=== PATIENT | male | born 1945 | race Caucasian/White ===

== ENCOUNTER 2016-11-26 09:14 | Emergency (ER) | payer MEDICARE ==
--- NOTE | 2016-11-26 09:29 | EKG REPORT ---
SEVERITY:- ABNORMAL ECG - SINUS RHYTHM RIGHT BUNDLE BRANCH BLOCK : Confirmed by: Stacie Selby 26-Nov-2016 09:28:24
[2016-11-26] MEDS ORDERED: DIPHENHYDRAMINE HCL 50 MG/ML VIAL IV ONE (10:15)
[2016-11-26] MEDS ORDERED: METOCLOPRAMIDE HCL INJ/PF 10 MG/2 ML SDV IV ONE (10:15)
--- NOTE | 2016-11-26 10:15 | ER Document Report ---
ED General - General Chief Complaint: Chest Pain Stated Complaint: HEAD PAIN Time seen by provider: 10:11 Mode of Arrival: Ambulatory Information source: Patient Notes: This is a 71-year-old man with a history of COPD, obstructive sleep apnea, hypertension, dyslipidemia and migraines in the past. The patient presents to the emergency room with gradual onset of a frontal headache. He denies any fever, chills, vomiting. He does admit to nausea. The patient had severe migraines when he was younger and has not had any recently. He denies that this is the worst headache of his life. TRAVEL OUTSIDE OF THE [place] IN LAST 30 DAYS: No - HPI Onset: Yesterday Onset/Duration: Gradual Quality of pain: Dull Severity: Moderate Pain Level: 3 Associated symptoms: denies: Chills, Fever, Shortness of breath Exacerbated by: Denies Relieved by: Denies Similar symptoms previously: Yes Recently seen / treated by doctor: Yes - Related Data Allergies/Adverse Reactions: lisinopril [Lisinopril] Allergy (Verified 10/04/16 08:48) moxifloxacin HCl [From Avelox] Allergy (Verified 10/04/16 08:48) acetaminophen [From Tylenol] Adverse Reaction (Verified 10/04/16 08:48) Past Medical History - Social History Smoking Status: Current Every Day Smoker Chew tobacco use (# tins/day): No Frequency of alcohol use: None Drug Abuse: None Lives with: Family Family History: CAD Patient has suicidal ideation: No Patient has homicidal ideation: No - Past Medical History Cardiac Medical History: Reports: Hx Hypercholesterolemia, Hx Hypertension Denies: Hx Coronary Artery Disease, Hx Heart Attack Pulmonary Medical History: Reports: Hx Bronchitis, Hx COPD, Hx Pneumonia Denies: Hx Asthma Neurological Medical History: Denies: Hx Cerebrovascular Accident, Hx Seizures Endocrine Medical History: Denies: Hx Diabetes Mellitus Type 2 Renal/ Medical History: Reports: Hx Renal Insufficiency. Denies: Hx Peritoneal Dialysis Musculoskeltal Medical History: Reports Hx Arthritis Psychiatric Medical History: Reports: Hx Depression Surgical Hx: Other - Noncontributory - Immunizations Hx Diphtheria, Pertussis, Tetanus Vaccination: No - unknown Hx Pneumococcal Vaccination: 10/23/12 Review of Systems - Review of Systems Constitutional: denies: Chills, Fever EENT: No symptoms reported Cardiovascular: No symptoms reported Respiratory: No symptoms reported Gastrointestinal: No symptoms reported Genitourinary: No symptoms reported Male Genitourinary: No symptoms reported Musculoskeletal: No symptoms reported Skin: No symptoms reported Hematologic/Lymphatic: No symptoms reported Neurological/Psychological: See HPI Physical Exam - Vital signs Vitals: Temp Pulse Resp BP Pulse Ox 97.7 F 111 H 20 136/83 H 97 11/26/16 09:30 11/26/16 09:30 11/26/16 09:30 11/26/16 09:30 11/26/16 09:30 Notes: Physical exam: GENERAL: 71-year-old man, alert and oriented 3, no acute distress. He does appear comfortable. His GCS is 15. HEAD: Atraumatic, normocephalic. EYES: Pupils equally round. He is legally blind in his left eye and there is minimal pupil constriction with light (this is probably a chronic finding). Extraocular movements intact, sclera anicteric, conjunctiva are normal. ENT: TMs normal, nares patent, oropharynx clear without exudates. Moist mucous membranes. NECK: Normal range of motion, supple without lymphadenopathy or JVD. LUNGS: Breath sounds clear to auscultation bilaterally and equal. No wheezes rales or rhonchi. HEART: Regular rate and rhythm without murmurs, rubs or gallops. ABDOMEN: Soft, nontender, normoactive bowel sounds. No guarding, no rebound. No masses appreciated. EXTREMITIES: Normal range of motion, no pitting or edema. No clubbing or cyanosis. NEUROLOGICAL: Cranial nerves II through XII grossly intact. Pupil findings as noted above. Motor is 5 over 5, sensory grossly intact, cerebellar (finger to nose) is very good. The patient's neck is supple. There is no Brudzinski's, no Kernig's. PSYCH: Normal mood, normal affect. SKIN: Warm, Dry, normal turgor, no rashes or lesions noted. Course - Re-evaluation Re-evalutation: 11/26/16 17:13 I reassessed this patient. He does state he still has a headache but is feeling better, states she's hungry and looks quite good. I've discussed with him that the only thing we have not done, is a spinal tap for the possibility of meningitis. However, he is not febrile, has vital signs are stable and his repeat neurologic exam shows a supple neck, no Brudzinski's and no Kernig's. He has had a spinal tap in the past and states he absolutely does not want one. Quite frankly, at this point in time, I don't think he has meningitis or an acute bleed and he certainly has no signs of meningismus so I do not feel that that is an appropriate test at this time. However, I have reviewed signs and symptoms to return for: Specifically, neck stiffness, worsening headache or fever (I told him he might need a spinal tap if he develops these signs). Otherwise, he is cannot continue his current pain medicines and follow-up with Dr. Herman in a week. Note: The patient is happy with this plan. He does state his hungry. 11/26/16 17:17 11/26/16 20:01 - Vital Signs Vital signs: Temp Pulse Resp BP Pulse Ox 97.7 F 111 H 23 H 149/94 H 96 11/26/16 09:30 11/26/16 09:30 11/26/16 17:01 11/26/16 17:01 11/26/16 17:01 - Laboratory Result Diagrams: 11/26/16 10:00 11/26/16 10:00 Laboratory results interpreted by me: 11/26/16 11/26/16 11/26/16 10:00 10:00 10:00 WBC 11.4 H Absolute Neutrophils 8.4 H Chloride 97 L Carbon Dioxide 31 H BUN 39 H Glucose 129 H Calcium 10.9 H Creatine Kinase 52 L - Diagnostic Test Radiology reviewed: Image reviewed, Reports reviewed - EKG Interpretation by Me Rate: Normal Rhythm: NSR - EKG shows normal sinus rhythm with a ventricular rate of 94, right bundle-branch block, no acute ST-T wave changes, no change from EKG 2015. Discharge - Discharge Bad tableCondition: Stable Disposition: HOME, SELF-CARE Instructions: Headache ([facility]), Reglan ([facility]) Additional Instructions: Recommendations: Rest, drink plenty of fluids, take your medicines as previously prescribed. Take the Reglan: Every 6-8 hours for headache As we discussed: Return to the emergency room for neck stiffness, fever ( temperature greater than 100.5), worsening headache. These could be signs for meningitis and you may need a spinal tap if you are developing any signs. Follow-up with Dr. Herman. Bring a copy of today's labs and x-ray report and CT report with you when you go. Let Dr. Herman note that your blood pressure was borderline high in the emergency room.The blood pressure was 189/ 84 at its highest. Shortly before discharge, the blood pressure was 149/94. Prescriptions: Metoclopramide HCl [Reglan 10 mg Tablet] 1 - 2 tab PO ASDIR PRN #25 tablet PRN Reason: Forms: Elevated Blood Pressure Referrals: DANY HERMAN MD [Primary Care Provider] - Follow up as needed (Follow-up as planned in a week. Have your blood pressure rechecked.)
[2016-11-26 10:16] LABS: ABSOLUTE BASOPHILS # (AUTO) 0.1 10^3/uL (0.0-0.2); ABSOLUTE EOSINOPHILS # (AUTO) 0.3 10^3/uL (0.0-0.6); ABSOLUTE LYMPHOCYTES (AUTO) 1.8 10^3/uL (0.5-4.7); ABSOLUTE MONOCYTES (AUTO) 0.8 10^3/uL (0.1-1.4); ABSOLUTE NEUT (AUTO) 8.4 10^3/uL (1.7-8.2); BASOPHILS % (AUTO) 0.8 % (0-2); EOSINOPHILS % (AUTO) 2.8 % (0-6); HEMATOCRIT 45.1 % (37.9-51.0); HEMOGLOBIN 15.8 g/dL (13.5-17.0); HGB HCT DIFFERENCE 2.3; LYMPHOCYTES % (AUTO) 15.3 % (13-45); MEAN CORPUSCULAR HEMOGLOBIN 31.8 pg (27.0-33.4); MEAN CORPUSCULAR HGB CONC 34.9 g/dL (32.0-36.0); MEAN CORPUSCULAR VOLUME 91 fl (80-97); MONOCYTES % (AUTO) 7.3 % (3-13); RED BLOOD COUNT 4.95 10^6/uL (4.35-5.55); RED CELL DISTRIBUTION WIDTH 13.4 % (11.5-14.0); SEGMENTED NEUTROPHILS % (AUTO) 73.8 % (42-78); WHITE BLOOD COUNT 11.4 10^3/uL (4.0-10.5)
[2016-11-26] MEDS ORDERED: HYDROMORPHONE HCL INJ/PF 2 MG/ML AMPULE IV ONE (10:16)
[2016-11-26 10:44] LABS: ALANINE AMINOTRANSFERASE 45 U/L (21-72); ALBUMIN 4.9 g/dL (3.5-5.0); ALKALINE PHOSPHATASE 90 U/L (38-126); ANION GAP 12 (5-19); ASPARTATE AMINO TRANSFERASE 29 U/L (17-59); BILIRUBIN,TOTAL 0.9 mg/dL (0.2-1.3); BLOOD UREA NITROGEN 39 mg/dL (7-20); CALCIUM 10.9 mg/dL (8.4-10.2); CARBON DIOXIDE 31 mmol/L (22-30); CHLORIDE 97 mmol/L (98-107); CREATININE RESULT 0.96 mg/dL (0.52-1.25); GLUCOSE 129 mg/dL (75-110); POTASSIUM 3.7 mmol/L (3.6-5.0); SODIUM 140.2 mmol/L (137-145); TOTAL PROTEIN 7.9 g/dL (6.3-8.2)
[2016-11-26 10:56] LABS: CREATINE KINASE MB 3.15 ng/mL (<4.55); TROPONIN I 0.018 ng/mL
[2016-11-26] MEDS ORDERED: NORMAL SALINE 1000 ML 1,000 ML IV PRN (11:06)
[2016-11-26 17:05] VITALS: BP 149/94
== END 2016-11-26 17:38 | disposition home or self-care (01) ==
LOC: ER 09:14
DX: R51 Headache (principal); I10 Essential (primary) hypertension; I45.10 Unspecified right bundle-branch block; H54.42 Blindness, left eye, normal vision right eye; R11.0 Nausea; J44.9 Chronic obstructive pulmonary disease, unspecified; F17.200 Nicotine dependence, unspecified, uncomplicated; Z86.69 Personal history of other diseases of the nervous system and sense organs; Z88.8 Allergy status to other drugs, medicaments and biological substances; Z88.1 Allergy status to other antibiotic agents
CPT/HCPCS: 93005; 99285; 96361; 96374; 96375; 36415; 82553; 82550; 85025; 80053; 84484; 71010; 70450; 93010; J1200; J2765; J1170; J7030

== ENCOUNTER 2017-01-27 14:08 | Inpatient (IN) | payer MEDICARE ==
--- NOTE | 2017-01-27 15:54 | ER Document Report ---
ED Medical Screen (RME) - General Chief Complaint: Chest Congestion Stated Complaint: COUGH/CONGESTION Notes: Patient is complaining of "tightness" all over his chest for the past 3 days. Pain goes around into the flank regions. This morning, he felt as if his throat was swollen and couldn't swallow symptoms have worsened today. Patient has been a lifelong smoker, although he stopped about 3 weeks ago. He says he is coughing up brown chunks of phlegm. Unaware of any fever. PMH: Hernia repair 6 months ago, low potassium, glaucoma, hypertension, chronic back and neck pain. TRAVEL OUTSIDE OF THE [place] IN LAST 30 DAYS: No - Related Data Allergies/Adverse Reactions: lisinopril [Lisinopril] Allergy (Verified 01/27/17 14:12) moxifloxacin HCl [From Avelox] Allergy (Verified 01/27/17 14:12) acetaminophen [From Tylenol] Adverse Reaction (Verified 01/27/17 14:12) Past Medical History - Past Medical History Cardiac Medical History: Reports: Hx Hypercholesterolemia, Hx Hypertension Denies: Hx Coronary Artery Disease, Hx Heart Attack Pulmonary Medical History: Reports: Hx Bronchitis, Hx COPD, Hx Pneumonia Denies: Hx Asthma Neurological Medical History: Denies: Hx Cerebrovascular Accident, Hx Seizures Endocrine Medical History: Denies: Hx Diabetes Mellitus Type 2 Renal/ Medical History: Reports: Hx Renal Insufficiency. Denies: Hx Peritoneal Dialysis Musculoskeltal Medical History: Reports Hx Arthritis Psychiatric Medical History: Reports: Hx Depression - Immunizations Hx Diphtheria, Pertussis, Tetanus Vaccination: No - unknown Physical Exam - Vital signs Vitals: Temp Pulse Resp BP Pulse Ox 97.5 F 135 H 24 H 138/85 H 93 01/27/17 14:14 01/27/17 14:14 01/27/17 14:14 01/27/17 14:14 01/27/17 14:14 Course - Vital Signs Vital signs: Temp Pulse Resp BP Pulse Ox 97.5 F 135 H 24 H 138/85 H 93 01/27/17 14:14 01/27/17 14:14 01/27/17 14:14 01/27/17 14:14 01/27/17 14:14
[2017-01-27 16:33] LABS: ABSOLUTE BASOPHILS # (AUTO) 0.1 10^3/uL (0.0-0.2); ABSOLUTE EOSINOPHILS # (AUTO) 0.3 10^3/uL (0.0-0.6); ABSOLUTE LYMPHOCYTES (AUTO) 1.7 10^3/uL (0.5-4.7); ABSOLUTE MONOCYTES (AUTO) 1.5 10^3/uL (0.1-1.4); ABSOLUTE NEUT (AUTO) 12.9 10^3/uL (1.7-8.2); BASOPHILS % (AUTO) 0.7 % (0-2); EOSINOPHILS % (AUTO) 1.7 % (0-6); HEMATOCRIT 43.1 % (37.9-51.0); HEMOGLOBIN 15.1 g/dL (13.5-17.0); HGB HCT DIFFERENCE 2.2; LYMPHOCYTES % (AUTO) 10.3 % (13-45); MEAN CORPUSCULAR HEMOGLOBIN 31.9 pg (27.0-33.4); MEAN CORPUSCULAR HGB CONC 35.1 g/dL (32.0-36.0); MEAN CORPUSCULAR VOLUME 91 fl (80-97); MONOCYTES % (AUTO) 9.2 % (3-13); RED BLOOD COUNT 4.73 10^6/uL (4.35-5.55); RED CELL DISTRIBUTION WIDTH 14.5 % (11.5-14.0); SEGMENTED NEUTROPHILS % (AUTO) 78.1 % (42-78); WHITE BLOOD COUNT 16.6 10^3/uL (4.0-10.5)
[2017-01-27] MEDS ORDERED: NORMAL SALINE 1000 ML 1,000 ML IV ONE (16:39)
[2017-01-27] MEDS ORDERED: IPRATROPIUM/ALBUTEROL 0.5-2.5 MG/3 ML AMPUL NEB ONE ×2 (16:40→17:38)
[2017-01-27 16:44] LABS: ALANINE AMINOTRANSFERASE 30 U/L (21-72); ALBUMIN 4.5 g/dL (3.5-5.0); ALKALINE PHOSPHATASE 110 U/L (38-126); ANION GAP 19 (5-19); ASPARTATE AMINO TRANSFERASE 25 U/L (17-59); BILIRUBIN,DIRECT 0.6 mg/dL (0.0-0.4); BILIRUBIN,TOTAL 1.4 mg/dL (0.2-1.3); BLOOD UREA NITROGEN 27 mg/dL (7-20); CALCIUM 10.4 mg/dL (8.4-10.2); CARBON DIOXIDE 30 mmol/L (22-30); CHLORIDE 92 mmol/L (98-107); CREATINE KINASE 61 U/L (55-170); CREATININE RESULT 1.05 mg/dL (0.52-1.25); GLUCOSE 126 mg/dL (75-110); POTASSIUM 3.6 mmol/L (3.6-5.0); SODIUM 141.2 mmol/L (137-145); TOTAL PROTEIN 8.1 g/dL (6.3-8.2)
[2017-01-27 16:57] LABS: CREATINE KINASE MB 1.09 ng/mL (<4.55); TROPONIN I 0.026 ng/mL
--- NOTE | 2017-01-27 17:01 | ER Document Report ---
ED General - General Mode of Arrival: Ambulatory Information source: Patient TRAVEL OUTSIDE OF THE [place] IN LAST 30 DAYS: No - HPI Patient complains to provider of: Chest Pain and Sore Throat Onset: Other - 3 days ago Associated symptoms: Other - see notes aboe <JERRY WADE - Last Filed: 01/27/17 17:57> <ROSANNEJOSH CHAN - Last Filed: 01/27/17 22:01> - General Chief Complaint: Chest Congestion Stated Complaint: COUGH/CONGESTION Notes: 71 year old male with history of COPD, hypertension, and hyperlipidemia and acute renal failure presents to the ED complaining of left lower rib pain and sore throat that started 3 days ago. Patient reports that he believes he has a "bug". Patient denies fever, but states that he has mild shortness of breath. ( JERRY WADE) - Related Data Allergies/Adverse Reactions: lisinopril [Lisinopril] Allergy (Verified 01/27/17 14:12) moxifloxacin HCl [From Avelox] Allergy (Verified 01/27/17 14:12) acetaminophen [From Tylenol] Adverse Reaction (Verified 01/27/17 14:12) Past Medical History - General Information source: Patient - Social History Smoking Status: Unknown if Ever Smoked Family History: CAD Patient has suicidal ideation: No Patient has homicidal ideation: No - Past Medical History Cardiac Medical History: Reports: Hx Hypercholesterolemia, Hx Hypertension Pulmonary Medical History: Reports: Hx Bronchitis, Hx COPD, Hx Pneumonia Renal/ Medical History: Reports: Hx Renal Insufficiency. Denies: Hx Peritoneal Dialysis Musculoskeltal Medical History: Reports Hx Arthritis Psychiatric Medical History: Reports: Hx Depression - Immunizations Hx Diphtheria, Pertussis, Tetanus Vaccination: No - unknown Hx Pneumococcal Vaccination: 10/23/12 <JERRY WADE - Last Filed: 01/27/17 17:57> Review of Systems - Review of Systems Constitutional: No symptoms reported. denies: Fever EENT: See HPI, Throat pain Cardiovascular: See HPI, Chest pain - left lower rib pain Respiratory: See HPI, Short of breath - mild Gastrointestinal: No symptoms reported Genitourinary: No symptoms reported Male Genitourinary: No symptoms reported Musculoskeletal: No symptoms reported Skin: No symptoms reported Hematologic/Lymphatic: No symptoms reported Neurological/Psychological: No symptoms reported -: Yes All other systems reviewed and negative <JERRY WADE - Last Filed: 01/27/17 17:57> Physical Exam - Vital signs Interpretation: Tachycardic, Hypoxic, Tachypneic - General General appearance: Alert In distress: Mild - HEENT Head: Normocephalic, Atraumatic Extraocular movements intact: Yes Mucous membranes: Dry Pharynx: Normal Neck: Normal - Respiratory Respiratory status: Respiratory distress - mild, Tachypnea Chest status: Tender - anterior chest wall TTP Breath sounds: Decreased air movement - b/l, Wheezing - Abdominal Inspection: Normal Tenderness: Nontender - Back Back: Normal, Nontender - Extremities General upper extremity: Normal inspection, Normal ROM General lower extremity: Normal inspection, Normal ROM - Neurological Neuro grossly intact: Yes Cognition: Normal Orientation: AAOx4 [place] Coma Scale Eye Opening: Spontaneous [place] Coma Scale Verbal: Oriented [place] Coma Scale Motor: Obeys Commands Romelia Coma Scale Total: 15 - Psychological Associated symptoms: Normal affect, Normal mood - Skin Skin Temperature: Warm Skin Moisture: Dry <JOSH LAY - Last Filed: 01/27/17 22:01> - Vital signs Vitals: Temp Pulse Resp BP Pulse Ox 97.5 F 135 H 24 H 138/85 H 93 01/27/17 14:14 01/27/17 14:14 01/27/17 14:14 01/27/17 14:14 01/27/17 14:14 Course - Laboratory Result Diagrams: 01/27/17 16:00 01/27/17 16:00 - Consults Dr. Zeng Time consulted: 17:43 <JERRY WADE - Last Filed: 01/27/17 17:57> - Laboratory Result Diagrams: 01/27/17 16:00 01/27/17 16:00 - Diagnostic Test Radiology reviewed: Image reviewed, Reports reviewed - EKG Interpretation by Me EKG shows normal: Sinus rhythm Rate: Normal Rhythm: NSR <JOSH LAY - Last Filed: 01/27/17 22:01> - Re-evaluation Re-evalutation: 01/27/17 Patient is a 8-year-old male who presents with difficulty breathing, productive cough for the last 2-3 days, wheezing, and hypoxemia. He is not on oxygen at home. The patient does not have a fever. Patient did not produce sputum the emergency department. Patient was given nebulizer treatments and Solu-Medrol. Patient continues to wheeze and has hypoxemia with exertion. No chest pain. Troponin negative. No changes on EKG. Patient is in a sinus rhythm. Patient will be referred to the hospitalist service for admission. Stable at this time. Agrees with plan. (JOSH LAY) - Vital Signs Vital signs: Temp Pulse Resp BP Pulse Ox 97.5 F 135 H 24 H 138/85 H 93 01/27/17 14:14 01/27/17 14:14 01/27/17 14:14 01/27/17 14:14 01/27/17 14:14 - Laboratory Laboratory results interpreted by me: 01/27/17 01/27/17 16:00 16:00 WBC 16.6 H RDW 14.5 H Seg Neutrophils % 78.1 H Lymphocytes % 10.3 L Absolute Neutrophils 12.9 H Absolute Monocytes 1.5 H Chloride 92 L BUN 27 H Glucose 126 H Calcium 10.4 H Total Bilirubin 1.4 H Direct Bilirubin 0.6 H - EKG Interpretation by Me Additional EKG results interpreted by me: 01/27/17 No change from previous (JOSH LAY) - Consults Dr. Zeng Reason for consultation: 01/27/17 17:43 Patient was discussed with Dr. Zeng and agrees to admit the patient. (JERRY WADE) Critical Care Note - Critical Care Note Total time excluding time spent on procedures (mins): 35 - evaluation and management of respiratory distress, multiple re-evaluations, coordination of admission, counseling of patient <JOSH LAY - Last Filed: 01/27/17 22:01> Discharge <JERRY WADE - Last Filed: 01/27/17 17:57> - Discharge Admitting Provider: Abhi Zeng Unit Admitted: Telemetry <JOSH LAY - Last Filed: 01/27/17 22:01> - Discharge Clinical Impression: COPD exacerbation, Hypoxemia, Respiratory distress Condition: Stable Disposition: ADMITTED INPATIENT Scribe Attestation: 01/27/17 22:01 I personally performed the services described in the documentation, reviewed and edited the documentation which was dictated to the scribe in my presence, and it accurately records my words and actions. (JOSH LAY) Scribe Documentation - Scribe Written by Eric:: Eric Lewis, 01/27/2017 1726 acting as scribe for :: Rosanne <JERRY WADE - Last Filed: 01/27/17 17:57>
[2017-01-27] MEDS ORDERED: DOXYCYCLINE HYCLATE INJ 100 MG VIAL IV ONE (17:38)
[2017-01-27] MEDS ORDERED: METHYLPREDNISOLONE INJ 125 MG/2 ML SDV IV ONE (17:45)
[2017-01-27] MEDS: MAGNESIUM SULFATE/D5W 100 ML IV SCH ×2 (18:40→21:04)
[2017-01-27] MEDS ORDERED: NORMAL SALINE 1000 ML 1,000 ML IV PRN (18:59)
[2017-01-27] MEDS ORDERED: MAGNESIUM HYDROXIDE SUSP 30 ML UDCUP PO PRN (18:59)
[2017-01-27 20:54] LABS: APPEARANCE,URINE SLIGHTLY-CLOUDY; BILIRUBIN,URINE NEGATIVE (NEGATIVE); GLUCOSE, URINE NEGATIVE (NEGATIVE); KETONES,URINE NEGATIVE (NEGATIVE); LEUKOCYTE ESTERASE,URINE NEGATIVE (NEGATIVE); NITRITE,URINE NEGATIVE (NEGATIVE); PROTEIN,URINE >=500 mg/dL (NEGATIVE)
[2017-01-27] MEDS: PIPERACILLIN SODIUM/TAZOBACTAM 3.375 GM in NORMAL SALINE 100 ML IV SCH (21:07)
[2017-01-27] MEDS: IPRATROPIUM/ALBUTEROL 0.5-2.5 MG/3 ML AMPUL NEB SCH (21:10)
[2017-01-27] MEDS: METHYLPREDNISOLONE INJ 40 MG/1 ML SDV IV SCH (22:22)
--- NOTE | 2017-01-27 22:29 | EKG REPORT ---
SEVERITY:- ABNORMAL ECG - SINUS TACHYCARDIA RIGHT BUNDLE BRANCH BLOCK : Confirmed by: Carrie Cantu MD 27-Jan-2017 22:28:00
[2017-01-27 23:47] LABS: ARTERIAL BLOOD O2 SATURATION 97.3 % (94-98)
[2017-01-28] MEDS: PIPERACILLIN SODIUM/TAZOBACTAM 3.375 GM in NORMAL SALINE 100 ML IV SCH ×4 (02:59→20:10)
[2017-01-28] MEDS: LANSOPRAZOLE 15 MG TAB.RAP.DR PO SCH (06:11)
[2017-01-28] MEDS: METHYLPREDNISOLONE INJ 40 MG/1 ML SDV IV SCH ×3 (06:11→22:54)
[2017-01-28 06:32] LABS: ABSOLUTE LYMPHOCYTES (AUTO) 0.7 10^3/uL (0.5-4.7); ABSOLUTE MONOCYTES (AUTO) 0.2 10^3/uL (0.1-1.4); ABSOLUTE NEUT (AUTO) 11.1 10^3/uL (1.7-8.2); BASOPHILS % (AUTO) 0.1 % (0-2); EOSINOPHILS % (AUTO) 0.1 % (0-6); HEMATOCRIT 38.8 % (37.9-51.0); HEMOGLOBIN 13.9 g/dL (13.5-17.0); HGB HCT DIFFERENCE 2.9; LYMPHOCYTES % (AUTO) 5.5 % (13-45); MEAN CORPUSCULAR HEMOGLOBIN 32.2 pg (27.0-33.4); MEAN CORPUSCULAR HGB CONC 35.9 g/dL (32.0-36.0); MEAN CORPUSCULAR VOLUME 90 fl (80-97); MONOCYTES % (AUTO) 1.6 % (3-13); RED BLOOD COUNT 4.34 10^6/uL (4.35-5.55); RED CELL DISTRIBUTION WIDTH 14.4 % (11.5-14.0); SEGMENTED NEUTROPHILS % (AUTO) 92.7 % (42-78)
[2017-01-28] MEDS: IPRATROPIUM/ALBUTEROL 0.5-2.5 MG/3 ML AMPUL NEB SCH ×3 (08:46→20:16)
[2017-01-28] MEDS: ENOXAPARIN SODIUM INJ 40 MG/0.4 ML DISP.SYRIN SUBCUT SCH (10:05)
[2017-01-28] MEDS ORDERED: SPIRONOLACTONE 25 MG TABLET PO PRN (10:09)
[2017-01-28] MEDS ORDERED: HYDROMORPHONE HCL INJ/PF 2 MG/ML AMPULE IV PRN (10:11)
[2017-01-28] MEDS: DOCUSATE SODIUM 100 MG CAPSULE PO SCH (10:54)
[2017-01-28] MEDS ORDERED: AMLODIPINE BESYLATE 5 MG TABLET PO ONE (11:00)
[2017-01-28] MEDS ORDERED: MAGNESIUM OXIDE 400 MG TABLET PO ONE (11:00)
[2017-01-28] MEDS ORDERED: VENLAFAXINE HCL 75 MG TABLET PO ONE (11:00)
[2017-01-28] MEDS: POTASSIUM CHLORIDE 10 MEQ TABLET.SA PO SCH ×3 (13:08→23:54)
--- NOTE | 2017-01-28 14:17 | PDOC H&P ---
History of Present Illness Admission Date/PCP: 01/27/17 18:45 Lloyd Marmolejo MD Patient complains of: dyspnea and worsening cough History of Present Illness: LUTHER LIPSCOMB is a 71 year old male presents to the hospital with a three- day history of progressive worsening shortness of breath, increased sputum production of a yellow-green purulent appearance, increasing wheezing, increasing rescue inhaler use, sore throat, myalgias and arthralgias. He reports numerous sick contacts multiple family members have been ill with upper respiratory symptoms. He received his influenza and pneumonia vaccine earlier this season. He denies fever, chills, headache, chest pain, palpitations, nausea and vomiting and diarrhea. He does not wear home O2 nor does he have a nebulizer machine nor is he steroid dependent. Eval in the emergency department shows what appears to be a COPD exacerbation with an acute bacterial bronchitis and we've been asked to admit for further evaluation and management. Here physician reports that he was 78% on room air but came up to 92% on 2 L. He is otherwise hemodynamically stable. Past Medical History Cardiac Medical History: Reports: Hyperlipidema, Hypertension Denies: Coronary Artery Disease, Myocardial Infarction Pulmonary Medical History: Reports: Bronchitis, Chronic Obstructive Pulmonary Disease (COPD), Pneumonia Denies: Asthma Neurological Medical History: Denies: Seizures Endocrine Medical History: Denies: Diabetes Mellitus Type 2 Musculoskeltal Medical History: Reports: Arthritis Psychiatric Medical History: Reports: Depression Hematology: Denies: Anemia Social History Information Source: Patient Smoking Status: Former Smoker - quit this past December Frequency of Alcohol Use: None Hx Recreational Drug Use: No Drugs: None Hx Prescription Drug Abuse: No - Advance Directive Resuscitation Status: Full Code Family History Family History: CAD Parental Family History Reviewed: Yes Children Family History Reviewed: Yes Sibling(s) Family History Reviewed.: Yes Medication/Allergy Home Medications: Amlodipine Besylate [Norvasc 5 mg Tablet] 5 mg PO DAILY 01/27/17 Docusate Sodium [Colace 100 mg Capsule] 100 mg PO QHS 01/27/17 Fluticasone/Vilanterol [Breo Ellipta 200-25 Mcg INH] 1 puff IH DAILY 01/27/17 Hydromorphone HCl [Dilaudid] 4 mg PO Q4HP PRN 01/27/17 Magnesium Oxide [Mag-Ox 400 mg Tablet] 400 mg PO Q12 01/27/17 Methylcellulose [Fiber Therapy] 500 mg PO Q12 01/27/17 Potassium Chloride [K-Tab ER] 20 meq PO Q6 01/27/17 Pravastatin Sodium [Pravachol] 40 mg PO QHS 01/27/17 Spironolactone [Aldactone 25 mg Tablet] 25 mg PO DAILYP PRN 01/27/17 Venlafaxine HCl [Effexor 75 mg Tablet] 75 mg PO Q12 01/27/17 Allergies/Adverse Reactions: lisinopril [Lisinopril] Allergy (Verified 01/27/17 14:12) moxifloxacin HCl [From Avelox] Allergy (Verified 01/27/17 14:12) acetaminophen [From Tylenol] Adverse Reaction (Verified 01/27/17 14:12) Review of Systems Constitutional: ABSENT: chills, fever(s), headache(s), weight gain, weight loss Eyes: ABSENT: visual disturbances Ears: ABSENT: hearing changes Cardiovascular: ABSENT: chest pain, dyspnea on exertion, edema, orthropnea, palpitations Respiratory: ABSENT: cough, hemoptysis Gastrointestinal: ABSENT: abdominal pain, constipation, diarrhea, hematemesis, hematochezia, nausea, vomiting Genitourinary: ABSENT: dysuria, hematuria Musculoskeletal: ABSENT: joint swelling Integumentary: ABSENT: rash, wounds Neurological: ABSENT: abnormal gait, abnormal speech, confusion, dizziness, focal weakness, syncope Psychiatric: ABSENT: anxiety, depression, homidical ideation, suicidal ideation Endocrine: ABSENT: cold intolerance, heat intolerance, polydipsia, polyuria Hematologic/Lymphatic: ABSENT: easy bleeding, easy bruising Physical Exam Vital Signs: Temp Pulse Resp BP Pulse Ox 97.5 F 135 H 24 H 138/85 H 93 01/27/17 14:14 01/27/17 14:14 01/27/17 14:14 01/27/17 14:14 01/27/17 14:14 PHYSICAL EXAM GENERAL: NAD; well developed, well nourished; no obese; alert and oriented to person, place, time, situation HEENT: normocephalic, atraumatic; EOMI, PERRLA, no conjunctival injection, no scleral icterus; oral mucosa moist,; neck supple, no LAD, normal ROM poor dentition RESPIRATORY: abdominal accessory muscle use, mild increased WOB, good air entry bilaterally; no wheezes, rales, rhonchi; no inspiratory crackles CARDIO: no JVD; RRR; no systolic murmur; tachycardia with incomplete RBBB on monitor VASCULAR: no carotid bruit; no abdominal bruit; no pallor; 2+ radial pulse GI: soft; nondistended; normal bowel sounds; no hepato spleno megaly; no rebound, rigidity, guarding NEURO: normal patella reflexes; normal sensation; normal motor function; no gait abnls; no dysarthria; no nystagmus; tongue protrudes midline; normal finger to nose; able to cross midline with finger to ear MSK: 5/5 strength; normal ROM hips; ambulatory without assistance; no tenderness EXTREMITIES: no calf tender; no palpable cords in calf; no clubbing, cyanosis , pedal edema PSYCH: normal affect, normal mood SKIN: warm; moist; no petechiae; no telengectasias; no jaundice; no rash Results Laboratory Results: cbc shows leukocytosis, abg shows pH 7.51, pCO2 38, pO2 87, HCO3 29, Dani normal Impressions: Chest X-Ray 01/27/17 15:51 IMPRESSION: REACTIVE AIRWAY DISEASE VERSUS VIRAL SYNDROME. NO CONSOLIDATION. Status: Image reviewed by me - no new focal area of disease i can see Assessment & Plan - Diagnosis (1) Acute bacterial bronchitis Is this a current diagnosis for this admission?: YesPlan: IV Zosyn; screen for influenza (2) COPD exacerbation Is this a current diagnosis for this admission?: YesPlan: IV systemic steroids, so we'll follow to wean as tolerated, scheduled and as needed nebulizers, incentive spirometer and flutter valve. (3) Hypoxemia Is this a current diagnosis for this admission?: YesPlan: Supplemental O2 and treat as above. - Time Time Spent: Greater than 70 Minutes Medications reviewed and adjusted accordingly: Yes Anticipated discharge: Home Within: within 48 hours - Inpatient Certification Based on my medical assessment, after consideration of the patient's comorbidities, presenting symptoms, or acuity I expect that the services needed warrant INPATIENT care.: Yes I certify that my determination is in accordance with my understanding of Medicare's requirements for reasonable and necessary INPATIENT services [42 CFR 412.3e].: Yes Medical Necessity: Failure to Improve With Outpatient Therapy, Significant Comorbidiites Make Outpatient Treatment Too Risky, Need for IV Antibiotics, Risk of Complication if Not Cared For in Hospital
--- NOTE | 2017-01-28 14:27 | PDOC PROGRESS REPORT ---
Subjective Progress Note for:: 01/28/17 Subjective:: Reason for follow-up visit: Acute bacterial bronchitis, COPD exacerbation, acute on chronic hypoxic respiratory failure Hospital course:LUTHER LIPSCOMB is a 71 year old male presents to the hospital with a three-day history of progressive worsening shortness of breath, increased sputum production of a yellow-green purulent appearance, increasing wheezing, increasing rescue inhaler use, sore throat, myalgias and arthralgias. He reports numerous sick contacts multiple family members have been ill with upper respiratory symptoms. He received his influenza and pneumonia vaccine earlier this season. He denies fever, chills, headache, chest pain, palpitations, nausea and vomiting and diarrhea. He does not wear home O2 nor does he have a nebulizer machine nor is he steroid dependent. Eval in the emergency department shows what appears to be a COPD exacerbation with an acute bacterial bronchitis and we've been asked to admit for further evaluation and management. Here physician reports that he was 78% on room air but came up to 92% on 2 L. He is otherwise hemodynamically stable. Patient was admitted to the hospital and started on broad-spectrum antibiotics and systemic IV steroids with scheduled nebulizers and states his breathing has improved though not quite back to baseline. ROS: Complaining of acute exacerbation of his lower chronic back pain, states that we have not yet entered his home medications and he is a little behind on his pain medicines as a result. Otherwise he denies chest pain, palpitations, headache. States his cough with phlegm of improved but not quite resolved. Otherwise remaining ROS: per HPI plus a total of 10 systems reviewed, pertinent positives and negatives noted above, remaining systems negative. Physical Exam Vital Signs: Temp Pulse Resp BP Pulse Ox 97.3 F 107 H 20 146/68 H 96 01/28/17 11:04 01/28/17 11:04 01/28/17 11:04 01/28/17 11:04 01/28/17 11:04 Intake & Output 01/27/17 01/28/17 01/29/17 06:59 06:59 06:59 Weight 82 kg PHYSICAL EXAM GENERAL: NAD; well developed, well nourished; no obese; alert and oriented to person, place, time, situation HEENT: normocephalic, atraumatic; EOMI, PERRLA, no conjunctival injection, no scleral icterus; oral mucosa moist,; neck supple, no LAD, normal ROM poor dentition RESPIRATORY: abdominal accessory muscle use, mild increased WOB, good air entry bilaterally;diffuse wheezes and rhonchi; bilat inspiratory crackles CARDIO: no JVD; RRR; no systolic murmur; tachycardia with incomplete RBBB on monitor VASCULAR: no carotid bruit; no abdominal bruit; no pallor; 2+ radial pulse GI: soft; nondistended; normal bowel sounds; no hepato spleno megaly; no rebound, rigidity, guarding NEURO: normal patella reflexes; normal sensation; normal motor function; no gait abnls; no dysarthria; no nystagmus; tongue protrudes midline; normal finger to nose; able to cross midline with finger to ear MSK: 5/5 strength; normal ROM hips; ambulatory without assistance; no tenderness EXTREMITIES: no calf tender; no palpable cords in calf; no clubbing, cyanosis , pedal edema PSYCH: normal affect, normal mood SKIN: warm; moist; no petechiae; no telengectasias; no jaundice; no rash Results Laboratory Results: 01/28/17 06:17 01/27/17 01/27/17 01/28/17 20:30 22:33 06:17 WBC 12.0 H RBC 4.34 L Hgb 13.9 Hct 38.8 MCV 90 MCH 32.2 MCHC 35.9 RDW 14.4 H Plt Count 279 Seg Neutrophils % 92.7 H Lymphocytes % 5.5 L Monocytes % 1.6 L Eosinophils % 0.1 Basophils % 0.1 Absolute Neutrophils 11.1 H Absolute Lymphocytes 0.7 Absolute Monocytes 0.2 Absolute Eosinophils 0.0 Absolute Basophils 0.0 Carbonic Acid 1.15 HCO3/H2CO3 Ratio 25:1 ABG pH 7.51 H ABG pCO2 38.1 ABG pO2 86.5 ABG HCO3 29.4 H ABG O2 Saturation 97.3 ABG Base Excess 6.0 FiO2 2 L Urine Color YELLOW Urine Appearance SLIGHTLY-CLOUDY Urine pH 7.0 Ur Specific [place] 1.020 Urine Protein >=500 H Urine Glucose (UA) NEGATIVE Urine Ketones NEGATIVE Urine Blood NEGATIVE Urine Nitrite NEGATIVE Ur Leukocyte Esterase NEGATIVE Urine WBC (Auto) 1 Urine RBC (Auto) 1 Assessment & Plan - Diagnosis (1) Acute bacterial bronchitis Is this a current diagnosis for this admission?: YesPlan: Improved but not back to baseline. In 10 year IV Zosyn; screen for influenza was negative. (2) COPD exacerbation Is this a current diagnosis for this admission?: YesPlan: Improved but not back to baseline. Continue IV systemic steroids, wean as tolerated, scheduled and as needed nebulizers, incentive spirometer and flutter valve. (3) Hypoxemia Is this a current diagnosis for this admission?: YesPlan: Improved. Supplemental O2 and treat as above. (4) Chronic low back pain Qualifiers: Back pain laterality: bilateral Sciatica laterality: bilateral sciatica Is this a current diagnosis for this admission?: YesPlan: Worse. Resume home medicine and add supplemental analgesia as needed (5) Narcotic dependence Is this a current diagnosis for this admission?: YesPlan: Resume his home regimen with supplemental IV medicines (6) HTN (hypertension) Qualifiers: Hypertension type: essential hypertension Qualified Code(s): I10 - Essential (primary) hypertension Is this a current diagnosis for this admission?: YesPlan: Worse. Resume home regimen and titrate. (7) Hyperlipidemia Qualifiers: Hyperlipidemia type: unspecified Qualified Code(s): E78.5 - Hyperlipidemia, unspecified Is this a current diagnosis for this admission?: YesPlan: Continue home medicines (8) JENAE (obstructive sleep apnea) Is this a current diagnosis for this admission?: YesPlan: Patient states he is supposed to wear CPAP at night but the hose and mask as deteriorated on his machine at home. Consult social security benefits interviewer for assistance with durable medical equipment. Nocturnal CPAP while hospitalized. - Time Time Spent with patient: 25-34 minutes Medications reviewed and adjusted accordingly: Yes Anticipated discharge: Home Within: within 72 hours
[2017-01-28] MEDS: HYDROMORPHONE HCL INJ/PF 2 MG/ML AMPULE IV PRN ×2 (14:41→20:11)
[2017-01-28] MEDS: HYDROMORPHONE HCL 2 MG TABLET PO PRN ×2 (18:07→22:54)
[2017-01-28] MEDS ORDERED: (PENDING PHARMACY ID) (Pravastatin Sodium [Pravachol] 40 MG) PO SCH (22:00)
[2017-01-28] MEDS: ATORVASTATIN CALCIUM 10 MG TABLET PO SCH (22:55)
[2017-01-28] MEDS: VENLAFAXINE HCL 75 MG TABLET PO SCH (22:55)
[2017-01-28] MEDS: MAGNESIUM OXIDE 400 MG TABLET PO SCH (22:55)
[2017-01-29] MEDS: HYDROMORPHONE HCL INJ/PF 2 MG/ML AMPULE IV PRN ×2 (02:01→20:55)
[2017-01-29] MEDS: PIPERACILLIN SODIUM/TAZOBACTAM 3.375 GM in NORMAL SALINE 100 ML IV SCH ×4 (02:03→20:55)
[2017-01-29] MEDS: LANSOPRAZOLE 15 MG TAB.RAP.DR PO SCH (06:21)
[2017-01-29] MEDS: METHYLPREDNISOLONE INJ 40 MG/1 ML SDV IV SCH ×3 (06:21→22:46)
[2017-01-29] MEDS: HYDROMORPHONE HCL 2 MG TABLET PO PRN ×2 (06:21→15:24)
[2017-01-29] MEDS: POTASSIUM CHLORIDE 10 MEQ TABLET.SA PO SCH ×4 (06:21→22:46)
[2017-01-29 06:31] LABS: HEMATOCRIT 33.2 % (37.9-51.0); HEMOGLOBIN 11.9 g/dL (13.5-17.0); HGB HCT DIFFERENCE 2.5; MEAN CORPUSCULAR HEMOGLOBIN 32.1 pg (27.0-33.4); MEAN CORPUSCULAR HGB CONC 35.8 g/dL (32.0-36.0); MEAN CORPUSCULAR VOLUME 90 fl (80-97); RED CELL DISTRIBUTION WIDTH 14.5 % (11.5-14.0); WHITE BLOOD COUNT 18.4 10^3/uL (4.0-10.5)
[2017-01-29 07:24] LABS: BAND NEUTROPHILS % (MANUAL) 1 % (3-5); BASOPHILS % (MANUAL) 0 % (0-2); EOSINOPHILS % (MANUAL) 0 % (0-6); LYMPHOCYTES % (MANUAL) 6 % (13-45); TOTAL CELLS COUNTED 100
[2017-01-29 07:25] LABS: ANISOCYTOSIS SLIGHT; POLYCHROMASIA SLIGHT
[2017-01-29] MEDS: IPRATROPIUM/ALBUTEROL 0.5-2.5 MG/3 ML AMPUL NEB SCH (09:01)
[2017-01-29] MEDS: DOCUSATE SODIUM 100 MG CAPSULE PO SCH (09:44)
[2017-01-29] MEDS: MAGNESIUM OXIDE 400 MG TABLET PO SCH ×2 (09:44→22:47)
[2017-01-29] MEDS: AMLODIPINE BESYLATE 5 MG TABLET PO SCH (09:44)
[2017-01-29] MEDS: VENLAFAXINE HCL 75 MG TABLET PO SCH ×2 (09:45→22:46)
[2017-01-29] MEDS: ENOXAPARIN SODIUM INJ 40 MG/0.4 ML DISP.SYRIN SUBCUT SCH (09:45)
[2017-01-29] MEDS ORDERED: SODIUM CHLORIDE NASAL SPRAY 44 ML NASL ONE (12:00)
--- NOTE | 2017-01-29 14:07 | PDOC PROGRESS REPORT ---
Subjective Progress Note for:: 01/29/17 Subjective:: Reason for follow-up visit: Acute bacterial bronchitis, COPD exacerbation, acute on chronic hypoxic respiratory failure Hospital course:LUTHER LIPSCOMB is a 71 year old male presents to the hospital with a three-day history of progressive worsening shortness of breath, increased sputum production of a yellow-green purulent appearance, increasing wheezing, increasing rescue inhaler use, sore throat, myalgias and arthralgias. He reports numerous sick contacts multiple family members have been ill with upper respiratory symptoms. He received his influenza and pneumonia vaccine earlier this season. He denies fever, chills, headache, chest pain, palpitations, nausea and vomiting and diarrhea. He does not wear home O2 nor does he have a nebulizer machine nor is he steroid dependent. Eval in the emergency department shows what appears to be a COPD exacerbation with an acute bacterial bronchitis and we've been asked to admit for further evaluation and management. Here physician reports that he was 78% on room air but came up to 92% on 2 L. He is otherwise hemodynamically stable. Patient was admitted to the hospital and started on broad-spectrum antibiotics and systemic IV steroids with scheduled nebulizers and states his breathing has improved though not quite back to baseline. ROS: he denies chest pain, palpitations, headache. States his cough with phlegm of improved but not quite resolved. Otherwise remaining ROS: per HPI plus a total of 10 systems reviewed, pertinent positives and negatives noted above, remaining systems negative. Physical Exam Vital Signs: Temp Pulse Resp BP Pulse Ox 98.2 F 113 H 16 142/66 H 97 01/29/17 12:04 01/29/17 12:04 01/29/17 12:04 01/29/17 12:04 01/29/17 12:04 Intake & Output 01/28/17 01/29/17 01/30/17 06:59 06:59 06:59 Intake Total 1999 Output Total 0 Balance 1999 Weight 85.8 kg PHYSICAL EXAM GENERAL: NAD; well developed, well nourished; no obese; alert and oriented to person, place, time, situation HEENT: normocephalic, atraumatic, no conjunctival injection, no scleral icterus ; oral mucosa moist,; neck supple, no LAD, normal ROM poor dentition RESPIRATORY: no accessory muscle use, no increased WOB, good air entry bilaterally;no wheezes or rhonchi; bilat inspiratory crackles and coarse CARDIO: no JVD; RRR; no systolic murmur; tachycardia VASCULAR: no carotid bruit; no abdominal bruit; no pallor; 2+ radial pulse GI: soft; nondistended; normal bowel sounds; no hepato spleno megaly; no rebound, rigidity, guarding NEURO: normal patella reflexes; normal sensation; normal motor function; no dysarthria; tongue protrudes midline; normal finger to nose; able to cross midline with finger to ear MSK: 5/5 strength; normal ROM hips; ambulatory without assistance per staff; no tenderness EXTREMITIES: no calf tender; no palpable cords in calf; no clubbing, cyanosis , pedal edema PSYCH: normal affect, normal mood SKIN: warm; moist; no petechiae; no telengectasias; no jaundice; no rash Results Laboratory Results: 01/29/17 06:08 01/29/17 01/29/17 04:41 06:08 WBC Cancelled 18.4 H RBC Cancelled 3.70 L Hgb Cancelled 11.9 L Hct Cancelled 33.2 L MCV Cancelled 90 MCH Cancelled 32.1 MCHC Cancelled 35.8 RDW Cancelled 14.5 H Plt Count Cancelled 291 Seg Neutrophils % Cancelled Not Reportable Lymphocytes % Cancelled Not Reportable Monocytes % Cancelled Not Reportable Eosinophils % Cancelled Not Reportable Basophils % Cancelled Not Reportable Absolute Neutrophils Cancelled Not Reportable Absolute Lymphocytes Cancelled Not Reportable Absolute Monocytes Cancelled Not Reportable Absolute Eosinophils Cancelled Not Reportable Absolute Basophils Cancelled Not Reportable Impressions: Chest X-Ray 01/27/17 15:51 IMPRESSION: REACTIVE AIRWAY DISEASE VERSUS VIRAL SYNDROME. NO CONSOLIDATION. Assessment & Plan - Diagnosis (1) Acute bacterial bronchitis Is this a current diagnosis for this admission?: YesPlan: Improved but not back to baseline. continue IV Zosyn; screen for influenza was negative. (2) COPD exacerbation Is this a current diagnosis for this admission?: YesPlan: Improved but not back to baseline. Continue IV systemic steroids, wean as tolerated, scheduled and as needed nebulizers, incentive spirometer and flutter valve. (3) Hypoxemia Is this a current diagnosis for this admission?: Yes (4) Chronic low back pain Qualifiers: Back pain laterality: bilateral Sciatica laterality: bilateral sciatica Is this a current diagnosis for this admission?: Yes (5) Narcotic dependence Is this a current diagnosis for this admission?: Yes (6) HTN (hypertension) Qualifiers: Hypertension type: essential hypertension Qualified Code(s): I10 - Essential (primary) hypertension Is this a current diagnosis for this admission?: Yes (7) Hyperlipidemia Qualifiers: Hyperlipidemia type: unspecified Qualified Code(s): E78.5 - Hyperlipidemia, unspecified Is this a current diagnosis for this admission?: Yes (8) JENAE (obstructive sleep apnea) Is this a current diagnosis for this admission?: Yes - Time Time Spent with patient: 25-34 minutes Medications reviewed and adjusted accordingly: Yes Within: within 24 hours
[2017-01-29] MEDS: SODIUM CHLORIDE NASAL SPRAY 44 ML NASL SCH ×2 (15:25→22:47)
[2017-01-29] MEDS: ATORVASTATIN CALCIUM 10 MG TABLET PO SCH (22:47)
[2017-01-30] MEDS: PIPERACILLIN SODIUM/TAZOBACTAM 3.375 GM in NORMAL SALINE 100 ML IV SCH ×4 (03:00→22:08)
[2017-01-30 04:35] LABS: HEMATOCRIT 33.6 % (37.9-51.0); HEMOGLOBIN 11.9 g/dL (13.5-17.0); HGB HCT DIFFERENCE 2.1; MEAN CORPUSCULAR HGB CONC 35.3 g/dL (32.0-36.0); MEAN CORPUSCULAR VOLUME 91 fl (80-97); RED BLOOD COUNT 3.71 10^6/uL (4.35-5.55); RED CELL DISTRIBUTION WIDTH 14.4 % (11.5-14.0); WHITE BLOOD COUNT 16.5 10^3/uL (4.0-10.5)
[2017-01-30 04:57] LABS: BASOPHILS % (MANUAL) 0 % (0-2); EOSINOPHILS % (MANUAL) 0 % (0-6); LYMPHOCYTES % (MANUAL) 4 % (13-45); TOTAL CELLS COUNTED 100
[2017-01-30 04:58] LABS: TOXIC GRANULATION 1+
[2017-01-30 04:59] LABS: POLYCHROMASIA SLIGHT
[2017-01-30] MEDS: HYDROMORPHONE HCL 2 MG TABLET PO PRN ×3 (06:20→22:02)
[2017-01-30] MEDS: POTASSIUM CHLORIDE 10 MEQ TABLET.SA PO SCH ×3 (06:21→17:43)
[2017-01-30] MEDS: METHYLPREDNISOLONE INJ 40 MG/1 ML SDV IV SCH ×3 (06:21→22:09)
[2017-01-30] MEDS: LANSOPRAZOLE 15 MG TAB.RAP.DR PO SCH (06:21)
[2017-01-30] MEDS: SODIUM CHLORIDE NASAL SPRAY 44 ML NASL SCH ×4 (07:59→22:10)
[2017-01-30] MEDS: ENOXAPARIN SODIUM INJ 40 MG/0.4 ML DISP.SYRIN SUBCUT SCH (08:00)
[2017-01-30] MEDS: HYDROMORPHONE HCL INJ/PF 2 MG/ML AMPULE IV PRN (09:13)
[2017-01-30] MEDS: AMLODIPINE BESYLATE 5 MG TABLET PO SCH (09:15)
[2017-01-30] MEDS: DOCUSATE SODIUM 100 MG CAPSULE PO SCH (09:18)
[2017-01-30] MEDS: VENLAFAXINE HCL 75 MG TABLET PO SCH ×2 (09:18→22:02)
[2017-01-30] MEDS ORDERED: BRIMONIDINE TARTRATE 0.2% OPH SOLN 5 ML OU SCH (10:00)
[2017-01-30] MEDS ORDERED: AZITHROMYCIN 250 MG TABLET PO SCH (10:00)
[2017-01-30] MEDS: GUAIFENESIN 600 MG TABLET.SA PO SCH ×2 (10:51→22:02)
[2017-01-30] MEDS: MAGNESIUM OXIDE 400 MG TABLET PO SCH ×2 (10:52→22:08)
[2017-01-30] MEDS: ALPRAZOLAM 0.5 MG TABLET PO PRN ×2 (10:55→22:18)
--- NOTE | 2017-01-30 14:49 | PDOC PROGRESS REPORT ---
Subjective Progress Note for:: 01/30/17 Subjective:: Reason for follow-up visit: Acute bacterial bronchitis, COPD exacerbation, acute on chronic hypoxic respiratory failure Hospital course:LUTHER LIPSCOMB is a 71 year old male presents to the hospital with a three-day history of progressive worsening shortness of breath, increased sputum production of a yellow-green purulent appearance, increasing wheezing, increasing rescue inhaler use, sore throat, myalgias and arthralgias. He reports numerous sick contacts multiple family members have been ill with upper respiratory symptoms. He received his influenza and pneumonia vaccine earlier this season. He denies fever, chills, headache, chest pain, palpitations, nausea and vomiting and diarrhea. He does not wear home O2 nor does he have a nebulizer machine nor is he steroid dependent. Eval in the emergency department shows what appears to be a COPD exacerbation with an acute bacterial bronchitis and we've been asked to admit for further evaluation and management. Here physician reports that he was 78% on room air but came up to 92% on 2 L. He is otherwise hemodynamically stable. Patient was admitted to the hospital and started on broad-spectrum antibiotics and systemic IV steroids with scheduled nebulizers and states his breathing has improved though not quite back to baseline and has a rather waxing and waning course. He reports awakening from naps or during the night with sudden sensation of breathlessness, sometimes in spite of the BiPAP machine. He continues to wheeze and cough purulent phlegm. ROS: he denies chest pain, palpitations, headache. States his cough with phlegm of improved but not quite resolved. Otherwise remaining ROS: per HPI plus a total of 10 systems reviewed, pertinent positives and negatives noted above, remaining systems negative. Physical Exam Vital Signs: Temp Pulse Resp BP Pulse Ox 98.6 F 96 20 142/82 H 98 01/30/17 13:00 01/30/17 13:00 01/30/17 13:00 01/30/17 13:00 01/30/17 13:00 Intake & Output 01/29/17 01/30/17 01/31/17 06:59 06:59 06:59 Intake Total 1999 1700 570 Output Total 0 2049 1200 Balance 1999 -350 -630 Weight 85.8 kg 91 kg PHYSICAL EXAM GENERAL: NAD; well developed, well nourished; no obese; alert and oriented to person, place, time, situation HEENT: normocephalic, atraumatic, no conjunctival injection, no scleral icterus ; oral mucosa moist RESPIRATORY: no accessory muscle use, no increased WOB, good air entry bilaterally; bilat wheeze and rhonchi; bilat inspiratory crackles and coarse BSs otherwise CARDIO: no JVD; RRR; no systolic murmur; tachycardia VASCULAR: no carotid bruit; no abdominal bruit; no pallor; 2+ radial pulse GI: soft; nondistended; normal bowel sounds; no hepato spleno megaly; no rebound, rigidity, guarding NEURO: normal patella reflexes; normal motor function; no dysarthria; tongue protrudes midline MSK: 5/5 strength; normal ROM hips; ambulatory without assistance per staff; no tenderness EXTREMITIES: no calf tender; no palpable cords in calf; no clubbing, cyanosis , pedal edema PSYCH: normal affect, normal mood SKIN: warm; moist; no petechiae; no telengectasias; no jaundice; no rash Results Laboratory Results: 01/30/17 03:49 01/30/17 03:49 WBC 16.5 H RBC 3.71 L Hgb 11.9 L Hct 33.6 L MCV 91 MCH 32.0 MCHC 35.3 RDW 14.4 H Plt Count 291 Seg Neutrophils % Not Reportable Lymphocytes % Not Reportable Monocytes % Not Reportable Eosinophils % Not Reportable Basophils % Not Reportable Absolute Neutrophils Not Reportable Absolute Lymphocytes Not Reportable Absolute Monocytes Not Reportable Absolute Eosinophils Not Reportable Absolute Basophils Not Reportable Assessment & Plan - Diagnosis (1) Acute bacterial bronchitis Is this a current diagnosis for this admission?: YesPlan: Improved but not back to baseline. continue IV Zosyn and add zithromax today for atypical coverage as his recovery has plateaued; screen for influenza was negative. (2) COPD exacerbation Is this a current diagnosis for this admission?: YesPlan: Improved but not back to baseline. Continue IV systemic steroids, wean as tolerated, scheduled and as needed nebulizers, incentive spirometer and flutter valve. (3) Hypoxemia Is this a current diagnosis for this admission?: YesPlan: Improved. Supplemental O2 and treat as above. (4) Chronic low back pain Qualifiers: Back pain laterality: bilateral Sciatica laterality: bilateral sciatica Is this a current diagnosis for this admission?: Yes (5) Narcotic dependence Is this a current diagnosis for this admission?: Yes (6) HTN (hypertension) Qualifiers: Hypertension type: essential hypertension Qualified Code(s): I10 - Essential (primary) hypertension Is this a current diagnosis for this admission?: Yes (7) Hyperlipidemia Qualifiers: Hyperlipidemia type: unspecified Qualified Code(s): E78.5 - Hyperlipidemia, unspecified Is this a current diagnosis for this admission?: Yes (8) JENAE (obstructive sleep apnea) Is this a current diagnosis for this admission?: Yes (9) Glaucoma Qualifiers: Glaucoma type: unspecified type Laterality: unspecified laterality Qualified Code(s): H40.9 - Unspecified glaucoma Is this a current diagnosis for this admission?: YesPlan: Resume home regimen (10) Anxiety Is this a current diagnosis for this admission?: YesPlan: Worse. Becomes quite frightened and anxious with each episode of breathlessness. Add anxiolytic and continue to monitor respiratory status carefully - Time Time Spent with patient: 25-34 minutes Anticipated discharge: Home Within: within 24 hours - Plan Summary Plan Summary: I remain hopeful that he will improve in the next 24 hours and can be discharged home in the next 48
[2017-01-30] MEDS: ALBUTEROL SULFATE 0.083% NEB 2.5 MG/3 ML AMPUL NEB PRN (21:43)
[2017-01-30] MEDS: ATORVASTATIN CALCIUM 10 MG TABLET PO SCH (22:02)
[2017-01-30] MEDS: LATANOPROST 0.005% OPH SOLN 2.5 ML OU SCH (22:09)
[2017-01-30] MEDS: BRIMONIDINE TARTRATE 0.2% OPH SOLN 5 ML OU SCH (22:09)
[2017-01-31] MEDS: POTASSIUM CHLORIDE 10 MEQ TABLET.SA PO SCH ×2 (00:03→06:34)
[2017-01-31] MEDS: PIPERACILLIN SODIUM/TAZOBACTAM 3.375 GM in NORMAL SALINE 100 ML IV SCH (04:18)
[2017-01-31] MEDS: HYDROMORPHONE HCL 2 MG TABLET PO PRN ×4 (04:25→23:21)
[2017-01-31 05:19] LABS: ALANINE AMINOTRANSFERASE 32 U/L (21-72); ALBUMIN 3.5 g/dL (3.5-5.0); ALKALINE PHOSPHATASE 91 U/L (38-126); ANION GAP 12 (5-19); ASPARTATE AMINO TRANSFERASE 28 U/L (17-59); BILIRUBIN,DIRECT 0.5 mg/dL (0.0-0.4); BILIRUBIN,TOTAL 0.7 mg/dL (0.2-1.3); BLOOD UREA NITROGEN 27 mg/dL (7-20); CALCIUM 9.7 mg/dL (8.4-10.2); CARBON DIOXIDE 33 mmol/L (22-30); CHLORIDE 94 mmol/L (98-107); CREATININE RESULT 0.83 mg/dL (0.52-1.25); GLUCOSE 155 mg/dL (75-110); POTASSIUM 3.9 mmol/L (3.6-5.0); SODIUM 139.1 mmol/L (137-145); TOTAL PROTEIN 6.3 g/dL (6.3-8.2)
[2017-01-31 05:58] LABS: HEMATOCRIT 35.1 % (37.9-51.0); HEMOGLOBIN 12.4 g/dL (13.5-17.0); HGB HCT DIFFERENCE 2.1; MEAN CORPUSCULAR HEMOGLOBIN 31.6 pg (27.0-33.4); MEAN CORPUSCULAR HGB CONC 35.4 g/dL (32.0-36.0); MEAN CORPUSCULAR VOLUME 89 fl (80-97); RED BLOOD COUNT 3.92 10^6/uL (4.35-5.55); RED CELL DISTRIBUTION WIDTH 14.1 % (11.5-14.0); WHITE BLOOD COUNT 13.7 10^3/uL (4.0-10.5)
[2017-01-31 06:05] LABS: BAND NEUTROPHILS % (MANUAL) 1 % (3-5); BASOPHILS % (MANUAL) 0 % (0-2); EOSINOPHILS % (MANUAL) 3 % (0-6); LYMPHOCYTES % (MANUAL) 10 % (13-45); TOTAL CELLS COUNTED 100
[2017-01-31 06:13] LABS: TOXIC GRANULATION 1+; TOXIC VACUOLATION PRESENT
[2017-01-31 06:14] LABS: ANISOCYTOSIS SLIGHT
[2017-01-31] MEDS: LANSOPRAZOLE 15 MG TAB.RAP.DR PO SCH (06:34)
[2017-01-31] MEDS: METHYLPREDNISOLONE INJ 40 MG/1 ML SDV IV SCH (06:34)
[2017-01-31] MEDS: SODIUM CHLORIDE NASAL SPRAY 44 ML NASL SCH ×4 (11:15→22:42)
[2017-01-31] MEDS: GUAIFENESIN 600 MG TABLET.SA PO SCH ×2 (11:15→22:42)
[2017-01-31] MEDS: ENOXAPARIN SODIUM INJ 40 MG/0.4 ML DISP.SYRIN SUBCUT SCH (11:17)
[2017-01-31] MEDS: AMLODIPINE BESYLATE 5 MG TABLET PO SCH (11:19)
[2017-01-31] MEDS: MAGNESIUM OXIDE 400 MG TABLET PO SCH ×2 (11:20→22:42)
[2017-01-31] MEDS: DOCUSATE SODIUM 100 MG CAPSULE PO SCH (11:20)
[2017-01-31] MEDS ORDERED: LEVOFLOXACIN 750 MG TABLET PO ONE (12:00)
[2017-01-31] MEDS: VENLAFAXINE HCL 75 MG TABLET PO SCH ×2 (12:08→22:42)
[2017-01-31] MEDS: BRIMONIDINE TARTRATE 0.2% OPH SOLN 5 ML OU SCH ×2 (12:22→22:43)
[2017-01-31] MEDS ORDERED: LEVOFLOXACIN 250 MG TABLET PO ONE (15:00)
--- NOTE | 2017-01-31 16:47 | PDOC PROGRESS REPORT ---
Subjective Progress Note for:: 01/31/17 Subjective:: Patient is doing well ; has minimal shortness of breath No chest pain Oxygenating adequately on nasal cannula Physical Exam Vital Signs: Temp Pulse Resp BP Pulse Ox 97.4 F 107 H 19 167/88 H 96 01/31/17 14:53 01/31/17 14:53 01/31/17 14:53 01/31/17 14:53 01/31/17 14:53 Intake & Output 01/30/17 01/31/17 02/01/17 00:59 00:59 00:59 Intake Total 800 2690 730 Output Total 1300 2351 Balance -500 339 730 Weight 85.8 kg 91 kg 92.2 kg General appearance: PRESENT: no acute distress, well-developed, well-nourished Head exam: PRESENT: atraumatic, normocephalic Eye exam: PRESENT: conjunctiva pink, EOMI, PERRLA. ABSENT: scleral icterus Neck exam: ABSENT: carotid bruit, JVD, lymphadenopathy, thyromegaly Respiratory exam: PRESENT: wheezes. ABSENT: accessory muscle use, decreased breath sounds, rales Cardiovascular exam: PRESENT: RRR. ABSENT: diastolic murmur, rubs, systolic murmur Pulses: PRESENT: normal dorsalis pedis pul GI/Abdominal exam: PRESENT: normal bowel sounds, soft. ABSENT: distended, guarding, mass, organolmegaly, rebound, tenderness Extremities exam: PRESENT: full ROM. ABSENT: calf tenderness, clubbing, pedal edema Neurological exam: PRESENT: alert, awake, oriented to person, oriented to place , oriented to time, oriented to situation, CN II-XII grossly intact. ABSENT: motor sensory deficit Results Laboratory Results: 01/31/17 03:41 01/31/17 03:41 01/31/17 01/31/17 03:41 03:41 WBC 13.7 H RBC 3.92 L Hgb 12.4 L Hct 35.1 L MCV 89 MCH 31.6 MCHC 35.4 RDW 14.1 H Plt Count 305 Seg Neutrophils % Not Reportable Lymphocytes % Not Reportable Monocytes % Not Reportable Eosinophils % Not Reportable Basophils % Not Reportable Absolute Neutrophils Not Reportable Absolute Lymphocytes Not Reportable Absolute Monocytes Not Reportable Absolute Eosinophils Not Reportable Absolute Basophils Not Reportable Sodium 139.1 Potassium 3.9 Chloride 94 L Carbon Dioxide 33 H Anion Gap 12 BUN 27 H Creatinine 0.83 Est GFR ( Amer) > 60 Est GFR (Non-Af Amer) > 60 Glucose 155 H Calcium 9.7 Total Bilirubin 0.7 AST 28 ALT 32 Alkaline Phosphatase 91 Total Protein 6.3 Albumin 3.5 Impressions: Chest X-Ray 01/27/17 15:51 IMPRESSION: REACTIVE AIRWAY DISEASE VERSUS VIRAL SYNDROME. NO CONSOLIDATION. Assessment & Plan - Diagnosis (1) Acute bacterial bronchitis Is this a current diagnosis for this admission?: Yes (2) COPD exacerbation Is this a current diagnosis for this admission?: Yes (3) Glaucoma Qualifiers: Glaucoma type: unspecified type Laterality: unspecified laterality Qualified Code(s): H40.9 - Unspecified glaucoma Is this a current diagnosis for this admission?: Yes (4) Hypoxemia Is this a current diagnosis for this admission?: Yes (5) H. influenzae infection Is this a current diagnosis for this admission?: Yes (6) Pseudomonas aeruginosa infection Is this a current diagnosis for this admission?: Yes - Time Time Spent with patient: We will continue present management Patient will be given 250 mg Levaquin today; he is allergic to moxifloxacin ; we want to make sure he will not be allergic to Levaquin If he tolerates it well he will be discharged with Levaquin 750 mg by mouth daily 10 days We will reevaluate in a.m. for discharge Time Spent with patient: 25-34 minutes Anticipated discharge: Home
[2017-01-31] MEDS: ALPRAZOLAM 0.5 MG TABLET PO PRN (18:51)
[2017-01-31] MEDS: ATORVASTATIN CALCIUM 10 MG TABLET PO SCH (22:42)
[2017-01-31] MEDS: LATANOPROST 0.005% OPH SOLN 2.5 ML OU SCH (22:43)
[2017-02-01] MEDS: HYDROMORPHONE HCL 2 MG TABLET PO PRN ×3 (05:26→21:33)
[2017-02-01] MEDS: LANSOPRAZOLE 15 MG TAB.RAP.DR PO SCH (05:27)
[2017-02-01] MEDS: ENOXAPARIN SODIUM INJ 40 MG/0.4 ML DISP.SYRIN SUBCUT SCH (09:39)
[2017-02-01] MEDS: SODIUM CHLORIDE NASAL SPRAY 44 ML NASL SCH ×3 (09:41→21:32)
[2017-02-01] MEDS: DOCUSATE SODIUM 100 MG CAPSULE PO SCH (09:41)
[2017-02-01] MEDS: GUAIFENESIN 600 MG TABLET.SA PO SCH ×2 (09:43→21:33)
[2017-02-01] MEDS: PREDNISONE 20 MG TABLET PO SCH (09:43)
[2017-02-01] MEDS: VENLAFAXINE HCL 75 MG TABLET PO SCH ×2 (09:44→21:33)
[2017-02-01] MEDS: MAGNESIUM OXIDE 400 MG TABLET PO SCH ×2 (09:44→21:33)
[2017-02-01] MEDS: AMLODIPINE BESYLATE 5 MG TABLET PO SCH (09:44)
[2017-02-01] MEDS: BRIMONIDINE TARTRATE 0.2% OPH SOLN 5 ML OU SCH ×2 (09:49→21:33)
[2017-02-01] MEDS ORDERED: LEVOFLOXACIN 750 MG TABLET PO SCH ×2 (10:00→18:00)
[2017-02-01] MEDS: ALBUTEROL SULFATE 0.083% NEB 2.5 MG/3 ML AMPUL NEB PRN (10:57)
--- NOTE | 2017-02-01 14:53 | PDOC PROGRESS REPORT ---
Subjective Progress Note for:: 02/01/17 Subjective:: Patient was dyspneic last night and had to be placed on BiPAP He still has quite a bit of wheezing On the monitor is sinus tachycardia with VPCs He has no chest pain Physical Exam Vital Signs: Temp Pulse Resp BP Pulse Ox 98.1 F 105 H 18 147/92 H 98 02/01/17 12:00 02/01/17 12:00 02/01/17 12:00 02/01/17 12:00 02/01/17 12:00 Intake & Output 01/31/17 02/01/17 02/02/17 00:59 00:59 00:59 Intake Total 2690 730 695 Output Total 2351 Balance 339 730 695 Weight 91 kg 92.2 kg 88.9 kg General appearance: PRESENT: no acute distress Head exam: PRESENT: atraumatic, normocephalic Eye exam: PRESENT: conjunctiva pink, EOMI, PERRLA. ABSENT: scleral icterus Neck exam: ABSENT: carotid bruit, JVD, lymphadenopathy, thyromegaly Respiratory exam: PRESENT: tachypnea, wheezes - Bilaterally. ABSENT: accessory muscle use, retraction Cardiovascular exam: PRESENT: irregular rhythm, tachycardia. ABSENT: systolic murmur Pulses: PRESENT: normal dorsalis pedis pul GI/Abdominal exam: PRESENT: normal bowel sounds, soft. ABSENT: distended, guarding, mass, organolmegaly, rebound, tenderness Neurological exam: PRESENT: alert, awake, CN II-XII grossly intact Results Laboratory Results: 01/31/17 03:41 01/31/17 03:41 Impressions: Chest X-Ray 01/27/17 15:51 IMPRESSION: REACTIVE AIRWAY DISEASE VERSUS VIRAL SYNDROME. NO CONSOLIDATION. Assessment & Plan - Diagnosis (1) Acute bacterial bronchitis Is this a current diagnosis for this admission?: Yes (2) COPD exacerbation Is this a current diagnosis for this admission?: Yes (3) Glaucoma Qualifiers: Glaucoma type: unspecified type Laterality: unspecified laterality Qualified Code(s): H40.9 - Unspecified glaucoma Is this a current diagnosis for this admission?: Yes (4) Hypoxemia Is this a current diagnosis for this admission?: Yes (5) H. influenzae infection Is this a current diagnosis for this admission?: Yes (6) Pseudomonas aeruginosa infection Is this a current diagnosis for this admission?: Yes (7) VPC's (ventricular premature complexes) Is this a current diagnosis for this admission?: Yes - Time Time Spent with patient: We will treat the patient with metoprolol by mouth 25 mg twice a day Continue the present management Reevaluate patient in a.m. for discharge Time Spent with patient: 25-34 minutes
[2017-02-01] MEDS ORDERED: METOPROLOL TARTRATE 25 MG TABLET PO ONE (16:00)
[2017-02-01] MEDS ORDERED: TIOTROPIUM BROMIDE DPI 5 CAP/KIT (18 MCG/CAP) IH ONE (16:00)
[2017-02-01] MEDS: ATORVASTATIN CALCIUM 10 MG TABLET PO SCH (21:32)
[2017-02-01] MEDS: LATANOPROST 0.005% OPH SOLN 2.5 ML OU SCH (21:33)
[2017-02-01] MEDS: FLUTICASONE/SALMETEROL DISKUS 250-50 MCG/DOSE IH SCH (21:33)
[2017-02-02] MEDS: LANSOPRAZOLE 15 MG TAB.RAP.DR PO SCH (05:29)
[2017-02-02] MEDS ORDERED: METOPROLOL TARTRATE 25 MG TABLET PO SCH (06:00)
[2017-02-02] MEDS: FLUTICASONE/SALMETEROL DISKUS 250-50 MCG/DOSE IH SCH (09:16)
[2017-02-02] MEDS: SODIUM CHLORIDE NASAL SPRAY 44 ML NASL SCH ×2 (09:17→11:02)
[2017-02-02] MEDS: ENOXAPARIN SODIUM INJ 40 MG/0.4 ML DISP.SYRIN SUBCUT SCH (09:18)
[2017-02-02] MEDS: PREDNISONE 20 MG TABLET PO SCH (09:19)
[2017-02-02] MEDS: DOCUSATE SODIUM 100 MG CAPSULE PO SCH (09:19)
[2017-02-02] MEDS: HYDROMORPHONE HCL 2 MG TABLET PO PRN (09:19)
[2017-02-02] MEDS: MAGNESIUM OXIDE 400 MG TABLET PO SCH (09:19)
[2017-02-02] MEDS: AMLODIPINE BESYLATE 5 MG TABLET PO SCH (09:20)
[2017-02-02] MEDS: VENLAFAXINE HCL 75 MG TABLET PO SCH (09:20)
[2017-02-02] MEDS: GUAIFENESIN 600 MG TABLET.SA PO SCH (09:20)
[2017-02-02] MEDS ORDERED: TIOTROPIUM BROMIDE DPI 5 CAP/KIT (18 MCG/CAP) IH SCH (10:00)
[2017-02-02] MEDS: BRIMONIDINE TARTRATE 0.2% OPH SOLN 5 ML OU SCH (11:01)
[2017-02-02 13:16] VITALS: BP 142/82
--- NOTE | 2017-02-04 17:35 | PDOC DISCHARGE SUMMARY ---
General - Admit/Disc Date/PCP Admission Date/Primary Care Provider: 01/27/17 18:54 Dr Mercer Discharge Date: 02/02/17 - Discharge Diagnosis (1) Acute bacterial bronchitis Is this a current diagnosis for this admission?: Yes (2) COPD exacerbation Is this a current diagnosis for this admission?: Yes (3) Glaucoma Is this a current diagnosis for this admission?: Yes (4) Hypoxemia Is this a current diagnosis for this admission?: YesSummary: acute on chronic hypoxemic respiratory failure secondary to COPD acute exacerbation and pneumonia improved at discharge (5) H. influenzae infection Is this a current diagnosis for this admission?: Yes (6) Pseudomonas aeruginosa infection Is this a current diagnosis for this admission?: YesSummary: 01/27/17 17:22 Gram Stain - Final Tracheal Aspirate Sputum Culture - Final Haemophilus Influenzae Pseudomonas Aeruginosa Normal Vannessa Patient was discharged on Levaquin po noted that patient is allergic to moxifloxacin but tolerated levaquin well without allergic reaction (7) Tachycardia Is this a current diagnosis for this admission?: YesSummary: patient was discharged on Cardizem CD - Additional Information Resuscitation Status: Full Code Home Medications: Docusate Sodium [Colace 100 mg Capsule] 100 mg PO QHS 01/27/17 Fluticasone/Vilanterol [Breo Ellipta 200-25 Mcg INH] 1 puff IH DAILY 01/27/17 Hydromorphone HCl [Dilaudid] 4 mg PO Q4HP PRN 01/27/17 Magnesium Oxide [Mag-Ox 400 mg Tablet] 400 mg PO Q12 01/27/17 Methylcellulose [Fiber Therapy] 500 mg PO Q12 01/27/17 Pravastatin Sodium [Pravachol] 40 mg PO QHS 01/27/17 Venlafaxine HCl [Effexor 75 mg Tablet] 75 mg PO Q12 01/27/17 Albuterol Sulfate [Ventolin 0.083% Neb 2.5 mg/3 mL Ampul] 2.5 mg NEB RTQ3HP PRN #30 vial.neb 02/02/17 Diltiazem HCl [Cardizem Cd 120 mg Capsule] 120 mg PO BID #60 cap.sr.24h Levofloxacin [Levaquin 750 mg Tablet] 750 mg PO QPM #10 tablet 02/02/17 Prednisone 20 mg PO ASDIR PRN #20 tablet 02/02/17 Tiotropium [place] [Spiriva Handihaler 5 Cap/Kit (18 Mcg/Cap)] 1 cap IH DAILY # 30 kit 02/02/17 History of Present Illness Patient complains of: shortness of breath History of Present Illness: LUTHER LIPSCOMB is a 71 year old male presents to the hospital with a three-day history of progressive worsening shortness of breath, increased sputum production of a yellow-green purulent appearance, increasing wheezing, increasing rescue inhaler use, sore throat, myalgias and arthralgias. He reports numerous sick contacts multiple family members have been ill with upper respiratory symptoms. He received his influenza and pneumonia vaccine earlier this season. He denies fever, chills, headache, chest pain, palpitations, nausea and vomiting and diarrhea. He does not wear home O2 nor does he have a nebulizer machine nor is he steroid dependent. Eval in the emergency department shows what appears to be a COPD exacerbation with an acute bacterial bronchitis and we've been asked to admit for further evaluation and management. Here physician reports that he was 78% on room air but came up to 92% on 2 L. He is otherwise hemodynamically stable. Hospital Course Hospital Course: see above Physical Exam Vital Signs: Temp Pulse Resp BP Pulse Ox 98.1 F 95 16 142/82 H 90 L 02/02/17 13:11 02/02/17 13:11 02/02/17 13:11 02/02/17 13:11 02/02/17 13:11 Intake & Output 02/03/17 02/04/17 02/05/17 00:59 00:59 00:59 Intake Total 5 Balance 5 Weight 88.9 kg General appearance: PRESENT: no acute distress, well-developed, well-nourished Head exam: PRESENT: atraumatic, normocephalic Eye exam: PRESENT: conjunctiva pink, EOMI, PERRLA. ABSENT: scleral icterus Ear exam: PRESENT: normal external ear exam Mouth exam: PRESENT: moist, tongue midline Neck exam: ABSENT: carotid bruit, JVD, lymphadenopathy, thyromegaly Respiratory exam: PRESENT: decreased breath sounds. ABSENT: rales, rhonchi, wheezes Cardiovascular exam: PRESENT: RRR, tachycardia. ABSENT: diastolic murmur, rubs , systolic murmur Pulses: PRESENT: normal dorsalis pedis pul Vascular exam: PRESENT: normal capillary refill GI/Abdominal exam: PRESENT: normal bowel sounds, soft. ABSENT: distended, guarding, mass, organolmegaly, rebound, tenderness Rectal exam: PRESENT: deferred Extremities exam: PRESENT: full ROM. ABSENT: calf tenderness, clubbing, pedal edema Neurological exam: PRESENT: alert, awake, oriented to person, oriented to place , oriented to time, oriented to situation, CN II-XII grossly intact. ABSENT: motor sensory deficit Psychiatric exam: PRESENT: appropriate affect, normal mood. ABSENT: homicidal ideation, suicidal ideation Skin exam: PRESENT: dry, intact, warm. ABSENT: cyanosis, rash Results Laboratory Results: 01/31/17 03:41 01/31/17 03:41 Labs- Last Values WBC 13.7 10^3/uL (4.0-10.5) H 01/31/17 03:41 RBC 3.92 10^6/uL (4.35-5.55) L 01/31/17 03:41 Hgb 12.4 g/dL (13.5-17.0) L 01/31/17 03:41 Hct 35.1 % (37.9-51.0) L 01/31/17 03:41 MCV 89 fl (80-97) 01/31/17 03:41 MCH 31.6 pg (27.0-33.4) 01/31/17 03:41 MCHC 35.4 g/dL (32.0-36.0) 01/31/17 03:41 RDW 14.1 % (11.5-14.0) H 01/31/17 03:41 Plt Count 305 10^3/uL (150-450) 01/31/17 03:41 Total Counted 100 01/31/17 03:41 Seg Neutrophils % Not Reportable 01/31/17 03:41 Seg Neuts % (Manual) 82 % (42-78) H 01/31/17 03:41 Band Neutrophils % 1 % (3-5) L 01/31/17 03:41 Lymphocytes % Not Reportable 01/31/17 03:41 Lymphocytes % (Manual) 10 % (13-45) L 01/31/17 03:41 Atypical Lymphs % 2 % (0) 01/29/17 06:08 Monocytes % Not Reportable 01/31/17 03:41 Monocytes % (Manual) 4 % (3-13) 01/31/17 03:41 Eosinophils % Not Reportable 01/31/17 03:41 Eosinophils % (Manual) 3 % (0-6) 01/31/17 03:41 Basophils % Not Reportable 01/31/17 03:41 Basophils % (Manual) 0 % (0-2) 01/31/17 03:41 Absolute Neutrophils Not Reportable 01/31/17 03:41 Abs Neuts (Manual) 11.4 10^3/uL (1.7-8.2) H 01/31/17 03:41 Absolute Lymphocytes Not Reportable 01/31/17 03:41 Abs Lymphs (Manual) 1.4 10^3/uL (0.5-4.7) 01/31/17 03:41 Absolute Monocytes Not Reportable 01/31/17 03:41 Abs Monocytes (Manual) 0.5 10^3/uL (0.1-1.4) 01/31/17 03:41 Absolute Eosinophils Not Reportable 01/31/17 03:41 Absolute Eos (Manual) 0.4 10^3/uL (0.0-0.6) 01/31/17 03:41 Absolute Basophils Not Reportable 01/31/17 03:41 Abs Basophils (Manual) 0.0 10^3/uL (0.0-0.2) 01/31/17 03:41 Toxic Granulation 1+ 01/31/17 03:41 Toxic Vacuolation PRESENT 01/31/17 03:41 Platelet Estimate Cancelled 01/29/17 04:41 Large Platelets PRESENT 01/31/17 03:41 Platelet Comment ADEQUATE 01/31/17 03:41 Polychromasia SLIGHT 01/30/17 03:49 Basophilic Stippling PRESENT 01/31/17 03:41 Anisocytosis SLIGHT 01/31/17 03:41 Carbonic Acid 1.15 mmol/L (1.05-1.35) 01/27/17 22:33 HCO3/H2CO3 Ratio 25:1 01/27/17 22:33 ABG pH 7.51 (7.35-7.45) H 01/27/17 22:33 ABG pCO2 38.1 mmHg (35-45) 01/27/17 22:33 ABG pO2 86.5 mmHg (80-100) 01/27/17 22:33 ABG HCO3 29.4 mmol/L (20-26) H 01/27/17 22:33 ABG Total CO2 30.6 mmol/L (23-27) H 01/27/17 22:33 ABG O2 Saturation 97.3 % (94-98) 01/27/17 22:33 ABG Base Excess 6.0 mmol/L 01/27/17 22:33 FiO2 2 L 01/27/17 22:33 Sodium 139.1 mmol/L (137-145) 01/31/17 03:41 Potassium 3.9 mmol/L (3.6-5.0) 01/31/17 03:41 Chloride 94 mmol/L (98-107) L 01/31/17 03:41 Carbon Dioxide 33 mmol/L (22-30) H 01/31/17 03:41 Anion Gap 12 (5-19) 01/31/17 03:41 BUN 27 mg/dL (7-20) H 01/31/17 03:41 Creatinine 0.83 mg/dL (0.52-1.25) 01/31/17 03:41 Est GFR ( Amer) > 60 (>60) 01/31/17 03:41 Est GFR (Non-Af Amer) > 60 (>60) 01/31/17 03:41 Glucose 155 mg/dL (75-110) H 01/31/17 03:41 Calcium 9.7 mg/dL (8.4-10.2) 01/31/17 03:41 Total Bilirubin 0.7 mg/dL (0.2-1.3) 01/31/17 03:41 Direct Bilirubin 0.5 mg/dL (0.0-0.4) H 01/31/17 03:41 Indirect Bilirubin Not Reportable 01/31/17 03:41 Neonat Total Bilirubin Not Reportable 01/31/17 03:41 AST 28 U/L (17-59) 01/31/17 03:41 ALT 32 U/L (21-72) 01/31/17 03:41 Alkaline Phosphatase 91 U/L (38-126) 01/31/17 03:41 Creatine Kinase 61 U/L (55-170) 01/27/17 16:00 CK-MB (CK-2) 1.09 ng/mL (<4.55) 01/27/17 16:00 Troponin I 0.026 ng/mL 01/27/17 16:00 NT-Pro-B Natriuret Pep 250 pg/mL (5-900) 01/27/17 16:00 Total Protein 6.3 g/dL (6.3-8.2) 01/31/17 03:41 Albumin 3.5 g/dL (3.5-5.0) 01/31/17 03:41 Urine Color YELLOW 01/27/17 20:30 Urine Appearance SLIGHTLY-CLOUDY 01/27/17 20:30 Urine pH 7.0 (5.0-9.0) 01/27/17 20:30 Ur Specific [place] 1.020 01/27/17 20:30 Urine Protein >=500 mg/dL (NEGATIVE) H 01/27/17 20:30 Urine Glucose (UA) NEGATIVE mg/dL (NEGATIVE) 01/27/17 20:30 Urine Ketones NEGATIVE mg/dL (NEGATIVE) 01/27/17 20:30 Urine Blood NEGATIVE (NEGATIVE) 01/27/17 20:30 Urine Nitrite NEGATIVE (NEGATIVE) 01/27/17 20:30 Urine Bilirubin NEGATIVE (NEGATIVE) 01/27/17 20:30 Urine Urobilinogen 4.0 mg/dL (<2.0) H 01/27/17 20:30 Ur Leukocyte Esterase NEGATIVE (NEGATIVE) 01/27/17 20:30 Urine WBC (Auto) 1 /HPF 01/27/17 20:30 Urine RBC (Auto) 1 /HPF 01/27/17 20:30 Squamous Epi Cells Auto 1 /HPF 01/27/17 20:30 Urine Mucus (Auto) FEW /LPF 01/27/17 20:30 Urine Ascorbic Acid 40 (NEGATIVE) H 01/27/17 20:30 Influenza A (Rapid) NEGATIVE (NEGATIVE) 01/27/17 20:30 Influenza B (Rapid) NEGATIVE (NEGATIVE) 01/27/17 20:30 Slides for Path Review Cancelled 01/29/17 04:41 Impressions: Chest X-Ray 01/27/17 15:51 IMPRESSION: REACTIVE AIRWAY DISEASE VERSUS VIRAL SYNDROME. NO CONSOLIDATION. Plan Discharge Plan: follow up with PMD in 1 week Time Spent: Greater than 30 Minutes
== END 2017-02-02 13:54 | disposition home or self-care (01) | DRG 190 ==
LOC: ER 14:08 → UNDOADMIN 18:45 → EH 18:45 → 4N 01-28 11:17
PROVIDERS: ADMIT Family Medicine; ATTEND Family Medicine
PROC: 3E0F73Z Introduction of Anti-inflammatory into Respiratory Tract, Via Natural or Artificial Opening (ICD-10-PCS; principal; 2017-01-27)
PROC: 5A09457 Assistance with Respiratory Ventilation, 24-96 Consecutive Hours, Continuous Positive Airway Pressure (ICD-10-PCS; 2017-01-28)
DX: J44.1 Chronic obstructive pulmonary disease with (acute) exacerbation (principal); J96.21 Acute and chronic respiratory failure with hypoxia; F11.20 Opioid dependence, uncomplicated; J44.0 Chronic obstructive pulmonary disease with (acute) lower respiratory infection; J20.8 Acute bronchitis due to other specified organisms; H40.9 Unspecified glaucoma; B96.5 Pseudomonas (aeruginosa) (mallei) (pseudomallei) as the cause of diseases classified elsewhere; B96.3 Hemophilus influenzae [H. influenzae] as the cause of diseases classified elsewhere; E78.5 Hyperlipidemia, unspecified; I10 Essential (primary) hypertension; M19.90 Unspecified osteoarthritis, unspecified site; F32.9 Major depressive disorder, single episode, unspecified; G47.33 Obstructive sleep apnea (adult) (pediatric); M54.32 Sciatica, left side; M54.31 Sciatica, right side; F41.9 Anxiety disorder, unspecified; I49.3 Ventricular premature depolarization; Z87.891 Personal history of nicotine dependence; Z79.899 Other long term (current) drug therapy; Z88.8 Allergy status to other drugs, medicaments and biological substances; Z88.3 Allergy status to other anti-infective agents; Z88.6 Allergy status to analgesic agent; Z82.49 Family history of ischemic heart disease and other diseases of the circulatory system
CPT/HCPCS: 36415; 36600; 71020; 80053; 81001; 82550; 82553; 82803; 83880; 84484; 85025; 87040; 87070; 87077; 87186; 87205; 87804; 93005; 93010; 94640; 94660; 96361; 96374; 96375; 99291; J1170; J1650; J2543; J2920; J2930; J3475; J3490; J7030; J7512; J7620

== ENCOUNTER 2017-07-13 19:26 | Emergency (ER) | payer MEDICARE ==
[2017-07-13] MEDS ORDERED: KETOROLAC TROMETHAMINE INJ/PF 30 MG/1 ML SDV IM ONE (21:45)
[2017-07-13] MEDS ORDERED: ONDANSETRON HCL 8 MG TABLET PO ONE (21:45)
--- NOTE | 2017-07-13 21:46 | ER Document Report ---
ED General - General Chief Complaint: Cold Symptoms Stated Complaint: VOMITTING Time Seen by Provider: 07/13/17 20:47 Notes: Patient is a 72-year-old male presents emergency department with a chief complaint of flulike symptoms. Patient admits to nausea and generalized body aches. Patient states that his symptoms started on approximately Monday night morning after he stopped taking his narcotic pain medication abruptly. Patient states that he had been on 4 mg Dilaudid 5 times a day for 2 weeks and prior to that was on 60 mg twice daily of MS Contin for his chronic pain in his neck and in his low back. Patient states that he was recently released from [facility] because he was taking his pain medications inappropriately. Past medical history significant for chronic sinusitis, hypertension, COPD, sciatica Social history significant for current tobacco user. TRAVEL OUTSIDE OF THE [place] IN LAST 30 DAYS: No - Related Data Allergies/Adverse Reactions: lisinopril [Lisinopril] Allergy (Verified 07/13/17 19:31) moxifloxacin HCl [From Avelox] Allergy (Verified 07/13/17 19:31) acetaminophen [From Tylenol] Adverse Reaction (Verified 07/13/17 19:31) Past Medical History - Social History Smoking Status: Current Every Day Smoker Chew tobacco use (# tins/day): No Frequency of alcohol use: Occasional Drug Abuse: None Family History: CAD Patient has suicidal ideation: No Patient has homicidal ideation: No - Past Medical History Cardiac Medical History: Reports: Hx Hypercholesterolemia, Hx Hypertension Denies: Hx Coronary Artery Disease, Hx Heart Attack Pulmonary Medical History: Reports: Hx Bronchitis, Hx COPD, Hx Pneumonia Denies: Hx Asthma Neurological Medical History: Denies: Hx Cerebrovascular Accident, Hx Seizures Endocrine Medical History: Denies: Hx Diabetes Mellitus Type 2 Renal/ Medical History: Reports: Hx Renal Insufficiency. Denies: Hx Peritoneal Dialysis Musculoskeltal Medical History: Reports Hx Arthritis Psychiatric Medical History: Reports: Hx Depression - Immunizations Hx Diphtheria, Pertussis, Tetanus Vaccination: No - unknown Hx Pneumococcal Vaccination: 10/23/12 Review of Systems - Review of Systems Constitutional: No symptoms reported EENT: See HPI Cardiovascular: No symptoms reported Respiratory: No symptoms reported Gastrointestinal: See HPI Musculoskeletal: See HPI -: Yes All other systems reviewed and negative Physical Exam - Vital signs Vitals: Temp Pulse Resp BP Pulse Ox 97.4 F 104 H 18 151/80 H 96 07/13/17 19:32 07/13/17 19:32 07/13/17 19:32 07/13/17 19:32 07/13/17 19:32 - Notes Notes: PHYSICAL EXAM GENERAL: Alert, interacts well. HEAD: Normocephalic, atraumatic. EYES: Pupils equal, round, and reactive to light. Extraocular movements intact. ENT: Oral mucosa moist, tongue midline. NECK: Full range of motion. Supple. Trachea midline. LUNGS: Clear to auscultation bilaterally, no wheezes, rales, or rhonchi. No respiratory distress. HEART: Regular rate and rhythm. No murmurs, gallops, or rubs. ABDOMEN: Soft, nondistended, nontender. No guarding, rebound, or rigidity.. Bowel sounds present in all 4 quadrants. EXTREMITIES: Moves all 4 extremities spontaneously. No edema, radial and dorsalis pedis pulses 2/4 bilaterally. No cyanosis. NEUROLOGICAL: Alert and oriented x4. Normal speech. PSYCH: Normal affect, normal mood. SKIN: Warm, dry, normal turgor. No rashes or lesions noted. Course - Re-evaluation Re-evalutation: 07/13/17 21:43 Patient presents with multiple vague complaints that did not appear to be concerning for any acute life-threatening pathology. Vitals are within normal limits at triage and at time of discharge. Physical examination is unremarkable. Patient has tolerated oral intake without difficulty. Patient was not noted to be in distress at any point during their ER visit. At this time, based on the reassuring evaluation, I do not suspect an acute [place], pulmonary embolus, aortic dissection, acute intra-abdominal pathology, stroke, or sepsis.Will discharge with return precautions and follow-up recommendations. Verbal discharge instructions given a the bedside and opportunity for questions given. Medication warnings reviewed. Patient is in agreement with this plan and has verbalized understanding of return precautions and the need for primary care follow-up in the next 24-72 hours. - Vital Signs Vital signs: Temp Pulse Resp BP Pulse Ox 97.4 F 104 H 18 151/80 H 96 07/13/17 19:32 07/13/17 19:32 07/13/17 19:32 07/13/17 19:32 07/13/17 19:32 Discharge - Discharge Clinical Impression: Nausea Sciatica Qualifiers: Laterality: right Qualified Code(s): M54.31 - Sciatica, right side Instructions: Sciatica ([facility]) Additional Instructions: Your nausea and body aches are likely related to your withdrawal form your chronic pain medications. Please follow up with your primary care physician on Monday Prescriptions: Methylprednisolone [Medrol Dosepack (4 mg/Tab) 21 Tab/Dosepak] 4 mg PO ASDIR PRN #21 tab.ds.pk PRN Reason: Ondansetron [Zofran Odt 4 mg Tablet] 1 - 2 tab PO Q4H PRN #15 tab.rapdis PRN Reason: For Nausea/Vomiting
[2017-07-13 22:12] VITALS: BP 161/81
== END 2017-07-13 22:05 | disposition home or self-care (01) ==
LOC: ER 19:26
DX: R11.0 Nausea (principal); M54.31 Sciatica, right side; I10 Essential (primary) hypertension; J44.9 Chronic obstructive pulmonary disease, unspecified; F17.200 Nicotine dependence, unspecified, uncomplicated; Z88.8 Allergy status to other drugs, medicaments and biological substances
CPT/HCPCS: 99283; 96372; J1885; A9270; S0119

== ENCOUNTER 2017-07-24 17:35 | Inpatient (IN) | payer MEDICARE ==
[2017-07-24] MEDS ORDERED: ASPIRIN 81 MG TABLET, CHEWABLE PO ONE (17:59)
[2017-07-24] MEDS ORDERED: NORMAL SALINE 500 ML IV PRN (18:00)
--- NOTE | 2017-07-24 18:39 | RADIOLOGY REPORT (SQ) ---
EXAM DESCRIPTION: CHEST SINGLE VIEW COMPLETED DATE/TIME: 07/24/2017 6:15 pm REASON FOR STUDY: syncope COMPARISON: 01/27/2017 EXAM PARAMETERS: NUMBER OF VIEWS: One view. TECHNIQUE: Single frontal radiographic view of the chest acquired. RADIATION DOSE: NA LIMITATIONS: None. FINDINGS: LUNGS AND PLEURA: Mild chronic interstitial changes are suggested. MEDIASTINUM AND HILAR STRUCTURES: No masses. Contour normal. HEART AND VASCULAR STRUCTURES: Heart normal in size. Normal vasculature. BONES: No acute findings. HARDWARE: None in the chest. OTHER: No other significant finding. IMPRESSION: Mild chronic lung changes with no acute cardiopulmonary disease. TECHNICAL DOCUMENTATION: JOB ID: [id number]
[2017-07-24 18:41] LABS: ABSOLUTE BASOPHILS # (AUTO) 0.1 10^3/uL (0.0-0.2); ABSOLUTE EOSINOPHILS # (AUTO) 0.7 10^3/uL (0.0-0.6); ABSOLUTE LYMPHOCYTES (AUTO) 2.3 10^3/uL (0.5-4.7); ABSOLUTE MONOCYTES (AUTO) 1.2 10^3/uL (0.1-1.4); ABSOLUTE NEUT (AUTO) 5.3 10^3/uL (1.7-8.2); BASOPHILS % (AUTO) 0.7 % (0-2); EOSINOPHILS % (AUTO) 7.4 % (0-6); HEMOGLOBIN 16.9 g/dL (13.5-17.0); HGB HCT DIFFERENCE 2.7; LYMPHOCYTES % (AUTO) 24.1 % (13-45); MEAN CORPUSCULAR HEMOGLOBIN 32.1 pg (27.0-33.4); MEAN CORPUSCULAR HGB CONC 35.3 g/dL (32.0-36.0); MEAN CORPUSCULAR VOLUME 91 fl (80-97); MONOCYTES % (AUTO) 12.5 % (3-13); RED BLOOD COUNT 5.28 10^6/uL (4.35-5.55); RED CELL DISTRIBUTION WIDTH 14.9 % (11.5-14.0); SEGMENTED NEUTROPHILS % (AUTO) 55.3 % (42-78); WHITE BLOOD COUNT 9.7 10^3/uL (4.0-10.5)
--- NOTE | 2017-07-24 18:43 | RADIOLOGY REPORT (SQ) ---
EXAM DESCRIPTION: CT HEAD WITHOUT COMPLETED DATE/TIME: 07/24/2017 6:16 pm REASON FOR STUDY: syncope COMPARISON: 11/26/2016 TECHNIQUE: Axial images acquired through the brain without intravenous contrast. Images reviewed wi th bone, brain and subdural windows. Images stored on PACS. All CT scanners at this facility use dose modulation, iterative reconstruction, and/or weight based d osing when appropriate to reduce radiation dose to as low as reasonably achievable (ALARA). [facility]: Dose Right [facility]: CareDose [facility]: Dose Right [facility]: Teradose 4D [facility]: [employer] RADIATION DOSE: Up-to-date CT equipment and radiation dose reduction techniques were employed. CTDIv ol: 64.6 mGy. DLP: 1163 mGy-cm. mGy. LIMITATIONS: None. FINDINGS: VENTRICLES: Normal size and contour. CEREBRUM: No masses. No hemorrhage. No midline shift. No evidence for acute infarction. Normal gra y/white matter differentiation. No areas of low density in the white matter. CEREBELLUM: No masses. No hemorrhage. No alteration of density. No evidence for acute infarction. EXTRAAXIAL SPACES: No fluid collections. No masses. ORBITS AND GLOBE: No intra- or extraconal masses. Normal contour of globe without masses. CALVARIUM: No fracture. PARANASAL SINUSES: No fluid or mucosal thickening. SOFT TISSUES: No mass or hematoma. OTHER: No other significant finding. IMPRESSION: NORMAL BRAIN CT WITHOUT CONTRAST. EVIDENCE OF ACUTE STROKE: NO. COMMENT: Quality ID # [id number]: Final reports with documentation of one or more dose reduction techniques (e.g., Automated exposure control, adjustment of the mA and/or kV according to patient size, use of iterative reconstruction technique) TECHNICAL DOCUMENTATION: JOB ID: [id number] 1958[employer]- All Rights Reserved
[2017-07-24 18:44] LABS: PROTHROMBIN TIME 12.8 SEC (11.4-15.4)
--- NOTE | 2017-07-24 19:24 | ER Document Report ---
ED General - General Mode of Arrival: Ambulatory Information source: Patient TRAVEL OUTSIDE OF THE [place] IN LAST 30 DAYS: No - HPI Onset: Last week <SHELTON KELLEY - Last Filed: 07/24/17 21:26> <VARUN BLAS - Last Filed: 07/24/17 23:48> - General Chief Complaint: General Weakness Stated Complaint: WEAKNESS Time Seen by Provider: 07/24/17 17:59 Notes: Patient is a 72-year-old male who presents to the emergency department today with complaints of a productive cough with white sputum. Patient states when he stands up he gets very lightheaded. Patient states that he has had diarrhea for one week but denies any vomiting. (SHELTON KELLEY) - Related Data Allergies/Adverse Reactions: lisinopril [Lisinopril] Allergy (Verified 07/24/17 17:43) moxifloxacin HCl [From Avelox] Allergy (Verified 07/24/17 17:43) acetaminophen [From Tylenol] Adverse Reaction (Verified 07/24/17 17:43) Past Medical History - General Information source: Patient - Social History Smoking Status: Current Every Day Smoker Cigarette use (# per day): Yes Chew tobacco use (# tins/day): No Frequency of alcohol use: None Drug Abuse: None Lives with: Family Family History: Reviewed & Not Pertinent, CAD - Past Medical History Cardiac Medical History: Reports: Hx Hypercholesterolemia, Hx Hypertension Pulmonary Medical History: Reports: Hx Bronchitis, Hx COPD, Hx Pneumonia Renal/ Medical History: Reports: Hx Renal Insufficiency Musculoskeltal Medical History: Reports Hx Arthritis Psychiatric Medical History: Reports: Hx Depression Surgical Hx: Negative - Immunizations Hx Diphtheria, Pertussis, Tetanus Vaccination: No - unknown Hx Pneumococcal Vaccination: 10/23/12 <SHELTON KELLEY - Last Filed: 07/24/17 21:26> Review of Systems - Review of Systems Constitutional: No symptoms reported EENT: No symptoms reported Cardiovascular: See HPI, Syncope, Lightheaded Respiratory: See HPI, Cough Gastrointestinal: See HPI, Diarrhea. denies: Vomiting Genitourinary: No symptoms reported Male Genitourinary: No symptoms reported Musculoskeletal: No symptoms reported Skin: No symptoms reported Hematologic/Lymphatic: No symptoms reported Neurological/Psychological: No symptoms reported -: Yes All other systems reviewed and negative <SHELTON KELLEY - Last Filed: 07/24/17 21:26> Physical Exam <SHELTON KELLEY - Last Filed: 07/24/17 21:26> <VARUN BLAS - Last Filed: 07/24/17 23:48> - Vital signs Vitals: Temp Pulse Resp BP Pulse Ox 97.8 F 110 H 24 H 99/73 L 95 07/24/17 17:44 07/24/17 17:44 07/24/17 17:44 07/24/17 17:44 07/24/17 17:44 - Notes Notes: Physical Exam: General: Alert, appears well. HEENT: Normocephalic. Atraumatic. PERRL. Extraocular movements intact. Oropharynx clear. Dry oral mucosa. Neck: Supple. Non-tender. Respiratory: No respiratory distress. Rhonchi with forced cough. Cardiovascular: Regular rate and rhythm. Slightly weak pulses. Abdominal: Normal Inspection. Non-tender. No distension. Normal Bowel Sounds. Back: Non-tender. No deformity or step off. Extremities: Moves all four extremities. Upper extremities: Normal inspection. Normal ROM. Lower extremities: Normal inspection. No edema. Normal ROM. Neurological: Normal cognition. AAOx4. Normal speech. Psychological: Normal affect. Normal Mood. Skin: Warm. Dry. Normal color. (SHELTON KELLEY) Course - Laboratory Result Diagrams: 07/24/17 17:59 07/24/17 19:25 <SHELTON KELLEY - Last Filed: 07/24/17 21:26> - Laboratory Result Diagrams: 07/24/17 17:59 07/24/17 19:25 - Diagnostic Test Radiology reviewed: Image reviewed, Reports reviewed - Chest x-ray shows chronic lung changes with nothing acute. CT of the head does not show acute process. - EKG Interpretation by Nm EKG shows normal: Sinus rhythm, [place], Intervals, QRS Complexes, ST-T Waves Rate: Normal - 98 Rhythm: NSR [place]/QRS: RBBB When compared to previous EKG there are: No significant change - Consults Dr. Ann Time consulted: 23:45 Consulted provider: will come to ER - Telemetry admission <VARUN BLAS - Last Filed: 07/24/17 23:48> - Re-evaluation Re-evalutation: 07/24/17 23:46 After 3 L IV fluids, the patient now has a blood pressure that is got up into the 130 systolic range. He still has not urinated for us. 07/24/17 23:48 Patient did have significant hypotension with blood pressures in the 70s and he is normally hypertensive. His creatinine is 2.17 with a baseline of 0.83, his hemoglobin was 16.9 with a baseline of about 12. (VARUN BLAS) - Vital Signs Vital signs: Temp Pulse Resp BP Pulse Ox 97.8 F 110 H 14 92/59 L 97 07/24/17 17:44 07/24/17 17:44 07/24/17 19:41 07/24/17 19:41 07/24/17 19:41 - Laboratory Laboratory results interpreted by me: 07/24/17 07/24/17 07/24/17 17:59 19:25 19:31 RDW 14.9 H Eosinophils % 7.4 H Absolute Eosinophils 0.7 H Sodium 130.7 L Chloride 93 L BUN 48 H Creatinine 2.17 H Est GFR ( Amer) 36 L Est GFR (Non-Af Amer) 30 L Magnesium 1.4 L Direct Bilirubin 0.6 H Critical Care Note - Critical Care Note Total time excluding time spent on procedures (mins): 40 <VARUN BLAS - Last Filed: 07/24/17 23:48> Discharge <SHELTON KELLEY - Last Filed: 07/24/17 21:26> - Discharge Admitting Provider: Hospitalist Unit Admitted: Telemetry <VARUN BLAS - Last Filed: 07/24/17 23:48> - Discharge Clinical Impression: Dehydration, Syncope due to orthostatic hypotension Diarrhea Qualifiers: Diarrhea type: unspecified type Qualified Code(s): R19.7 - Diarrhea, unspecified Hypotension Qualifiers: Hypotension type: unspecified hypotension type Qualified Code(s): I95.9 - Hypotension, unspecified Acute renal failure Qualifiers: Acute renal failure type: unspecified Qualified Code(s): N17.9 - Acute kidney failure, unspecified Condition: Stable Disposition: ADMITTED INPATIENT Referrals: DANY HERMAN MD [Primary Care Provider] - Follow up as needed Scribe Attestation: 07/24/17 23:03 I personally performed the services described in the documentation, reviewed and edited the documentation which was dictated to the scribe in my presence, and it accurately records my words and actions. (VARUN BLAS) Scribe Documentation - Scribe Written by Saloibe:: Eric Davenport, [id number] acting as scribe for :: Ion <SHELTON KELLEY - Last Filed: 07/24/17 21:26>
[2017-07-24] MEDS ORDERED: NORMAL SALINE 1000 ML 1,000 ML IV ONE ×3 (19:29→23:45)
[2017-07-24 19:38] LABS: ADD ON TESTING BLD IN LAB ACKNOWLEDGE
[2017-07-24 19:58] LABS: MAGNESIUM 1.4 mg/dL (1.6-2.3)
[2017-07-24 20:00] LABS: ALANINE AMINOTRANSFERASE 36 U/L (21-72); ALKALINE PHOSPHATASE 93 U/L (38-126); ANION GAP 10 (5-19); ASPARTATE AMINO TRANSFERASE 29 U/L (17-59); BILIRUBIN,DIRECT 0.6 mg/dL (0.0-0.4); BILIRUBIN,TOTAL 0.8 mg/dL (0.2-1.3); BLOOD UREA NITROGEN 48 mg/dL (7-20); CALCIUM 10.2 mg/dL (8.4-10.2); CARBON DIOXIDE 28 mmol/L (22-30); CHLORIDE 93 mmol/L (98-107); CREATINE KINASE 92 U/L (55-170); CREATININE RESULT 2.17 mg/dL (0.52-1.25); GLUCOSE 92 mg/dL (75-110); POTASSIUM 4.1 mmol/L (3.6-5.0); SODIUM 130.7 mmol/L (137-145); TOTAL PROTEIN 6.9 g/dL (6.3-8.2)
[2017-07-24] MEDS ORDERED: DEXTROSE 5%-LACTATED RINGERS 1,000 ML IV ONE (20:10)
[2017-07-24 20:11] LABS: CREATINE KINASE MB 4.03 ng/mL (<4.55); TROPONIN I 0.018 ng/mL
[2017-07-24] MEDS ORDERED: ACETAMINOPHEN 325 MG TABLET PO PRN (23:47)
[2017-07-25] MEDS ORDERED: DILTIAZEM HCL 120 MG CAP.SR.24H PO PRN (00:20)
[2017-07-25] MEDS: IPRATROPIUM/ALBUTEROL 0.5-2.5 MG/3 ML AMPUL NEB SCH ×4 (00:22→23:40)
[2017-07-25] MEDS ORDERED: VENLAFAXINE HCL 75 MG TABLET PO ONE (00:30)
[2017-07-25] MEDS ORDERED: ATORVASTATIN CALCIUM 10 MG TABLET PO ONE (00:30)
[2017-07-25] MEDS ORDERED: DILTIAZEM HCL 120 MG CAP.SR.24H PO ONE (00:30)
[2017-07-25] MEDS: NORMAL SALINE 1000 ML 1,000 ML IV SCH ×2 (01:04→06:21)
[2017-07-25] MEDS ORDERED: INFLUENZA ADLT QUAD (36MOS+) 2017-18 VAC 0.5 ML SYR IM PRN (02:46)
--- NOTE | 2017-07-25 04:46 | EKG REPORT ---
SEVERITY:- ABNORMAL ECG - SINUS RHYTHM RIGHT BUNDLE BRANCH BLOCK : Confirmed by: Carrie Cantu MD 25-Jul-2017 04:28:46
[2017-07-25 05:58] LABS: ABSOLUTE BASOPHILS # (AUTO) 0.1 10^3/uL (0.0-0.2); ABSOLUTE EOSINOPHILS # (AUTO) 0.7 10^3/uL (0.0-0.6); ABSOLUTE LYMPHOCYTES (AUTO) 1.2 10^3/uL (0.5-4.7); ABSOLUTE MONOCYTES (AUTO) 0.8 10^3/uL (0.1-1.4); ABSOLUTE NEUT (AUTO) 6.2 10^3/uL (1.7-8.2); BASOPHILS % (AUTO) 0.6 % (0-2); EOSINOPHILS % (AUTO) 8.2 % (0-6); HEMATOCRIT 40.2 % (37.9-51.0); HGB HCT DIFFERENCE 1.8; LYMPHOCYTES % (AUTO) 13.3 % (13-45); MEAN CORPUSCULAR HEMOGLOBIN 31.7 pg (27.0-33.4); MEAN CORPUSCULAR HGB CONC 34.9 g/dL (32.0-36.0); MEAN CORPUSCULAR VOLUME 91 fl (80-97); MONOCYTES % (AUTO) 9.1 % (3-13); RED BLOOD COUNT 4.43 10^6/uL (4.35-5.55); RED CELL DISTRIBUTION WIDTH 14.7 % (11.5-14.0); SEGMENTED NEUTROPHILS % (AUTO) 68.8 % (42-78); WHITE BLOOD COUNT 9.1 10^3/uL (4.0-10.5)
--- NOTE | 2017-07-25 06:06 | PDOC H&P ---
History of Present Illness Admission Date/PCP: 07/24/17 23:47 DANY HERMAN MD Patient complains of: Opiate withdrawal History of Present Illness: LUTHER LIPSCOMB is a 72 year old male with a past medical history of chronic pain who had been discharged from pain management for misuse of narcotics 1 week ago. He has had significant withdrawal symptoms since with nausea vomiting and underlying pain. Taking ibuprofen for pain but limited p.o. secondary to nausea with diarrhea. In the emergency room he is found to have acute renal failure dehydration, tachycardia and hypotension. He is started on IV fluids and referred to the hospitalist for admission. Patient denies chest pain fever or chills Past Medical History Cardiac Medical History: Reports: Hyperlipidema, Hypertension Denies: Coronary Artery Disease, Myocardial Infarction Pulmonary Medical History: Reports: Bronchitis, Chronic Obstructive Pulmonary Disease (COPD), Pneumonia Denies: Asthma Neurological Medical History: Denies: Seizures Endocrine Medical History: Denies: Diabetes Mellitus Type 2 Musculoskeltal Medical History: Reports: Arthritis Psychiatric Medical History: Reports: Depression Hematology: Denies: Anemia Social History Information Source: Patient, Emergency Med Personnel, [facility] Records Lives with: Family Smoking Status: Current Every Day Smoker Cigarettes Packs Per Day: 1 Frequency of Alcohol Use: Occasional Hx Recreational Drug Use: No Drugs: None Hx Prescription Drug Abuse: Yes - Advance Directive Resuscitation Status: Full Code Family History Family History: Reviewed & Not Pertinent, CAD Parental Family History Reviewed: Yes Children Family History Reviewed: Yes Sibling(s) Family History Reviewed.: Yes Medication/Allergy Home Medications: Docusate Sodium [Colace 100 mg Capsule] 100 mg PO QHS 01/27/17 Fluticasone/Vilanterol [Breo Ellipta 200-25 Mcg INH] 1 puff IH DAILY 01/27/17 Hydromorphone HCl [Dilaudid] 4 mg PO Q4HP PRN 01/27/17 Magnesium Oxide [Mag-Ox 400 mg Tablet] 400 mg PO Q12 01/27/17 Methylcellulose [Fiber Therapy] 500 mg PO Q12 01/27/17 Pravastatin Sodium [Pravachol] 40 mg PO QHS 01/27/17 Venlafaxine HCl [Effexor 75 mg Tablet] 75 mg PO Q12 01/27/17 Albuterol Sulfate [Ventolin 0.083% Neb 2.5 mg/3 mL Ampul] 2.5 mg NEB RTQ3HP PRN #30 vial.neb 02/02/17 Diltiazem HCl [Cardizem Cd 120 mg Capsule] 120 mg PO BID #60 cap.sr.24h Levofloxacin [Levaquin 750 mg Tablet] 750 mg PO QPM #10 tablet 02/02/17 Prednisone 20 mg PO ASDIR PRN #20 tablet 02/02/17 Tiotropium [place] [Spiriva Handihaler 5 Cap/Kit (18 Mcg/Cap)] 1 cap IH DAILY # 30 kit 02/02/17 Methylprednisolone [Medrol Dosepack (4 mg/Tab) 21 Tab/Dosepak] 4 mg PO ASDIR PRN #21 tab.ds.pk 07/13/17 Ondansetron [Zofran Odt 4 mg Tablet] 1 - 2 tab PO Q4H PRN #15 tab.rapdis Allergies/Adverse Reactions: lisinopril [Lisinopril] Allergy (Verified 07/24/17 17:43) moxifloxacin HCl [From Avelox] Allergy (Verified 07/24/17 17:43) acetaminophen [From Tylenol] Adverse Reaction (Verified 07/24/17 17:43) Review of Systems Constitutional: PRESENT: anorexia, fatigue, weakness Eyes: ABSENT: visual disturbances Ears: PRESENT: as per HPI Cardiovascular: ABSENT: chest pain, dyspnea on exertion, edema, orthropnea, palpitations Respiratory: ABSENT: cough, hemoptysis Gastrointestinal: PRESENT: abdominal pain, diarrhea, nausea, vomiting Genitourinary: ABSENT: dysuria, hematuria Musculoskeletal: ABSENT: joint swelling Integumentary: ABSENT: rash, wounds Neurological: ABSENT: abnormal gait, abnormal speech, confusion, dizziness, focal weakness, syncope Psychiatric: ABSENT: anxiety, depression, homidical ideation, suicidal ideation Endocrine: ABSENT: cold intolerance, heat intolerance, polydipsia, polyuria Hematologic/Lymphatic: ABSENT: easy bleeding, easy bruising Physical Exam Vital Signs: Temp Pulse Resp BP Pulse Ox 97.8 F 82 20 138/63 H 98 07/25/17 01:06 07/25/17 02:00 07/25/17 01:06 07/25/17 01:06 07/25/17 01:06 General appearance: PRESENT: cooperative, mild distress, well-developed, well- nourished Head exam: PRESENT: atraumatic, normocephalic Eye exam: PRESENT: conjunctiva pink, EOMI, PERRLA. ABSENT: scleral icterus Ear exam: PRESENT: normal external ear exam Mouth exam: PRESENT: dry mucosa, tongue midline Neck exam: ABSENT: carotid bruit, JVD, lymphadenopathy, thyromegaly Respiratory exam: PRESENT: clear to auscultation lobito. ABSENT: rales, rhonchi, wheezes Cardiovascular exam: PRESENT: RRR. ABSENT: diastolic murmur, rubs, systolic murmur Pulses: PRESENT: normal dorsalis pedis pul Vascular exam: PRESENT: normal capillary refill GI/Abdominal exam: PRESENT: normal bowel sounds, soft. ABSENT: distended, guarding, mass, organolmegaly, rebound, tenderness Rectal exam: PRESENT: deferred Extremities exam: PRESENT: full ROM. ABSENT: calf tenderness, clubbing, pedal edema Neurological exam: PRESENT: alert, awake, oriented to person, oriented to place , oriented to time, oriented to situation, CN II-XII grossly intact. ABSENT: motor sensory deficit Psychiatric exam: PRESENT: appropriate affect, normal mood. ABSENT: homicidal ideation, suicidal ideation Skin exam: PRESENT: dry, intact, warm. ABSENT: cyanosis, rash Results Impressions: Chest X-Ray 07/24/17 17:59 IMPRESSION: Mild chronic lung changes with no acute cardiopulmonary disease. Head CT 07/24/17 18:00 IMPRESSION: NORMAL BRAIN CT WITHOUT CONTRAST. EVIDENCE OF ACUTE STROKE: NO. Assessment & Plan - Diagnosis (1) Acute renal failure Qualifiers: Acute renal failure type: unspecified Qualified Code(s): N17.9 - Acute kidney failure, unspecified Is this a current diagnosis for this admission?: Yes Plan: Multifactorial secondary to severe dehydration in addition to NSAID use. Will aggressively rehydrate avoid nephrotoxic meds and doses and reevaluate chemistry. (2) Hypotension Qualifiers: Hypotension type: unspecified hypotension type Qualified Code(s): I95.9 - Hypotension, unspecified Is this a current diagnosis for this admission?: Yes Plan: Secondary to #1 and opiate withdrawal. He is no longer having diarrhea or requiring narcotic weaning. IV fluid challenge and reevaluation. - Time Time Spent: 30 to 50 Minutes - Inpatient Certification Medical Necessity: Need Close Monitoring Due to Risk of Patient Decompensation
[2017-07-25 06:13] LABS: ANION GAP 9 (5-19); BLOOD UREA NITROGEN 41 mg/dL (7-20); CALCIUM 9.2 mg/dL (8.4-10.2); CARBON DIOXIDE 22 mmol/L (22-30); CHLORIDE 103 mmol/L (98-107); CREATININE RESULT 1.58 mg/dL (0.52-1.25); GLUCOSE 93 mg/dL (75-110); POTASSIUM 3.8 mmol/L (3.6-5.0); SODIUM 134.4 mmol/L (137-145)
[2017-07-25 06:19] LABS: APPEARANCE,URINE CLEAR; BILIRUBIN,URINE NEGATIVE (NEGATIVE); GLUCOSE, URINE NEGATIVE (NEGATIVE); KETONES,URINE NEGATIVE (NEGATIVE); LEUKOCYTE ESTERASE,URINE NEGATIVE (NEGATIVE); NITRITE,URINE NEGATIVE (NEGATIVE); PROTEIN,URINE NEGATIVE (NEGATIVE); URINE SPECIFIC GRAVITY 1.008; UROBILINOGEN,URINE NEGATIVE mg/dL (<2.0)
[2017-07-25] MEDS: HEPARIN SOD (PORCINE) 5,000 UNIT/ML 1 ML SYRINGE SUBCUT SCH ×3 (06:22→22:21)
[2017-07-25] MEDS ORDERED: METHYLCELLULOSE 500 MG PO SCH (10:00)
[2017-07-25] MEDS: DILTIAZEM HCL 120 MG CAP.SR.24H PO SCH ×2 (10:45→18:38)
[2017-07-25] MEDS: VENLAFAXINE HCL 75 MG TABLET PO SCH ×2 (10:45→22:21)
[2017-07-25] MEDS ORDERED: ACETAMINOPHEN 325 MG TABLET PO PRN (17:17)
--- NOTE | 2017-07-25 17:35 | Progress Note ---
Provider Note Provider Note: Patient states that he is feeling somewhat better. Patient reports that his pain management physician fired him. Patient now complaining of back pain. Will write for tramadol and Lidoderm patches.
[2017-07-25] MEDS: TRAMADOL HCL 50 MG TABLET PO PRN (18:39)
[2017-07-25] MEDS ORDERED: DIPHENHYDRAMINE HCL 50 MG CAPSULE PO ONE (19:00)
[2017-07-25] MEDS ORDERED: (PENDING PHARMACY ID) (Pravastatin Sodium [Pravachol] 40 MG) PO SCH (22:00)
[2017-07-25] MEDS: ATORVASTATIN CALCIUM 10 MG TABLET PO SCH (22:21)
[2017-07-26] MEDS: TRAMADOL HCL 50 MG TABLET PO PRN ×3 (01:00→21:11)
[2017-07-26] MEDS: HEPARIN SOD (PORCINE) 5,000 UNIT/ML 1 ML SYRINGE SUBCUT SCH ×3 (06:27→21:11)
[2017-07-26] MEDS: IPRATROPIUM/ALBUTEROL 0.5-2.5 MG/3 ML AMPUL NEB SCH ×3 (07:56→23:53)
[2017-07-26 08:58] LABS: ANION GAP 11 (5-19); BLOOD UREA NITROGEN 21 mg/dL (7-20); CALCIUM 10.3 mg/dL (8.4-10.2); CARBON DIOXIDE 24 mmol/L (22-30); CHLORIDE 99 mmol/L (98-107); CREATININE RESULT 0.93 mg/dL (0.52-1.25); GLUCOSE 95 mg/dL (75-110); POTASSIUM 3.7 mmol/L (3.6-5.0)
[2017-07-26] MEDS: LIDOCAINE 5% (700 MG) TRANSDERMAL ADH..PATCH TP SCH (10:36)
[2017-07-26] MEDS: VENLAFAXINE HCL 75 MG TABLET PO SCH ×2 (10:39→21:11)
[2017-07-26] MEDS: DILTIAZEM HCL 120 MG CAP.SR.24H PO SCH ×2 (10:39→17:52)
[2017-07-26] MEDS ORDERED: BUSPIRONE HCL 10 MG TABLET PO PRN (14:03)
--- NOTE | 2017-07-26 14:06 | PDOC PROGRESS REPORT ---
Subjective Progress Note for:: 07/26/17 Subjective:: Pt states that he is doing ok. Pt states that he is not having very much diarrhea. Pt states that he is passing gas. Physical Exam Vital Signs: Temp Pulse Resp BP Pulse Ox 97.5 F 85 12 164/67 H 99 07/26/17 11:27 07/26/17 11:27 07/26/17 11:27 07/26/17 11:27 07/26/17 11:27 Intake & Output 07/25/17 07/26/17 07/27/17 06:59 06:59 06:59 Intake Total 240 1710 580 Output Total 320 200 Balance -80 1510 580 Weight 74.8 kg 73.7 kg General appearance: PRESENT: no acute distress, well-developed, well-nourished Head exam: PRESENT: atraumatic, normocephalic Eye exam: PRESENT: conjunctiva pink, EOMI. ABSENT: scleral icterus Ear exam: PRESENT: normal external ear exam Mouth exam: PRESENT: moist, tongue midline Neck exam: ABSENT: carotid bruit, JVD, lymphadenopathy, thyromegaly Respiratory exam: PRESENT: clear to auscultation lobito. ABSENT: rales, rhonchi, wheezes Pulses: PRESENT: normal dorsalis pedis pul Vascular exam: PRESENT: normal capillary refill GI/Abdominal exam: PRESENT: normal bowel sounds, soft. ABSENT: distended, guarding, mass, organolmegaly, rebound, tenderness Rectal exam: PRESENT: deferred Extremities exam: PRESENT: full ROM. ABSENT: calf tenderness, clubbing, pedal edema Neurological exam: PRESENT: alert, awake, oriented to person, oriented to place , oriented to time, oriented to situation, CN II-XII grossly intact. ABSENT: motor sensory deficit Psychiatric exam: PRESENT: appropriate affect, normal mood. ABSENT: homicidal ideation, suicidal ideation Skin exam: PRESENT: dry, intact, warm. ABSENT: cyanosis, rash Results Laboratory Results: 07/25/17 05:38 07/26/17 08:27 07/26/17 08:27 Sodium 134.0 L Potassium 3.7 Chloride 99 Carbon Dioxide 24 Anion Gap 11 BUN 21 H Creatinine 0.93 Est GFR ( Amer) > 60 Est GFR (Non-Af Amer) > 60 Glucose 95 Calcium 10.3 H Impressions: Chest X-Ray 07/24/17 17:59 IMPRESSION: Mild chronic lung changes with no acute cardiopulmonary disease. Head CT 07/24/17 18:00 IMPRESSION: NORMAL BRAIN CT WITHOUT CONTRAST. EVIDENCE OF ACUTE STROKE: NO. Assessment & Plan - Diagnosis (1) Hypercalcemia Is this a current diagnosis for this admission?: Yes Plan: Is likely secondary to immobility: We will continue IV fluids will check in the a.m. (2) Hypomagnesemia Is this a current diagnosis for this admission?: Yes Plan: We will give magnesium replacement. Will check mag in a.m. (3) Acute renal failure Qualifiers: Acute renal failure type: unspecified Qualified Code(s): N17.9 - Acute kidney failure, unspecified Is this a current diagnosis for this admission?: Yes Plan: Resolved. (4) Dehydration Plan: Resolved. (5) Diarrhea Qualifiers: Diarrhea type: unspecified type Qualified Code(s): R19.7 - Diarrhea, unspecified Is this a current diagnosis for this admission?: Yes Plan: Secondary to opiate withdrawal: Resolving. (6) Hypotension Qualifiers: Hypotension type: unspecified hypotension type Qualified Code(s): I95.9 - Hypotension, unspecified Is this a current diagnosis for this admission?: Yes Plan: Resolved. (7) Syncope due to orthostatic hypotension Is this a current diagnosis for this admission?: Yes Plan: Resolved. (8) Anxiety Is this a current diagnosis for this admission?: Yes Plan: Supportive care. (9) Neuropathy Is this a current diagnosis for this admission?: Yes Plan: We will restart Lyrica (10) Hypertension Is this a current diagnosis for this admission?: Yes Plan: We will place patient on [facility] - Time Time Spent with patient: 25-34 minutes Anticipated discharge: Home
[2017-07-26] MEDS ORDERED: AMLODIPINE BESYLATE 10 MG TABLET PO ONE (15:00)
[2017-07-26] MEDS: MAGNESIUM SULFATE/D5W 1 GM/100 ML RTUPB IV SCH ×3 (15:44→17:49)
[2017-07-26] MEDS ORDERED: PREGABALIN 100 MG CAPSULE PO SCH (18:00)
[2017-07-26] MEDS: PREGABALIN 100 MG CAPSULE PO SCH (21:11)
[2017-07-26] MEDS: ATORVASTATIN CALCIUM 10 MG TABLET PO SCH (21:11)
[2017-07-27 04:21] VITALS: BP 136/75
[2017-07-27] MEDS: HEPARIN SOD (PORCINE) 5,000 UNIT/ML 1 ML SYRINGE SUBCUT SCH ×2 (05:22→13:32)
[2017-07-27] MEDS: PREGABALIN 100 MG CAPSULE PO SCH ×2 (05:22→13:29)
[2017-07-27 05:53] LABS: ANION GAP 11 (5-19); BLOOD UREA NITROGEN 18 mg/dL (7-20); CALCIUM 10.5 mg/dL (8.4-10.2); CARBON DIOXIDE 26 mmol/L (22-30); CHLORIDE 93 mmol/L (98-107); CREATININE RESULT 0.84 mg/dL (0.52-1.25); GLUCOSE 101 mg/dL (75-110); MAGNESIUM 1.3 mg/dL (1.6-2.3); POTASSIUM 3.5 mmol/L (3.6-5.0); SODIUM 129.5 mmol/L (137-145)
[2017-07-27] MEDS: IPRATROPIUM/ALBUTEROL 0.5-2.5 MG/3 ML AMPUL NEB SCH (08:45)
[2017-07-27] MEDS ORDERED: AMLODIPINE BESYLATE 10 MG TABLET PO SCH (10:00)
[2017-07-27] MEDS ORDERED: CITALOPRAM HYDROBROMIDE 20 MG TABLET PO SCH (10:00)
[2017-07-27] MEDS ORDERED: POTASSIUM CHLORIDE 10 MEQ TABLET.SA PO ONE (11:00)
--- NOTE | 2017-07-27 11:01 | PDOC DISCHARGE SUMMARY ---
General - Admit/Disc Date/PCP Admission Date/Primary Care Provider: 07/24/17 23:47 DANY HERMAN MD Discharge Date: 07/27/17 - Discharge Diagnosis (1) Opioid withdrawal Is this a current diagnosis for this admission?: Yes Summary: Resolved. Patient was admitted to the hospital due to opioid withdrawal which resulted in patient having severe diarrhea and developing severe dehydration. At time of discharge patient is no longer withdrawing. (2) Hypercalcemia Is this a current diagnosis for this admission?: Yes Summary: Most likely reflecting acute renal injury and dehydration recommend the patient follow with his PCP for calcium recheck. (3) Hypomagnesemia Is this a current diagnosis for this admission?: Yes Summary: Patient will be given 3 g of magnesium prior to discharge and then discharged home on oral magnesium for 5 days. (4) Acute renal failure Is this a current diagnosis for this admission?: Yes Summary: Secondary to severe dehydration as a result of opioid withdrawal: Resolved patient's renal function is back to baseline. (5) Dehydration Is this a current diagnosis for this admission?: Yes Summary: Secondary to opioid withdrawal: Resolved (6) Diarrhea Is this a current diagnosis for this admission?: Yes Summary: Secondary to opioid withdrawal: Resolving (7) Hypotension Is this a current diagnosis for this admission?: Yes Summary: Resolved (8) Anxiety Is this a current diagnosis for this admission?: Yes Summary: Continue patient's SSRI (9) Neuropathy Is this a current diagnosis for this admission?: Yes Summary: Lyrica (10) Hypertension Is this a current diagnosis for this admission?: Yes Summary: We will continue patient's home medication with the addition of Norvasc. (11) Hyponatremia Is this a current diagnosis for this admission?: Yes Summary: Chronic hyponatremia patient's sodium was low at time of admission this could possibly be due to patient's psych medication. Patient's PCP will need to evaluate as outpatient. - Additional Information Resuscitation Status: Full Code Discharge Diet: Cardiac Discharge Activity: Activity As Tolerated Home Medications: Buspirone HCl [Buspar 10 mg Tablet] 10 mg PO BIDP PRN 07/25/17 Citalopram Hydrobromide [Celexa 20 mg Tablet] 20 mg PO DAILY 07/25/17 Pregabalin [Lyrica 100 mg Capsule] 100 mg PO TID 07/25/17 Valsartan [Diovan 160 mg Tablet] 160 mg PO DAILY 07/25/17 Amlodipine Besylate [Norvasc 10 mg Tablet] 10 mg PO DAILY #30 tablet 07/27/17 Atorvastatin Calcium [Lipitor 10 mg Tablet] 10 mg PO QHS #30 tablet 07/27/17 Tramadol HCl [Ultram 50 mg Tablet] 50 mg PO Q6HP PRN #10 tablet 07/27/17 History of Present Illness Patient complains of: Opioid withdrawal History of Present Illness: LUTHER LIPSCOMB is a 72 year old male resents to the emergency room with complaint of nausea vomiting and diarrhea. Patient reports that his pain management doctor stated that he was misusing his narcotic medication and fired patient from his care. Patient reported to me that he has been without pain medication for approximately 1 weeks. Patient was admitted to the hospital where he was pretreated for severe dehydration acute renal injury and electrolyte abnormalities. Patient has done well throughout hospitalization and diarrhea has decreased. Patient's blood pressure medications were adjusted due to hypertension during hospital stay blood pressure has been under better control. Hospital Course Hospital Course: Patient reports that his pain management doctor stated that he was misusing his narcotic medication and fired patient from his care. Patient reported to me that he has been without pain medication for approximately 1 weeks. Patient was admitted to the hospital where he was pretreated for severe dehydration acute renal injury and electrolyte abnormalities. Patient has done well throughout hospitalization and diarrhea has decreased. Patient's blood pressure medications were adjusted due to hypertension during hospital stay blood pressure has been under better control. Physical Exam Vital Signs: Temp Pulse Resp BP Pulse Ox 97.7 F 85 18 136/75 H 98 07/27/17 04:00 07/27/17 08:46 07/27/17 08:46 07/27/17 04:00 07/27/17 08:46 Intake & Output 07/26/17 07/27/17 07/28/17 06:59 06:59 06:59 Intake Total 1710 880 Output Total 200 Balance 1510 880 Weight 73.7 kg 71.8 kg General appearance: PRESENT: no acute distress, well-developed, well-nourished Head exam: PRESENT: atraumatic, normocephalic Eye exam: PRESENT: conjunctiva pink, EOMI. ABSENT: scleral icterus Ear exam: PRESENT: normal external ear exam Mouth exam: PRESENT: moist, tongue midline Neck exam: ABSENT: carotid bruit, JVD, lymphadenopathy, thyromegaly Respiratory exam: PRESENT: clear to auscultation lobito. ABSENT: rales, rhonchi, wheezes Pulses: PRESENT: normal dorsalis pedis pul Vascular exam: PRESENT: normal capillary refill GI/Abdominal exam: PRESENT: normal bowel sounds, soft. ABSENT: distended, guarding, mass, organolmegaly, rebound, tenderness Rectal exam: PRESENT: deferred Extremities exam: PRESENT: full ROM. ABSENT: calf tenderness, clubbing, pedal edema Neurological exam: PRESENT: alert, awake, oriented to person, oriented to place , oriented to time, oriented to situation, CN II-XII grossly intact. ABSENT: motor sensory deficit Psychiatric exam: PRESENT: agitated Skin exam: PRESENT: dry, intact, warm. ABSENT: cyanosis, rash Results Laboratory Results: 07/25/17 05:38 07/27/17 05:09 07/27/17 05:09 Sodium 129.5 L Potassium 3.5 L Chloride 93 L Carbon Dioxide 26 Anion Gap 11 BUN 18 Creatinine 0.84 Est GFR ( Amer) > 60 Est GFR (Non-Af Amer) > 60 Glucose 101 Calcium 10.5 H Magnesium 1.3 L Impressions: Chest X-Ray 07/24/17 17:59 IMPRESSION: Mild chronic lung changes with no acute cardiopulmonary disease. Head CT 07/24/17 18:00 IMPRESSION: NORMAL BRAIN CT WITHOUT CONTRAST. EVIDENCE OF ACUTE STROKE: NO.
[2017-07-27] MEDS: LIDOCAINE 5% (700 MG) TRANSDERMAL ADH..PATCH TP SCH (11:24)
[2017-07-27] MEDS: VENLAFAXINE HCL 75 MG TABLET PO SCH (11:24)
[2017-07-27] MEDS: MAGNESIUM SULFATE/D5W 1 GM/100 ML RTUPB IV SCH ×3 (11:25→13:28)
[2017-07-27] MEDS ORDERED: TRAMADOL HCL 50 MG TABLET PO PRN (11:30)
[2017-07-27] MEDS ORDERED: DILTIAZEM HCL 120 MG CAP.SR.24H PO SCH (22:00)
[2017-07-27] MEDS ORDERED: PHARMACY COMMUNICATION ORDER MC SCH (22:00)
== END 2017-07-27 14:37 | disposition home or self-care (01) | DRG 897 ==
LOC: ER 17:35 → EH 23:47 → 4S 07-25 01:00
PROVIDERS: ADMIT Internal Medicine; ATTEND Internal Medicine
PROC: 3E0234Z Introduction of Serum, Toxoid and Vaccine into Muscle, Percutaneous Approach (ICD-10-PCS; principal; 2017-07-27)
DX: F11.23 Opioid dependence with withdrawal (principal); N17.9 Acute kidney failure, unspecified; K52.1 Toxic gastroenteritis and colitis; E86.0 Dehydration; G89.29 Other chronic pain; I95.1 Orthostatic hypotension; I10 Essential (primary) hypertension; E78.5 Hyperlipidemia, unspecified; E83.52 Hypercalcemia; E83.42 Hypomagnesemia; F41.9 Anxiety disorder, unspecified; G62.9 Polyneuropathy, unspecified; T40.2X5A Adverse effect of other opioids, initial encounter; Y92.9 Unspecified place or not applicable; F17.210 Nicotine dependence, cigarettes, uncomplicated; Z23 Encounter for immunization; Z79.51 Long term (current) use of inhaled steroids; Z79.52 Long term (current) use of systemic steroids; Z79.899 Other long term (current) drug therapy; Z79.1 Long term (current) use of non-steroidal anti-inflammatories (NSAID)
CPT/HCPCS: 36415; 70450; 71010; 80048; 80053; 81001; 82550; 82553; 83605; 83735; 84484; 85025; 85610; 87045; 87205; 87493; 89055; 90686; 93005; 93010; 94640; 96361; 96365; 99291; J1644; J3475; J7030; J7040; J7620

== ENCOUNTER 2017-09-23 21:57 | Inpatient (IN) | payer MEDICARE ==
--- NOTE | 2017-09-23 22:21 | RADIOLOGY REPORT (SQ) ---
EXAM DESCRIPTION: CHEST PA/LAT COMPLETED DATE/TIME: 09/23/2017 10:11 pm REASON FOR STUDY: SHORTNESS OF BREATH, RECENT PNEUMONIA COMPARISON: 01/27/2017 NUMBER OF VIEWS: Two view. TECHNIQUE: Frontal and lateral radiographic views of the chest acquired. LIMITATIONS: None. FINDINGS: LUNGS AND PLEURA: Re- demonstration of peribronchial cuffing and interstitial changes. No consolidation, effusion, or pneumothorax. MEDIASTINUM AND HILAR STRUCTURES: No masses. No contour abnormalities. HEART AND VASCULAR STRUCTURES: Heart normal in size and contour. No evidence for failure. BONES: No acute findings. HARDWARE: None in the chest. OTHER: No other significant finding. IMPRESSION: Constellation of findings are nonspecific. However, given similar findings on compariso n radiographs, favor chronic versus recurrent bronchitis. TECHNICAL DOCUMENTATION: JOB ID: [id number] [employer]- All Rights Reserved
[2017-09-23] MEDS ORDERED: IPRATROPIUM/ALBUTEROL 0.5-2.5 MG/3 ML AMPUL NEB ONE ×3 (22:33→22:34)
[2017-09-23] MEDS ORDERED: MAGNESIUM SULFATE/D5W 1 GM/100 ML RTUPB IV PRN (22:34)
[2017-09-23] MEDS ORDERED: METHYLPREDNISOLONE INJ 125 MG/2 ML SDV IV ONE (22:34)
--- NOTE | 2017-09-23 22:37 | ER Document Report ---
ED Respiratory Problem - General Chief Complaint: Breathing Difficulty Stated Complaint: TROUBLE BREATHING Time Seen by Provider: 09/23/17 22:27 Notes: Patient is a 72-year-old male with a history of COPD who continues to smoke that comes emergency department for chief complaint of difficulty breathing, he states he was seen several days ago and started on doxycycline and prednisone, states he has been taking these, states that today he had coughing episodes where he passed out twice, prompting him to come to the emergency department. He has been hospitalized for COPD in the past. He reports intermittent sharp chest pains with cough but none otherwise, denies fever, denies vomiting. Only other past medical history reported are hypertension, arthritis, hernia repair. TRAVEL OUTSIDE OF THE [place] IN LAST 30 DAYS: No - Related Data Allergies/Adverse Reactions: lisinopril [Lisinopril] Allergy (Verified 07/24/17 17:43) moxifloxacin HCl [From Avelox] Allergy (Verified 07/24/17 17:43) acetaminophen [From Tylenol] Adverse Reaction (Verified 07/24/17 17:43) Past Medical History - General Information source: Patient - Social History Smoking Status: Never Smoker Frequency of alcohol use: None Drug Abuse: None Lives with: Family Family History: Reviewed & Not Pertinent, CAD Patient has suicidal ideation: No Patient has homicidal ideation: No - Past Medical History Cardiac Medical History: Reports: Hx Hypercholesterolemia, Hx Hypertension Denies: Hx Coronary Artery Disease, Hx Heart Attack Pulmonary Medical History: Reports: Hx Bronchitis, Hx COPD, Hx Pneumonia Denies: Hx Asthma Neurological Medical History: Denies: Hx Cerebrovascular Accident, Hx Seizures Endocrine Medical History: Denies: Hx Diabetes Mellitus Type 2 Renal/ Medical History: Reports: Hx Renal Insufficiency. Denies: Hx Peritoneal Dialysis Musculoskeltal Medical History: Reports Hx Arthritis Psychiatric Medical History: Reports: Hx Depression - Immunizations Hx Diphtheria, Pertussis, Tetanus Vaccination: No - unknown Hx Pneumococcal Vaccination: 10/23/12 Review of Systems - Review of Systems Constitutional: No symptoms reported EENT: No symptoms reported Cardiovascular: See HPI Respiratory: See HPI Gastrointestinal: No symptoms reported Genitourinary: No symptoms reported Male Genitourinary: No symptoms reported Musculoskeletal: No symptoms reported Skin: No symptoms reported Hematologic/Lymphatic: No symptoms reported Neurological/Psychological: No symptoms reported Physical Exam - Vital signs Vitals: Pulse Ox 93 09/23/17 22:29 Interpretation: Normal - General General appearance: Appears well, Alert In distress: None - HEENT Head: Normocephalic, Atraumatic Eyes: Normal Pupils: PERRL - Respiratory Respiratory status: Respiratory distress, Labored, Tachypnea Chest status: Nontender Breath sounds: Decreased air movement, Nonproductive cough, Wheezing - Loud expiratory wheezes, coarse breath sounds throughout Chest palpation: Normal - Cardiovascular Rhythm: Regular. No: Tachycardia Heart sounds: Normal auscultation, S1 appreciated, S2 appreciated Murmur: No - Abdominal Inspection: Normal Distension: No distension Bowel sounds: Normal Tenderness: Nontender. No: Tender, Guarding Organomegaly: No organomegaly - Back Back: Normal, Nontender - Extremities General upper extremity: Normal inspection, Nontender, Normal color, Normal ROM , Normal temperature General lower extremity: Normal inspection, Nontender, Normal color, Normal ROM , Normal temperature, Normal weight bearing. No: Edema - Neurological Neuro grossly intact: Yes Cognition: Normal Orientation: AAOx4 [place] Coma Scale Eye Opening: Spontaneous [place] Coma Scale Verbal: Oriented [place] Coma Scale Motor: Obeys Commands [place] Coma Scale Total: 15 Speech: Normal Motor strength normal: LUE, RUE, LLE, RLE Sensory: Normal - Psychological Associated symptoms: Normal affect, Normal mood - Skin Skin Temperature: Warm Skin Moisture: Dry Skin Color: Normal Course - Re-evaluation Re-evalutation: Patient with mild tachypnea, hypoxia at about 90% on room air at rest, decreased breath sounds, expiratory wheezes throughout. Giving duo nebs, magnesium, Solu-Medrol, oxygen, will monitor closely. On reevaluation patient appears improved, wheezing has significantly decreased, pulse oxygenation improved on 2 L nasal cannula. Chest x-ray consistent with bronchitis but no consolidation. CBC shows mild leukocytosis but this is nonspecific with recent prednisone use. No fever. Chemistry generally unremarkable. On reevaluation patient continues to be improved, however patient was ambulated with pulse oxygenation, he had significantly increased labored breathing and his pulse oxygenation dropped down to 85%. Patient immediately placed back on oxygen. Discussed admission, patient is agreeable. Discussed with Dr. Stephen, patient will be admitted for COPD exacerbation and hypoxia. Admitted to telemetry full admission. - Vital Signs Vital signs: Temp Pulse Resp BP Pulse Ox 97.9 F 114 H 16 153/71 H 98 09/24/17 03:36 09/24/17 03:46 09/24/17 03:36 09/24/17 03:36 09/24/17 03:36 - Laboratory Result Diagrams: 09/23/17 22:53 09/23/17 22:53 Laboratory results interpreted by me: 09/23/17 09/23/17 09/23/17 22:53 22:53 22:53 WBC 10.9 H RBC 4.24 L RDW 14.4 H Seg Neutrophils % 81.0 H Lymphocytes % 8.5 L Absolute Neutrophils 8.8 H BUN 45 H Calcium 10.3 H Magnesium CK-MB (CK-2) 6.87 H 09/23/17 22:53 WBC RBC RDW Seg Neutrophils % Lymphocytes % Absolute Neutrophils BUN Calcium Magnesium 1.3 L CK-MB (CK-2) Discharge - Discharge Clinical Impression: COPD exacerbation, Hypoxia Condition: Stable Disposition: ADMITTED INPATIENT Admitting Provider: Hospitalist Unit Admitted: Telemetry
[2017-09-23 23:20] LABS: VENOUS BLOOD BASE EXCESS -0.2 mmol/L; VENOUS BLOOD HCO3 24.9 mmol/L (20-32); VENOUS BLOOD PH 7.39 (7.30-7.42)
[2017-09-23 23:25] LABS: ABSOLUTE EOSINOPHILS # (AUTO) 0.1 10^3/uL (0.0-0.6); ABSOLUTE LYMPHOCYTES (AUTO) 0.9 10^3/uL (0.5-4.7); ABSOLUTE NEUT (AUTO) 8.8 10^3/uL (1.7-8.2); BASOPHILS % (AUTO) 0.2 % (0-2); EOSINOPHILS % (AUTO) 1.2 % (0-6); HEMATOCRIT 38.6 % (37.9-51.0); HEMOGLOBIN 13.5 g/dL (13.5-17.0); HGB HCT DIFFERENCE 1.9; LYMPHOCYTES % (AUTO) 8.5 % (13-45); MEAN CORPUSCULAR HEMOGLOBIN 31.8 pg (27.0-33.4); MEAN CORPUSCULAR HGB CONC 34.9 g/dL (32.0-36.0); MEAN CORPUSCULAR VOLUME 91 fl (80-97); MONOCYTES % (AUTO) 9.1 % (3-13); RED BLOOD COUNT 4.24 10^6/uL (4.35-5.55); RED CELL DISTRIBUTION WIDTH 14.4 % (11.5-14.0); WHITE BLOOD COUNT 10.9 10^3/uL (4.0-10.5)
[2017-09-23 23:35] LABS: ALANINE AMINOTRANSFERASE 26 U/L (21-72); ALBUMIN 4.6 g/dL (3.5-5.0); ALKALINE PHOSPHATASE 91 U/L (38-126); ANION GAP 14 (5-19); ASPARTATE AMINO TRANSFERASE 22 U/L (17-59); BILIRUBIN,DIRECT 0.4 mg/dL (0.0-0.4); BILIRUBIN,TOTAL 0.4 mg/dL (0.2-1.3); BLOOD UREA NITROGEN 45 mg/dL (7-20); CALCIUM 10.3 mg/dL (8.4-10.2); CARBON DIOXIDE 25 mmol/L (22-30); CHLORIDE 101 mmol/L (98-107); CREATINE KINASE 60 U/L (55-170); CREATININE RESULT 1.17 mg/dL (0.52-1.25); GLUCOSE 89 mg/dL (75-110); POTASSIUM 4.1 mmol/L (3.6-5.0); SODIUM 140.1 mmol/L (137-145); TOTAL PROTEIN 7.6 g/dL (6.3-8.2)
[2017-09-23 23:47] LABS: CREATINE KINASE MB 6.87 ng/mL (<4.55); TROPONIN I 0.012 ng/mL
[2017-09-24] MEDS ORDERED: ACETAMINOPHEN 325 MG TABLET PO PRN (01:05)
[2017-09-24] MEDS ORDERED: BUSPIRONE HCL 10 MG TABLET PO PRN ×2 (01:13→18:02)
--- NOTE | 2017-09-24 01:46 | PDOC H&P ---
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 Patient reports that about 2 weeks ago he began developing increasing cough and shortness of breath. He reports on he was started on prednisone and an unknown antibiotic by the PA at his doctor's office. He denies any associated fevers or chills. He denies his cough being productive of purulent sputum. In the emergency department, patient received 3 nebulized treatments and Solu-Medrol, but continued to be persistently mildly hypoxic requiring 2 L of oxygen to sat in the low 90s. He is referred to the hospitalist service for COPD exacerbation. Past Medical History Cardiac Medical History: Reports: Hyperlipidema, Hypertension Denies: Coronary Artery Disease, Myocardial Infarction Pulmonary Medical History: Reports: Bronchitis, Chronic Obstructive Pulmonary Disease (COPD), Pneumonia Denies: Asthma Neurological Medical History: Denies: Seizures Endocrine Medical History: Denies: Diabetes Mellitus Type 2 Musculoskeltal Medical History: Reports: Arthritis Psychiatric Medical History: Reports: Depression, Substance Abuse, Tobacco Dependency Hematology: Denies: Anemia Past Surgical History Past Surgical History: Reports: Herniorrhaphy, Other - Sinus surgery Social History Smoking Status: Current Every Day Smoker Cigarettes Packs Per Day: 1 Frequency of Alcohol Use: Occasional Hx Recreational Drug Use: No Drugs: None Hx Prescription Drug Abuse: Yes - Advance Directive Resuscitation Status: Full Code Surrogate healthcare decision maker:: Dora Lipscomb, Family History Family History: Arthritis, CAD, Malignancy Parental Family History Reviewed: Yes Children Family History Reviewed: Yes Sibling(s) Family History Reviewed.: Yes Medication/Allergy Home Medications: Buspirone HCl [Buspar 10 mg Tablet] 10 mg PO BIDP PRN 07/25/17 Citalopram Hydrobromide [Celexa 20 mg Tablet] 20 mg PO DAILY 07/25/17 Pregabalin [Lyrica 100 mg Capsule] 100 mg PO TID 07/25/17 Valsartan [Diovan 160 mg Tablet] 160 mg PO DAILY 07/25/17 Amlodipine Besylate [Norvasc 10 mg Tablet] 10 mg PO DAILY #30 tablet 07/27/17 Atorvastatin Calcium [Lipitor 10 mg Tablet] 10 mg PO QHS #30 tablet 07/27/17 Magnesium Oxide 500 mg PO DAILY #5 capsule 07/27/17 Tramadol HCl [Ultram 50 mg Tablet] 50 mg PO Q6HP PRN #10 tablet 07/27/17 Allergies/Adverse Reactions: lisinopril [Lisinopril] Allergy (Verified 07/24/17 17:43) moxifloxacin HCl [From Avelox] Allergy (Verified 07/24/17 17:43) acetaminophen [From Tylenol] Adverse Reaction (Verified 07/24/17 17:43) Review of Systems Constitutional: ABSENT: chills, fever(s), headache(s), weight gain, weight loss Eyes: ABSENT: visual disturbances Ears: ABSENT: hearing changes Cardiovascular: PRESENT: chest pain - With cough. ABSENT: dyspnea on exertion, edema, orthropnea, palpitations Respiratory: PRESENT: cough, dyspnea. ABSENT: hemoptysis, sputum Gastrointestinal: ABSENT: abdominal pain, constipation, diarrhea, hematemesis, hematochezia, nausea, vomiting Genitourinary: ABSENT: dysuria, hematuria Musculoskeletal: ABSENT: joint swelling Integumentary: ABSENT: rash, wounds Neurological: ABSENT: abnormal gait, abnormal speech, confusion, dizziness, focal weakness, syncope Psychiatric: ABSENT: anxiety, depression, homidical ideation, suicidal ideation Endocrine: ABSENT: cold intolerance, heat intolerance, polydipsia, polyuria Hematologic/Lymphatic: ABSENT: easy bleeding, easy bruising Physical Exam Vital Signs: Temp Pulse Resp BP Pulse Ox 91 L 09/23/17 22:32 General appearance: PRESENT: no acute distress, well-developed, well-nourished Head exam: PRESENT: atraumatic, normocephalic Eye exam: PRESENT: conjunctiva pink, EOMI, PERRLA. ABSENT: scleral icterus Ear exam: PRESENT: normal external ear exam Mouth exam: PRESENT: moist, tongue midline Neck exam: PRESENT: lymphadenopathy. ABSENT: JVD, tracheal deviation Respiratory exam: PRESENT: chest wall tenderness, prolonged expiratory phas, symmetrical, tachypnea, unlabored, wheezes. ABSENT: accessory muscle use, rales , rhonchi Cardiovascular exam: PRESENT: RRR, +S1, +S2. ABSENT: diastolic murmur, rubs, systolic murmur Pulses: PRESENT: normal dorsalis pedis pul Vascular exam: PRESENT: normal capillary refill GI/Abdominal exam: PRESENT: normal bowel sounds, soft. ABSENT: distended, firm , guarding, mass, organolmegaly, rebound, rigid, tenderness Rectal exam: PRESENT: deferred Extremities exam: PRESENT: full ROM. ABSENT: calf tenderness, clubbing, pedal edema Neurological exam: PRESENT: alert, awake, oriented to person, oriented to place , oriented to time, oriented to situation, CN II-XII grossly intact. ABSENT: motor sensory deficit Psychiatric exam: PRESENT: appropriate affect, normal mood. ABSENT: homicidal ideation, suicidal ideation Skin exam: PRESENT: dry, intact, warm. ABSENT: cyanosis, rash Results Laboratory Results: 09/23/17 09/23/17 09/23/17 22:53 22:53 22:53 WBC 10.9 H Hgb 13.5 Plt Count 282 Seg Neutrophils % 81.0 H BUN 45 H Creatinine 1.17 Calcium 10.3 H Creatine Kinase 60 CK-MB (CK-2) 6.87 H Troponin I 0.012 Total Protein 7.6 Albumin 4.6 Impressions: Chest X-Ray 09/23/17 00:00 IMPRESSION: Constellation of findings are nonspecific. However, given similar findings on comparison radiographs, favor chronic versus recurrent bronchitis. Status: Imported from PACS Assessment & Plan - Diagnosis (1) COPD exacerbation Is this a current diagnosis for this admission?: Yes Plan: Place patient on scheduled nebulized treatments and re-evaluate for improvement. PRN Xopenex Place patient on IV Solu-Medrol Obtain sputum culture Encourage smoking cessation (2) Tobacco dependence Is this a current diagnosis for this admission?: Yes Plan: Patient is advised to stop using tobacco. Counseling lasted longer than 3 minutes. (3) Hypoxia Is this a current diagnosis for this admission?: Yes Plan: Oxygen as needed to maintain saturation between 90 and 94% (4) Chest pain Qualifiers: Chest pain type: chest pain on breathing Qualified Code(s): R07.1 - Chest pain on breathing; R07.81 - Pleurodynia Is this a current diagnosis for this admission?: Yes Plan: Solu-Medrol Check troponins (5) Chronic low back pain Qualifiers: Back pain laterality: bilateral Sciatica laterality: bilateral sciatica Is this a current diagnosis for this admission?: Yes Plan: Lidoderm patch (6) Hypercalcemia Is this a current diagnosis for this admission?: Yes Plan: Likely secondary to dehydration will rehydrate (7) Neuropathy Is this a current diagnosis for this admission?: Yes Plan: Resume Lyrica and tramadol (8) HTN (hypertension) Qualifiers: Hypertension type: essential hypertension Qualified Code(s): I10 - Essential (primary) hypertension Is this a current diagnosis for this admission?: Yes Plan: Norvasc and losartan (9) hepatitis c, s/p treatment 20 years ago Is this a current diagnosis for this admission?: No - Time Time Spent: 30 to 50 Minutes Medications reviewed and adjusted accordingly: Yes Anticipated discharge: Home Within: Other - Upon improvement of symptomatology - Inpatient Certification Based on my medical assessment, after consideration of the patient's comorbidities, presenting symptoms, or acuity I expect that the services needed warrant INPATIENT care.: Yes I certify that my determination is in accordance with my understanding of Medicare's requirements for reasonable and necessary INPATIENT services [42 CFR 412.3e].: Yes Medical Necessity: Need For IV Fluids, Need for Nebulizer Therapy and Monitoring of Response Post Hospital Care: D/C [employer] Documentation
[2017-09-24] MEDS ORDERED: NICOTINE 21 MG/24 HR PATCH.TD24 TD ONE (02:00)
[2017-09-24] MEDS ORDERED: LIDOCAINE 5% (700 MG) TRANSDERMAL ADH..PATCH TP ONE (02:00)
[2017-09-24] MEDS: TRAMADOL HCL 50 MG TABLET PO PRN ×2 (02:10→09:31)
[2017-09-24] MEDS: IPRATROPIUM/ALBUTEROL 0.5-2.5 MG/3 ML AMPUL NEB SCH ×4 (02:12→20:06)
[2017-09-24] MEDS: METHYLPREDNISOLONE INJ 40 MG/1 ML SDV IV SCH ×3 (02:16→16:39)
[2017-09-24] MEDS: NORMAL SALINE 1000 ML 1,000 ML IV PRN ×2 (02:30→15:45)
[2017-09-24] MEDS: PREGABALIN 100 MG CAPSULE PO SCH ×3 (05:59→22:05)
[2017-09-24] MEDS: GUAIFENESIN 600 MG TABLET.SA PO SCH ×2 (09:32→22:06)
[2017-09-24] MEDS: MAGNESIUM OXIDE 400 MG TABLET PO SCH (09:32)
[2017-09-24] MEDS: ENOXAPARIN SODIUM INJ 40 MG/0.4 ML DISP.SYRIN SUBCUT SCH (09:32)
[2017-09-24] MEDS: CITALOPRAM HYDROBROMIDE 20 MG TABLET PO SCH (09:33)
[2017-09-24] MEDS: VALSARTAN 160 MG TABLET PO SCH (09:33)
[2017-09-24] MEDS: AMLODIPINE BESYLATE 10 MG TABLET PO SCH (09:33)
[2017-09-24] MEDS: LIDOCAINE 5% (700 MG) TRANSDERMAL ADH..PATCH TP SCH (09:34)
[2017-09-24] MEDS: NICOTINE 21 MG/24 HR PATCH.TD24 TD SCH (09:34)
--- NOTE | 2017-09-24 09:40 | EKG REPORT ---
SEVERITY:- ABNORMAL ECG - SINUS TACHYCARDIA VENTRICULAR PREMATURE COMPLEX PROBABLE LEFT ATRIAL ABNORMALITY RIGHT BUNDLE BRANCH BLOCK : Confirmed by: Howard Heath MD 24-Sep-2017 09:40:26
[2017-09-24] MEDS ORDERED: DOXYCYCLINE HYCLATE 100 MG TABLET PO SCH (10:00)
[2017-09-24] MEDS ORDERED: CEFTRIAXONE 1 GM/D5W RTU 50 ML IV SCH (10:00)
[2017-09-24] MEDS ORDERED: AZITHROMYCIN 500 MG in DEXTROSE 5%-WATER 250 ML IV SCH (10:00)
[2017-09-24] MEDS ORDERED: MAGNESIUM OXIDE 500 MG PO SCH (10:00)
[2017-09-24] MEDS: TIOTROPIUM BROMIDE DPI 5 CAP/KIT (18 MCG/CAP) IH SCH (11:41)
--- NOTE | 2017-09-24 18:00 | Progress Note ---
Provider Note Provider Note: Patient seen on rounds for after midnight assessment. States he is feeling much better. He is currently on 3 L nasal cannula. He was on 7 L ER. Patient was given IV antibiotics, steroids, nebulizers with good success. Patient is obese and he has COPD continues to smoke but he is willing to quit. He states he has been tested and has sleep apnea and he had not been using his machine at night. So I have placed patient on CPAP/BiPAP here for night setting in which he agreed to wear. No other acute findings noted change from his H&P from earlier today.
[2017-09-24] MEDS ORDERED: PREGABALIN 100 MG CAPSULE PO SCH (22:00)
[2017-09-24] MEDS: BENZONATATE 100 MG CAPSULE PO PRN (22:06)
[2017-09-24] MEDS: ATORVASTATIN CALCIUM 10 MG TABLET PO SCH (22:06)
[2017-09-24] MEDS: DOXYCYCLINE HYCLATE 100 MG TABLET PO SCH (22:09)
[2017-09-25] MEDS: METHYLPREDNISOLONE INJ 40 MG/1 ML SDV IV SCH ×3 (00:49→17:29)
[2017-09-25] MEDS: IPRATROPIUM/ALBUTEROL 0.5-2.5 MG/3 ML AMPUL NEB SCH ×4 (01:56→20:37)
[2017-09-25 04:58] LABS: ABSOLUTE LYMPHOCYTES (AUTO) 0.6 10^3/uL (0.5-4.7); ABSOLUTE MONOCYTES (AUTO) 0.3 10^3/uL (0.1-1.4); ABSOLUTE NEUT (AUTO) 6.9 10^3/uL (1.7-8.2); BASOPHILS % (AUTO) 0.1 % (0-2); HEMATOCRIT 35.7 % (37.9-51.0); HEMOGLOBIN 12.3 g/dL (13.5-17.0); HGB HCT DIFFERENCE 1.2; LYMPHOCYTES % (AUTO) 7.8 % (13-45); MEAN CORPUSCULAR HEMOGLOBIN 31.6 pg (27.0-33.4); MEAN CORPUSCULAR HGB CONC 34.4 g/dL (32.0-36.0); MEAN CORPUSCULAR VOLUME 92 fl (80-97); RED BLOOD COUNT 3.88 10^6/uL (4.35-5.55); RED CELL DISTRIBUTION WIDTH 14.3 % (11.5-14.0); SEGMENTED NEUTROPHILS % (AUTO) 88.1 % (42-78); WHITE BLOOD COUNT 7.8 10^3/uL (4.0-10.5)
[2017-09-25 05:12] LABS: ANION GAP 11 (5-19); BLOOD UREA NITROGEN 36 mg/dL (7-20); CALCIUM 9.8 mg/dL (8.4-10.2); CARBON DIOXIDE 27 mmol/L (22-30); CHLORIDE 101 mmol/L (98-107); CREATININE RESULT 0.88 mg/dL (0.52-1.25); GLUCOSE 130 mg/dL (75-110); POTASSIUM 3.8 mmol/L (3.6-5.0); SODIUM 139.1 mmol/L (137-145)
[2017-09-25] MEDS: PREGABALIN 100 MG CAPSULE PO SCH ×3 (06:02→21:49)
[2017-09-25] MEDS: NICOTINE 21 MG/24 HR PATCH.TD24 TD SCH (09:45)
[2017-09-25] MEDS: AMLODIPINE BESYLATE 10 MG TABLET PO SCH (09:45)
[2017-09-25] MEDS: CITALOPRAM HYDROBROMIDE 20 MG TABLET PO SCH (09:46)
[2017-09-25] MEDS: MAGNESIUM OXIDE 400 MG TABLET PO SCH (09:46)
[2017-09-25] MEDS: VALSARTAN 160 MG TABLET PO SCH (09:46)
[2017-09-25] MEDS: GUAIFENESIN 600 MG TABLET.SA PO SCH ×2 (09:47→21:49)
[2017-09-25] MEDS: DOXYCYCLINE HYCLATE 100 MG TABLET PO SCH ×2 (09:47→21:49)
[2017-09-25] MEDS: BRIMONIDINE TARTRATE 0.2% OPH SOLN 5 ML OU SCH ×2 (09:48→17:28)
[2017-09-25] MEDS: TIMOLOL MALEATE 0.5% OPH SOLN 5 ML OU SCH ×2 (09:49→17:28)
[2017-09-25] MEDS: TIOTROPIUM BROMIDE DPI 5 CAP/KIT (18 MCG/CAP) IH SCH (09:50)
[2017-09-25] MEDS: TRAMADOL HCL 50 MG TABLET PO PRN ×2 (09:57→21:50)
[2017-09-25] MEDS: BENZONATATE 100 MG CAPSULE PO PRN (10:00)
[2017-09-25] MEDS ORDERED: AMLODIPINE BESYLATE 10 MG TABLET PO SCH (10:00)
[2017-09-25] MEDS ORDERED: CITALOPRAM HYDROBROMIDE 20 MG TABLET PO SCH (10:00)
[2017-09-25] MEDS ORDERED: VALSARTAN 160 MG TABLET PO SCH (10:00)
[2017-09-25] MEDS: ENOXAPARIN SODIUM INJ 40 MG/0.4 ML DISP.SYRIN SUBCUT SCH (10:01)
[2017-09-25] MEDS: LIDOCAINE 5% (700 MG) TRANSDERMAL ADH..PATCH TP SCH (10:08)
[2017-09-25] MEDS: ATORVASTATIN CALCIUM 10 MG TABLET PO SCH (21:49)
[2017-09-26] MEDS: METHYLPREDNISOLONE INJ 40 MG/1 ML SDV IV SCH ×4 (00:59→21:25)
[2017-09-26] MEDS: IPRATROPIUM/ALBUTEROL 0.5-2.5 MG/3 ML AMPUL NEB SCH ×4 (02:50→20:26)
[2017-09-26] MEDS: PREGABALIN 100 MG CAPSULE PO SCH ×3 (05:51→21:25)
[2017-09-26] MEDS: AMLODIPINE BESYLATE 10 MG TABLET PO SCH (09:54)
[2017-09-26] MEDS: TRAMADOL HCL 50 MG TABLET PO PRN ×2 (09:56→17:16)
[2017-09-26] MEDS: TIMOLOL MALEATE 0.5% OPH SOLN 5 ML OU SCH ×2 (09:57→17:16)
[2017-09-26] MEDS: VALSARTAN 160 MG TABLET PO SCH (09:57)
[2017-09-26] MEDS: ENOXAPARIN SODIUM INJ 40 MG/0.4 ML DISP.SYRIN SUBCUT SCH (09:57)
[2017-09-26] MEDS: GUAIFENESIN 600 MG TABLET.SA PO SCH ×2 (09:57→21:24)
[2017-09-26] MEDS: TIOTROPIUM BROMIDE DPI 5 CAP/KIT (18 MCG/CAP) IH SCH (09:57)
[2017-09-26] MEDS: DOXYCYCLINE HYCLATE 100 MG TABLET PO SCH ×2 (09:57→21:25)
[2017-09-26] MEDS: BRIMONIDINE TARTRATE 0.2% OPH SOLN 5 ML OU SCH ×2 (09:57→17:16)
[2017-09-26] MEDS: CITALOPRAM HYDROBROMIDE 20 MG TABLET PO SCH (09:57)
[2017-09-26] MEDS: MAGNESIUM OXIDE 400 MG TABLET PO SCH (09:57)
[2017-09-26] MEDS: LIDOCAINE 5% (700 MG) TRANSDERMAL ADH..PATCH TP SCH (09:58)
[2017-09-26] MEDS: NICOTINE 21 MG/24 HR PATCH.TD24 TD SCH (09:58)
--- NOTE | 2017-09-26 13:08 | PDOC PROGRESS REPORT ---
Subjective Progress Note for:: 09/26/17 Subjective:: Patient is seen on morning rounds as a follow-up for COPD exacerbation. He is resting in bed comfortably on supplemental oxygen at 2 L via nasal cannula. He reports that his breathing has continued to improve overnight and that he was able to ambulate a short distance yesterday while on room air. He states that he is hopeful to be readied for a discharge to home tomorrow as he has an obligation with a family member early morning. He denies fever, chills, chest pain, palpitations, abdominal pain, nausea, vomiting. He does endorse dyspnea on exertion (improved) and an occasional nonproductive cough. He has no other questions or concerns today. Reason For Visit: COPD EXACERBATION Physical Exam Vital Signs: Temp Pulse Resp BP Pulse Ox 97.4 F 79 21 H 145/72 H 99 09/26/17 08:05 09/26/17 08:05 09/26/17 08:05 09/26/17 08:05 09/26/17 08:05 Intake & Output 09/25/17 09/26/17 09/27/17 06:59 06:59 06:59 Intake Total 3310 1530 Balance 3310 1530 Weight 57.5 kg 86.3 kg General appearance: PRESENT: no acute distress, obese, well-developed, well- nourished Head exam: PRESENT: atraumatic, normocephalic Eye exam: PRESENT: conjunctiva pink, EOMI, PERRLA. ABSENT: scleral icterus Ear exam: PRESENT: normal external ear exam Mouth exam: PRESENT: moist, tongue midline Neck exam: ABSENT: carotid bruit, JVD, lymphadenopathy, thyromegaly Respiratory exam: PRESENT: clear to auscultation lobito, rhonchi - Occasional, symmetrical, unlabored. ABSENT: rales, wheezes Cardiovascular exam: PRESENT: RRR. ABSENT: diastolic murmur, rubs, systolic murmur Pulses: PRESENT: normal dorsalis pedis pul Vascular exam: PRESENT: normal capillary refill GI/Abdominal exam: PRESENT: normal bowel sounds, soft. ABSENT: distended, guarding, mass, organolmegaly, rebound, tenderness Rectal exam: PRESENT: deferred Extremities exam: PRESENT: full ROM. ABSENT: calf tenderness, clubbing, pedal edema Neurological exam: PRESENT: alert, awake, oriented to person, oriented to place , oriented to time, oriented to situation, CN II-XII grossly intact. ABSENT: motor sensory deficit Psychiatric exam: PRESENT: appropriate affect, normal mood. ABSENT: homicidal ideation, suicidal ideation Skin exam: PRESENT: dry, intact, warm. ABSENT: cyanosis, rash Results Laboratory Results: 09/25/17 03:54 09/25/17 03:54 09/24/17 15:49 Sputum Gram Stain - Final 09/24/17 15:49 Sputum Sputum Culture - Final NORMAL IRLANDA 09/24/17 09/24/17 09/24/17 01:49 07:50 13:30 Troponin I 0.013 < 0.012 < 0.012 09/24/17 19:50 Troponin I < 0.012 Impressions: Chest X-Ray 09/23/17 00:00 IMPRESSION: Constellation of findings are nonspecific. However, given similar findings on comparison radiographs, favor chronic versus recurrent bronchitis. Assessment & Plan - Diagnosis (1) COPD exacerbation Is this a current diagnosis for this admission?: Yes Plan: The patient has been managed with scheduled Duo-neb nebulizer treatments with as needed Xopenex, IV Solu-Medrol, and supplemental oxygen. His symptoms have improved, though he does remain dyspneic on exertion with a slight nonproductive cough. We will begin weaning steroids today. Patient encouraged to continue incentive spirometer and to ambulate. Will ask nursing to attempt to wean oxygen. He will likely be ready for discharge to home tomorrow on a steroid taper, however, I am concerned that he may continue to have a need for supplemental oxygen for a period of time. The patient reports that he previously was on home O2 but has not had it for several years. (2) Hypoxia Is this a current diagnosis for this admission?: Yes Plan: Improved. Supplemental oxygen to keep oxygen saturations between 90 and 94%. (3) Tobacco dependence Is this a current diagnosis for this admission?: Yes Plan: Patient is encouraged to stop using tobacco products. Nicotine replacement therapy offered. (4) Chest pain Qualifiers: Chest pain type: chest pain on breathing Qualified Code(s): R07.1 - Chest pain on breathing; R07.81 - Pleurodynia Is this a current diagnosis for this admission?: Yes Plan: The patient has reproducible left sternal border chest pain worsens with deep breath, cough, and palpation. This is likely costochondritis related to his COPD exacerbation. Serial troponins were obtained; negative. Although he has multiple risk factors , I have a low suspicion that this is cardiac in origin. (5) Chronic low back pain Qualifiers: Back pain laterality: bilateral Sciatica laterality: bilateral sciatica Is this a current diagnosis for this admission?: Yes Plan: Controlled; Continue Lidoderm patch. (6) Hypertension Plan: Will continue home medications; norvasc and losartan. (7) Neuropathy Is this a current diagnosis for this admission?: Yes Plan: Will continue home medication; Lyrica. (8) Hypercalcemia Is this a current diagnosis for this admission?: Yes Plan: Resolved; this was likely secondary to dehydration. - Time Time Spent with patient: 25-34 minutes Smoking Cessation Education: 3 to 10 minutes Medications reviewed and adjusted accordingly: Yes Anticipated discharge: Home Within: within 48 hours - Inpatient Certification Based on my medical assessment, after consideration of the patient's comorbidities, presenting symptoms, or acuity I expect that the services needed warrant INPATIENT care.: Yes I certify that my determination is in accordance with my understanding of Medicare's requirements for reasonable and necessary INPATIENT services [42 CFR 412.3e].: Yes Medical Necessity: Need For Continuous Telemetry Monitoring, Need for Nebulizer Therapy and Monitoring of Response
[2017-09-26] MEDS: ATORVASTATIN CALCIUM 10 MG TABLET PO SCH (21:25)
[2017-09-27] MEDS: IPRATROPIUM/ALBUTEROL 0.5-2.5 MG/3 ML AMPUL NEB SCH ×2 (02:10→08:44)
[2017-09-27] MEDS: PREGABALIN 100 MG CAPSULE PO SCH (05:46)
[2017-09-27] MEDS: METHYLPREDNISOLONE INJ 40 MG/1 ML SDV IV SCH (05:46)
[2017-09-27 07:29] LABS: ANION GAP 9 (5-19); BLOOD UREA NITROGEN 36 mg/dL (7-20); CARBON DIOXIDE 38 mmol/L (22-30); CHLORIDE 90 mmol/L (98-107); CREATININE RESULT 0.91 mg/dL (0.52-1.25); GLUCOSE 114 mg/dL (75-110); SODIUM 136.9 mmol/L (137-145)
[2017-09-27] MEDS: AMLODIPINE BESYLATE 10 MG TABLET PO SCH (10:09)
[2017-09-27] MEDS: GUAIFENESIN 600 MG TABLET.SA PO SCH (10:09)
[2017-09-27] MEDS: LIDOCAINE 5% (700 MG) TRANSDERMAL ADH..PATCH TP SCH (10:09)
[2017-09-27] MEDS: BRIMONIDINE TARTRATE 0.2% OPH SOLN 5 ML OU SCH (10:09)
[2017-09-27] MEDS: CITALOPRAM HYDROBROMIDE 20 MG TABLET PO SCH (10:09)
[2017-09-27] MEDS: DOXYCYCLINE HYCLATE 100 MG TABLET PO SCH (10:09)
[2017-09-27] MEDS: TIMOLOL MALEATE 0.5% OPH SOLN 5 ML OU SCH (10:10)
[2017-09-27] MEDS: TIOTROPIUM BROMIDE DPI 5 CAP/KIT (18 MCG/CAP) IH SCH (10:10)
[2017-09-27] MEDS: MAGNESIUM OXIDE 400 MG TABLET PO SCH (10:10)
[2017-09-27] MEDS: ENOXAPARIN SODIUM INJ 40 MG/0.4 ML DISP.SYRIN SUBCUT SCH (10:10)
[2017-09-27] MEDS: VALSARTAN 160 MG TABLET PO SCH (10:10)
[2017-09-27] MEDS: NICOTINE 21 MG/24 HR PATCH.TD24 TD SCH (10:10)
[2017-09-27 10:13] LABS: ANION GAP 13 (5-19); BLOOD UREA NITROGEN 36 mg/dL (7-20); CALCIUM 10.5 mg/dL (8.4-10.2); CARBON DIOXIDE 37 mmol/L (22-30); CHLORIDE 87 mmol/L (98-107); GLUCOSE 172 mg/dL (75-110); POTASSIUM 3.1 mmol/L (3.6-5.0); SODIUM 136.6 mmol/L (137-145)
[2017-09-27] MEDS ORDERED: POTASSIUM CHLORIDE 10 MEQ TABLET.SA PO ONE (11:00)
[2017-09-27 12:47] VITALS: BP 138/57
--- NOTE | 2017-09-27 12:49 | PDOC DISCHARGE SUMMARY ---
General - Admit/Disc Date/PCP Admission Date/Primary Care Provider: 09/24/17 01:12 DANY HERMAN MD Discharge Date: 09/27/17 - Discharge Diagnosis (1) COPD exacerbation Is this a current diagnosis for this admission?: Yes Summary: The patient was managed with scheduled DuoNeb nebulizer treatments with as needed Xopenex, IV Solu-Medrol and supplemental oxygen. His symptoms improved rapidly and he was successfully weaned to room air. Initially the patient was managed with BiPAP nightly and as needed. He reports that he has a CPAP machine at home which he has been recently noncompliant with and so did not use BiPAP for the previous 2 nights. A noted increase in his bicarb this am is likely a result of this. A long discussion was had today with regard to is to continue CPAP use at home and investigate alternative masks if discomfort is a primary barrier. The patient was offered to remain inpatient with BiPAP tonight and continued monitoring, which he declined. He states that he has a follow-up appointment with his primary care provider already scheduled for tomorrow afternoon, a home nebulizer machine, and a CPAP machine at home that he promises to begin using. Overall, the patient is much improved and stable for discharge with close follow -up. (2) Hypoxia Is this a current diagnosis for this admission?: Yes Summary: Resolved. The patient was initially treated with as needed BiPAP, Solu-Medrol, scheduled and as needed nebulizer treatments, and supplemental oxygen. He has been successfully weaned to room air and maintains oxygen saturations both while sleeping and while ambulatory. (3) Tobacco dependence Is this a current diagnosis for this admission?: Yes Summary: Patient is again encouraged to stop using tobacco products. He will be sent home with a prescription for nicotine replacement therapy. (4) Chest pain Is this a current diagnosis for this admission?: Yes Summary: Resolved; likely costochondritis related to his COPD exacerbation. The pain is reproducible at the left sternal border with deep breath, cough, and palpation. Serial troponins were negative. Although the patient has multiple risk factors, I have a low suspicion that this was cardiac in origin. (5) Chronic low back pain Is this a current diagnosis for this admission?: Yes Summary: Controlled. The patient will be discharged home with Lidoderm patches. (6) Hypertension Summary: The patient's home medications were continued; Norvasc and lovastatin. His blood pressure remains slightly elevated and will need additional medication adjustments through his primary care provider's office. (7) Neuropathy Is this a current diagnosis for this admission?: Yes Summary: Home medication was continued; Lyrica. (8) Hypercalcemia Is this a current diagnosis for this admission?: Yes Summary: Resolved; this is likely secondary to dehydration and improved after receiving IV fluid resuscitation. - Additional Information Resuscitation Status: Full Code Discharge Diet: Cardiac Discharge Activity: Activity As Tolerated, Balance Activity w/Rest, Slowly Increase Activity Home Medications: Amlodipine Besylate [Norvasc 10 mg Tablet] 10 mg PO DAILY 09/24/17 Brimonidine Tartrate [Alphagan 0.2% Oph Soln 5 ml] 1 drop OU BID 09/24/17 Buspirone HCl [Buspar 10 mg Tablet] 10 mg PO BIDP PRN 09/24/17 Citalopram Hydrobromide [Celexa 20 mg Tablet] 20 mg PO DAILY 09/24/17 Doxycycline Hyclate [Vibramycin] 100 mg PO BID 09/24/17 Pregabalin [Lyrica 100 mg Capsule] 100 mg PO Q8 09/24/17 Timolol Maleate [Timoptic 0.5% Oph Soln 5 ml] 1 drop OU BID 09/24/17 Valsartan [Diovan 160 mg Tablet] 160 mg PO DAILY 09/24/17 Amlodipine Besylate [Norvasc 10 mg Tablet] 10 mg PO DAILY tablet 09/27/17 Atorvastatin Calcium [Lipitor 10 mg Tablet] 10 mg PO QHS tablet 09/27/17 Buspirone HCl [Buspar 10 mg Tablet] 10 mg PO BIDP PRN tablet 09/27/17 Citalopram Hydrobromide [Celexa 20 mg Tablet] 20 mg PO DAILY tablet 09/27/17 Doxycycline Hyclate [Vibramycin 100 mg Tablet] 100 mg PO Q12 #20 tablet Guaifenesin [Mucinex Sr 600 mg Tablet.sa] 600 mg PO Q12 #30 tablet.sa 09/27/17 Ipratropium/Albuterol Sulfate [Duoneb 3 ml Ampul] 3 ml NEB RTQ6 vial.neb Lidocaine [Lidoderm 5% (700 mg) Transdermal Patch] 2 patch TP DAILY #60 adh..patch 09/27/17 Magnesium Oxide [Mag-Ox 400 mg Tablet] 400 mg PO DAILY tablet 09/27/17 Nicotine [Nicoderm 21 mg/24 Hr Transderm Patch] 1 each TD DAILY #14 patch.td24 09/27/17 Potassium Chloride [Klor-Con M10] 10 meq PO DAILY #30 tab.er.prt 09/27/17 Prednisone [Deltasone 10 mg Tablet] 50 mg PO DAILY 5 Days tablet 09/27/17 Pregabalin [Lyrica 100 mg Capsule] 100 mg PO Q8 capsule 09/27/17 Tiotropium [place] [Spiriva Handihaler 5 Cap/Kit (18 Mcg/Cap)] 1 cap IH DAILY # 1 kit 09/27/17 Tramadol HCl [Ultram 50 mg Tablet] 50 mg PO Q6HP PRN tablet 09/27/17 Valsartan [Diovan 160 mg Tablet] 160 mg PO DAILY tablet 09/27/17 History of Present Illness History of Present Illness: Per H&P by Dr. 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 Patient reports that about 2 weeks ago he began developing increasing cough and shortness of breath. He reports on he was started on prednisone and an unknown antibiotic by the PA at his doctor's office. He denies any associated fevers or chills. He denies his cough being productive of purulent sputum. In the emergency department, patient received 3 nebulized treatments and Solu-Medrol, but continues to be resistantly mildly hypoxic requiring 2 L of oxygen to sat in the low 90s. He is referred to the hospitalist service for COPD exacerbation. Physical Exam Vital Signs: Temp Pulse Resp BP Pulse Ox 97.1 F 90 16 153/79 H 930 H 09/27/17 03:21 09/27/17 08:44 09/27/17 08:44 09/27/17 03:21 09/27/17 08:44 Intake & Output 09/26/17 09/27/17 09/28/17 06:59 06:59 06:59 Intake Total 1530 1972 Output Total 350 Balance 1530 1622 Weight 86.3 kg 86.3 kg General appearance: PRESENT: no acute distress, obese, well-developed, well- nourished Head exam: PRESENT: atraumatic, normocephalic Eye exam: PRESENT: conjunctiva pink, EOMI, PERRLA. ABSENT: scleral icterus Ear exam: PRESENT: normal external ear exam Mouth exam: PRESENT: moist, tongue midline Neck exam: ABSENT: carotid bruit, JVD, lymphadenopathy, thyromegaly Respiratory exam: PRESENT: clear to auscultation lobito, symmetrical, unlabored, wheezes - Occasional end expiratory wheezing. ABSENT: rales, rhonchi Cardiovascular exam: PRESENT: RRR, +S1, +S2. ABSENT: diastolic murmur, rubs, systolic murmur Pulses: PRESENT: normal dorsalis pedis pul Vascular exam: PRESENT: normal capillary refill GI/Abdominal exam: PRESENT: normal bowel sounds, soft. ABSENT: distended, guarding, mass, organolmegaly, rebound, tenderness Rectal exam: PRESENT: deferred Extremities exam: PRESENT: full ROM. ABSENT: calf tenderness, clubbing, pedal edema Neurological exam: PRESENT: alert, awake, oriented to person, oriented to place , oriented to time, oriented to situation, CN II-XII grossly intact. ABSENT: motor sensory deficit Psychiatric exam: PRESENT: appropriate affect, normal mood. ABSENT: homicidal ideation, suicidal ideation Skin exam: PRESENT: dry, intact, warm. ABSENT: cyanosis, rash Results Laboratory Results: 09/25/17 03:54 09/27/17 09:41 09/27/17 09/27/17 06:15 09:41 Sodium 136.9 L 136.6 L Potassium 3.0 L* 3.1 L Chloride 90 L 87 L Carbon Dioxide 38 H 37 H Anion Gap 9 13 BUN 36 H 36 H Creatinine 0.91 0.90 Est GFR ( Amer) > 60 > 60 Est GFR (Non-Af Amer) > 60 > 60 Glucose 114 H 172 H Calcium 10.0 10.5 H 09/24/17 15:49 Sputum Gram Stain - Final 09/24/17 15:49 Sputum Sputum Culture - Final NORMAL IRLANDA 09/24/17 09/24/17 09/24/17 01:49 07:50 13:30 Troponin I 0.013 < 0.012 < 0.012 09/24/17 19:50 Troponin I < 0.012 Impressions: Chest X-Ray 09/23/17 00:00 IMPRESSION: Constellation of findings are nonspecific. However, given similar findings on comparison radiographs, favor chronic versus recurrent bronchitis. Qualifiers PATEINT BEING DISCHARGED WITH ANY OF THE FOLLOWING DIAGNOSIS?: No Plan Discharge Plan: Discharge to home with self-care and follow-up with primary care provider tomorrow as previously scheduled. Time Spent: Less than 30 Minutes
== END 2017-09-27 13:45 | disposition home or self-care (01) | DRG 191 ==
LOC: ER 21:57 → EH 09-24 01:12 → 4N 09-24 03:00
PROVIDERS: ADMIT Family Medicine; ATTEND Family Medicine
PROC: 3E0F73Z Introduction of Anti-inflammatory into Respiratory Tract, Via Natural or Artificial Opening (ICD-10-PCS; 2017-09-24)
PROC: 5A09357 Assistance with Respiratory Ventilation, Less than 24 Consecutive Hours, Continuous Positive Airway Pressure (ICD-10-PCS; principal; 2017-09-25)
DX: J44.1 Chronic obstructive pulmonary disease with (acute) exacerbation (principal); F11.20 Opioid dependence, uncomplicated; F13.20 Sedative, hypnotic or anxiolytic dependence, uncomplicated; I10 Essential (primary) hypertension; M19.90 Unspecified osteoarthritis, unspecified site; E78.00 Pure hypercholesterolemia, unspecified; F32.9 Major depressive disorder, single episode, unspecified; R09.02 Hypoxemia; G62.9 Polyneuropathy, unspecified; H40.9 Unspecified glaucoma; M54.31 Sciatica, right side; M54.32 Sciatica, left side; E83.52 Hypercalcemia; E86.0 Dehydration; M94.0 Chondrocostal junction syndrome [Tietze]; F17.210 Nicotine dependence, cigarettes, uncomplicated; Z99.81 Dependence on supplemental oxygen; Z91.19 Patient's noncompliance with other medical treatment and regimen; Z86.19 Personal history of other infectious and parasitic diseases; Z79.899 Other long term (current) drug therapy; Z88.3 Allergy status to other anti-infective agents; Z88.8 Allergy status to other drugs, medicaments and biological substances; Z82.49 Family history of ischemic heart disease and other diseases of the circulatory system; Z82.61 Family history of arthritis; Z80.9 Family history of malignant neoplasm, unspecified
CPT/HCPCS: 36415; 71020; 80048; 80053; 82550; 82553; 82803; 83735; 84484; 85025; 87040; 87070; 87205; 93005; 93010; 94640; 94660; 94799; 96365; 96366; 96375; 96376; 99285; J1650; J2920; J2930; J3475; J3490; J7030; J7620

== ENCOUNTER → 2018-01-22 | Outpatient (CLI) | payer MEDICAID, MEDICARE ==
--- NOTE | 2018-01-23 09:05 | RADIOLOGY REPORT (SQ) ---
EXAM DESCRIPTION: CT CHEST WITH COMPLETED DATE/TIME: 01/22/2018 3:49 pm REASON FOR STUDY: COUGH R05 COUGH COMPARISON: AP chest 11/26/2016, 01/14/2016, 06/04/2015 TECHNIQUE: CT scan of the chest performed using helical scanning technique with dynamic intravenous contrast injection. Images reviewed with lung, soft tissue and bone windows. Reconstructed coronal and sagittal MPR images reviewed. All images stored on PACS. All CT scanners at this facility use dose modulation, iterative reconstruction, and/or weight based d osing when appropriate to reduce radiation dose to as low as reasonably achievable (ALARA). [facility]: Dose Right [facility]: CareDose [facility]: Dose Right [facility]: Teradose 4D [facility]: [employer] CONTRAST TYPE AND DOSE: contrast/concentration: Isovue 370.00 mg/ml; Total Contrast Delivered: 80.0 ml; Total Saline Delivered: 55.1 ml RENAL FUNCTION: Creatinine 1.4 RADIATION DOSE: CT Rad equipment meets quality standard of care and radiation dose reduction techniq ues were employed. CTDIvol: 8.6 mGy. DLP: 323 mGy-cm. . LIMITATIONS: None. FINDINGS: LUNGS AND PLEURA: There is diffuse thickening of the interlobular septa throughout the per iphery of both lungs with honeycomb appearance around the periphery of the upper lobes narrowing find ings likely represent idiopathic pulmonary fibrosis. Few enlarged airspaces with centrilobular emphysema in the lung apices. No worrisome lung parenchymal nodules. No pleural effusion. No pneumothorax. Airways are widely pa tent. HILAR AND MEDIASTINAL STRUCTURES: There is mild mediastinal adenopathy as follows: Aortopulmonary window 1.6 x 1.2 cm Precarinal 1.8 x 1.1 cm Right hilum 1.6 x 1.6 cm Small hiatal hernia. HEART AND VASCULAR STRUCTURES: No aneurysm or dissection. No central pulmonary emboli. No pericardi al effusion. Mild coronary artery calcifications. HARDWARE: None in the chest. UPPER ABDOMEN: No significant findings. Limited exam. THYROID AND OTHER SOFT TISSUES: Thyroid unremarkable. Mild gynecomastia. BONES: Multilevel degenerative disc changes in the thoracic spine OTHER: No other significant finding. IMPRESSION: Pulmonary fibrosis Obstructive lung disease at the AP disease Mild mediastinal lymph node enlargement TECHNICAL DOCUMENTATION: JOB ID: [id number] Quality ID # [id number]: Final reports with documentation of one or more dose reduction techniques (e.g., Au tomated exposure control, adjustment of the mA and/or kV according to patient size, use of iterative reconstruction technique) 2010 [employer]- All Rights Reserved Reading location - IP/workstation name: [email or web address]
== END ==
LOC: RAD 14:24
PROVIDERS: ATTEND Physician Assistant Medical
DX: R05 Cough (principal); J44.9 Chronic obstructive pulmonary disease, unspecified; J84.10 Pulmonary fibrosis, unspecified
CPT/HCPCS: 71260; 82565

== ENCOUNTER → 2018-01-31 | Outpatient (CLI) | payer MEDICARE ==
--- NOTE | 2018-01-31 16:04 | RADIOLOGY REPORT (SQ) ---
EXAM DESCRIPTION: CT FACIAL AREA WITHOUT COMPLETED DATE/TIME: 01/31/2018 1:53 pm REASON FOR STUDY: CHRONIC FRONTAL SINUSITIS J32.1 CHRONIC FRONTAL SINUSITIS COMPARISON: None. TECHNIQUE: Noncontrast scanning through the paranasal sinuses using bone algorithm. Reconstructed MPR images reviewed. All images stored on PACS. All CT scanners at this facility use dose modulation, iterative reconstruction, and/or weight based d osing when appropriate to reduce radiation dose to as low as reasonably achievable (ALARA). [facility]: Dose Right [facility]: CareDose [facility]: Dose Right [facility]: Teradose 4D [facility]: [employer] RADIATION DOSE: mGy. LIMITATIONS: None. FINDINGS: SINUSES: Clear frontal sinus. Mucosal thickening in the maxillary sinuses with some mucou s retention cyst formation but no fluid levels. Apparent prior maxillary decompression surgery with some ethmoid resection. Patchy opacification in the remaining ethmoid air cells and mucosal thickeni ng in the sphenoid sinuses. NASAL CAVITY: No mass. BONES: Normal mineralization. No fracture or bone lesion. ORBITS: Globes symmetric in volume. Some calcification posteriorly along the right retina. Periorbi ze soft tissues are normal. TMJS: Normal. MASTOIDS: Clear. IACs symmetric, grossly normal. INFERIOR BRAIN: Limited view. No acute findings. OTHER: No other significant finding. IMPRESSION: Chronic appearing paranasal sinus disease as above. Frontal sinus looks clear, but anh ining sinuses show evidence of mucosal thickening. No fluid levels to suggest acute infection. TECHNICAL DOCUMENTATION: JOB ID: [id number] Quality ID # [id number]: Final reports with documentation of one or more dose reduction techniques (e.g., Au tomated exposure control, adjustment of the mA and/or kV according to patient size, use of iterative reconstruction technique) 2010 [employer]- All Rights Reserved Reading location - IP/workstation name: [email or web address]
== END ==
LOC: RAD 13:38
PROVIDERS: ATTEND Physician Assistant Medical
DX: J32.1 Chronic frontal sinusitis (principal)
CPT/HCPCS: 70486

== ENCOUNTER → 2018-02-21 | Outpatient (CLI) | payer MEDICARE ==
[~2018-02-21] MED LIST: ALBUTEROL SULFATE 0.083% NEB 2.5 MG/3 ML AMPUL NEB ONE
--- NOTE | 2018-02-26 09:14 | PULMONARY FUNCTION TEST ---
DATE OF SERVICE: 02/21/2018 THE VITAL CAPACITY IS SLIGHTLY DECREASED. THE EXPIRATORY FLOW RATES ARE MODERATELY DECREASED. THE FEV1/VC IS 68%, PREDICTED: 79% LUNG VOLUMES BY NITROGEN WASH OUT METHOD SHOW: TLC IS 81% OF PREDICTED FRC IS 89% OF PREDICTED RV IS 83% OF PREDICTED THE DLCO IS 13.2, 64% OF PREDICTED. THE RV/TLC RATIO IS 41% PREDICTED 41% AFTER BRONCHODILATOR, EXPIRATORY FLOW RATES SHOW NO SIGNIFICANT CHANGE. IMPRESSION: GOOD PATIENT EFFORT. SLIGHT OBSTRUCTIVE AND SLIGHT RESTRICTIVE DEFECTS. LUNG VOLUMES ARE SLIGHTLY DECREASED DIFFUSING CAPACITY IS MODERATELY DECREASED. CC: FLORESITA CISNEROS MD > CLAUDIA
== END ==
LOC: RT 08:51
PROVIDERS: ATTEND Internal Medicine Pulmonary Disease
DX: J84.10 Pulmonary fibrosis, unspecified (principal)
CPT/HCPCS: 94729 ×2; 94727 ×2; 94060 ×2; A9270

== ENCOUNTER → 2018-04-18 | Outpatient (CLI) | payer MEDICARE ==
--- NOTE | 2018-04-18 15:21 | RADIOLOGY REPORT (SQ) ---
EXAM DESCRIPTION: CT CHEST WITHOUT COMPLETED DATE/TIME: 04/18/2018 2:24 pm REASON FOR STUDY: PULMONARY FIBROSIS, UNSPECIFIED J84.10 PULMONARY FIBROSIS, UNSPECIFIED COMPARISON: 01/22/2018 CT chest TECHNIQUE: CT scan performed of the chest without intravenous contrast. Images reviewed with lung, soft tissue and bone windows. High-resolution protocol was used, with 1 mm thick slices every 10 mm throughout the chest in the pro ne and supine orientations. All CT scanners at this facility use dose modulation, iterative reconstruction, and/or weight based d osing when appropriate to reduce radiation dose to as low as reasonably achievable (ALARA). [facility]: Dose Right [facility]: CareDose [facility]: Dose Right [facility]: Teradose 4D [facility]: [employer] RADIATION DOSE: CT Rad equipment meets quality standard of care and radiation dose reduction techniq ues were employed. CTDIvol: 2.2 mGy. DLP: 149 mGy-cm. mGy. LIMITATIONS: No technical limitations. FINDINGS: LUNGS AND PLEURA: There is extensive pulmonary fibrosis around the periphery of both lungs , with honeycomb appearance along the pleural surfaces, basilar predominant. This is similar compare d to 01/22/2018. Enlarged airspaces are seen in the bilateral upper lobes from obstructive lung disease. No worrisome pulmonary nodules. No pleural effusion. No pneumothorax. HILAR AND MEDIASTINAL STRUCTURES: Stable 1.8 x 1.3 cm precarinal lymph node and 1.7 x 1.2 cm AP windo w lymph node. HEART AND VASCULAR STRUCTURES: No aneurysm. No pericardial effusion. UPPER ABDOMEN: Not well-visualized THYROID AND OTHER SOFT TISSUES: Mild bilateral gynecomastia BONES: Diffuse thoracic spondylotic change HARDWARE: None in the chest. OTHER: No other significant findings. IMPRESSION: Pulmonary fibrosis Obstructive lung disease Stable mild mediastinal adenopathy TECHNICAL DOCUMENTATION: JOB ID: [id number] Quality ID # 436: Final reports with documentation of one or more dose reduction techniques (e.g., Au tomated exposure control, adjustment of the mA and/or kV according to patient size, use of iterative reconstruction technique) 2010 [employer]- All Rights Reserved Reading location - IP/workstation name: [facility]
== END ==
LOC: RAD 14:06
PROVIDERS: ATTEND Internal Medicine Pulmonary Disease
DX: J84.10 Pulmonary fibrosis, unspecified (principal)
CPT/HCPCS: 71250

== ENCOUNTER 2018-08-11 11:12 | Emergency (ER) | payer MEDICARE, MEDICAID ==
[2018-08-11 11:20] VITALS: BP 158/78
--- NOTE | 2018-08-11 12:39 | RADIOLOGY REPORT (SQ) ---
EXAM DESCRIPTION: SHOULDER RIGHT 2 OR MORE VIEWS COMPLETED DATE/TIME: 08/11/2018 12:29 pm REASON FOR STUDY: right shoulder pain fell today, a anterior and lateral right shoulder pain COMPARISON: None. NUMBER OF VIEWS: Three views. TECHNIQUE: Internal rotation, external rotation, and Y view images acquired of the right shoulder. LIMITATIONS: None. FINDINGS: MINERALIZATION: Normal. BONES: No acute fracture or dislocation. No worrisome bone lesions. JOINTS: Normal glenohumeral alignment. No widening at the AC joint. VISUALIZED LUNGS AND RIBS: No pneumothorax. No rib fracture. SOFT TISSUES: Calcific tendinopathy rotator cuff OTHER: No other significant finding. IMPRESSION: Calcific tendinopathy right rotator cuff. No acute fracture or malalignment. TECHNICAL DOCUMENTATION: JOB ID: [id number] for; to (do)- All Rights Reserved Reading location - IP/workstation name: [email or web address]
--- NOTE | 2018-08-11 13:30 | ER Document Report ---
HPI - HPI Pain Level: 4 Notes: Patient is a 73-year-old male who presents with chief complaint of right shoulder pain after falling on it this morning. Patient reports that over the last several months he has actually fallen on this same shoulder 3 times. Patient reports he feels like the shoulder is out of socket. - CONSTITUTIONAL Constitutional: DENIES: Fever, Chills - EENT EENT: DENIES: Sore Throat, Ear Pain, Eye problems - NEURO Neurology: DENIES: Headache, Weakness, Vision blurred, Dizzinesss / Vertigo - CARDIOVASCULAR Cardiovascular: DENIES: Chest pain - RESPIRATORY Respiratory: DENIES: Trouble Breathing, Coughing - GASTROINTESTINAL Gastrointestinal: DENIES: Abdominal Pain, Black / Bloody Stools - URINARY Urinary: DENIES: Dysuria, Urgency, Frequency - MUSCULOSKELETAL Musculoskeletal: REPORTS: Extremity pain Past Medical History - General Information source: Patient - Social History Smoking Status: Current Every Day Smoker Chew tobacco use (# tins/day): No Frequency of alcohol use: Occasional Drug Abuse: None Family History: Reviewed & Not Pertinent, CAD Patient has suicidal ideation: No Patient has homicidal ideation: No - Past Medical History Cardiac Medical History: Reports: Hx Hypercholesterolemia, Hx Hypertension Denies: Hx Coronary Artery Disease, Hx Heart Attack Pulmonary Medical History: Reports: Hx Bronchitis, Hx COPD, Hx Pneumonia Denies: Hx Asthma Neurological Medical History: Denies: Hx Cerebrovascular Accident, Hx Seizures Endocrine Medical History: Denies: Hx Diabetes Mellitus Type 2 Renal/ Medical History: Reports: Hx Renal Insufficiency. Denies: Hx Peritoneal Dialysis Musculoskeletal Medical History: Reports Hx Arthritis Psychiatric Medical History: Reports: Hx Depression Past Surgical History: Reports: Hx Herniorrhaphy, Other - Sinus surgery - Immunizations Hx Diphtheria, Pertussis, Tetanus Vaccination: No - unknown Hx Pneumococcal Vaccination: 10/23/12 Vertical Provider Document - CONSTITUTIONAL Notes: PHYSICAL EXAMINATION: GENERAL: Well-appearing, well-nourished and in no acute distress. HEAD: Atraumatic, normocephalic. EYES: Pupils equal round extraocular movements intact, conjunctiva are normal. ENT: Nares patent NECK: Normal range of motion LUNGS: No respiratory distress Musculoskeletal: Limited range of motion to right shoulder. Normal motor and sensation distal to area of injury. Normal strength distal to injury. Cap refill less than 3 seconds. NEUROLOGICAL: Normal speech, normal gait. PSYCH: Normal mood, normal affect. SKIN: Warm, Dry, normal turgor, no rashes or lesions noted. - INFECTION CONTROL TRAVEL OUTSIDE OF THE [place] IN LAST 30 DAYS: No Course - Re-evaluation Re-evalutation: X-rays negative for any acute findings to include fracture or dislocation. Considering patient has had 3 separate injuries to the shoulder over the last several months patient encouraged to follow-up with orthopedics if not improving over the next couple of days. Patient given instructions for supportive care for the injury to include ice, elevation, use of a sling and ibuprofen. Patient verbalizes understanding of the instructions and is agreeable to same. - Vital Signs Vital signs: Temp Pulse Resp BP Pulse Ox 97.9 F 83 18 158/78 H 97 08/11/18 11:18 08/11/18 11:18 08/11/18 11:18 08/11/18 11:18 08/11/18 11:18 Procedures - Immobilization right shoulder Immobilizer type: Sling Discharge - Discharge Clinical Impression: Contusion Qualifiers: Encounter type: initial encounter Contusion area: shoulder Laterality: right Qualified Code(s): S40.011A - Contusion of right shoulder, initial encounter Shoulder injury Qualifiers: Encounter type: initial encounter Laterality: right Qualified Code(s): S49.91XA - Unspecified injury of right shoulder and upper arm, initial encounter Condition: Stable Disposition: HOME, SELF-CARE Additional Instructions: Contusion Your injury has resulted in a contusion -- a crushing of the deep tissues. No injury to important structures was detected during the physician's exam. Contusions vary in the amount of pain they cause, and in the length of time required for healing. Typically, the area will become bruised, and will remain painful to touch for two or three weeks. However, most patients are back to working and playing within a few days. After the initial period of rest and cold-packs, your symptoms (together with the doctor's recommendations) will determine how rapidly you can get back to full activity. Usually this means "do what feels okay, but don't do things that hurt." If re-examination was recommended, it's important to follow up as instructed. Call the doctor or return any time if pain increases, if swelling becomes severe, if you develop numbness or weakness in an injured extremity, or if any other alarming symptoms occur. Exercise Program for the Shoulder Since the shoulder moves in so many directions, the joint attachment is weak. Muscles provide most of the stability to the shoulder. You must exercise your shoulder to prevent painful instability or stiffening. PASSIVE - These may be begun within a few days of the injury. While standing, lean forward, allowing the arm to hang down towards the floor. Move the arm in small circles while slowly twisting your chest towards and away from the hanging arm. Do this for one minute. ACTIVE - These may be performed when the doctor gives permission. Begin with the arms at the sides. Raise the arms forward (shoulder's width apart) until they reach shoulder level. Then slowly swing both arms back until they are aiming straight out away from each other. Then bring them forward again, and finally, lower them to your sides. Repeat 20 to 30 times. As you improve, put weights in your hands for the exercise. Start with one pound, and work up to 10 pounds. Never use more than is comfortable. Athletes may work up to 30 pounds. ICE: Apply ice packs frequently against the painful area. Many different schedules are recommended, such as "20 minutes on, 20 minutes off" or "one hour ice, two hours rest." If you need to work, you may need to go longer between ice treatments. You should plan to have the area ice packed AT LEAST one- fourth of the time. The ice should be applied over the wrap, tape, or splint, or over a layer of cloth -- not directly against the skin. Some ice bags have a built-in cloth and can be put directly on the skin. Your injured part should be elevated as much as possible over the next 48 hours. Try to keep the injury above the level of the heart. Avoid use of the injured area. Elevation and rest will decrease the swelling. USE OF [id number] IBUPROFEN: Ibuprofen (Advil, Nuprin, Medipren, Motrin IB) is a medication for fever and pain control. In addition, it has anti- inflammatory effects which may be beneficial, especially in the treatment of injuries. It's best to take ibuprofen with food. Persons with ulcer disease or allergy to aspirin should notify their physician of this before taking ibuprofen. Ibuprofen can be given every four to six hours, for a total of four doses daily. Age Pain or fever dose Antiinflammatory dose 15-adult 400 mg (2 tab) 600 mg (3 tab) FOLLOW-UP CARE: If you have been referred to a physician for follow-up care, call the physician s office for an appointment as you were instructed or within the next two days. If you experience worsening or a significant change in your symptoms, notify the physician immediately or return to the Emergency Department at any time for re-evaluation. Your shoulder x-ray was negative for any acute findings to include fracture or dislocation. Take ibuprofen 600 mg every 6 hours for pain and inflammation. Please take this around the clock for the next several days. Ice the area as outlined above. Wear the sling for comfort. Start doing the shoulder exercises as tolerated. Follow-up with your primary care provider if not improving over the next 3-5 days. Prescriptions: Ibuprofen 600 mg PO QID #30 tablet Referrals: RK AMARAL, [ACTIVE STAFF] - Follow up as needed
== END 2018-08-11 13:56 | disposition home or self-care (01) ==
LOC: ER 11:12
DX: S40.011A Contusion of right shoulder, initial encounter (principal); W01.0XXA Fall on same level from slipping, tripping and stumbling without subsequent striking against object, initial encounter; Z91.81 History of falling; F17.200 Nicotine dependence, unspecified, uncomplicated; E78.00 Pure hypercholesterolemia, unspecified; I10 Essential (primary) hypertension
CPT/HCPCS: 99283

== ENCOUNTER → 2018-08-23 | Outpatient (CLI) | payer MEDICARE ==
--- NOTE | 2018-08-23 16:18 | RADIOLOGY REPORT (SQ) ---
EXAM DESCRIPTION: U/S RETROPERITON (RENAL/AORTA) COMPLETED DATE/TIME: 08/23/2018 2:51 pm REASON FOR STUDY: N17.9 ACUTE KIDNEY FAILURE, UNSPECIFIED N17.9 ACUTE KIDNEY FAILURE, UNSPECIFIED COMPARISON: 01/15/2016 TECHNIQUE: Dynamic and static grayscale images acquired of the kidneys and bladder and recorded on P ACS. Additional selected color Doppler and spectral images recorded. LIMITATIONS: None. FINDINGS: RIGHT KIDNEY: Normal size. Increased cortical echogenicity. 1.5 cm cyst. No hydrone phrosis. No calcifications. LEFT KIDNEY: Normal size. Increased cortical echogenicity. 3.0 x 2.4 cm cyst with single thin se ptation lower pole. Smaller simple cyst. No hydronephrosis. No calcifications. BLADDER: No masses. OTHER: No other significant finding. IMPRESSION: CHRONIC MEDICAL RENAL DISEASE. NO HYDRONEPHROSIS. TECHNICAL DOCUMENTATION: JOB ID: [id number] [employer]- All Rights Reserved Reading location - IP/workstation name: [email or web address]
== END ==
LOC: RAD 15:19
PROVIDERS: ATTEND Internal Medicine Nephrology
DX: N17.9 Acute kidney failure, unspecified (principal); N18.9 Chronic kidney disease, unspecified
CPT/HCPCS: 76770

== ENCOUNTER → 2018-08-23 | Outpatient (CLI) | payer MEDICARE ==
[2018-08-23 10:28] LABS: ABSOLUTE BASOPHILS # (AUTO) 0.1 10^3/uL (0.0-0.2); ABSOLUTE EOSINOPHILS # (AUTO) 0.6 10^3/uL (0.0-0.6); ABSOLUTE LYMPHOCYTES (AUTO) 1.3 10^3/uL (0.5-4.7); ABSOLUTE MONOCYTES (AUTO) 0.6 10^3/uL (0.1-1.4); ABSOLUTE NEUT (AUTO) 4.7 10^3/uL (1.7-8.2); BASOPHILS % (AUTO) 0.7 % (0-2); EOSINOPHILS % (AUTO) 8.1 % (0-6); HEMATOCRIT 36.9 % (37.9-51.0); HEMOGLOBIN 12.9 g/dL (13.5-17.0); LYMPHOCYTES % (AUTO) 17.6 % (13-45); MEAN CORPUSCULAR HEMOGLOBIN 33.8 pg (27.0-33.4); MEAN CORPUSCULAR HGB CONC 35.1 g/dL (32.0-36.0); MEAN CORPUSCULAR VOLUME 96 fl (80-97); MONOCYTES % (AUTO) 8.3 % (3-13); PLATELET COUNT 333 10^3/uL (150-450); RED BLOOD COUNT 3.83 10^6/uL (4.35-5.55); RED CELL DISTRIBUTION WIDTH 14.4 % (11.5-14.0); SEGMENTED NEUTROPHILS % (AUTO) 65.3 % (42-78); TOTAL CELLS COUNTED % (AUTO) 100 %; WHITE BLOOD COUNT 7.1 10^3/uL (4.0-10.5)
[2018-08-23 10:36] LABS: APPEARANCE,URINE CLEAR; BILIRUBIN,URINE NEGATIVE (NEGATIVE); COLOR,URINE STRAW; GLUCOSE, URINE NEGATIVE (NEGATIVE); KETONES,URINE NEGATIVE (NEGATIVE); LEUKOCYTE ESTERASE,URINE NEGATIVE (NEGATIVE); NITRITE,URINE NEGATIVE (NEGATIVE); PROTEIN,URINE NEGATIVE (NEGATIVE); URINE SPECIFIC GRAVITY 1.008; UROBILINOGEN,URINE NEGATIVE mg/dL (<2.0)
[2018-08-23 10:56] LABS: ALBUMIN 4.2 g/dL (3.5-5.0); ANION GAP 11 (5-19); BLOOD UREA NITROGEN 19 mg/dL (7-20); CARBON DIOXIDE 30 mmol/L (22-30); CHLORIDE 98 mmol/L (98-107); GLUCOSE 100 mg/dL (75-110); PHOSPHORUS 3.6 mg/dL (2.5-4.5); POTASSIUM 5.5 mmol/L (3.6-5.0); SODIUM 138.6 mmol/L (137-145)
[2018-08-23 11:11] LABS: UR PRO/CREAT RATIO RESULT 1.2 mg/mg (0.0-0.2); URINE CREATININE 25.2 mg/dL (22-328); URINE PROTEIN 29.7 mg/dL (<12)
[2018-08-23 11:16] LABS: URINE CREATININE 39.1 mg/dL (22-328)
[2018-08-23 11:20] LABS: CREATININE 0.99 mg/dL (0.52-1.25)
[2018-08-23 12:05] LABS: 24 HOUR URINE PROTEIN RESULT 867 mg/day (42-225); URINE PROTEIN 29.9 mg/dL (<12)
== END ==
LOC: OD 09:25
PROVIDERS: ATTEND Internal Medicine Nephrology
DX: N17.9 Acute kidney failure, unspecified (principal); I10 Essential (primary) hypertension
CPT/HCPCS: 36415; 80048; 81001; 82040; 82306; 82570; 82575; 83970; 84100; 84156; 85025

== ENCOUNTER → 2018-09-17 | Outpatient (CLI) | payer MEDICARE | LOC: OD 11:34 | PROVIDERS: ATTEND Internal Medicine Nephrology | DX: N17.9 Acute kidney failure, unspecified (principal); E87.5 Hyperkalemia | CPT/HCPCS: 36415; 84132 ==

== ENCOUNTER → 2018-09-21 | Outpatient (CLI) | payer MEDICARE, OTHER ==
--- NOTE | 2018-09-21 12:26 | RADIOLOGY REPORT (SQ) ---
EXAM DESCRIPTION: MRI RT UPPER JOINT WITHOUT COMPLETED DATE/TIME: 09/21/2018 11:42 am REASON FOR STUDY: PAIN IN RIGHT SHOULDER (M25.511) M25.511 PAIN IN RIGHT SHOULDER COMPARISON: None. TECHNIQUE: Right shoulder images acquired and stored on PACS. Multiplanar imaging to include fat sen sitive sequences such as T1, water sensitive sequences such as FST2/STIR, cartilage sensitive sequenc es such as FSPD/gradient-echo sequences. LIMITATIONS: None. FINDINGS: BONE MARROW AND CORTEX: No marrow signal abnormalities worrisome for occult fracture. How ever, subcortical cysts are present along the medial edge of the bicipital groove, anterior humeral h ead and along the greater tuberosity. JOINT OR BURSAL EFFUSION: Moderate amount of fluid in the subacromial/subdeltoid bursa GLENO-HUMERAL ARTICULATION: Normal articulation. No subluxation. No cystic change. No osteophytes or cartilage loss. ACROMION AND AC JOINT: Type 2 acromion with bulky acromioclavicular joint hypertrophy on sagittal im age 10. There is also prominent bony spurring along the undersurface of the acromion on coronal imag e 10. Narrowing of the subacromial space is present on sagittal image 8 and coronal images 6 through 11. ROTATOR CUFF AND INTERVAL: The anterior half of the supraspinatus tendon is torn. The posterior half of the supraspinatus tendon and the infraspinatus tendon are diffusely high in signal from tendinopa thy at the distal attachment. No supra or infraspinatus muscle atrophy.The subscapularis attachment to the humeral head is indistinct and high in signal from tendinopathy. Rotator interval is indistinct, worrisome for tear LABRUM AND BICEPS LABRAL COMPLEX: Intra-articular long head biceps tendon not visualized. Superior labral tear on axial images 6 and 7, and sagittal images 11 and 12. REMAINDER OF LABRUM AND IGHL : No gross tear or paralabral cyst formation. Labral evaluation is less than optimal without joint distention. No thickening of IGHL to suggest adhesive capsulitis. PERIARTICULAR AND ADJACENT SOFT TISSUES: No masses or abnormal nodes. OTHER: No other significant finding. IMPRESSION: Acromioclavicular joint and undersurface acromion bony spurring with narrowing of the prince bacromial space, fluid in the subacromial/subdeltoid bursa into tendinopathy/ tears of the supra and infraspinatus tendons. Distal subscapularis tendinopathy Intra-articular long head biceps tendon not seen, likely torn. Small superior labral tear TECHNICAL DOCUMENTATION: JOB ID: [id number] [employer]- All Rights Reserved Reading location - IP/workstation name: [facility]
== END ==
LOC: RAD 10:52
PROVIDERS: ATTEND Orthopaedic Surgery
DX: M25.511 Pain in right shoulder (principal)

== ENCOUNTER → 2018-12-13 | Outpatient (CLI) | payer MEDICARE, OTHER ==
[2018-12-13 14:11] LABS: APPEARANCE,URINE CLEAR; BILIRUBIN,URINE NEGATIVE (NEGATIVE); COLOR,URINE STRAW; GLUCOSE, URINE NEGATIVE (NEGATIVE); KETONES,URINE NEGATIVE (NEGATIVE); LEUKOCYTE ESTERASE,URINE NEGATIVE (NEGATIVE); NITRITE,URINE NEGATIVE (NEGATIVE); PROTEIN,URINE NEGATIVE (NEGATIVE); UROBILINOGEN,URINE NEGATIVE mg/dL (<2.0)
[2018-12-13 14:16] LABS: ABSOLUTE BASOPHILS # (AUTO) 0.1 10^3/uL (0.0-0.2); ABSOLUTE EOSINOPHILS # (AUTO) 0.9 10^3/uL (0.0-0.6); ABSOLUTE LYMPHOCYTES (AUTO) 1.6 10^3/uL (0.5-4.7); ABSOLUTE MONOCYTES (AUTO) 0.6 10^3/uL (0.1-1.4); ABSOLUTE NEUT (AUTO) 2.7 10^3/uL (1.7-8.2); BASOPHILS % (AUTO) 1.2 % (0-2); EOSINOPHILS % (AUTO) 15.8 % (0-6); HEMATOCRIT 34.8 % (37.9-51.0); HEMOGLOBIN 12.4 g/dL (13.5-17.0); LYMPHOCYTES % (AUTO) 26.7 % (13-45); MEAN CORPUSCULAR HEMOGLOBIN 32.6 pg (27.0-33.4); MEAN CORPUSCULAR HGB CONC 35.6 g/dL (32.0-36.0); MEAN CORPUSCULAR VOLUME 92 fl (80-97); MONOCYTES % (AUTO) 10.3 % (3-13); PLATELET COUNT 338 10^3/uL (150-450); RED CELL DISTRIBUTION WIDTH 12.6 % (11.5-14.0); TOTAL CELLS COUNTED % (AUTO) 100 %; WHITE BLOOD COUNT 5.8 10^3/uL (4.0-10.5)
[2018-12-13 14:30] LABS: ANION GAP 8 (5-19); BLOOD UREA NITROGEN 34 mg/dL (7-20); CALCIUM 9.7 mg/dL (8.4-10.2); CARBON DIOXIDE 30 mmol/L (22-30); CHLORIDE 99 mmol/L (98-107); GLUCOSE 104 mg/dL (75-110); IRON(TIBC) 84.8 ug/dL (49-181); POTASSIUM 4.8 mmol/L (3.6-5.0)
[2018-12-13 14:45] LABS: UR PRO/CREAT RATIO RESULT 0.5 mg/mg (0.0-0.2); URINE PROTEIN 23.4 mg/dL (<12)
== END ==
LOC: OD 12:55
PROVIDERS: ATTEND Internal Medicine Nephrology
DX: N17.9 Acute kidney failure, unspecified (principal); E87.5 Hyperkalemia; D64.9 Anemia, unspecified; N18.2 Chronic kidney disease, stage 2 (mild)
CPT/HCPCS: 36415; 80048; 81001; 82570; 82607; 82728; 83540; 83550; 84156; 85025

== ENCOUNTER 2019-02-09 12:58 | Inpatient (IN) | payer MEDICARE, OTHER ==
--- NOTE | 2019-02-09 13:24 | RADIOLOGY REPORT (SQ) ---
EXAM DESCRIPTION: CT HEAD WITHOUT COMPLETED DATE/TIME: 02/09/2019 1:12 pm REASON FOR STUDY: signs and symptoms of stroke COMPARISON: 07/24/2017 TECHNIQUE: Axial images acquired through the brain without intravenous contrast. Images reviewed wi th bone, brain and subdural windows. Additional sagittal and coronal reconstructions were generated. Images stored on PACS. All CT scanners at this facility use dose modulation, iterative reconstruction, and/or weight based d osing when appropriate to reduce radiation dose to as low as reasonably achievable (ALARA). [facility]: Dose Right [facility]: CareDose [facility]: Dose Right [facility]: Teradose 4D [facility]: [employer] RADIATION DOSE: CT Rad equipment meets quality standard of care and radiation dose reduction techniq ues were employed. CTDIvol: 53.2 mGy. DLP: 1097 mGy-cm. mGy. LIMITATIONS: None. FINDINGS: VENTRICLES: Normal size and contour. CEREBRUM: No masses. No hemorrhage. No midline shift. No evidence for acute infarction. Normal gra y/white matter differentiation. No areas of low density in the white matter. CEREBELLUM: No masses. No hemorrhage. No alteration of density. No evidence for acute infarction. EXTRAAXIAL SPACES: No fluid collections. No masses. ORBITS AND GLOBE: No intra- or extraconal masses. Normal contour of globe without masses. CALVARIUM: No fracture. PARANASAL SINUSES: No fluid or mucosal thickening. SOFT TISSUES: No mass or hematoma. OTHER: No other significant finding. IMPRESSION: NORMAL BRAIN CT WITHOUT CONTRAST. EVIDENCE OF ACUTE STROKE: NO. COMMENT: Pertinent positive or negative findings of the imaging study reported as a CRITICAL EXAM mikhail LUIS MD at13:18 on 02/09/2019. Category of Critical Exam: Stroke alert Quality ID # [id number]: Final reports with documentation of one or more dose reduction techniques (e.g., Au tomated exposure control, adjustment of the mA and/or kV according to patient size, use of iterative reconstruction technique) TECHNICAL DOCUMENTATION: JOB ID: [id number] [employer]- All Rights Reserved Reading location - IP/workstation name: [email or web address]
--- NOTE | 2019-02-09 13:54 | ER Document Report ---
ED General - General Chief Complaint: S/S of Possible Stroke Stated Complaint: WEAKNESS Time Seen by Provider: 02/09/19 13:26 Primary Care Provider: KOREY PETE MD [Primary Care Provider] - Follow up as needed Notes: Patient has been exhibiting some neurological deficits since about 5 PM yesterday. His family members note that he either was not talking or unable to talk or confused and what he was saying since 5 PM yesterday. He also complained of a headache at that time. He was able to sleep off and on during the night. This morning, he continued to complain of the headache and is confused, and then developed difficulty with his balance and walking and had to be assisted. He says he felt drunk in his head. Says his vision is blurry. Having some generalized pain all over. Denies any abdominal pains, chest pains, or difficulty breathing or shortness of breath. Is not been sick in any way rec ently. No fevers recently. Patient is never had a stroke. Had sinus surgery 15 years ago. Hernia surgery in the past. Patient has had a diagnosis of hepatitis C for which she has been treated in is cured of the disease. PMH: Hypertension. No heart disease. Glaucoma. TRAVEL OUTSIDE OF THE [place] IN LAST 30 DAYS: No - Related Data Allergies/Adverse Reactions: lisinopril [Lisinopril] Allergy (Verified 07/24/17 17:43) moxifloxacin HCl [From Avelox] Allergy (Verified 07/24/17 17:43) Past Medical History - Social History Smoking Status: Unknown if Ever Smoked Family History: Reviewed & Not Pertinent, CAD - Past Medical History Cardiac Medical History: Reports: Hx Hypercholesterolemia, Hx Hypertension Denies: Hx Coronary Artery Disease Pulmonary Medical History: Reports: Hx Bronchitis, Hx COPD, Hx Pneumonia Neurological Medical History: Denies: Hx Cerebrovascular Accident Endocrine Medical History: Denies: Hx Diabetes Mellitus Type 1, Hx Diabetes Mellitus Type 2 Renal/ Medical History: Reports: Hx Renal Insufficiency Musculoskeletal Medical History: Reports Hx Arthritis Psychiatric Medical History: Reports: Hx Depression Past Surgical History: Reports: Hx Herniorrhaphy, Other - Sinus surgery - Immunizations Hx Diphtheria, Pertussis, Tetanus Vaccination: No - unknown Hx Pneumococcal Vaccination: 10/23/12 Review of Systems - Review of Systems Notes: REVIEW OF SYSTEMS: CONSTITUTIONAL : Denies fever. EENT: Denies eye, ear, nose or mouth or throat pain or other symptoms. CARDIOVASCULAR: Denies chest pain. RESPIRATORY: Denies cough, chest congestion, or shortness of breath. GASTROINTESTINAL: Denies abdominal pain or nausea, vomiting, or diarrhea. GENITOURINARY: Denies difficulty or painful urinating, urinary frequency, blood in urine. MUSCULOSKELETAL: Denies back or neck pain. Denies joint pain or swelling. SKIN: Denies rash or skin lesions. NEUROLOGICAL: Denies LOC but does have altered mental status. Confused and poor memory. Knows he is at [facility] and that he lives in [place], but does not know what year it is. Does have generalized headache. Had difficulty walking and had to be assisted but did not have any isolated one- sided weakness or paralysis. ALL OTHER SYSTEMS REVIEWED AND NEGATIVE. Physical Exam - Vital signs Vitals: Pulse Resp BP Pulse Ox 103 H 24 H 150/92 H 97 02/09/19 13:01 02/09/19 13:01 02/09/19 13:01 02/09/19 13:01 Interpretation: Normal. No: Febrile Notes: PHYSICAL EXAMINATION: GENERAL: Well-appearing, but anxious and frequently complaining of his head hurting. HEAD: Atraumatic, normocephalic. EYES: Pupils equal round and reactive to light, extraocular movements intact. ENT: oropharynx clear without exudates. Moist mucous membranes. NECK: Normal range of motion, supple. No carotid bruits heard. LUNGS: Breath sounds clear and equal bilaterally. HEART: Regular rate and rhythm without murmurs. ABDOMEN: Soft, nontender. No guarding or rebound. No masses. BACK: No tenderness throughout entire back. EXTREMITIES: Normal range of motion without pain. NEUROLOGICAL: Normal speech, gait not tested. Patient moves all 4 extremities normally. 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 Normal sensory, motor, and reflex exams. Awake, alert, and oriented x3, but not the year. Cranial nerves intact. PSYCH: Normal mood, normal affect. SKIN: Warm, dry, no rashes. Course - Re-evaluation Re-evalutation: 02/09/19 15:21 Patient's workup thus far is completely normal. I have spoken with the hospitalist about admitting the patient for further evaluation and they are ag reeable to doing so. - Vital Signs Vital signs: Temp Pulse Resp BP Pulse Ox 103 H 20 146/82 H 96 02/09/19 13:01 02/09/19 15:02 02/09/19 15:02 02/09/19 15:02 - Laboratory Result Diagrams: 02/09/19 13:24 02/09/19 13:24 Laboratory results interpreted by me: 02/09/19 02/09/19 02/09/19 13:23 13:24 13:24 Eosinophils % 10.2 H Absolute Eosinophils 0.7 H Sodium 135.4 L Chloride 96 L BUN 32 H Creatinine 1.33 H Est GFR (Non-Af Amer) 53 L Glucose 160 H POC Glucose 160 H Calcium 10.6 H - Diagnostic Test Radiology reviewed: Image reviewed, Reports reviewed - CT scan of the brain was negative. Radiology results interpreted by me: 02/09/19 15:21 Chest x-ray is normal. Discharge - Discharge Clinical Impression: Altered mental status, Confusion, TIA (transient ischemic attack), Glaucoma Condition: Stable Disposition: ADMITTED INPATIENT Admitting Provider: Radha (Hospitalist) Unit Admitted: IMCU Referrals: KOREY PETE MD [Primary Care Provider] - Follow up as needed
[2019-02-09 13:59] LABS: INTERNATIONAL RATION (INR) 0.93; PARTIAL THROMBOPLASTIN TIME 27.9 SEC (23.5-35.8)
--- NOTE | 2019-02-09 14:01 | RADIOLOGY REPORT (SQ) ---
EXAM DESCRIPTION: CHEST SINGLE VIEW COMPLETED DATE/TIME: 02/09/2019 1:53 pm REASON FOR STUDY: bed 8 stroke alert COMPARISON: 09/23/2017 EXAM PARAMETERS: NUMBER OF VIEWS: One view. TECHNIQUE: Single frontal radiographic view of the chest acquired. RADIATION DOSE: NA LIMITATIONS: None. FINDINGS: LUNGS AND PLEURA: No opacities, masses or pneumothorax. No pleural effusion. MEDIASTINUM AND HILAR STRUCTURES: Chronic elevation of the right hemidiaphragm. HEART AND VASCULAR STRUCTURES: Heart normal in size. Normal vasculature. BONES: No acute findings. HARDWARE: None in the chest. OTHER: No other significant finding. IMPRESSION: NO ACUTE RADIOGRAPHIC FINDING IN THE CHEST. TECHNICAL DOCUMENTATION: JOB ID: [id number] [employer]- All Rights Reserved Reading location - IP/workstation name: [email or web address]
[2019-02-09 14:03] LABS: ALANINE AMINOTRANSFERASE 25 U/L (21-72); ALBUMIN 4.4 g/dL (3.5-5.0); ALKALINE PHOSPHATASE 93 U/L (38-126); ANION GAP 12 (5-19); ASPARTATE AMINO TRANSFERASE 26 U/L (17-59); BILIRUBIN,DIRECT 0.3 mg/dL (0.0-0.4); BILIRUBIN,TOTAL 0.6 mg/dL (0.2-1.3); BLOOD UREA NITROGEN 32 mg/dL (7-20); CALCIUM 10.6 mg/dL (8.4-10.2); CARBON DIOXIDE 27 mmol/L (22-30); CHLORIDE 96 mmol/L (98-107); CREATINE KINASE 55 U/L (55-170); GLUCOSE 160 mg/dL (75-110); SODIUM 135.4 mmol/L (137-145); TOTAL PROTEIN 7.9 g/dL (6.3-8.2)
[2019-02-09] MEDS ORDERED: MORPHINE SULFATE 10 MG/ML INJ IV ONE (14:08)
[2019-02-09] MEDS ORDERED: ONDANSETRON HCL INJ/PF 4 MG/2 ML SDV IV ONE (14:09)
[2019-02-09 14:15] LABS: CREATINE KINASE MB 2.58 ng/mL (<4.55); TROPONIN I 0.016 ng/mL
[2019-02-09 14:19] LABS: ABSOLUTE BASOPHILS # (AUTO) 0.1 10^3/uL (0.0-0.2); ABSOLUTE EOSINOPHILS # (AUTO) 0.7 10^3/uL (0.0-0.6); ABSOLUTE LYMPHOCYTES (AUTO) 1.8 10^3/uL (0.5-4.7); ABSOLUTE MONOCYTES (AUTO) 0.7 10^3/uL (0.1-1.4); ABSOLUTE NEUT (AUTO) 3.7 10^3/uL (1.7-8.2); BASOPHILS % (AUTO) 1.3 % (0-2); EOSINOPHILS % (AUTO) 10.2 % (0-6); HEMATOCRIT 43.9 % (37.9-51.0); HEMOGLOBIN 15.4 g/dL (13.5-17.0); LYMPHOCYTES % (AUTO) 25.7 % (13-45); MEAN CORPUSCULAR HEMOGLOBIN 32.2 pg (27.0-33.4); MEAN CORPUSCULAR HGB CONC 35.1 g/dL (32.0-36.0); MEAN CORPUSCULAR VOLUME 92 fl (80-97); MONOCYTES % (AUTO) 9.4 % (3-13); PLATELET COUNT 366 10^3/uL (150-450); RED BLOOD COUNT 4.78 10^6/uL (4.35-5.55); RED CELL DISTRIBUTION WIDTH 13.2 % (11.5-14.0); SEGMENTED NEUTROPHILS % (AUTO) 53.4 % (42-78); TOTAL CELLS COUNTED % (AUTO) 100 %
[2019-02-09] MEDS ORDERED: LORAZEPAM INJ 2 MG/1 ML VIAL IV ONE (15:20)
[2019-02-09] MEDS ORDERED: ONDANSETRON HCL INJ/PF 4 MG/2 ML SDV IV PRN (17:22)
[2019-02-09] MEDS ORDERED: ONDANSETRON 4 MG TAB.RAPDIS PO PRN (17:22)
[2019-02-09] MEDS ORDERED: NORMAL SALINE 1000 ML 1,000 ML IV PRN (17:22)
[2019-02-09] MEDS ORDERED: DOCUSATE SODIUM 100 MG CAPSULE PO PRN (17:22)
[2019-02-09] MEDS ORDERED: CLONIDINE HCL 0.1 MG TABLET PO PRN (17:22)
[2019-02-09] MEDS ORDERED: HYDROCHLOROTHIAZIDE 25 MG TABLET PO ONE (17:37)
[2019-02-09] MEDS ORDERED: LOSARTAN POTASSIUM 50 MG TABLET PO ONE (17:38)
[2019-02-09] MEDS: TAMSULOSIN HCL 0.4 MG CAP.SR.24H PO SCH (18:00)
[2019-02-09] MEDS: ACETAMINOPHEN 325 MG TABLET PO PRN (18:03)
[2019-02-09] MEDS ORDERED: MORPHINE SULFATE 10 MG/ML INJ IV PRN ×2 (18:47)
[2019-02-09] MEDS ORDERED: ALPRAZOLAM 0.25 MG TABLET PO PRN (18:48)
--- NOTE | 2019-02-09 18:50 | PDOC H&P ---
History of Present Illness Admission Date/PCP: 02/09/19 16:12 KOREY PETE MD Patient complains of: Altered mental status History of Present Illness: LUTHER LIPSCOMB is a 73 year old male who experienced hallucinations and confusion yesterday evening. He stated he picked up the phone but could not dial number. He exhibited memory loss. She went to bed and when he woke up this morning he was still confused. He reports hallucinations and his stat es that he was nonsensical with his speech. Late morning appear to be clearing but worsened at lunchtime. Because of the worsening she brought him to the emergency department. While in the exam room he spoke to his about people dancing in the room. He reports that earlier in the day he visualized things that he was told he did not exist. Since being in the emergency room he is gotten no better and is possibly worse. He does report a frontal headache that is sharp and constant. He does not have any fever or chills. He reports that he has not had symptoms of respiratory infection lately. He has a history of pulmonary fibrosis but states that he has been in his usual health respiratory ng. He does not use oxygen at home. He states that his chest hurts now and then. It is sharp pain. Last for 10-12 minutes. He feels that it is typically related to when he is exerting or under strain. His past medical history also consists of hyperlipidemia, hypertension and chronic obstructive pulmonary disease. He has history of chronic pain but due to issues with his pain medicat ions he has discontinued narcotic analgesics. Interestingly his father from a cerebral hemorrhage. The patient was referred to the hospitalist service for possible TIA versus other acute cerebral syndrome. Past Medical History Cardiac Medical History: Reports: Hyperlipidema, Hypertension Denies: Coronary Artery Disease Pulmonary Medical History: Reports: Bronchitis, Chronic Obstructive Pulmonary Disease (COPD), Pneumonia, Other - Pulmonary fibrosis EENT Medical History: Reports: Other - Glaucoma with left eye blindness Neurological Medical History: Reports: Migraine Endocrine Medical History: Denies: Diabetes Mellitus Type 1, Diabetes Mellitus Type 2 Renal/ Medical History: Reports: Chronic Kidney Disease Malignancy Medical History: Reports: None GI Medical History: Reports: Hepatitis - ? Hepatitis C, Other - Fatty liver Musculoskeltal Medical History: Reports: Arthritis, Fibromyalgia Skin Medical History: Reports: None Psychiatric Medical History: Reports: Depression Traumatic Medical History: Reports: None Hematology: Denies: Anemia Infectious Medical History: Reports: Hepatitis C Past Surgical History Past Surgical History: Reports: Herniorrhaphy, Orthopedic Surgery - right shoulder, Other - Sinus surgery Social History Information Source: Patient, Relative - Patient's Lives with: Spouse/Significant other Smoking Status: Former Smoker Frequency of Alcohol Use: Rare Hx Recreational Drug Use: No Drugs: None Hx Prescription Drug Abuse: Yes - Was treated for chronic pain 2016. Compliance issues. 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 The patient's , who was at the bedside, is the designated decision maker. Family History Family History: CAD, Malignancy - Bladder cancer, Other - Rheumatoid arthritis, cerebral hemorrhage, rheumatic fever Parental Family History Reviewed: Yes - Father cerebral hemorrhage, mother [place] x3, rheumatoid arthritis Children Family History Reviewed: Yes Sibling(s) Family History Reviewed.: Yes - Rheumatic fever, bladder cancer Medication/Allergy Home Medications: Amlodipine Besylate [Norvasc 10 mg Tablet] 10 mg PO DAILY 09/24/17 Brimonidine Tartrate [Alphagan 0.2% Oph Soln 5 ml] 1 drop OU BID 09/24/17 Buspirone HCl [Buspar 10 mg Tablet] 10 mg PO BIDP PRN 09/24/17 Citalopram Hydrobromide [Celexa 20 mg Tablet] 20 mg PO DAILY 09/24/17 Doxycycline Hyclate [Vibramycin] 100 mg PO BID 09/24/17 Pregabalin [Lyrica 100 mg Capsule] 100 mg PO Q8 09/24/17 Timolol Maleate [Timoptic 0.5% Oph Soln 5 ml] 1 drop OU BID 09/24/17 Valsartan [Diovan 160 mg Tablet] 160 mg PO DAILY 09/24/17 Amlodipine Besylate [Norvasc 10 mg Tablet] 10 mg PO DAILY tablet 09/27/17 Atorvastatin Calcium [Lipitor 10 mg Tablet] 10 mg PO QHS tablet 09/27/17 Buspirone HCl [Buspar 10 mg Tablet] 10 mg PO BIDP PRN tablet 09/27/17 Citalopram Hydrobromide [Celexa 20 mg Tablet] 20 mg PO DAILY tablet 09/27/17 Doxycycline Hyclate [Vibramycin 100 mg Tablet] 100 mg PO Q12 #20 tablet 09/27/17 Guaifenesin [Mucinex Sr 600 mg Tablet.sa] 600 mg PO Q12 #30 tablet.sa 09/27/17 Ipratropium/Albuterol Sulfate [Duoneb 3 ml Ampul] 3 ml NEB RTQ6 vial.neb 09/27/17 Lidocaine [Lidoderm 5% (700 mg) Transdermal Patch] 2 patch TP DAILY #60 adh..patch 09/27/17 Magnesium Oxide [Mag-Ox 400 mg Tablet] 400 mg PO DAILY tablet 09/27/17 Nicotine [Nicoderm 21 mg/24 Hr Transderm Patch] 1 each TD DAILY #14 patch.td24 09/27/17 Potassium Chloride [Klor-Con M10] 10 meq PO DAILY #30 tab.er.prt 09/27/17 Prednisone [Deltasone 10 mg Tablet] 50 mg PO DAILY 5 Days tablet 09/27/17 Pregabalin [Lyrica 100 mg Capsule] 100 mg PO Q8 capsule 09/27/17 Tiotropium [place] [Spiriva Handihaler 5 Cap/Kit (18 Mcg/Cap)] 1 cap IH DAILY #1 kit 09/27/17 Tramadol HCl [Ultram 50 mg Tablet] 50 mg PO Q6HP PRN tablet 09/27/17 Valsartan [Diovan 160 mg Tablet] 160 mg PO DAILY tablet 09/27/17 Ibuprofen 600 mg PO QID #30 tablet 08/11/18 Allergies/Adverse Reactions: acetaminophen [From Tylenol] Allergy (Verified 02/09/19 16:52) lisinopril [Lisinopril] Allergy (Verified 07/24/17 17:43) moxifloxacin HCl [From Avelox] Allergy (Verified 07/24/17 17:43) Review of Systems Constitutional: PRESENT: as per HPI, fatigue, headache(s). ABSENT: night sweats Eyes: PRESENT: visual disturbances, other - Blind left eye from glaucoma Ears: ABSENT: hearing changes Nose, Mouth, and Throat: PRESENT: headache(s) - Frontal headache. Sharp pain.. ABSENT: mouth pain, sore throat Cardiovascular: PRESENT: chest pain. ABSENT: edema, palpitations Respiratory: ABSENT: cough, dyspnea, sputum Gastrointestinal: ABSENT: abdominal pain, constipation, diarrhea, heartburn, nausea, vomiting Genitourinary: ABSENT: dysuria, hematuria Musculoskeletal: PRESENT: back pain - Neck and back pain. ABSENT: deformity Integumentary: ABSENT: diaphoresis, erythema, rash, wounds Neurological: PRESENT: abnormal speech, confusion, memory loss. ABSENT: convulsions, frequent falls, syncope, vertigo Psychiatric: PRESENT: anxiety, depression, hallucinations Endocrine: ABSENT: cold intolerance, flushing, heat intolerance Hematologic/Lymphatic: ABSENT: easy bleeding, easy bruising Allergic/Immunologic: ABSENT: seasonal rhinorrhea Physical Exam Vital Signs: Temp Pulse Resp BP Pulse Ox 97.5 F 93 14 189/87 H 97 02/09/19 14:25 02/09/19 16:35 02/09/19 17:01 02/09/19 17:01 02/09/19 17:00 Intake & Output 02/08/19 02/09/19 02/10/19 06:59 06:59 06:59 Weight 86.3 kg General appearance: PRESENT: no acute distress, cooperative, well-developed Head exam: PRESENT: atraumatic, normocephalic Eye exam: PRESENT: conjunctiva pink, EOMI. ABSENT: conjunctival injection, nystagmus, scleral icterus Ear exam: PRESENT: normal external ear exam Mouth exam: PRESENT: moist, tongue midline Neck exam: PRESENT: other - Neck hurts with flexion but he has chronic neck pain.. ABSENT: carotid bruit, JVD, lymphadenopathy Respiratory exam: PRESENT: rales - Fine rales bilaterally, symmetrical, unlabored. ABSENT: accessory muscle use, chest wall tenderness, rhonchi, tachypnea, wheezes Cardiovascular exam: PRESENT: RRR, +S1, +S2. ABSENT: tachycardia Pulses: PRESENT: normal radial pulses Vascular exam: ABSENT: pallor GI/Abdominal exam: PRESENT: normal bowel sounds, soft. ABSENT: distended, tenderness Rectal exam: PRESENT: deferred Gentrourinary exam: ABSENT: indwelling catheter Extremities exam: PRESENT: full ROM. ABSENT: joint swelling, pedal edema Musculoskeletal exam: ABSENT: normal inspection Neurological exam: PRESENT: alert, awake, oriented to person, oriented to place, oriented to time, oriented to situation, reflexes normal, other - Occasional word finding difficulties reports that it is improved at this time.. ABSENT: motor sensory deficit Psychiatric exam: PRESENT: anxious - Anxious regarding current symptoms. ABSENT: agitated, manic Focused psych exam: PRESENT: other - reports that he was having hallucinations earlier.. ABSENT: delusional, pressured speech, restlessness Skin exam: PRESENT: dry, warm. ABSENT: abrasion, rash Results Laboratory Results: 02/09/19 13:24 02/09/19 13:24 02/09/19 02/09/19 13:24 13:24 WBC 7.0 RBC 4.78 Hgb 15.4 Hct 43.9 MCV 92 MCH 32.2 MCHC 35.1 RDW 13.2 Plt Count 366 Seg Neutrophils % 53.4 Lymphocytes % 25.7 Monocytes % 9.4 Eosinophils % 10.2 H Basophils % 1.3 Absolute Neutrophils 3.7 Absolute Lymphocytes 1.8 Absolute Monocytes 0.7 Absolute Eosinophils 0.7 H Absolute Basophils 0.1 Sodium 135.4 L Potassium 4.0 Chloride 96 L Carbon Dioxide 27 Anion Gap 12 BUN 32 H Creatinine 1.33 H Est GFR ( Amer) > 60 Est GFR (Non-Af Amer) 53 L Glucose 160 H Calcium 10.6 H Total Bilirubin 0.6 AST 26 ALT 25 Alkaline Phosphatase 93 Total Protein 7.9 Albumin 4.4 02/09/19 02/09/19 13:24 13:24 Creatine Kinase 55 CK-MB (CK-2) 2.58 Troponin I 0.016 Impressions: Head CT 02/09/19 00:00 IMPRESSION: NORMAL BRAIN CT WITHOUT CONTRAST. EVIDENCE OF ACUTE STROKE: NO. Chest X-Ray 02/09/19 13:49 IMPRESSION: NO ACUTE RADIOGRAPHIC FINDING IN THE CHEST. Assessment and Plan - Diagnosis (1) Altered mental status Qualifiers: Altered mental status type: transient alteration of awareness Qualified Code(s): R40.4 - Transient alteration of awareness Is this a current diagnosis for this admission?: Yes Plan: History evening and then again this morning the patient reports confusion. Lack of the ability to perform simple tasks such as Dial his telephone. Some disorientation and hallucinations. The patient reports that this temporarily improved this morning and then by lunchtime it was worse. His brought him to the emergency room. Shortly before this encounter she reports that he was reporting people dancing and singing in the room. He is aware that he had similar altered thoughts with visual perceptions of things not present. He does have a history of hypertension and hyperlipidemia. A CT scan of the head was negative. I have ordered an MRI scan. His father of a cerebral hemorrhage. The patient is complaining of a frontal headache. His blood pressure is slightly elevated. He does have chronic kidney failure and if the headache persists I will discuss with radiology the cutoff for using IV contrast with the MRI. He denies feeling ill recently. At the time of this encounter he in fact was oriented to person, place, time and situation. The exact etiology of this waxing and waning mental status is unclear at this time. Lumbar puncture was not obtained as the patient is afebrile and does not exhibit meningismus. And going to admit the patient with a presumed TIA diagnosis. He was started on aspirin therapy. He continued his statin and antihypertensive therapies. (2) TIA (transient ischemic attack) Is this a current diagnosis for this admission?: Yes Plan: As above (3) HTN (hypertension) Qualifiers: Hypertension type: essential hypertension Qualified Code(s): I10 - Esse ntial (primary) hypertension Is this a current diagnosis for this admission?: Yes Plan: The patient cannot remember his antihypertensive medications. I called [facility] pharmacy. They state that he has not picked up any prescriptions since Nov. They listed his medications as losartan 100 mg daily and hydrochlorothiazide 25 mg daily. His blood pressure in the emergency department has been elevated. I did ask for doses of those medications to be given this evening. He has a family history of cerebrovascular disease and currently u ncontrolled hypertension. These are certainly risk factors for stroke/TIA. (4) Hyperlipidemia Qualifiers: Hyperlipidemia type: unspecified Qualified Code(s): E78.5 - Hyperlipidemia, unspecified Is this a current diagnosis for this admission?: Yes Plan: Old records indicate that the patient was on statin therapy. He reports that he controls his lipids by diet. I have restarted him on atorvastatin therapy. I did not appreciate any carotid bruits. (5) Chronic renal failure, stage 3 (moderate) Is this a current diagnosis for this admission?: Yes Plan: The patient sees Dr. Pete for nephrology. He has a history of multiple acute kidney injury episodes in his history. He currently has stage III chronic kidney disease. We will continue to monitor his renal function. (6) Glaucoma Qualifiers: Glaucoma type: unspecified Laterality: left Qualified Code(s): H40.9 - Unspecified glaucoma Is this a current diagnosis for this admission?: Yes Plan: The patient reports blindness in his left eye. He is on 2 drops but he cannot remember the drops. His is going to bring in his list of medications. (7) Depression with anxiety Is this a current diagnosis for this admission?: Yes Plan: Continue Lexapro. He was quite anxious this evening. I will make low-dose benzodiazepine therapy available. (8) Fatty liver Is this a current diagnosis for this admission?: Yes Plan: He has been instructed not to take acetaminophen in the past. He states that more recently his physician has told him it is okay but in small amounts. Will use acetaminophen sparingly. - Time Time Spent with patient: 75 minutes Time Spent with patient: 35 or more minutes - Inpatient Certification Based on my medical assessment, after consideration of the patient's comorbidities, presenting symptoms, or acuity I expect that the services needed warrant INPATIENT care.: Yes I certify that my determination is in accordance with my understanding of Medicare's requirements for reasonable and necessary INPATIENT services [42 CFR 412.3e].: Yes Medical Necessity: Need Close Monitoring Due to Risk of Patient Decompensation, Need For Continuous Telemetry Monitoring
[2019-02-09 20:16] LABS: APPEARANCE,URINE SLIGHTLY-CLOUDY; BILIRUBIN,URINE NEGATIVE (NEGATIVE); COLOR,URINE YELLOW; GLUCOSE, URINE NEGATIVE (NEGATIVE); KETONES,URINE NEGATIVE (NEGATIVE); LEUKOCYTE ESTERASE,URINE NEGATIVE (NEGATIVE); NITRITE,URINE NEGATIVE (NEGATIVE); PROTEIN,URINE 100 mg/dL (NEGATIVE); URINE SPECIFIC GRAVITY 1.023; UROBILINOGEN,URINE NEGATIVE mg/dL (<2.0)
--- NOTE | 2019-02-09 21:02 | EKG REPORT ---
SEVERITY:- ABNORMAL ECG - SINUS RHYTHM RIGHT BUNDLE BRANCH BLOCK : Confirmed by: Carrie Cantu MD 09-Feb-2019 21:02:10
[2019-02-09] MEDS: HEPARIN SOD (PORCINE) 5,000 UNIT/ML 1 ML SYRINGE SUBCUT SCH (21:21)
[2019-02-09] MEDS: FLUTICASONE NASAL SPRAY 50 MCG/SPRY 120 SPRAY/16 GM NASL SCH (21:22)
[2019-02-09 21:56] LABS: CREATINE KINASE MB 2.33 ng/mL (<4.55); TROPONIN I 0.014 ng/mL
[2019-02-09] MEDS ORDERED: ATORVASTATIN CALCIUM 10 MG TABLET PO SCH (22:00)
[2019-02-10 04:53] LABS: CHOLESTEROL 255.52 mg/dL (0-200); TRIGLYCERIDES 359 mg/dL (<150)
[2019-02-10 05:08] LABS: DIRECT LDL 138 mg/dL (<100)
[2019-02-10 05:09] LABS: CREATINE KINASE MB 2.57 ng/mL (<4.55); TROPONIN I 0.018 ng/mL
[2019-02-10] MEDS: PANTOPRAZOLE SODIUM 40 MG TABLET.DR PO SCH (05:21)
[2019-02-10 05:22] LABS: VLDL CHOLESTEROL 71.8 mg/dL (10-31)
[2019-02-10] MEDS: HEPARIN SOD (PORCINE) 5,000 UNIT/ML 1 ML SYRINGE SUBCUT SCH ×3 (05:22→21:04)
[2019-02-10] MEDS: LOSARTAN POTASSIUM 50 MG TABLET PO SCH (09:05)
[2019-02-10] MEDS: ESCITALOPRAM OXALATE 10 MG TABLET PO SCH (09:05)
[2019-02-10] MEDS: ASPIRIN 81 MG TABLET, ENT COATED PO SCH (09:05)
[2019-02-10] MEDS: HYDROCHLOROTHIAZIDE 25 MG TABLET PO SCH (09:05)
[2019-02-10] MEDS: FLUTICASONE NASAL SPRAY 50 MCG/SPRY 120 SPRAY/16 GM NASL SCH ×2 (09:06→21:03)
--- NOTE | 2019-02-10 09:19 | RADIOLOGY REPORT (SQ) ---
EXAM DESCRIPTION: MRI HEAD WITHOUT COMPLETED DATE/TIME: 02/10/2019 8:59 am REASON FOR STUDY: Acute onset confusion, aphasia, imbalance COMPARISON: CT scan TECHNIQUE: Multiplanar imaging includes non-contrasted T1, T2, FLAIR, and diffusion with ADC map seq uences. Images stored on PACS. LIMITATIONS: Mild motion artifact. FINDINGS: ANATOMY: No anomalies. Normal vascular flow voids. Pituitary fossa normal. CSF SPACES: Normal in size and contour. No hemorrhage. CEREBRUM: Sulci and gyri normal in size and contour. Normal white matter signal on FLAIR imaging. No evidence of hemorrhage, mass, or extraaxial fluid collection. POSTERIOR FOSSA: No signal alteration. No hemorrhage. No edema, masses or mass effect. Internal royer tory canals, cerebello-pontine angles, mastoids normal. DIFFUSION IMAGING: Negative for acute or sub-acute infarction. ORBITS: No masses. Globes normal. PARANASAL SINUSES: No fluid levels. Mucosa normal. OTHER: No other significant finding. IMPRESSION: NORMAL MRI OF THE BRAIN WITHOUT INTRAVENOUS GADOLINIUM CONTRAST. EVIDENCE OF ACUTE STROKE: NO. TECHNICAL DOCUMENTATION: JOB ID: [id number] [employer]- All Rights Reserved Reading location - IP/workstation name: [email or web address]
--- NOTE | 2019-02-10 12:06 | PDOC PROGRESS REPORT ---
Subjective Progress Note for:: 02/10/19 Subjective:: LUTHER LIPSCOMB is a 73 year old male who experienced hallucinations and confusion yesterday evening. He stated he picked up the phone but could not dial number. He exhibited memory loss. She went to bed and when he woke up this morning he was still confused. He reports hallucinations and his states that he was nonsensical with his speech. Late morning appear to be clearing but worsened at lunchtime. Because of the worsening she brought him to the emergency department. While in the exam room he spoke to his about people dancing in the room. He reports that earlier in the day he visualized things that he was told he did not exist. Since being in the emergency room he is gotten no better and is possibly worse. He does report a frontal headache that is sharp and constant. He does not have any fever or chills. He reports that he has not had symptoms of respiratory infection lately. He has a history of pulmonary fibrosis but states that he has been in his usual health respiratory ng. He does not use oxygen at home. He states that his chest hurts now and then. It is sharp pain. Last for 10-12 minutes. He feels that it is typically related to when he is exerting or under strain. His past medical history also consists of hyperlipidemia, hypertension and chronic obstructive pulmonary disease. He has history of chronic pain but due to issues with his pain medications he has discontinued narcotic analgesics. Interestingl y his father from a cerebral hemorrhage. The patient was referred to the hospitalist service for possible TIA versus other acute cerebral syndrome. 02/10/2019. Patient complaining of left-sided frontal headache, 4/5, sharp, nonradiating, associated with generalized achiness. He denied any ty llucinations. Endorses history of migraines and similar headaches in the past. denies any fever, chills, nausea, consultation or any urinary symptoms. Reason For Visit: ACUTE ONSET CONFUSION WITH EXSPRESIVE APHSIA AND Physical Exam Vital Signs: Temp Pulse Resp BP Pulse Ox 97.5 F 86 16 141/78 H 97 02/10/19 07:43 02/10/19 08:00 02/10/19 08:00 02/10/19 08:00 02/10/19 08:00 Intake & Output 02/09/19 02/10/19 02/11/19 06:59 06:59 06:59 Intake Total 300 Output Total 400 Balance -100 Weight 85.9 kg General appearance: PRESENT: mild distress Head exam: PRESENT: atraumatic, normocephalic Neck exam: ABSENT: carotid bruit, JVD, lymphadenopathy, thyromegaly Respiratory exam: PRESENT: clear to auscultation lobito. ABSENT: rales, rhonchi, wheezes Cardiovascular exam: PRESENT: RRR. ABSENT: diastolic murmur, rubs, systolic murmur Pulses: PRESENT: normal dorsalis pedis pul Extremities exam: PRESENT: full ROM. ABSENT: calf tenderness, clubbing, pedal edema Neurological exam: PRESENT: alert, awake, oriented to person, oriented to place, oriented to time, oriented to situation, CN II-XII grossly intact. ABSENT: motor sensory deficit Psychiatric exam: PRESENT: appropriate affect, normal mood. ABSENT: homicidal ideation, suicidal ideation Results Laboratory Results: 02/09/19 13:24 02/09/19 13:24 02/09/19 02/09/19 02/09/19 13:24 13:24 20:00 WBC 7.0 RBC 4.78 Hgb 15.4 Hct 43.9 MCV 92 MCH 32.2 MCHC 35.1 RDW 13.2 Plt Count 366 Seg Neutrophils % 53.4 Lymphocytes % 25.7 Monocytes % 9.4 Eosinophils % 10.2 H Basophils % 1.3 Absolute Neutrophils 3.7 Absolute Lymphocytes 1.8 Absolute Monocytes 0.7 Absolute Eosinophils 0.7 H Absolute Basophils 0.1 Sodium 135.4 L Potassium 4.0 Chloride 96 L Carbon Dioxide 27 Anion Gap 12 BUN 32 H Creatinine 1.33 H Est GFR ( Amer) > 60 Est GFR (Non-Af Amer) 53 L Glucose 160 H Calcium 10.6 H Total Bilirubin 0.6 AST 26 ALT 25 Alkaline Phosphatase 93 Total Protein 7.9 Albumin 4.4 Triglycerides Cholesterol LDL Cholesterol Direct VLDL Cholesterol HDL Cholesterol TSH Urine Color YELLOW Urine Appearance SLIGHTLY-CLOUDY Urine pH 6.0 Ur Specific [place] 1.023 Urine Protein 100 H Urine Glucose (UA) NEGATIVE Urine Ketones NEGATIVE Urine Blood NEGATIVE Urine Nitrite NEGATIVE Ur Leukocyte Esterase NEGATIVE Urine WBC (Auto) 1 Urine RBC (Auto) 0 02/10/19 02/10/19 03:41 03:41 WBC RBC Hgb Hct MCV MCH MCHC RDW Plt Count Seg Neutrophils % Lymphocytes % Monocytes % Eosinophils % Basophils % Absolute Neutrophils Absolute Lymphocytes Absolute Monocytes Absolute Eosinophils Absolute Basophils Sodium Potassium Chloride Carbon Dioxide Anion Gap BUN Creatinine Est GFR ( Amer) Est GFR (Non-Af Amer) Glucose Calcium Total Bilirubin AST ALT Alkaline Phosphatase Total Protein Albumin Triglycerides 359 H Cholesterol 255.52 H LDL Cholesterol Direct 138 H VLDL Cholesterol 71.8 H HDL Cholesterol 43 TSH 1.57 Urine Color Urine Appearance Urine pH Ur Specific [place] Urine Protein Urine Glucose (UA) Urine Ketones Urine Blood Urine Nitrite Ur Leukocyte Esterase Urine WBC (Auto) Urine RBC (Auto) 02/09/19 02/09/19 02/09/19 13:24 13:24 21:19 Creatine Kinase 55 58 CK-MB (CK-2) 2.58 Troponin I 0.016 02/09/19 02/10/19 02/10/19 21:19 03:41 03:41 Creatine Kinase 72 CK-MB (CK-2) 2.33 2.57 Troponin I 0.014 0.018 Impressions: Head CT 02/09/19 00:00 IMPRESSION: NORMAL BRAIN CT WITHOUT CONTRAST. EVIDENCE OF ACUTE STROKE: NO. Chest X-Ray 02/09/19 13:49 IMPRESSION: NO ACUTE RADIOGRAPHIC FINDING IN THE CHEST. Head MRI 02/10/19 06:00 IMPRESSION: NORMAL MRI OF THE BRAIN WITHOUT INTRAVENOUS GADOLINIUM CONTRAST. EVIDENCE OF ACUTE STROKE: NO. Assessment and Plan - Diagnosis (1) TIA (transient ischemic attack) Is this a current diagnosis for this admission?: Yes Plan: Alert oriented x3, complaining of left-sided frontal headache. CT head and brain MRI has been negative for any acute stroke. Carotid Doppler and 2D echo pending. In the light of patient's positive family history for cerebral aneurysm we will get an MRA of the head to rule out any vascular abnormalities. Continue fall, aspiration, seizure precautions. Continue aspirin, statins, optimize blood pressure. 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 Stating that this headache is similar to his previous migraine attacks but worse. Negative focal neurological deficits. CT head MRI brain negative. Pending MRI. Will start on Fioricet. Patient neurology follow-up. (3) Chronic renal failure, stage 3 (moderate) Is this a current diagnosis for this admission?: Yes Plan: Creatinine 1.33. Baseline 1.5. Has established care with Dr. Mendoza as outpatient. Monitor electrolytes and volume status. Avoid nephrotoxic medications. Optimize blood pressure. (4) Hypertension Is this a current diagnosis for this admission?: No Plan: SBP 120-150. Continue HCTZ, ARB. Monitor kidney function. Chest meds as needed. Adjust meds as needed. (5) Hyperlipidemia Qualifiers: Hyperlipidemia type: unspecified Qualified Code(s): E78.5 - Hyperlipidemia, unspecified Is this a current diagnosis for this admission?: Yes Plan: ASCVD 39.7%. High intensity statins. Continue diet and lifestyle modification. (6) Depression with anxiety Is this a current diagnosis for this admission?: Yes Plan: Continue Lexapro. He was quite anxious this evening. PRN benzos.
[2019-02-10] MEDS: BUTALB/ACETAMINOPHEN/CAFFEINE 1 TAB EACH PO PRN ×2 (13:36→21:08)
[2019-02-10] MEDS: TAMSULOSIN HCL 0.4 MG CAP.SR.24H PO SCH (17:35)
[2019-02-10] MEDS: ATORVASTATIN CALCIUM 40 MG TABLET PO SCH (21:04)
[2019-02-10] MEDS ORDERED: ATORVASTATIN CALCIUM 10 MG TABLET PO SCH (22:00)
[2019-02-11] MEDS: BUTALB/ACETAMINOPHEN/CAFFEINE 1 TAB EACH PO PRN ×3 (03:22→18:59)
[2019-02-11] MEDS: PANTOPRAZOLE SODIUM 40 MG TABLET.DR PO SCH (05:18)
[2019-02-11] MEDS: HEPARIN SOD (PORCINE) 5,000 UNIT/ML 1 ML SYRINGE SUBCUT SCH ×3 (05:18→21:28)
[2019-02-11] MEDS: ACETAMINOPHEN 325 MG TABLET PO PRN ×2 (06:30→21:28)
[2019-02-11] MEDS: HYDROCHLOROTHIAZIDE 25 MG TABLET PO SCH (10:00)
[2019-02-11] MEDS ORDERED: HYDRALAZINE HCL INJ/PF 20 MG/1 ML SDV IV PRN (10:06)
[2019-02-11] MEDS ORDERED: LORAZEPAM 1 MG TABLET PO PRN (10:26)
[2019-02-11] MEDS: FLUTICASONE NASAL SPRAY 50 MCG/SPRY 120 SPRAY/16 GM NASL SCH ×2 (10:53→21:29)
[2019-02-11] MEDS: LOSARTAN POTASSIUM 50 MG TABLET PO SCH (10:54)
[2019-02-11] MEDS: ASPIRIN 81 MG TABLET, ENT COATED PO SCH (10:55)
[2019-02-11] MEDS: ESCITALOPRAM OXALATE 10 MG TABLET PO SCH (10:55)
[2019-02-11] MEDS: CHLORTHALIDONE 25 MG TABLET PO SCH (11:02)
--- NOTE | 2019-02-11 13:47 | PDOC PROGRESS REPORT ---
Subjective Progress Note for:: 02/11/19 Subjective:: LUTHER LIPSCOMB is a 73 year old male who experienced hallucinations and confusion yesterday evening. He stated he picked up the phone but could not dial number. He exhibited memory loss. She went to bed and when he woke up this morning he was still confused. He reports hallucinations and his states that he was nonsensical with his speech. Late morning appear to be clearing but worsened at lunchtime. Because of the worsening she brought him to the emergency department. While in the exam room he spoke to his about people dancing in the room. He reports that earlier in the day he visualized things that he was told he did not exist. Since being in the emergency room he is gotten no better and is possibly worse. He does report a frontal headache that is sharp and constant. He does not have any fever or chills. He reports that he has not had symptoms of respiratory infection lately. He has a history of pulmonary fibrosis but states that he has been in his usual health respiratory ng. He does not use oxygen at home. He states that his chest hurts now and then. It is sharp pain. Last for 10-12 minutes. He feels that it is typically related to when he is exerting or under strain. His past medical history also consists of hyperlipidemia, hypertension and chronic obstructive pulmonary disease. He has history of chronic pain but due to issues with his pain medications he has discontinued narcotic analgesics. Interestingl y his father from a cerebral hemorrhage. The patient was referred to the hospitalist service for possible TIA versus other acute cerebral syndrome. 02/10/2019. Patient complaining of left-sided frontal headache, 4/5, sharp, nonradiating, associated with generalized achiness. He denied any ty llucinations. Endorses history of migraines and similar headaches in the past. denies any fever, chills, nausea, consultation or any urinary symptoms. 02/11/2019. No acute events overnight. Patient's headache has improved but is still persistent. Reason For Visit: ACUTE ONSET CONFUSION WITH EXSPRESIVE APHSIA AND Physical Exam Vital Signs: Temp Pulse Resp BP Pulse Ox 97.2 F 83 16 127/62 H 96 02/11/19 11:32 02/11/19 12:00 02/11/19 12:00 02/11/19 12:00 02/11/19 12:00 Intake & Output 02/10/19 02/11/19 02/12/19 06:59 06:59 06:59 Intake Total 300 1014 200 Output Total 400 Balance -100 1014 200 Weight 85.9 kg 84.4 kg Results Laboratory Results: 02/09/19 13:24 02/09/19 13:24 02/09/19 02/09/19 02/09/19 13:24 13:24 21:19 Creatine Kinase 55 58 CK-MB (CK-2) 2.58 Troponin I 0.016 02/09/19 02/10/19 02/10/19 21:19 03:41 03:41 Creatine Kinase 72 CK-MB (CK-2) 2.33 2.57 Troponin I 0.014 0.018 Impressions: Head CT 02/09/19 00:00 IMPRESSION: NORMAL BRAIN CT WITHOUT CONTRAST. EVIDENCE OF ACUTE STROKE: NO. Chest X-Ray 02/09/19 13:49 IMPRESSION: NO ACUTE RADIOGRAPHIC FINDING IN THE CHEST. Head MRI 02/10/19 06:00 IMPRESSION: NORMAL MRI OF THE BRAIN WITHOUT INTRAVENOUS GADOLINIUM CONTRAST. EVIDENCE OF ACUTE STROKE: NO. Assessment and Plan - Diagnosis (1) TIA (transient ischemic attack) Is this a current diagnosis for this admission?: Yes (2) Headache Qualifiers: Headache type: hemicrania continua Qualified Code(s): G44.51 - Hemicrania continua Is this a current diagnosis for this admission?: No (3) Chronic renal failure, stage 3 (moderate) Is this a current diagnosis for this admission?: Yes (4) Hypertension Is this a current diagnosis for this admission?: No (5) Hyperlipidemia Qualifiers: Hyperlipidemia type: unspecified Qualified Code(s): E78.5 - Hyperlipidemia, unspecified Is this a current diagnosis for this admission?: Yes (6) Depression with anxiety Is this a current diagnosis for this admission?: Yes
--- NOTE | 2019-02-11 14:19 | RADIOLOGY REPORT (SQ) ---
EXAM DESCRIPTION: MRA HEAD WITHOUT COMPLETED DATE/TIME: 02/11/2019 1:30 pm REASON FOR STUDY: TIA, Headache COMPARISON: MRI brain 02/10/2019 CT brain 02/09/2019 Bilateral carotid Doppler 02/11/2019 TECHNIQUE: Axial 3-D [id number] acquisition imaging performed through the brain in the area of t he [place] of [place]. Images reformatted using 3-D MIPS. LIMITATIONS: None. FINDINGS: SOURCE IMAGES: No unexpected findings on source images. No large masses. 3-D MIP: No aneurysm. No occlusions. No significant stenosis. OTHER: No other significant finding. IMPRESSION: NORMAL MRA OF THE [place]. TECHNICAL DOCUMENTATION: JOB ID: [id number] [employer]- All Rights Reserved Reading location - IP/workstation name: [email or web address]
--- NOTE | 2019-02-11 14:33 | RADIOLOGY REPORT (SQ) ---
EXAM DESCRIPTION: CAROTID DOPPLER COMPLETED DATE/TIME: 02/11/2019 2:11 pm REASON FOR STUDY: TIA COMPARISON: MRI brain 02/10/2019 CT brain 02/09/2019 TECHNIQUE: Grayscale ultrasound, Doppler velocity and spectra, and color Doppler images acquired of the extra-cranial carotid and vertebral arteries. Images stored on PACS. LIMITATIONS: None. FINDINGS: RIGHT CAROTID CCA Velocities: Within normal limits. Right common carotid artery peak systolic velocity 0.96 m/sec ICA Velocities Peak systolic 0.69 m/s. End diastolic 0.21 m/s. Proximal ICA/CCA peak systolic ratio 0.8. Mixed calcific and noncalcific plaque at the right carotid bifurcation without flow significant steno sis by velocity criteria. LEFT CAROTID CCA Velocities: Within normal limits. Left common carotid artery peak systolic velocity 0.95 m/sec ICA Velocities Peak systolic 0.48 m/s. End diastolic 0.13 m/s. Proximal ICA/CCA peak systolic ratio 1.9. Spectra normal. No significant plaque. VERTEBRAL ARTERIES: Antegrade flow. Normal waveforms. SUBCLAVIAN ARTERIES: Not evaluated OTHER: No other significant finding. IMPRESSION: No flow significant stenosis at the carotid bifurcations Antegrade pulsatile vertebral artery flow bilaterally COMMENT: Quality ID #[id number]: Velocity criteria are extrapolated from the diameter data as defined by t he Society of Radiologists in Ultrasound Consensus Conference. Radiology 2003: 229; 340-346. TECHNICAL DOCUMENTATION: JOB ID: [id number] [employer]- All Rights Reserved Reading location - IP/workstation name: [email or web address]
[2019-02-11] MEDS: TAMSULOSIN HCL 0.4 MG CAP.SR.24H PO SCH (19:00)
--- NOTE | 2019-02-11 19:18 | XCELERA REPORT ---
[address] [address] Transthoracic Echocardiogram Report Name: LUTHER LIPSCOMB Age: 73 yrs Gender: Male : 1945 Patient Status: Inpatient Patient Location: [address] [place], [place] [id number] Study Date: 02/11/2019 09:37 AM Height: 67 in Weight: 189 lb BSA: 2.0 m2 Procedure: A two-dimensional transthoracic echocardiogram with color flow Doppler was performed. Study Quality: Fair. Reason For Study: TIA History: TIA. Ordering Physician: WHITNEY CRUZ Performed By: Yissel Fermin Interpretation Summary There is no obvious cardiac source of embolus noted on this transthoracic echocardiogram. Follow-up with a WM is suggested if cardiac source is still suspected. The left ventricle is normal in size. There is normal left ventricular wall thickness. LV EF is > than 65% The left ventricular ejection fraction is within normal limits. Doppler measurements suggest impaired left ventricular relaxation, which is associated with grade I/IV or mild diastolic dysfunction The left ventricular wall motion is normal. There is no thrombus. There is no ventricular septal defect visualized. The right ventricle is normal in size and function. The right ventricle is not well visualized secondary to technical limitations The right atrium is normal. The left atrial size is normal. The interatrial septum is intact with no evidence for an atrial septal defect. There is no Doppler evidence for an interatrial shunt There is no evidence of mitral valve prolapse. There is no vegetation seen on the mitral valve. There is no mitral valve stenosis. There is no mitral regurgitation noted. There is no aortic valvular vegetation. There is no aortic valve stenosis There is aortic sclerosis without aortic stenosis. There is no LVOT obstruction. No aortic regurgitation is present. There is no tricuspid stenosis. There is a trace to mild amount of tricuspid regurgitation There is mild pulmonary hypertension by echo RVSP is 31 to 36 mm of Hg , with RA mean of 5 to 10. There is no pulmonic valvular regurgitation. There is no pulmonic valvular stenosis. The aortic root is normal size. The inferior vena cava appeared normal and decreased > 50% with respiration (RAP 5-10 mmHg) There is no pericardial effusion. There is no obvious cardiac source of embolus noted on this transthoracic echocardiogram. Follow-up with a WM is suggested if cardiac source is still suspected MMode/2D Measurements & Calculations RVDd: 3.8 cm LVIDd: 4.3 cm FS: 36.4 % Ao root diam: 3.0 cm IVSd: 1.0 cm LVIDs: 2.7 cm EDV(Teich): 81.9 ml Ao root area: 7.2 cm2 LVPWd: 0.97 cm ESV(Teich): 27.5 ml LA dimension: 3.2 cm EF(Teich): 66.4 % Doppler Measurements & Calculations MV E max yamilet: MV P1/2t max yamilet: Ao V2 max: LV V1 max P.6 cm/sec 67.6 cm/sec 151.2 cm/sec 5.2 mmHg MV A max yamilet: MV P1/2t: 58.6 msec Ao max P.1 mmHg LV V1 max: 94.8 cm/sec MVA(P1/2t): 3.8 cm2 113.5 cm/sec MV E/A: 0.70 MV dec slope: 337.9 cm/sec2 MV dec time: 0.20 sec PA V2 max: TR max yamilet: MV P1/2t-pr_phl: 99.2 cm/sec 255.4 cm/sec 58.6 msec PA max PG: TR max P.1 mmHg 3.9 mmHg Left Ventricle The left ventricle is normal in size. There is normal left ventricular wall thickness. LV EF is > than 65%. The left ventricular ejection fraction is within normal limits. Doppler measurements suggest impaired left ventricular relaxation, which is associated with grade I/IV or mild diastolic dysfunction. The left ventricular wall motion is normal. There is no thrombus. There is no ventricular septal defect visualized. Right Ventricle The right ventricle is normal in size and function. The right ventricle is not well visualized secondary to technical limitations. Atria The right atrium is normal. The left atrial size is normal. The interatrial septum is intact with no evidence for an atrial septal defect. There is no Doppler evidence for an interatrial shunt. Mitral Valve There is no evidence of mitral valve prolapse. There is no vegetation seen on the mitral valve. There is no mitral valve stenosis. There is no mitral regurgitation noted. Aortic Valve There is no aortic valvular vegetation. There is no aortic valve stenosis. There is aortic sclerosis without aortic stenosis. There is no LVOT obstruction. No aortic regurgitation is present. Tricuspid Valve There is no tricuspid stenosis. There is a trace to mild amount of tricuspid regurgitation. There is mild pulmonary hypertension by echo. RVSP is 31 to 36 mm of Hg , with RA mean of 5 to 10. Pulmonic Valve There is no pulmonic valvular stenosis. There is no pulmonic valvular regurgitation. Great Vessels The aortic root is normal size. The inferior vena cava appeared normal and decreased > 50% with respiration (RAP 5-10 mmHg). Effusions There is no pericardial effusion. : WHITNEY CRUZ > Carrie Cantu
[2019-02-11] MEDS: ATORVASTATIN CALCIUM 40 MG TABLET PO SCH (21:28)
[2019-02-12] MEDS: HEPARIN SOD (PORCINE) 5,000 UNIT/ML 1 ML SYRINGE SUBCUT SCH ×3 (05:04→21:56)
[2019-02-12] MEDS: PANTOPRAZOLE SODIUM 40 MG TABLET.DR PO SCH (05:05)
[2019-02-12] MEDS ORDERED: CHLORTHALIDONE 25 MG TABLET PO SCH (10:00)
[2019-02-12] MEDS: ASPIRIN 81 MG TABLET, ENT COATED PO SCH (10:14)
[2019-02-12] MEDS: LOSARTAN POTASSIUM 50 MG TABLET PO SCH (10:14)
[2019-02-12] MEDS: FLUTICASONE NASAL SPRAY 50 MCG/SPRY 120 SPRAY/16 GM NASL SCH ×2 (10:15→21:56)
[2019-02-12] MEDS: CHLORTHALIDONE 25 MG TABLET PO SCH (10:15)
[2019-02-12] MEDS: ESCITALOPRAM OXALATE 10 MG TABLET PO SCH (10:15)
[2019-02-12] MEDS: BUTALB/ACETAMINOPHEN/CAFFEINE 1 TAB EACH PO PRN (10:17)
[2019-02-12] MEDS ORDERED: VERAPAMIL HCL 120 MG TABLET.SA PO SCH (11:00)
--- NOTE | 2019-02-12 16:38 | PDOC PROGRESS REPORT ---
Subjective Progress Note for:: 02/12/19 Subjective:: LUTHER LIPSCOMB is a 73 year old male who experienced hallucinations and confusion yesterday evening. He stated he picked up the phone but could not dial number. He exhibited memory loss. She went to bed and when he woke up this morning he was still confused. He reports hallucinations and his states that he was nonsensical with his speech. Late morning appear to be clearing but worsened at lunchtime. Because of the worsening she brought him to the emergency department. While in the exam room he spoke to his about people dancing in the room. He reports that earlier in the day he visualized things that he was told he did not exist. Since being in the emergency room he is gotten no better and is possibly worse. He does report a frontal headache that is sharp and constant. He does not have any fever or chills. He reports that he has not had symptoms of respiratory infection lately. He has a history of pulmonary fibrosis but states that he has been in his usual health respiratory ng. He does not use oxygen at home. He states that his chest hurts now and then. It is sharp pain. Last for 10-12 minutes. He feels that it is typically related to when he is exerting or under strain. His past medical history also consists of hyperlipidemia, hypertension and chronic obstructive pulmonary disease. He has history of chronic pain but due to issues with his pain medications he has discontinued narcotic analgesics. Interestingl y his father from a cerebral hemorrhage. The patient was referred to the hospitalist service for possible TIA versus other acute cerebral syndrome. 02/10/2019. Patient complaining of left-sided frontal headache, 4/5, sharp, nonradiating, associated with generalized achiness. He denied any ty llucinations. Endorses history of migraines and similar headaches in the past. denies any fever, chills, nausea, consultation or any urinary symptoms. 02/11/2019. No acute events overnight. Patient's headache has improved but is still persistent. 02/12/2019. No acute events overnight. Patient headache has improved significantly since admission. Denies any focal neurological deficit. Denies any numbness tingling weakness or any balance problem. Denies any fever, chills, nausea, vomiting, diarrhea, constipation or any urinary symptoms. Blood pressure still not optimized. Possible DC home tomorrow. Reason For Visit: ACUTE ONSET CONFUSION WITH EXSPRESIVE APHSIA AND Physical Exam Vital Signs: Temp Pulse Resp BP Pulse Ox 97.3 F 79 16 131/68 H 96 02/12/19 11:42 02/12/19 14:00 02/12/19 11:42 02/12/19 11:42 02/12/19 11:42 Intake & Output 02/11/19 02/12/19 02/13/19 06:59 06:59 06:59 Intake Total 1014 1027 355 Balance 1014 1027 355 Weight 84.4 kg 84.1 kg General appearance: PRESENT: no acute distress, well-developed, well-nourished Head exam: PRESENT: atraumatic, normocephalic Eye exam: PRESENT: conjunctiva pink, EOMI, PERRLA. ABSENT: scleral icterus Ear exam: PRESENT: normal external ear exam Mouth exam: PRESENT: moist, tongue midline Neck exam: ABSENT: carotid bruit, JVD, lymphadenopathy, thyromegaly Respiratory exam: PRESENT: clear to auscultation lobito. ABSENT: rales, rhonchi, wheezes Cardiovascular exam: PRESENT: RRR. ABSENT: diastolic murmur, rubs, systolic murmur Pulses: PRESENT: normal dorsalis pedis pul Vascular exam: PRESENT: normal capillary refill GI/Abdominal exam: PRESENT: normal bowel sounds, soft. ABSENT: distended, guarding, mass, organolmegaly, rebound, tenderness Rectal exam: PRESENT: deferred Extremities exam: PRESENT: full ROM. ABSENT: calf tenderness, clubbing, pedal edema Neurological exam: PRESENT: alert, awake, oriented to person, oriented to place, oriented to time, oriented to situation, CN II-XII grossly intact. ABSENT: motor sensory deficit Psychiatric exam: PRESENT: appropriate affect, normal mood. ABSENT: homicidal ideation, suicidal ideation Skin exam: PRESENT: dry, intact, warm. ABSENT: cyanosis, rash Results Laboratory Results: 02/09/19 13:24 02/09/19 13:24 02/09/19 02/09/19 02/09/19 13:24 13:24 21:19 Creatine Kinase 55 58 CK-MB (CK-2) 2.58 Troponin I 0.016 02/09/19 02/10/19 02/10/19 21:19 03:41 03:41 Creatine Kinase 72 CK-MB (CK-2) 2.33 2.57 Troponin I 0.014 0.018 Impressions: Head CT 02/09/19 00:00 IMPRESSION: NORMAL BRAIN CT WITHOUT CONTRAST. EVIDENCE OF ACUTE STROKE: NO. Chest X-Ray 02/09/19 13:49 IMPRESSION: NO ACUTE RADIOGRAPHIC FINDING IN THE CHEST. Head MRI 02/10/19 06:00 IMPRESSION: NORMAL MRI OF THE BRAIN WITHOUT INTRAVENOUS GADOLINIUM CONTRAST. EVIDENCE OF ACUTE STROKE: NO. Brain MRI with MRA 02/11/19 00:00 IMPRESSION: NORMAL MRA OF THE [place] OF [place]. Carotid Doppler Study 02/11/19 00:00 IMPRESSION: No flow significant stenosis at the carotid bifurcations Antegrade pulsatile vertebral artery flow bilaterally Assessment and Plan - Diagnosis (1) TIA (transient ischemic attack) Is this a current diagnosis for this admission?: Yes Plan: Alert oriented x3, left-sided frontal headache has improved. CT head and brain MRI has been negative for any acute stroke. Carotid Doppler and 2D echo pending. In the light of patient's positive family history for cerebral aneurysm an MRA of the head was done which did not show any vascular abnormalities. Continue fall, aspiration, seizure precautions. Continue aspirin, statins, optimize blood pressure. 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 Patient most likely have cluster headache. Patient explains that his headaches are unilateral, orbital, associated with rhinorrhea and tearing. Negative focal neurological deficits. CT head MRI/MRA brain negative. Carotid Doppler negative for any hemodynamically significant stenosis. Was started on Fioricet with no significant improvement. Will start on verapamil as prophylaxis for cluster headache and treatment for his underlying hypertension. Patient was advised to follow-up with a neurologist as outpatient for further management of his chronic headaches. Unfortunately no neurology consult available here at [facility]. (3) Chronic renal failure, stage 3 (moderate) Is this a current diagnosis for this admission?: Yes Plan: Creatinine 1.33. Baseline 1.5. Has established care with Dr. Mendoza as o utpatient. Monitor electrolytes and volume status. Avoid nephrotoxic medications. Optimize blood pressure. (4) Hypertension Is this a current diagnosis for this admission?: No Plan: SBP 120-150. Switch to chlorthalidone as it is longer acting compared to HCTZ. Continue ARB, continue verapamil. Monitor kidney function. Chest meds as needed. Adjust meds as needed. (5) Hyperlipidemia Qualifiers: Hyperlipidemia type: unspecified Qualified Code(s): E78.5 - Hyperlipidemia, unspecified Is this a current diagnosis for this admission?: Yes Plan: ASCVD 39.7%. High intensity statins. Continue diet and lifestyle modification. (6) Depression with anxiety Is this a current diagnosis for this admission?: Yes Plan: Continue Lexapro. PRN benzos.
[2019-02-12] MEDS: TAMSULOSIN HCL 0.4 MG CAP.SR.24H PO SCH (17:34)
[2019-02-12] MEDS: ATORVASTATIN CALCIUM 40 MG TABLET PO SCH (21:56)
[2019-02-13] MEDS: HEPARIN SOD (PORCINE) 5,000 UNIT/ML 1 ML SYRINGE SUBCUT SCH ×2 (05:13→14:43)
[2019-02-13] MEDS: PANTOPRAZOLE SODIUM 40 MG TABLET.DR PO SCH (05:14)
[2019-02-13] MEDS: BUTALB/ACETAMINOPHEN/CAFFEINE 1 TAB EACH PO PRN (09:00)
[2019-02-13] MEDS: LOSARTAN POTASSIUM 50 MG TABLET PO SCH (09:52)
[2019-02-13] MEDS: ESCITALOPRAM OXALATE 10 MG TABLET PO SCH (09:52)
[2019-02-13] MEDS: ASPIRIN 81 MG TABLET, ENT COATED PO SCH (09:52)
[2019-02-13] MEDS: FLUTICASONE NASAL SPRAY 50 MCG/SPRY 120 SPRAY/16 GM NASL SCH (09:53)
[2019-02-13] MEDS: CHLORTHALIDONE 25 MG TABLET PO SCH (09:53)
[2019-02-13] MEDS: ACETAMINOPHEN 325 MG TABLET PO PRN (09:55)
[2019-02-13] MEDS ORDERED: VERAPAMIL HCL 180 MG TABLET.SA PO SCH (10:00)
[2019-02-13] MEDS ORDERED: VERAPAMIL HCL 240 MG TABLET.SA PO ONE (10:00)
[2019-02-13 12:07] VITALS: BP 147/78
[2019-02-13] MEDS ORDERED: CARVEDILOL 6.25 MG TABLET ONE (12:44)
[2019-02-13] MEDS ORDERED: CARVEDILOL 6.25 MG TABLET PO SCH (12:45)
[2019-02-14] MEDS ORDERED: VERAPAMIL HCL 240 MG TABLET.SA PO SCH (10:00)
--- NOTE | 2019-02-17 13:49 | PDOC DISCHARGE SUMMARY ---
General - Admit/Disc Date/PCP Admission Date/Primary Care Provider: 02/09/19 16:12 KOREY PETE MD Discharge Date: 02/13/19 - Discharge Diagnosis (1) TIA (transient ischemic attack) Is this a current diagnosis for this admission?: Yes (2) Headache Is this a current diagnosis for this admission?: No (3) Chronic renal failure, stage 3 (moderate) Is this a current diagnosis for this admission?: Yes (4) Hypertension Is this a current diagnosis for this admission?: No (5) Hyperlipidemia Is this a current diagnosis for this admission?: Yes (6) Depression with anxiety Is this a current diagnosis for this admission?: Yes - Additional Information Resuscitation Status: Full Code Discharge Diet: As Tolerated, Regular Discharge Activity: Activity As Tolerated, Balance Activity w/Rest Prescriptions: Aspirin [Ecotrin 81 mg EC Tablet] 81 mg PO DAILY 30 Days #30 tabec Atorvastatin Calcium [Lipitor 40 mg Tablet] 40 mg PO QHS 30 Days #30 tablet Carvedilol [Coreg 6.25 mg Tablet] 6.25 mg PO Q12 30 Days #60 tablet Chlorthalidone [Hygroton 25 mg Tablet] 25 mg PO DAILY 30 Days #30 tablet Losartan Potassium [Cozaar 50 mg Tablet] 100 mg PO DAILY 30 Days #30 tablet Verapamil HCl [Calan Sr 240 mg Tablet.sa] 240 mg PO DAILY 30 Days #30 tablet.sa Home Medications: Escitalopram Oxalate [Lexapro 10 mg Tablet] 10 mg PO DAILY 02/10/19 Tamsulosin HCl [Flomax 0.4 mg Cap.sr] 0.4 mg PO DAILY 02/10/19 Aspirin [Ecotrin 81 mg EC Tablet] 81 mg PO DAILY 30 Days #30 tabec 02/13/19 Atorvastatin Calcium [Lipitor 40 mg Tablet] 40 mg PO QHS 30 Days #30 tablet 02/13/19 Carvedilol [Coreg 6.25 mg Tablet] 6.25 mg PO Q12 30 Days #60 tablet 02/13/19 Chlorthalidone [Hygroton 25 mg Tablet] 25 mg PO DAILY 30 Days #30 tablet 02/13/19 Losartan Potassium [Cozaar 50 mg Tablet] 100 mg PO DAILY 30 Days #30 tablet 02/13/19 Verapamil HCl [Calan Sr 240 mg Tablet.sa] 240 mg PO DAILY 30 Days #30 tablet.sa 02/13/19 History of Present Illness History of Present Illness: LUTHER LIPSCOMB is a 73 year old male who experienced hallucinations and confusion yesterday evening. He stated he picked up the phone but could not dial number. He exhibited memory loss. She went to bed and when he woke up this morning he was still confused. He reports hallucinations and his states that he was nonsensical with his speech. Late morning appear to be clearing but worsened at lunchtime. Because of the worsening she brought him to the emergency department. While in the exam room he spoke to his about people dancing in the room. He reports that earlier in the day he visualized things that he was told he did not exist. Since being in the emergency room he is gotten no better and is possibly worse. He does report a frontal headache that is sharp and constant. He does not have any fever or chills. He reports that he has not had symptoms of respiratory infection lately. He has a history of pulmonary fibrosis but states that he has been in his usual health respiratory ng. He does not use oxygen at home. He states that his chest hurts now and then. It is sharp pain. Last for 10-12 minutes. He feels that it is typically related to when he is exerting or under strain. His past medical history also consists of hyperlipidemia, hypertension and chronic obstructive pulmonary disease. He has history of chronic pain but due to issues with his pain medications he has discontinued narcotic analgesics. Interest ingly his father from a cerebral hemorrhage. The patient was referred to the hospitalist service for possible TIA versus other acute cerebral syndrome. Hospital Course Hospital Course: (1) TIA (transient ischemic attack) CT/MRI brain for any acute stroke. Doppler negative for any significant stenosis. In the light of patient's positive family history for cerebral aneurysm an MRA head was done which was negative for any vascular abnormalities. Was start on b fall, aspiration, seizure precautions. Evaluated by PT/ST/OT. No rehab recommended. Was started on aspirin, high intensity statins and blood pressure was optimized. (2) Headache Reported history of migraines in the past but based on signs and symptoms and history provided by the patient is more like cluster headache. Patient was started on 100% oxygen with significant improvement of his symptoms, started on verapamil for cluster headache prophylaxis. Negative focal neurological deficits. CT head MRI/MRA brain negative. Carotid Doppler negative for any hemodynamically significant stenosis. Was started on Fioricet with no significant improvement. Patient was advised to follow-up with a neurologist as outpatient for further management of his chronic headaches. Unfortunately no neurology consult available here at [facility]. (3) Chronic renal failure, stage 3 (moderate) Creatinine 1.33. Baseline 1.5. Has established care with Dr. Pete as outpatient. His electrolytes and volume status was monitored and nephrotoxic medications avoided. (4) Hypertension Switch HCTZ to chlorthalidone as chlorthalidone has a longer half-life. Continued on ARB and started on verapamil for BP control and cluster headache prophylaxis. Encouraged to follow-up with PCP within 1 week. (5) Hyperlipidemia ASCVD 39.7%. High intensity statins. Continue diet and lifestyle modification. (6) Depression with anxiety Continue Lexapro. PRN benzos. Physical Exam Vital Signs: Temp Pulse Resp BP Pulse Ox 97.8 F 91 14 147/78 H 97 02/13/19 15:27 02/13/19 15:27 02/13/19 15:27 02/13/19 11:21 02/13/19 15:27 General appearance: PRESENT: no acute distress, well-developed, well-nourished Head exam: PRESENT: atraumatic, normocephalic Eye exam: PRESENT: conjunctiva pink, EOMI, PERRLA. ABSENT: scleral icterus Ear exam: PRESENT: normal external ear exam Mouth exam: PRESENT: moist, tongue midline Neck exam: ABSENT: carotid bruit, JVD, lymphadenopathy, thyromegaly Respiratory exam: PRESENT: clear to auscultation lobito. ABSENT: rales, rhonchi, wheezes Cardiovascular exam: PRESENT: RRR. ABSENT: diastolic murmur, rubs, systolic murmur Pulses: PRESENT: normal dorsalis pedis pul Vascular exam: PRESENT: normal capillary refill GI/Abdominal exam: PRESENT: normal bowel sounds, soft. ABSENT: distended, guarding, mass, organolmegaly, rebound, tenderness Rectal exam: PRESENT: deferred Extremities exam: PRESENT: full ROM. ABSENT: calf tenderness, clubbing, pedal edema Neurological exam: PRESENT: alert, awake, oriented to person, oriented to place, oriented to time, oriented to situation, CN II-XII grossly intact. ABSENT: motor sensory deficit Psychiatric exam: PRESENT: appropriate affect, normal mood. ABSENT: homicidal ideation, suicidal ideation Skin exam: PRESENT: dry, intact, warm. ABSENT: cyanosis, rash Results Laboratory Results: 02/09/19 13:24 02/09/19 13:24 02/09/19 02/09/19 02/09/19 13:24 13:24 21:19 Creatine Kinase 55 58 CK-MB (CK-2) 2.58 Troponin I 0.016 02/09/19 02/10/19 02/10/19 21:19 03:41 03:41 Creatine Kinase 72 CK-MB (CK-2) 2.33 2.57 Troponin I 0.014 0.018 Impressions: Head CT 02/09/19 00:00 IMPRESSION: NORMAL BRAIN CT WITHOUT CONTRAST. EVIDENCE OF ACUTE STROKE: NO. Chest X-Ray 02/09/19 13:49 IMPRESSION: NO ACUTE RADIOGRAPHIC FINDING IN THE CHEST. Head MRI 02/10/19 06:00 IMPRESSION: NORMAL MRI OF THE BRAIN WITHOUT INTRAVENOUS GADOLINIUM CONTRAST. EVIDENCE OF ACUTE STROKE: NO. Brain MRI with MRA 02/11/19 00:00 IMPRESSION: NORMAL MRA OF THE [place] OF [place]. Carotid Doppler Study 02/11/19 00:00 IMPRESSION: No flow significant stenosis at the carotid bifurcations Antegrade pulsatile vertebral artery flow bilaterally Qualifiers - * PATIENT BEING DISCHARGED WITH ANY OF THE FOLLOWING DIAGNOSIS: No
== END 2019-02-13 16:35 | disposition home or self-care (01) | DRG 69 ==
LOC: ER 12:58 → EH 16:12 → 3W 18:15
PROVIDERS: ADMIT Hospitalist; ATTEND Hospitalist
DX: G45.9 Transient cerebral ischemic attack, unspecified (principal); Z82.3 Family history of stroke; F41.8 Other specified anxiety disorders; E78.5 Hyperlipidemia, unspecified; I12.9 Hypertensive chronic kidney disease with stage 1 through stage 4 chronic kidney disease, or unspecified chronic kidney disease; N18.3 Chronic kidney disease, stage 3 (moderate); R40.4 Transient alteration of awareness; H40.9 Unspecified glaucoma; K76.0 Fatty (change of) liver, not elsewhere classified; G44.51 Hemicrania continua; Z79.899 Other long term (current) drug therapy
CPT/HCPCS: 36415; 70450; 70544; 70551; 71045; 80053; 80061; 80307; 81001; 82550; 82553; 82962; 83036; 84443; 84484; 85025; 85610; 85730; 93005; 93010; 93306; 93880; 96374; 96375; 99285; J0360; J1644; J2060; J2270; J2405; J3490; J7030

== ENCOUNTER → 2019-03-11 | Outpatient (CLI) | payer MEDICARE, OTHER ==
[2019-03-11 09:52] LABS: ABSOLUTE BASOPHILS # (AUTO) 0.1 10^3/uL (0.0-0.2); ABSOLUTE EOSINOPHILS # (AUTO) 0.6 10^3/uL (0.0-0.6); ABSOLUTE LYMPHOCYTES (AUTO) 1.4 10^3/uL (0.5-4.7); ABSOLUTE MONOCYTES (AUTO) 0.7 10^3/uL (0.1-1.4); ABSOLUTE NEUT (AUTO) 3.7 10^3/uL (1.7-8.2); BASOPHILS % (AUTO) 1.1 % (0-2); EOSINOPHILS % (AUTO) 9.7 % (0-6); HEMATOCRIT 39.4 % (37.9-51.0); HEMOGLOBIN 13.7 g/dL (13.5-17.0); LYMPHOCYTES % (AUTO) 21.2 % (13-45); MEAN CORPUSCULAR HEMOGLOBIN 31.7 pg (27.0-33.4); MEAN CORPUSCULAR HGB CONC 34.9 g/dL (32.0-36.0); MEAN CORPUSCULAR VOLUME 91 fl (80-97); MONOCYTES % (AUTO) 10.6 % (3-13); PLATELET COUNT 321 10^3/uL (150-450); RED BLOOD COUNT 4.33 10^6/uL (4.35-5.55); RED CELL DISTRIBUTION WIDTH 13.1 % (11.5-14.0); SEGMENTED NEUTROPHILS % (AUTO) 57.4 % (42-78); TOTAL CELLS COUNTED % (AUTO) 100 %; WHITE BLOOD COUNT 6.5 10^3/uL (4.0-10.5)
[2019-03-11 10:02] LABS: APPEARANCE,URINE CLEAR; BILIRUBIN,URINE NEGATIVE (NEGATIVE); COLOR,URINE YELLOW; GLUCOSE, URINE NEGATIVE (NEGATIVE); KETONES,URINE NEGATIVE (NEGATIVE); LEUKOCYTE ESTERASE,URINE NEGATIVE (NEGATIVE); NITRITE,URINE NEGATIVE (NEGATIVE); PROTEIN,URINE NEGATIVE (NEGATIVE); URINE SPECIFIC GRAVITY 1.016; UROBILINOGEN,URINE NEGATIVE mg/dL (<2.0)
[2019-03-11 10:12] LABS: ALBUMIN 4.5 g/dL (3.5-5.0); ANION GAP 13 (5-19); BLOOD UREA NITROGEN 55 mg/dL (7-20); CALCIUM 10.9 mg/dL (8.4-10.2); CARBON DIOXIDE 27 mmol/L (22-30); CHLORIDE 100 mmol/L (98-107); GLUCOSE 117 mg/dL (75-110); IRON(TIBC) 115.6 ug/dL (49-181); PHOSPHORUS 4.1 mg/dL (2.5-4.5); POTASSIUM 5.2 mmol/L (3.6-5.0); SODIUM 139.6 mmol/L (137-145)
[2019-03-11 10:50] LABS: UR PRO/CREAT RATIO RESULT 0.2 mg/mg (0.0-0.2); URINE PROTEIN 17.4 mg/dL (<12)
== END ==
LOC: OD 09:11
PROVIDERS: ATTEND Internal Medicine Nephrology
DX: I12.9 Hypertensive chronic kidney disease with stage 1 through stage 4 chronic kidney disease, or unspecified chronic kidney disease (principal); N18.3 Chronic kidney disease, stage 3 (moderate); D63.1 Anemia in chronic kidney disease; R80.9 Proteinuria, unspecified; E55.9 Vitamin D deficiency, unspecified
CPT/HCPCS: 36415; 80069; 81001; 82306; 82570; 82728; 83540; 83550; 83970; 84156; 85025

== ENCOUNTER 2019-03-17 15:17 | Emergency (ER) | payer MEDICARE, OTHER ==
--- NOTE | 2019-03-17 16:25 | EKG REPORT ---
SEVERITY:- ABNORMAL ECG - SINUS RHYTHM RIGHT BUNDLE BRANCH BLOCK : Confirmed by: Stacie Selby 17-Mar-2019 16:24:33
--- NOTE | 2019-03-17 16:35 | ER Document Report ---
ED General - General Chief Complaint: Low Blood Pressure Stated Complaint: BLOOD PRESSURE ISSUE Time Seen by Provider: 03/17/19 16:15 Primary Care Provider: RANDALL MURCIA PA-C [Primary Care Provider] - 03/19/19 Mode of Arrival: Ambulatory Information source: Patient Notes: This is a 73-year-old man with a history of chronic kidney disease, pulmonary fibrosis, COPD, hypertension who presents to the emergency room with neurolysed weakness in the setting of low blood pressure (70/50 at home). Patient is accompanied by his daughter who is in charge of the medicines correctly. She denies any chest pain, shortness of breath. He did note having a fall 2 weeks a go and hitting his nose and has some right maxillary facial tenderness since that time. TRAVEL OUTSIDE OF THE [place] IN LAST 30 DAYS: No - HPI Onset: This morning Onset/Duration: Gradual Quality of pain: No pain Severity: None Pain Level: Denies Associated symptoms: Other - Patient does report having a fall 2 weeks ago and has persistent nose pain. denies: Chest pain, Fever, Shortness of breath Exacerbated by: Denies Relieved by: Denies Similar symptoms previously: Yes Recently seen / treated by doctor: Yes - Related Data Allergies/Adverse Reactions: acetaminophen [From Tylenol] Allergy (Verified 03/17/19 15:18) lisinopril [Lisinopril] Allergy (Verified 03/17/19 15:18) moxifloxacin HCl [From Avelox] Allergy (Verified 03/17/19 15:18) Past Medical History - General Information source: Patient - Social History Smoking Status: Unknown if Ever Smoked Cigarette use (# per day): No Chew tobacco use (# tins/day): No Frequency of alcohol use: None Drug Abuse: None Lives with: Spouse/Significant other Family History: CAD, Malignancy - Bladder cancer, Other - Rheumatoid arthritis, cerebral hemorrhage, rheumatic fever Patient has suicidal ideation: No Patient has homicidal ideation: No - Past Medical History Cardiac Medical History: Reports: Hx Hypercholesterolemia, Hx Hypertension Denies: Hx Coronary Artery Disease Pulmonary Medical History: Reports: Hx Bronchitis, Hx COPD, Hx Pneumonia Neurological Medical History: Reports: Hx Migraine. Denies: Hx Cerebrovascular Accident Endocrine Medical History: Denies: Hx Diabetes Mellitus Type 1, Hx Diabetes Mellitus Type 2 Renal/ Medical History: Reports: Hx Renal Insufficiency. Denies: Hx Peritoneal Dialysis GI Medical History: Reports: Hx Hepatitis - ? Hepatitis C Musculoskeletal Medical History: Reports Hx Arthritis, Reports Hx Fibromyalgia Psychiatric Medical History: Reports: Hx Depression Infectious Medical History: Reports: Hx Hepatitis - ? Hepatitis C Past Surgical History: Reports: Hx Abdominal Surgery - umbilical hernia repair, Hx Herniorrhaphy, Hx Orthopedic Surgery - right shoulder, Other - Sinus surgery - Immunizations Hx Diphtheria, Pertussis, Tetanus Vaccination: No - unknown Hx Pneumococcal Vaccination: 10/23/12 Review of Systems - Review of Systems Constitutional: denies: Chills, Fever EENT: See HPI Cardiovascular: See HPI Respiratory: No symptoms reported Gastrointestinal: No symptoms reported Genitourinary: No symptoms reported Male Genitourinary: No symptoms reported Musculoskeletal: No symptoms reported Skin: No symptoms reported Hematologic/Lymphatic: No symptoms reported Neurological/Psychological: No symptoms reported Physical Exam - Vital signs Vitals: Temp Pulse Resp BP Pulse Ox 97.7 F 103 H 18 70/42 L 95 03/17/19 15:24 03/17/19 15:24 03/17/19 15:24 03/17/19 15:24 03/17/19 15:24 Notes: Physical exam: GENERAL: Patient is alert and oriented x3, no acute distress. HEAD: Atraumatic, normocephalic. EYES: Pupils equal round and reactive to light, extraocular movements intact, sc marva anicteric, conjunctiva are normal. ENT: TMs normal, she does have some tenderness over the bridge of the nose, there is no significant malalignment, no hematomas of the septum, does have some fullness of the right maxillary sinus. Oropharynx clear without exudates. Moist mucous membranes. NECK: Normal range of motion, supple without obvious mass or JVD. LUNGS: Breath sounds clear to auscultation bilaterally and equal. No wheezes rales or rhonchi. HEART: Regular rate and rhythm without murmurs, rubs or gallops. ABDOMEN: Soft, normoactive bowel sounds. No tenderness to palpation. No guarding, no rebound. No masses appreciated. EXTREMITIES: Normal range of motion, no pitting or edema. No clubbing or cyanosis. NEUROLOGICAL: Cranial nerves II through XII grossly intact. Normal speech, moving all extremities. PSYCH: Normal mood, normal affect. SKIN: Warm, Dry, normal turgor, no rashes or lesions noted. Course - Vital Signs Vital signs: Temp Pulse Resp BP Pulse Ox 97.7 F 103 H 13 138/70 H 99 03/17/19 15:24 03/17/19 15:24 03/17/19 19:01 03/17/19 19:01 03/17/19 19:01 - Laboratory Result Diagrams: 03/17/19 15:45 03/17/19 15:45 Laboratory results interpreted by me: 03/17/19 03/17/19 15:45 15:45 Eosinophils % 6.1 H BUN 56 H Creatinine 2.44 H Est GFR ( Amer) 32 L Est GFR (Non-Af Amer) 26 L Glucose 117 H - Diagnostic Test Radiology reviewed: Image reviewed, Reports reviewed - CT of the head shows no acute bleed. CT of the face shows a minimally displaced nasal bone fracture. There is fluid in the right maxillary sinus - EKG Interpretation by Me Rate: Normal Rhythm: NSR - EKG shows normal sinus rhythm with a ventricular rate of 90, right bundle branch block. Patient does have a history of a right bundle branch block Discharge - Discharge Clinical Impression: Hypotension transient, Nasal fracture nondisplaced Condition: Stable Disposition: HOME, SELF-CARE Additional Instructions: As far as the blood pressure, it did improve with fluids. I want you to drink plenty of fluids. Want you to hold your blood pressure medicine tonight. Continue your current medicines tomorrow. Follow-up with your primary care doctor on Monday. As discussed, the CT did show a nondisplaced nasal fracture. Given that it is nondisplaced, it will heal in place. However, there was fluid in the maxillary sinus, so I am giving you an antibiotic. I also want you to do saline nasal spray. And I want you to follow-up with an ENT doctor. I put the number below. [facility] - [address] [place] [address] Toll Free: Prescriptions: Amox Tr/Potassium Clavulanate [Augmentin 875-125 Tablet] 1 tab PO BID #20 tablet Referrals: RANDALL UMRCIA PA-C [Primary Care Provider] - 03/19/19
[2019-03-17 16:55] LABS: ALANINE AMINOTRANSFERASE 25 U/L (21-72); ALBUMIN 4.8 g/dL (3.5-5.0); ALKALINE PHOSPHATASE 124 U/L (38-126); ANION GAP 17 (5-19); ASPARTATE AMINO TRANSFERASE 24 U/L (17-59); BILIRUBIN,DIRECT 0.4 mg/dL (0.0-0.4); BILIRUBIN,TOTAL 0.6 mg/dL (0.2-1.3); BLOOD UREA NITROGEN 56 mg/dL (7-20); CARBON DIOXIDE 22 mmol/L (22-30); CHLORIDE 99 mmol/L (98-107); GLUCOSE 117 mg/dL (75-110); POTASSIUM 3.6 mmol/L (3.6-5.0); SODIUM 138.4 mmol/L (137-145); TOTAL PROTEIN 8.1 g/dL (6.3-8.2)
[2019-03-17 17:02] LABS: ABSOLUTE BASOPHILS # (AUTO) 0.1 10^3/uL (0.0-0.2); ABSOLUTE EOSINOPHILS # (AUTO) 0.6 10^3/uL (0.0-0.6); ABSOLUTE LYMPHOCYTES (AUTO) 1.8 10^3/uL (0.5-4.7); BASOPHILS % (AUTO) 0.7 % (0-2); EOSINOPHILS % (AUTO) 6.1 % (0-6); HEMATOCRIT 40.7 % (37.9-51.0); MEAN CORPUSCULAR HEMOGLOBIN 31.3 pg (27.0-33.4); MEAN CORPUSCULAR HGB CONC 34.3 g/dL (32.0-36.0); MEAN CORPUSCULAR VOLUME 91 fl (80-97); MONOCYTES % (AUTO) 10.4 % (3-13); PLATELET COUNT 361 10^3/uL (150-450); RED BLOOD COUNT 4.46 10^6/uL (4.35-5.55); RED CELL DISTRIBUTION WIDTH 13.1 % (11.5-14.0); SEGMENTED NEUTROPHILS % (AUTO) 63.8 % (42-78); TOTAL CELLS COUNTED % (AUTO) 100 %; WHITE BLOOD COUNT 9.4 10^3/uL (4.0-10.5)
--- NOTE | 2019-03-17 17:21 | RADIOLOGY REPORT (SQ) ---
EXAM DESCRIPTION: CT HEAD WITHOUT; CT FACIAL AREA WITHOUT COMPLETED DATE/TIME: 03/17/2019 5:07 pm REASON FOR STUDY: fall. midface tender COMPARISON: CT brain, 02/09/2019 TECHNIQUE: Axial images acquired through the brain and facial bone without intravenous contrast. Im ages reviewed with bone, brain and subdural windows. Additional sagittal and coronal reconstructions were generated. Images stored on PACS. All CT scanners at this facility use dose modulation, iterative reconstruction, and/or weight based d osing when appropriate to reduce radiation dose to as low as reasonably achievable (ALARA). [facility]: Dose Right [facility]: CareDose [facility]: Dose Right [facility]: Teradose 4D [facility]: Smart [facility] RADIATION DOSE: CT Rad equipment meets quality standard of care and radiation dose reduction techniq ues were employed. CTDIvol: 53.2 mGy. DLP: 991 mGy-cm.; CT Rad equipment meets quality standard of ca re and radiation dose reduction techniques were employed. CTDIvol: 30.4 mGy. DLP: 625 mGy-cm. mGy. LIMITATIONS: None. FINDINGS: VENTRICLES: Normal size and contour. CEREBRUM: No masses. No hemorrhage. No midline shift. No evidence for acute infarction. Normal gra y/white matter differentiation. No areas of low density in the white matter. CEREBELLUM: No masses. No hemorrhage. No alteration of density. No evidence for acute infarction. EXTRAAXIAL SPACES: No fluid collections. No masses. ORBITS AND GLOBE: No intra- or extraconal masses. Normal contour of globe without masses. Incidenta l note of a tiny calcific or metallic body in the posterior right lobe. FACIAL BONES: Minimally displaced fractures of the nasal bones. CALVARIUM: No fracture. PARANASAL SINUSES: There is near complete opacification of the right maxillary sinus without evident fracture of the sinus wall or orbital floor. Status post bilateral maxillary antrostomy. SOFT TISSUES: No mass or hematoma. OTHER: No other significant finding. IMPRESSION: 1. No acute intracranial pathology. 2. Minimally displaced fractures of the nasal bones. No other evident facial bone fracture. 3. There is near complete opacification of the right maxillary sinus without evident fracture of the sinus wall or orbital floor. Status post bilateral maxillary antrostomy. Correlate with evidence o f sinusitis. EVIDENCE OF ACUTE STROKE: NO. COMMENT: Quality ID # [id number]: Final reports with documentation of one or more dose reduction techniques (e.g., Automated exposure control, adjustment of the mA and/or kV according to patient size, use of iterative reconstruction technique) TECHNICAL DOCUMENTATION: JOB ID: [id number] [employer]- All Rights Reserved Reading location - IP/workstation name: [email or web address]
[2019-03-17] MEDS ORDERED: NORMAL SALINE 500 ML IV ONE (18:25)
[2019-03-17] MEDS ORDERED: ACETAMINOPHEN 325 MG TABLET PO ONE (19:13)
[2019-03-17 20:25] VITALS: BP 138/70
== END 2019-03-17 20:00 | disposition home or self-care (01) ==
LOC: ER 15:17
DX: I95.89 Other hypotension (principal); S02.2XXA Fracture of nasal bones, initial encounter for closed fracture; W19.XXXA Unspecified fall, initial encounter; I12.9 Hypertensive chronic kidney disease with stage 1 through stage 4 chronic kidney disease, or unspecified chronic kidney disease; N18.9 Chronic kidney disease, unspecified; E78.00 Pure hypercholesterolemia, unspecified
CPT/HCPCS: 93005; 99285; 96360; 36415; 85025; 80053; 84484; 70450; 70486; 93010; A9270; J7040

== ENCOUNTER → 2019-04-30 | Outpatient (CLI) | payer MEDICARE, OTHER ==
[2019-04-30 09:39] LABS: ANION GAP 8 (5-19); BLOOD UREA NITROGEN 34 mg/dL (7-20); CARBON DIOXIDE 30 mmol/L (22-30); CHLORIDE 102 mmol/L (98-107); GLUCOSE 105 mg/dL (75-110); POTASSIUM 5.2 mmol/L (3.6-5.0); SODIUM 139.5 mmol/L (137-145)
== END ==
LOC: OD 08:47
PROVIDERS: ATTEND Internal Medicine Nephrology
DX: I12.9 Hypertensive chronic kidney disease with stage 1 through stage 4 chronic kidney disease, or unspecified chronic kidney disease (principal); N18.3 Chronic kidney disease, stage 3 (moderate); R80.9 Proteinuria, unspecified
CPT/HCPCS: 36415; 80048

== ENCOUNTER 2019-06-02 21:03 | Inpatient (IN) | payer MEDICARE, OTHER ==
[2019-06-02] MEDS ORDERED: IPRATROPIUM/ALBUTEROL 0.5-2.5 MG/3 ML AMPUL NEB ONE ×2 (21:21→21:37)
[2019-06-02] MEDS ORDERED: METHYLPREDNISOLONE INJ 125 MG/2 ML SDV IV ONE (21:38)
[2019-06-02] MEDS ORDERED: ONDANSETRON HCL INJ/PF 4 MG/2 ML SDV ONE (21:42)
[2019-06-02] MEDS ORDERED: ONDANSETRON HCL INJ/PF 4 MG/2 ML SDV IV ONE (21:43)
--- NOTE | 2019-06-02 21:43 | ER Document Report ---
ED Medical Screen (RME) - General Chief Complaint: Breathing Difficulty Stated Complaint: SHORTNESS OF BREATH Time Seen by Provider: 06/02/19 21:37 Primary Care Provider: KOREY PETE MD [Primary Care Provider] - Follow up as needed Notes: Patient is a 18-year-old male history of COPD and pulmonary fibrosis presents to the emergency department for respiratory distress, cough, congestion, chest tightness. States he started this afternoon with increased respiratory distress which prompted his visit to the emergency room. Patient is tachypneic with a room air saturation of 90%. Nursing staff has ordered protocols for breathing treatment upon my arrival to the room. Patient states he feels as though he is breathing better and the chest tightness has somewhat subsided since breathing treatment. Patient's pulse oxygenation is now 92%. GENERAL: Alert, interacts well. Diaphoretic, tachypneic LUNGS: Wheezing to auscultation bilaterally apices, rhonch BL bases. Nursing staff notified patient is upgraded in status and needs next treatment. I have greeted and performed a rapid initial assessment of this patient. A comprehensive ED assessment and evaluation of the patient, analysis of test results and completion of the medical decision making process will be conducted by additional ED providers. I have specifically instructed the patient or family members with the patient to immediately return to any nursing staff should anything change in the patient's condition or with their chief complaint. This medical record was dictated with voice recognizing software. There may be grammatical, syntax errors that are unintended. TRAVEL OUTSIDE OF THE [place] IN LAST 30 DAYS: No - Related Data Allergies/Adverse Reactions: acetaminophen [From Tylenol] Allergy (Verified 03/17/19 15:18) lisinopril [Lisinopril] Allergy (Verified 03/17/19 15:18) moxifloxacin HCl [From Avelox] Allergy (Verified 03/17/19 15:18) Past Medical History - Past Medical History Cardiac Medical History: Reports: Hx Hypercholesterolemia, Hx Hypertension Denies: Hx Coronary Artery Disease Pulmonary Medical History: Reports: Hx Bronchitis, Hx COPD, Hx Pneumonia Neurological Medical History: Reports: Hx Migraine. Denies: Hx Cerebrovascular Accident Endocrine Medical History: Denies: Hx Diabetes Mellitus Type 1, Hx Diabetes Mellitus Type 2 Renal/ Medical History: Reports: Hx Renal Insufficiency. Denies: Hx Peritoneal Dialysis GI Medical History: Reports: Hx Hepatitis - ? Hepatitis C Musculoskeltal Medical History: Reports Hx Arthritis, Reports Hx Fibromyalgia Psychiatric Medical History: Reports: Hx Depression Infectious Medical History: Reports: Hx Hepatitis - ? Hepatitis C Past Surgical History: Reports: Hx Abdominal Surgery - umbilical hernia repair, Hx Herniorrhaphy, Hx Orthopedic Surgery - right shoulder, Other - Sinus surgery - Immunizations Hx Diphtheria, Pertussis, Tetanus Vaccination: No - unknown History of Influenza Vaccine for 07/2017 - 12/2017 Season: No Influenza Administration Date for 07/2017 - 12/2017 Season: 07/27/17 Physical Exam - Vital signs Vitals: Temp Pulse Resp BP Pulse Ox 98.6 F 115 H 30 H 199/89 H 90 L 06/02/19 21:14 06/02/19 21:14 06/02/19 21:14 06/02/19 21:14 06/02/19 21:14 Course - Vital Signs Vital signs: Temp Pulse Resp BP Pulse Ox 98.6 F 115 H 30 H 199/89 H 90 L 06/02/19 21:14 06/02/19 21:14 06/02/19 21:14 06/02/19 21:14 06/02/19 21:14 Doctor's Discharge - Discharge Referrals: KOREY PETE MD [Primary Care Provider] - Follow up as needed
[2019-06-02 21:52] LABS: ABSOLUTE BASOPHILS # (AUTO) 0.1 10^3/uL (0.0-0.2); ABSOLUTE EOSINOPHILS # (AUTO) 0.6 10^3/uL (0.0-0.6); ABSOLUTE MONOCYTES (AUTO) 0.7 10^3/uL (0.1-1.4); ABSOLUTE NEUT (AUTO) 8.3 10^3/uL (1.7-8.2); BASOPHILS % (AUTO) 0.5 % (0-2); HEMATOCRIT 36.8 % (37.9-51.0); HEMOGLOBIN 12.8 g/dL (13.5-17.0); MEAN CORPUSCULAR HEMOGLOBIN 33.1 pg (27.0-33.4); MEAN CORPUSCULAR HGB CONC 34.6 g/dL (32.0-36.0); MEAN CORPUSCULAR VOLUME 96 fl (80-97); MONOCYTES % (AUTO) 6.4 % (3-13); PLATELET COUNT 319 10^3/uL (150-450); RED BLOOD COUNT 3.85 10^6/uL (4.35-5.55); RED CELL DISTRIBUTION WIDTH 14.1 % (11.5-14.0); SEGMENTED NEUTROPHILS % (AUTO) 78.1 % (42-78); TOTAL CELLS COUNTED % (AUTO) 100 %; WHITE BLOOD COUNT 10.7 10^3/uL (4.0-10.5)
[2019-06-02 21:55] LABS: INTERNATIONAL RATION (INR) 0.96; PROTHROMBIN TIME 12.7 SEC (11.4-15.4)
[2019-06-02 21:56] LABS: PARTIAL THROMBOPLASTIN TIME 26.1 SEC (23.5-35.8)
[2019-06-02 22:09] LABS: VENOUS BLOOD PCO2 44.9 mmHg (35-63); VENOUS BLOOD PH 7.43 (7.30-7.42)
[2019-06-02 22:29] LABS: ALBUMIN 4.6 g/dL (3.5-5.0); ALKALINE PHOSPHATASE 133 U/L (38-126); ANION GAP 12 (5-19); ASPARTATE AMINO TRANSFERASE 40 U/L (17-59); BILIRUBIN,DIRECT 0.4 mg/dL (0.0-0.4); BILIRUBIN,TOTAL 0.7 mg/dL (0.2-1.3); BLOOD UREA NITROGEN 31 mg/dL (7-20); CALCIUM 10.1 mg/dL (8.4-10.2); CARBON DIOXIDE 30 mmol/L (22-30); CHLORIDE 95 mmol/L (98-107); GLUCOSE 108 mg/dL (75-110); POTASSIUM 5.1 mmol/L (3.6-5.0); TOTAL PROTEIN 7.9 g/dL (6.3-8.2)
--- NOTE | 2019-06-02 22:35 | RADIOLOGY REPORT (SQ) ---
EXAM DESCRIPTION: XR CHEST 1 VIEW COMPLETED DATE/TME: 06/02/2019 21:38 CLINICAL HISTORY: 73 years Male, SOB COMPARISON:Feb 09 2019 NUMBER OF VIEWS/TECHNIQUE: 1/AP FINDINGS: Moderate interstitial markings. Small patchy right infrahilar opacity. Interval worsening. Adequate lung volume, normal cardiac silhouette, and intact bony thorax. Atherosclerotic vascular disease. Metallic anchors of the right humeral head. IMPRESSION: Mild-moderate mixed interstitial and airspace opacities includes small patchy right infrahilar opacity. Interval worsening. Differential diagnosis includes pulmonary edema, multifocal pneumonia, and chronic interstitial lung disease. Recommend CR/CT surveillance including at 7-12 weeks following initiation of any clinically warranted therapy.
[2019-06-02 22:40] LABS: TROPONIN I 0.013 ng/mL
--- NOTE | 2019-06-02 22:47 | ER Document Report ---
ED General - General Chief Complaint: Breathing Difficulty Stated Complaint: SHORTNESS OF BREATH Time Seen by Provider: 06/02/19 21:37 Primary Care Provider: KOREY PETE MD [ACTIVE STAFF] - Follow up as needed TRAVEL OUTSIDE OF THE [place] IN LAST 30 DAYS: No - HPI Notes: Patient was evaluated by the [facility] provider prior to my evaluation. Studies / interventions have been ordered by this provider and are currently pending. 73-year-old male with a stated history of congestive heart failure, pulmonary fibrosis and COPD presents with cough and dyspnea. Gradual onset over the last week, worse in the last couple of days. No current use of antibiotics or steroids. Moderate intensity, associated chest tightness with cough. Generally clear sputum. Uncertain if he had fever. No hemoptysis. Moderate intensity, gradual onset, nonradiating. No other modifying factors, no other associated symptoms, no other provocative or palliative factors. - Related Data Allergies/Adverse Reactions: lisinopril [Lisinopril] Allergy (Verified 03/17/19 15:18) moxifloxacin HCl [From Avelox] Allergy (Verified 03/17/19 15:18) Past Medical History - Social History Smoking Status: Never Smoker Family History: CAD, Malignancy - Bladder cancer, Other - Rheumatoid arthritis, cerebral hemorrhage, rheumatic fever Patient has suicidal ideation: No Patient has homicidal ideation: No - Medical History Notes: Includes stated history of CHF and pulmonary fibrosis - Past Medical History Cardiac Medical History: Reports: Hx Hypercholesterolemia, Hx Hypertension Denies: Hx Coronary Artery Disease Pulmonary Medical History: Reports: Hx Bronchitis, Hx COPD, Hx Pneumonia Neurological Medical History: Reports: Hx Migraine. Denies: Hx Cerebrovascular Accident Endocrine Medical History: Denies: Hx Diabetes Mellitus Type 1, Hx Diabetes Mellitus Type 2 Renal/ Medical History: Reports: Hx Renal Insufficiency. Denies: Hx Peritoneal Dialysis GI Medical History: Reports: Hx Hepatitis - ? Hepatitis C Musculoskeletal Medical History: Reports Hx Arthritis, Reports Hx Fibromyalgia Psychiatric Medical History: Reports: Hx Depression Infectious Medical History: Reports: Hx Hepatitis - ? Hepatitis C Past Surgical History: Reports: Hx Abdominal Surgery - umbilical hernia repair, Hx Herniorrhaphy, Hx Orthopedic Surgery - right shoulder, Other - Sinus surgery - Immunizations Hx Diphtheria, Pertussis, Tetanus Vaccination: No - unknown Hx Pneumococcal Vaccination: 10/23/12 Review of Systems - Review of Systems Notes: Review of systems as in the history of present illness, otherwise negative x 10 systems. Physical Exam - Vital signs Vitals: Temp Pulse Resp BP Pulse Ox 98.6 F 115 H 30 H 199/89 H 90 L 06/02/19 21:14 06/02/19 21:14 06/02/19 21:14 06/02/19 21:14 06/02/19 21:14 - Notes Notes: General: Well developed . Mildly ill in appearance. HEENT: Normocephalic, atraumatic. Pupils equal round reactive to light. No JVD. Chest: No trauma. Respiratory: Good air exchange, normal excursion. Cardiac: Coarse breath sounds with scattered crackles. Abdomen: Soft, benign. Nondistended. Nontender. Back: No asymmetry or gross abnormality. Motor: Grossly normal power and tone. Neurologic: Alert, nonfocal. Cranial nerves II-12 are intact. Sensation intact. Vascular: Well perfused. Normal peripheral pulses. Skin: No petechiae or purpura. Course - Vital Signs Vital signs: Temp Pulse Resp BP Pulse Ox 101.2 F H 115 H 23 H 190/80 H 96 06/02/19 22:10 06/02/19 21:14 06/02/19 22:10 06/02/19 22:10 06/02/19 22:10 - Laboratory Result Diagrams: 06/02/19 21:34 06/02/19 21:34 Laboratory results interpreted by me: 06/02/19 06/02/19 06/02/19 21:34 21:34 21:34 WBC 10.7 H RBC 3.85 L Hgb 12.8 L Hct 36.8 L RDW 14.1 H Seg Neutrophils % 78.1 H Lymphocytes % 9.0 L Absolute Neutrophils 8.3 H VBG pH 7.43 H Potassium 5.1 H Chloride 95 L BUN 31 H Est GFR (Non-Af Amer) 58 L Alkaline Phosphatase 133 H - EKG Interpretation by Dc EKG shows normal: Sinus rhythm Rate: Tachycardia Rhythm: NSR [place]/QRS: RBBB When compared to previous EKG there are: No significant change - Transfer of Care Notes: 06/02/19 23:17 73-year-old male presents the after mentioned symptoms. Certainly concerning for pneumonia, heart failure or COPD exacerbation. Labs reviewed, CBC unremarkable, chemistries unremarkable for acute emergent abnormality. Cardiac proBNP mildly elevated. Troponin shows no significant elevation. Chest x-ray shows bilateral interstitial opacities and right infrahilar patchy opacity consistent with pneumonia. Patient has no healthcare associated pneumonia risk factors. Lactate is normal. Patient developed a fever in the emergency department. Of note, his record indicates acetaminophen as an allergy. However he denies this, states he was just told that he was taking too much in the past but has never had allergic reaction. Patient is covered with antibiotics for committee acquired pneumonia, admitted to the hospitalist service for continued evaluation and management. He has continued hypoxemic respiratory failure and is requiring oxygen to keep his oxygen saturation above 88%. Discharge - Discharge Clinical Impression: Pneumonia Qualifiers: Pneumonia type: due to unspecified organism Laterality: bilateral Lung location: unspecified part of lung Qualified Code(s): J18.9 - Pneumonia, unspecified organism Condition: Serious Disposition: ADMITTED INPATIENT Admitting Provider: Skyla (Hospitalist) Unit Admitted: Medical Floor Referrals: KOREY PETE MD [ACTIVE STAFF] - Follow up as needed
[2019-06-02] MEDS ORDERED: CEFTRIAXONE 1 GM/D5W RTU 50 ML IV ONE (22:55)
[2019-06-02] MEDS ORDERED: AZITHROMYCIN INJ 500 MG VIAL IV ONE (22:55)
[2019-06-02] MEDS ORDERED: ACETAMINOPHEN 325 MG TABLET PO ONE (23:12)
[2019-06-02] MEDS ORDERED: CEFTRIAXONE 1 GM/D5W RTU 1 GM/50 ML RTUPB IV ONE (23:26)
[2019-06-02] MEDS ORDERED: CEFTRIAXONE INJ 1000 MG VIAL ONE (23:28)
[2019-06-03] MEDS ORDERED: LEVALBUTEROL HCL NEB 0.63 MG/3 ML AMPUL NEB PRN (00:21)
[2019-06-03] MEDS ORDERED: GUAIFENESIN SYRP 200 MG/10 ML UDC PO PRN (00:21)
[2019-06-03] MEDS ORDERED: NALBUPHINE HCL INJ 10 MG/1 ML AMPULE IV PRN (00:35)
[2019-06-03] MEDS: METHYLPREDNISOLONE INJ 40 MG/1 ML SDV IV SCH ×3 (03:15→17:08)
--- NOTE | 2019-06-03 03:28 | PDOC H&P ---
History of Present Illness Admission Date/PCP: 06/02/2019 23:26 RANDALL MURCIA PA-C Patient complains of: Dyspnea History of Present Illness: LUTHER LIPSCOMB is a 73 year old male who presented to the emergency room with a one-week history of dyspnea. Patient admits gradually increasing dyspnea over the last week with a significant increase to being severe on the afternoon of admission, prompting his visit to the emergency room. His dyspnea has been associated with a nonproductive cough, mild to moderate generalized chest tightness, moderate diaphoresis and moderate wheezing. He denies accompanying signs or symptoms. His dyspnea is worsened by activity or exertion. He admits prior similar episodes with his COPD in the past. He has not identified any additional aggravating or ameliorating factors for his dyspnea. In the emergency room he was found to have hypoxia with increased work of breathing that improved with nebulizer therapy and supplemental oxygen. His chest x-ray suggested a right infrahilar infiltrate. Patient was subsequently admitted to the hospital for further evaluation and treatment. Past Medical History Cardiac Medical History: Reports: Hyperlipidema, Hypertension Denies: Coronary Artery Disease Pulmonary Medical History: Reports: Bronchitis, Chronic Obstructive Pulmonary Disease (COPD), Pneumonia, Sleep Apnea, Other - Pulmonary fibrosis EENT Medical History: Reports: Eyes - Glaucoma with left eye blindness Denies: Cataracts, Ears - Hearing aids, Nose - Allergic rhinitis Neurological Medical History: Reports: Migraine Denies: Hemorrhagic CVA, Ischemic CVA, Multiple Sclerosis, Seizures Endocrine Medical History: Denies: Diabetes Mellitus Type 1, Diabetes Mellitus Type 2, Hyperthyroidism, Hypothyroidism Renal/ Medical History: Reports: Chronic Kidney Disease, Other - Benign prostatic hypertrophy Denies: Nephrolithiasis Malignancy Medical History: Reports: None GI Medical History: Reports: Hepatitis - Hepatitis C Denies: Cirrhosis, Crohn's Disease, Ulcerative Colitis Musculoskeltal Medical History: Reports: Arthritis, Fibromyalgia Skin Medical History: Denies: Eczema, Psoriasis Psychiatric Medical History: Reports: Depression, Tobacco Dependency Denies: Alcohol Dependency, Substance Abuse Traumatic Medical History: Reports: None Hematology: Denies: Anemia Infectious Medical History: Reports: Hepatitis C Past Surgical History Past Surgical History: Reports: Herniorrhaphy, Orthopedic Surgery - right shoulder, Other - Sinus surgery Social History Information Source: Patient Lives with: Spouse/Significant other Smoking Status: Former Smoker Frequency of Alcohol Use: Rare Hx Recreational Drug Use: No Drugs: None Hx Prescription Drug Abuse: Yes - Was treated for chronic pain 2016. Compliance issues. - Advance Directive Resuscitation Status: Full Code Surrogate healthcare decision maker:: Ruth Umer Family History Family History: Arthritis - Rheumatoid arthritis, CAD, CVA - Cerebral hemorrhage, Malignancy - Bladder cancer, Other - Rheumatic fever Parental Family History Reviewed: Yes Children Family History Reviewed: No Sibling(s) Family History Reviewed.: Yes Medication/Allergy Home Medications: Escitalopram Oxalate [Lexapro 10 mg Tablet] 10 mg PO DAILY 02/10/19 Tamsulosin HCl [Flomax 0.4 mg Cap.sr] 0.4 mg PO DAILY 02/10/19 Aspirin [Ecotrin 81 mg EC Tablet] 81 mg PO DAILY 30 Days #30 tabec 02/13/19 Atorvastatin Calcium [Lipitor 40 mg Tablet] 40 mg PO QHS 30 Days #30 tablet 02/13/19 Carvedilol [Coreg 6.25 mg Tablet] 6.25 mg PO Q12 30 Days #60 tablet 02/13/19 Chlorthalidone [Hygroton 25 mg Tablet] 25 mg PO DAILY 30 Days #30 tablet 02/13/19 Losartan Potassium [Cozaar 50 mg Tablet] 100 mg PO DAILY 30 Days #30 tablet 02/13/19 Verapamil HCl [Calan Sr 240 mg Tablet.sa] 240 mg PO DAILY 30 Days #30 tablet.sa 02/13/19 Amox Tr/Potassium Clavulanate [Augmentin 875-125 Tablet] 1 tab PO BID #20 tablet 03/17/19 Allergies/Adverse Reactions: lisinopril [Lisinopril] Allergy (Verified 03/17/19 15:18) moxifloxacin HCl [From Avelox] Allergy (Verified 03/17/19 15:18) Review of Systems Constitutional: ABSENT: chills, fever(s) Eyes: ABSENT: visual disturbances, other - Eye pain Ears: ABSENT: hearing changes, other - Ear pain Nose, Mouth, and Throat: ABSENT: mouth pain, sore throat Cardiovascular: PRESENT: as per HPI, chest pain - Moderate generalized tightness, dyspnea on exertion. ABSENT: edema, orthropnea, palpitations Respiratory: PRESENT: as per HPI, cough, dyspnea. ABSENT: hemoptysis, sputum Gastrointestinal: ABSENT: abdominal pain, constipation, diarrhea, nausea, vomiting Genitourinary: ABSENT: dysuria, hematuria Musculoskeletal: ABSENT: joint swelling, muscle weakness Integumentary: ABSENT: pruritus, rash Neurological: ABSENT: confusion, convulsions, focal weakness, memory loss, syncope Psychiatric: ABSENT: anxiety, depression Endocrine: ABSENT: cold intolerance, heat intolerance Hematologic/Lymphatic: ABSENT: easy bleeding, easy bruising Allergic/Immunologic: ABSENT: seasonal rhinorrhea Physical Exam Vital Signs: Temp Pulse Resp BP Pulse Ox 101.2 F H 115 H 23 H 190/80 H 96 06/02/19 22:10 06/02/19 21:14 06/02/19 22:10 06/02/19 22:10 06/02/19 22:10 Intake & Output 05/31/19 06/01/19 06/02/19 23:59 23:59 23:59 Weight 90.7 kg General appearance: PRESENT: no acute distress, cooperative, other - On O2 per nasal cannula Head exam: PRESENT: atraumatic, normocephalic Eye exam: PRESENT: conjunctiva pink. ABSENT: conjunctival injection, scleral icterus Ear exam: PRESENT: normal external ear exam. ABSENT: bleeding, drainage Mouth exam: PRESENT: dry mucosa, neck supple Neck exam: ABSENT: JVD, thyromegaly, tracheal deviation Respiratory exam: PRESENT: decreased breath sounds - Mildly decreased breath sounds throughout all lung hicks consistent with mild to moderate COPD, prolonged expiratory phas - Mildly prolonged expiratory phase, rales - Minimal coarse rales right lower lung hicks, symmetrical, unlabored, wheezes - Minimal expiratory wheezes, other - On O2 per nasal cannula Cardiovascular exam: PRESENT: RRR. ABSENT: clicks, gallop, rubs Pulses: PRESENT: normal radial pulses, normal dorsalis pedis pul Vascular exam: PRESENT: normal capillary refill. ABSENT: pallor GI/Abdominal exam: PRESENT: normal bowel sounds, soft Rectal exam: PRESENT: deferred Extremities exam: ABSENT: joint swelling, pedal edema Musculoskeletal exam: PRESENT: normal inspection. ABSENT: tenderness Neurological exam: PRESENT: alert, oriented to person, oriented to place, oriented to time, oriented to situation, CN II-XII grossly intact. ABSENT: motor sensory deficit Psychiatric exam: PRESENT: appropriate affect, normal mood Skin exam: PRESENT: dry, intact, warm. ABSENT: jaundice, rash, urticaria Results Laboratory Results: 06/02/19 21:34 06/02/19 21:34 06/02/19 06/02/19 06/02/19 21:34 21:34 21:34 WBC 10.7 H RBC 3.85 L Hgb 12.8 L Hct 36.8 L MCV 96 MCH 33.1 MCHC 34.6 RDW 14.1 H Plt Count 319 Seg Neutrophils % 78.1 H Lymphocytes % 9.0 L Monocytes % 6.4 Eosinophils % 6.0 Basophils % 0.5 Absolute Neutrophils 8.3 H Absolute Lymphocytes 1.0 Absolute Monocytes 0.7 Absolute Eosinophils 0.6 Absolute Basophils 0.1 VBG pH VBG pCO2 VBG HCO3 VBG Base Excess Sodium 137.0 Potassium 5.1 H Chloride 95 L Carbon Dioxide 30 Anion Gap 12 BUN 31 H Creatinine 1.23 Est GFR ( Amer) > 60 Est GFR (Non-Af Amer) 58 L Glucose 108 Lactic Acid 2.0 Calcium 10.1 Total Bilirubin 0.7 AST 40 Alkaline Phosphatase 133 H Total Protein 7.9 Albumin 4.6 06/02/19 21:34 WBC RBC Hgb Hct MCV MCH MCHC RDW Plt Count Seg Neutrophils % Lymphocytes % Monocytes % Eosinophils % Basophils % Absolute Neutrophils Absolute Lymphocytes Absolute Monocytes Absolute Eosinophils Absolute Basophils VBG pH 7.43 H VBG pCO2 44.9 VBG HCO3 29.0 VBG Base Excess 4.0 Sodium Potassium Chloride Carbon Dioxide Anion Gap BUN Creatinine Est GFR ( Amer) Est GFR (Non-Af Amer) Glucose Lactic Acid Calcium Total Bilirubin AST Alkaline Phosphatase Total Protein Albumin 06/02/19 21:34 Troponin I 0.013 NT-Pro-B Natriuret Pep 631 Impressions: Chest X-Ray 06/02/19 21:38 IMPRESSION: Mild-moderate mixed interstitial and airspace opacities includes small patchy right infrahilar opacity. Interval worsening. Differential diagnosis includes pulmonary edema, multifocal pneumonia, and chronic interstitial lung disease. Recommend CR/CT surveillance including at 7-12 weeks following initiation of any clinically warranted therapy. Assessment and Plan - Diagnosis (1) Community acquired pneumonia Qualifiers: Laterality: right Lung location: unspecified part of lung Qualified Code(s): J18.9 - Pneumonia, unspecified organism Is this a current diagnosis for this admission?: Yes Plan: Patient will be treated with Rocephin 1 g IV daily and Zithromax 500 mg IV daily. A rigorous pulmonary toilet will be introduced and daily CBCs, metabolic profile and magnesium levels will be obtained. Patient will use Nubain 10 mg IV every 3 hours on a as needed basis for pain. (2) Acute respiratory failure with hypoxia Is this a current diagnosis for this admission?: Yes Plan: Patient will receive supplemental oxygen with use of noninvasive airway pressure support devices as needed. Patient's O2 sat will be maintained between 90 and 94%. O2 sat will be checked frequently. (3) COPD (chronic obstructive pulmonary disease) Qualifiers: COPD type: unspecified COPD Qualified Code(s): J44.9 - Chronic obstructive pulmonary disease, unspecified Is this a current diagnosis for this admission?: Yes Plan: Patient will be treated with a rigorous pulmonary toilet including Xopenex, Atr ovent, Pulmicort and Mucomyst. He will receive supplemental oxygen as required to maintain an adequate O2 sat between 90 and 94%. He will be given a short course of Solu-Medrol IV. His O2 sat will be monitored on a regular basis. Daily CBCs will be performed. (4) JENAE (obstructive sleep apnea) Is this a current diagnosis for this admission?: Yes Plan: Patient will be offered CPAP for treatment of his obstructive sleep apnea during his hospital course. (5) HTN (hypertension) Qualifiers: Hypertension type: essential hypertension Qualified Code(s): I10 - Essential (primary) hypertension Is this a current diagnosis for this admission?: Yes Plan: Patient will be continued on his usual antihypertensive regiment. His vital signs including blood pressure will be assessed frequently during his hospital course. (6) Hyperlipidemia Qualifiers: Hyperlipidemia type: unspecified Qualified Code(s): E78.5 - Hyperlipidemia, unspecified Is this a current diagnosis for this admission?: Yes Plan: Patient will be continued on his usual medications for hyperlipidemia. A lipid profile will be obtained to evaluate his current therapy. - Time Time Spent with patient: 25-34 minutes Medications reviewed and adjusted accordingly: Yes Anticipated discharge: Home - Inpatient Certification Based on my medical assessment, after consideration of the patient's comor bidities, presenting symptoms, or acuity I expect that the services needed warrant INPATIENT care.: Yes I certify that my determination is in accordance with my understanding of Medicare's requirements for reasonable and necessary INPATIENT services [42 CFR 412.3e].: Yes Medical Necessity: Significant Comorbidiites Make Outpatient Treatment Too Risky, Need Close Monitoring Due to Risk of Patient Decompensation, Need for Nebulizer Therapy and Monitoring of Response, Need for IV Antibiotics, Risk of Complication if Not Cared For in Hospital
[2019-06-03] MEDS: HEPARIN SOD (PORCINE) 5,000 UNIT/ML 1 ML VIAL SUBCUT SCH ×3 (05:02→21:12)
[2019-06-03 06:27] LABS: CREATINE KINASE MB 1.67 ng/mL (<4.55); TROPONIN I 0.021 ng/mL
--- NOTE | 2019-06-03 06:42 | EKG REPORT ---
SEVERITY:- ABNORMAL ECG - SINUS TACHYCARDIA PROBABLE LEFT ATRIAL ABNORMALITY RIGHT BUNDLE BRANCH BLOCK : Confirmed by: Howard Heath MD 03-Jun-2019 06:41:51
[2019-06-03] MEDS: BUDESONIDE NEB 0.5 MG/2 ML AMPUL NEB SCH ×2 (08:15→19:46)
[2019-06-03] MEDS: IPRATROPIUM BROMIDE 0.02% NEB 0.5 MG/2.5 ML AMPUL NEB SCH ×3 (08:15→23:42)
[2019-06-03] MEDS: LEVALBUTEROL HCL NEB 1.25 MG/3 ML AMPUL NEB SCH ×3 (08:15→23:42)
[2019-06-03] MEDS: ACETYLCYSTEINE 20% SOLN 800 MG/4 ML VIAL.NEB NEB SCH ×2 (08:15→19:46)
[2019-06-03] MEDS ORDERED: LOSARTAN POTASSIUM 50 MG TABLET PO SCH (10:00)
[2019-06-03] MEDS ORDERED: VERAPAMIL HCL 240 MG TABLET.SA PO SCH (10:00)
[2019-06-03] MEDS ORDERED: ASPIRIN 81 MG TABLET, ENT COATED PO SCH (10:00)
[2019-06-03] MEDS: ESCITALOPRAM OXALATE 10 MG TABLET PO SCH (11:05)
[2019-06-03] MEDS: FAMOTIDINE 20 MG TABLET PO SCH ×2 (11:05→21:12)
[2019-06-03] MEDS: CHLORTHALIDONE 25 MG TABLET PO SCH (11:06)
[2019-06-03] MEDS: ACETAMINOPHEN 325 MG TABLET PO PRN ×2 (13:52→21:17)
--- NOTE | 2019-06-03 14:15 | Progress Note Acknowledgement ---
Progress Note Acknowledgement Progess Note Acknowledgement: I, the undersigned member of the medical staff with appropriate privileges and with supervisory authority over [ PAC ], a dependent practice allied health professional, acknowledge that I have reviewed the progress notes entered on this patient, and in my professional judgment believe that the assessment made and/or any care evidenced was appropriate
[2019-06-03] MEDS: TAMSULOSIN HCL 0.4 MG CAP.SR.24H PO SCH (17:37)
[2019-06-03] MEDS ORDERED: TAMSULOSIN HCL 0.4 MG CAP.SR.24H PO SCH (18:00)
[2019-06-03] MEDS: ATORVASTATIN CALCIUM 40 MG TABLET PO SCH (21:13)
[2019-06-03] MEDS: CEFTRIAXONE SODIUM 1,000 MG in DEXTROSE 5%-WATER 50 ML IV SCH (21:14)
[2019-06-03] MEDS ORDERED: CEFTRIAXONE 1 GM/D5W RTU 1 GM/50 ML RTUPB IV SCH (22:00)
[2019-06-03] MEDS: AZITHROMYCIN 500 MG in DEXTROSE 5%-WATER 250 ML IV SCH (22:21)
[2019-06-04] MEDS: HEPARIN SOD (PORCINE) 5,000 UNIT/ML 1 ML VIAL SUBCUT SCH ×3 (05:00→21:04)
[2019-06-04 05:52] LABS: ANION GAP 11 (5-19); BLOOD UREA NITROGEN 54 mg/dL (7-20); CALCIUM 9.2 mg/dL (8.4-10.2); CARBON DIOXIDE 26 mmol/L (22-30); CHLORIDE 97 mmol/L (98-107); GLUCOSE 166 mg/dL (75-110)
[2019-06-04 06:58] LABS: HEMATOCRIT 31.4 % (37.9-51.0); MEAN CORPUSCULAR HEMOGLOBIN 32.4 pg (27.0-33.4); MEAN CORPUSCULAR HGB CONC 34.2 g/dL (32.0-36.0); MEAN CORPUSCULAR VOLUME 95 fl (80-97); PLATELET COUNT 264 10^3/uL (150-450); RED BLOOD COUNT 3.31 10^6/uL (4.35-5.55); RED CELL DISTRIBUTION WIDTH 13.8 % (11.5-14.0); WHITE BLOOD COUNT 12.6 10^3/uL (4.0-10.5)
[2019-06-04 07:17] LABS: HEMOGLOBIN 10.7 g/dL (13.5-17.0)
[2019-06-04] MEDS: LEVALBUTEROL HCL NEB 1.25 MG/3 ML AMPUL NEB SCH ×2 (07:59→15:44)
[2019-06-04] MEDS: BUDESONIDE NEB 0.5 MG/2 ML AMPUL NEB SCH ×2 (07:59→20:03)
[2019-06-04] MEDS: IPRATROPIUM BROMIDE 0.02% NEB 0.5 MG/2.5 ML AMPUL NEB SCH ×2 (07:59→15:44)
[2019-06-04] MEDS: ACETYLCYSTEINE 20% SOLN 800 MG/4 ML VIAL.NEB NEB SCH (07:59)
--- NOTE | 2019-06-04 09:44 | EKG REPORT ---
SEVERITY:- ABNORMAL ECG - SINUS RHYTHM FIRST DEGREE AV BLOCK PROBABLE LEFT ATRIAL ABNORMALITY RIGHT BUNDLE BRANCH BLOCK : Confirmed by: Stacie Selby 04-Jun-2019 09:44:11
[2019-06-04] MEDS ORDERED: LOSARTAN POTASSIUM 50 MG TABLET PO SCH (10:00)
[2019-06-04] MEDS: VERAPAMIL HCL 240 MG TABLET.SA PO SCH (11:31)
[2019-06-04] MEDS: CHLORTHALIDONE 25 MG TABLET PO SCH (11:33)
[2019-06-04] MEDS: FAMOTIDINE 20 MG TABLET PO SCH ×2 (11:33→21:04)
[2019-06-04] MEDS: ASPIRIN 81 MG TABLET, ENT COATED PO SCH (11:33)
[2019-06-04] MEDS: ACETAMINOPHEN 325 MG TABLET PO PRN (11:34)
[2019-06-04] MEDS: ESCITALOPRAM OXALATE 10 MG TABLET PO SCH (11:34)
[2019-06-04] MEDS ORDERED: TRAMADOL HCL 50 MG TABLET PO PRN (14:56)
[2019-06-04] MEDS ORDERED: GUAIFENESIN/D-METHORPHAN (200-20 MG) SYRUP 10 ML PO PRN (15:27)
[2019-06-04] MEDS: NORMAL SALINE 1000 ML 1,000 ML IV PRN (16:06)
[2019-06-04] MEDS: FLUTICASONE NASAL SPRAY 50 MCG/SPRY 120 SPRAY/16 GM NASL SCH (17:30)
[2019-06-04] MEDS: TRAMADOL HCL 50 MG TABLET PO PRN (17:32)
[2019-06-04] MEDS: TAMSULOSIN HCL 0.4 MG CAP.SR.24H PO SCH (17:34)
[2019-06-04] MEDS: GABAPENTIN 400 MG CAPSULE PO SCH ×2 (17:37→21:04)
--- NOTE | 2019-06-04 18:27 | Progress Note Acknowledgement ---
Progress Note Acknowledgement Progess Note Acknowledgement: I, the undersigned member of the medical staff with appropriate privileges and with supervisory authority over Ayal Thomason, a [facility] practice allied health professional, acknowledge that I have reviewed the progress notes entered on this patient, and in my professional judgment believe that the assessment made and/or any care evidenced was appropriate
--- NOTE | 2019-06-04 18:40 | PDOC PROGRESS REPORT ---
Subjective Progress Note for:: 06/04/19 Subjective:: The patient is a 74-year-old male with a past medical history of hypertension, hyperlipidemia, COPD, sleep apnea, pulmonary fibrosis, left eye blindness, migraines, CKD, BPH, chronic hepatitis C, arthritis, fibromyalgia, depression, and tobacco dependency who was admitted 06/02/2019 for community-acquired pneumonia and COPD exacerbation with resultant acute respiratory failure with hypoxia. Patient was seen on afternoon rounds. He was found resting in bed comfortably on room air. He complains of nasal congestion with postnasal drip and a nonproductive cough. He otherwise denies dyspnea and orthopnea. He also reports headache and arthritic pain related to hospital bed. He denies fever, chills, chest pain, palpitations, orthopnea, sputum production, abdominal pain, nausea vomiting and diarrhea. He has no other questions or concerns at this time. No concerns per nursing. Reason For Visit: PNEUMONIA Physical Exam Vital Signs: Temp Pulse Resp BP Pulse Ox 97.6 F 87 18 133/53 H 97 06/04/19 16:16 06/04/19 16:16 06/04/19 16:16 06/04/19 16:16 06/04/19 16:16 Pulse Oximeter Continuous Start: 06/03/19 00:22 Freq: RTQ4 Status: Complete Protocol: Document 06/04/19 15:58 [facility] (Rec: 06/04/19 15:59 [facility] [id number]) Pulse Oximetry Assessment Equipment Usage Equipment Discontinued Continuous SpO2 Machine # 13 Intake & Output 06/03/19 06/04/19 06/05/19 06:59 06:59 06:59 Intake Total 200 2108 866 Balance 200 2108 866 Weight 92.4 kg 93.1 kg General appearance: PRESENT: no acute distress, cooperative, obese - Pleasant, well-developed, well-nourished Head exam: PRESENT: atraumatic, normocephalic Eye exam: PRESENT: conjunctiva pink, EOMI, PERRLA. ABSENT: scleral icterus Ear exam: PRESENT: normal external ear exam Mouth exam: PRESENT: moist, tongue midline Neck exam: ABSENT: carotid bruit, JVD, lymphadenopathy, thyromegaly Respiratory exam: PRESENT: prolonged expiratory phas, rhonchi - Bibasilar, symmetrical, unlabored. ABSENT: rales, wheezes Cardiovascular exam: PRESENT: RRR, +S1, +S2. ABSENT: diastolic murmur, rubs, systolic murmur Pulses: PRESENT: normal dorsalis pedis pul Vascular exam: PRESENT: normal capillary refill GI/Abdominal exam: PRESENT: normal bowel sounds, soft. ABSENT: distended, guarding, mass, organolmegaly, rebound, tenderness Rectal exam: PRESENT: deferred Extremities exam: PRESENT: full ROM. ABSENT: calf tenderness, clubbing, pedal edema Neurological exam: PRESENT: alert, awake, oriented to person, oriented to place, oriented to time, oriented to situation, CN II-XII grossly intact. ABSENT: m otor sensory deficit Psychiatric exam: PRESENT: appropriate affect, normal mood. ABSENT: homicidal ideation, suicidal ideation Skin exam: PRESENT: dry, intact, warm. ABSENT: cyanosis, rash Results Laboratory Results: 06/04/19 06:18 06/04/19 04:24 06/04/19 06/04/19 06/04/19 04:24 04:24 06:18 WBC Cancelled 12.6 H RBC Cancelled 3.31 L Hgb Cancelled 10.7 L D Hct Cancelled 31.4 L MCV Cancelled 95 MCH Cancelled 32.4 MCHC Cancelled 34.2 RDW Cancelled 13.8 Plt Count Cancelled 264 Sodium 134.3 L Potassium 4.0 Chloride 97 L Carbon Dioxide 26 Anion Gap 11 BUN 54 H Creatinine 1.51 H Est GFR ( Amer) 55 L Est GFR (Non-Af Amer) 46 L Glucose 166 H Calcium 9.2 06/02/19 06/03/19 06/03/19 21:34 05:46 05:46 Creatine Kinase 57 CK-MB (CK-2) 1.67 Troponin I 0.013 0.021 NT-Pro-B Natriuret Pep 631 Impressions: Chest X-Ray 06/02/19 21:38 IMPRESSION: Mild-moderate mixed interstitial and airspace opacities includes small patchy right infrahilar opacity. Interval worsening. Differential diagnosis includes pulmonary edema, multifocal pneumonia, and chronic interstitial lung disease. Recommend CR/CT surveillance including at 7-12 weeks following initiation of any clinically warranted therapy. Assessment and Plan - Diagnosis (1) Acute respiratory failure with hypoxia Is this a current diagnosis for this admission?: Yes Plan: Improved; now maintaining oxygen saturations on room air while at rest. Given the patient's COPD, will obtain oxygen qualification testing prior to discharge. Continue supplemental oxygen as needed. Continue scheduled and as needed nebulizer treatments. Management of COPD exacerbation and community-acquired pneumonia as outlined below. (2) COPD exacerbation Is this a current diagnosis for this admission?: Yes Plan: Improved; found to have subtle bibasilar rhonchi but no wheezing on exam. No maintaining oxygen saturations on room air while at rest. Continue scheduled and as needed nebulizer treatments. Receiving Pulmicort neb twice daily; no wheezing at this time. Monitor for need for systemic glucocorticoid therapy. Continue Mucinex twice daily. Incentive spirometer and flutter valve to bedside. Patient reports that he was on Spiriva but was recently changed to a twist- device inhaler (can not recall name); does not believe that this is as effective. Will need to review LABA\Lama options with patient prior to discharge. (3) Community acquired pneumonia Qualifiers: Laterality: right Lung location: unspecified part of lung Qualified Code(s): J18.9 - Pneumonia, unspecified organism Is this a current diagnosis for this admission?: Yes Plan: Blood Cultures (06/02/2019) 2 of 4 bottles with gram-positive cocci in chains. Repeat blood culture pending. Sputum culture pending; no longer with sputum production. Patient is admitted to the medical floor and continuous cardiac telemetry. Supplemental oxygen, nebulizer treatments, Mucinex, and pulmonary toilet as described above. He is empirically been placed on IV Rocephin and azithromycin for treatment of community-acquired pneumonia. (4) HILLARY (acute kidney injury) Is this a current diagnosis for this admission?: Yes Plan: Patient's creatinine is 1.51 today up from 1.23 on admission. BUN is also elevated at 54, up from 31. We will start gentle IV fluids. Avoid nephrotoxic medications as able. Daily chemistries. (5) HTN (hypertension) Qualifiers: Hypertension type: essential hypertension Qualified Code(s): I10 - Essential (primary) hypertension Is this a current diagnosis for this admission?: Yes Plan: Acceptable blood pressures today. Continue outpatient regiment of losartan, verapamil, and hydrochlorothiazide. Monitor renal function closely secondary to HILLARY. (6) Hyperlipidemia Qualifiers: Hyperlipidemia type: unspecified Qualified Code(s): E78.5 - Hyperlipidemia, unspecified Is this a current diagnosis for this admission?: Yes Plan: Cardiac diet Continue home dose atorvastatin. (7) JENAE (obstructive sleep apnea) Is this a current diagnosis for this admission?: Yes Plan: Patient will be offered CPAP for treatment of his obstructive sleep apnea during his hospital course. (8) Bacteremia Is this a current diagnosis for this admission?: Yes Plan: Blood cultures (06/02/2019) 2 of 4 bottles growing gram-positive cocci in chains. Likely a contaminant. Repeat blood culture pending. Currently on IV azithromycin and Rocephin; Day #2. - Time Time Spent with patient: 25-34 minutes Medications reviewed and adjusted accordingly: Yes Anticipated discharge: Home Within: within 48 hours - Pending negative blood culture results
[2019-06-04] MEDS: BUTALB/ACETAMINOPHEN/CAFFEINE 1 TAB EACH PO PRN (19:58)
[2019-06-04] MEDS: CEFTRIAXONE SODIUM 1,000 MG in DEXTROSE 5%-WATER 50 ML IV SCH (21:02)
[2019-06-04] MEDS: GUAIFENESIN 600 MG TABLET.SA PO SCH (21:04)
[2019-06-04] MEDS: ATORVASTATIN CALCIUM 40 MG TABLET PO SCH (21:04)
[2019-06-04] MEDS: ZOLPIDEM TARTRATE 5 MG TABLET PO PRN (22:10)
[2019-06-04] MEDS: HYDRALAZINE HCL INJ/PF 20 MG/1 ML SDV IV PRN (22:10)
[2019-06-04] MEDS: AZITHROMYCIN 500 MG in DEXTROSE 5%-WATER 250 ML IV SCH (22:10)
[2019-06-05] MEDS: LEVALBUTEROL HCL NEB 1.25 MG/3 ML AMPUL NEB SCH ×4 (00:45→20:10)
[2019-06-05] MEDS: IPRATROPIUM BROMIDE 0.02% NEB 0.5 MG/2.5 ML AMPUL NEB SCH ×4 (00:45→20:09)
[2019-06-05] MEDS: NORMAL SALINE 1000 ML 1,000 ML IV PRN ×2 (02:42→12:06)
[2019-06-05] MEDS: GABAPENTIN 400 MG CAPSULE PO SCH ×3 (05:24→21:35)
[2019-06-05] MEDS: HEPARIN SOD (PORCINE) 5,000 UNIT/ML 1 ML VIAL SUBCUT SCH ×3 (05:24→21:37)
[2019-06-05 05:55] LABS: HEMATOCRIT 32.8 % (37.9-51.0); MEAN CORPUSCULAR HEMOGLOBIN 32.2 pg (27.0-33.4); MEAN CORPUSCULAR HGB CONC 33.7 g/dL (32.0-36.0); MEAN CORPUSCULAR VOLUME 96 fl (80-97); PLATELET COUNT 300 10^3/uL (150-450); RED BLOOD COUNT 3.43 10^6/uL (4.35-5.55); RED CELL DISTRIBUTION WIDTH 14.3 % (11.5-14.0); WHITE BLOOD COUNT 10.9 10^3/uL (4.0-10.5)
[2019-06-05 06:15] LABS: ANION GAP 9 (5-19); BLOOD UREA NITROGEN 43 mg/dL (7-20); CALCIUM 9.2 mg/dL (8.4-10.2); CARBON DIOXIDE 27 mmol/L (22-30); CHLORIDE 100 mmol/L (98-107); GLUCOSE 113 mg/dL (75-110); POTASSIUM 4.1 mmol/L (3.6-5.0)
[2019-06-05] MEDS: BUDESONIDE NEB 0.5 MG/2 ML AMPUL NEB SCH ×2 (07:52→20:09)
[2019-06-05] MEDS: BUTALB/ACETAMINOPHEN/CAFFEINE 1 TAB EACH PO PRN ×2 (08:03→15:48)
[2019-06-05] MEDS: FAMOTIDINE 20 MG TABLET PO SCH ×2 (10:23→21:35)
[2019-06-05] MEDS: LOSARTAN POTASSIUM 50 MG TABLET PO SCH (10:24)
[2019-06-05] MEDS: GUAIFENESIN 600 MG TABLET.SA PO SCH ×2 (10:25→21:35)
[2019-06-05] MEDS: ESCITALOPRAM OXALATE 10 MG TABLET PO SCH (10:25)
[2019-06-05] MEDS: ASPIRIN 81 MG TABLET, ENT COATED PO SCH (10:25)
[2019-06-05] MEDS: HYDROCHLOROTHIAZIDE 25 MG TABLET PO SCH (10:25)
[2019-06-05] MEDS: FLUTICASONE NASAL SPRAY 50 MCG/SPRY 120 SPRAY/16 GM NASL SCH (10:32)
[2019-06-05] MEDS: VERAPAMIL HCL 240 MG TABLET.SA PO SCH (10:32)
[2019-06-05] MEDS: HYDRALAZINE HCL INJ/PF 20 MG/1 ML SDV IV PRN (12:51)
[2019-06-05] MEDS: TRAMADOL HCL 50 MG TABLET PO PRN ×2 (16:58→22:58)
[2019-06-05] MEDS: TAMSULOSIN HCL 0.4 MG CAP.SR.24H PO SCH (17:21)
--- NOTE | 2019-06-05 17:29 | Progress Note Acknowledgement ---
<AYLA THOMASON - Last Filed: 06/05/19 17:27> Progress Note Acknowledgement Progess Note Acknowledgement: I, the undersigned member of the medical staff with appropriate privileges and with supervisory authority over Ayla Thomason, a dependent practice allied health professional, acknowledge that I have reviewed the progress notes entered on this patient, and in my professional judgment believe that the assessment made and/or any care evidenced was appropriate <MILE RICKETTS - Last Filed: 06/05/19 18:11> Progress Note Acknowledgement Progess Note Acknowledgement: I, the undersigned member of the medical staff with appropriate privileges and with supervisory authority over [ ], a dependent practice allied health professional, acknowledge that I have reviewed the progress notes entered on this patient, and in my professional judgment believe that the assessment made and/or any care evidenced was appropriate i did not see the patient myself -nor did i review the labs, vitals or imaging- i was available for Ayla with any questions/concerns
--- NOTE | 2019-06-05 17:36 | PDOC PROGRESS REPORT ---
Subjective Progress Note for:: 06/05/19 Subjective:: The patient is a 74-year-old male with a past medical history of hypertension, hyperlipidemia, COPD, sleep apnea, pulmonary fibrosis, left eye blindness, migraines, CKD, BPH, chronic hepatitis C (s/p treatment), arthritis, fibromyalgia, depression, and tobacco dependency who was admitted 06/02/2019 for community-acquired pneumonia and COPD exacerbation with resultant acute respiratory failure with hypoxia. Patient was seen on morning rounds. He was found resting in bed comfortably on room air. He complains of nasal congestion with postnasal drip and a nonprod uctive cough. Reports frontal headache that worsens with cough and some movement; did respond well to Fioricet yesterday. He denies fever, chills, chest pain, palpitations, dyspnea, orthopnea, sputum production, abdominal pain, nausea vomiting and diarrhea. He has no other questions or concerns at this time. No concerns per nursing. Reason For Visit: PNEUMONIA Physical Exam Vital Signs: Temp Pulse Resp BP Pulse Ox 98.2 F 95 19 150/73 H 97 06/05/19 16:59 06/05/19 16:59 06/05/19 16:59 06/05/19 16:59 06/05/19 16:59 Pulse Oximeter Continuous Start: 06/03/19 00:22 Freq: RTQ4 Status: Complete Protocol: Document 06/04/19 15:58 [facility] (Rec: 06/04/19 15:59 [facility] [id number]) Pulse Oximetry Assessment Equipment Usage Equipment Discontinued Continuous SpO2 Machine # 13 Intake & Output 06/04/19 06/05/19 06/06/19 06:59 06:59 06:59 Intake Total 2108 2726 1000 Balance 2108 2726 1000 Weight 93.1 kg 92.2 kg General appearance: PRESENT: no acute distress, cooperative, well-developed, well-nourished - Overweight Head exam: PRESENT: atraumatic, normocephalic Eye exam: PRESENT: conjunctiva pink, EOMI, PERRLA. ABSENT: scleral icterus Ear exam: PRESENT: normal external ear exam Mouth exam: PRESENT: moist, tongue midline Neck exam: ABSENT: carotid bruit, JVD, lymphadenopathy, thyromegaly Respiratory exam: PRESENT: rhonchi - Right middle and lower hicks, symmetrical, unlabored. ABSENT: rales, wheezes Cardiovascular exam: PRESENT: RRR, +S1, +S2. ABSENT: diastolic murmur, rubs, systolic murmur Pulses: PRESENT: normal dorsalis pedis pul Vascular exam: PRESENT: normal capillary refill GI/Abdominal exam: PRESENT: normal bowel sounds, soft. ABSENT: distended, guarding, mass, organolmegaly, rebound, tenderness Rectal exam: PRESENT: deferred Extremities exam: PRESENT: full ROM. ABSENT: calf tenderness, clubbing, pedal edema Musculoskeletal exam: PRESENT: ambulatory - With cane Neurological exam: PRESENT: alert, awake, oriented to person, oriented to place, oriented to time, oriented to situation, CN II-XII grossly intact. ABSENT: motor sensory deficit Psychiatric exam: PRESENT: appropriate affect, normal mood. ABSENT: homicidal ideation, suicidal ideation Skin exam: PRESENT: dry, intact, warm. ABSENT: cyanosis, rash Results Laboratory Results: 06/05/19 05:00 06/05/19 05:00 06/05/19 06/05/19 05:00 05:00 WBC 10.9 H RBC 3.43 L Hgb 11.0 L Hct 32.8 L MCV 96 MCH 32.2 MCHC 33.7 RDW 14.3 H Plt Count 300 Sodium 136.4 L Potassium 4.1 Chloride 100 Carbon Dioxide 27 Anion Gap 9 BUN 43 H Creatinine 1.25 Est GFR ( Amer) > 60 Est GFR (Non-Af Amer) 57 L Glucose 113 H Calcium 9.2 06/02/19 06/03/19 06/03/19 21:34 05:46 05:46 Creatine Kinase 57 CK-MB (CK-2) 1.67 Troponin I 0.013 0.021 NT-Pro-B Natriuret Pep 631 06/05/19 05:00 Creatine Kinase CK-MB (CK-2) Troponin I 0.012 NT-Pro-B Natriuret Pep Impressions: Chest X-Ray 06/02/19 21:38 IMPRESSION: Mild-moderate mixed interstitial and airspace opacities includes small patchy right infrahilar opacity. Interval worsening. Differential diagnosis includes pulmonary edema, multifocal pneumonia, and chronic interstitial lung disease. Recommend CR/CT surveillance including at 7-12 weeks following initiation of any clinically warranted therapy. Assessment and Plan - Diagnosis (1) Acute respiratory failure with hypoxia Is this a current diagnosis for this admission?: Yes Plan: Improved; now maintaining oxygen saturations on room air while at rest. Given the patient's COPD, will obtain oxygen qualification testing prior to discharge. Continue supplemental oxygen as needed. Continue as needed nebulizer treatments. Management of COPD exacerbation and community-acquired pneumonia as outlined below. (2) COPD exacerbation Is this a current diagnosis for this admission?: Yes Plan: Improved; found to have subtle right side rhonchi but no wheezing on exam. Now maintaining oxygen saturations on room air while at rest. Continue as needed nebulizer treatments. Receiving Pulmicort neb twice daily; no wheezing at this time. Monitor for need for systemic glucocorticoid therapy. Continue Mucinex twice daily. Incentive spirometer and flutter valve to bedside. Patient reports that he was on Spiriva but was recently changed to a twist- device inhaler (can not recall name); does not believe that this is as effective. Will need to review LABA\Lama options with patient prior to discharge. (3) Community acquired pneumonia Qualifiers: Laterality: right Lung location: unspecified part of lung Qualified Code(s): J18.9 - Pneumonia, unspecified organism Is this a current diagnosis for this admission?: Yes Plan: Blood Cultures (06/02/2019) 2 of 4 bottles with gram-positive cocci in chains. Repeat blood culture negative at 24 hours Sputum culture pending; no longer with sputum production. Patient is admitted to the medical floor and continuous cardiac telemetry. Supplemental oxygen, nebulizer treatments, Mucinex, and pulmonary toilet as described above. He is empirically been placed on IV Rocephin and azithromycin for treatment of community-acquired pneumonia; day #3. (4) HILLARY (acute kidney injury) Is this a current diagnosis for this admission?: Yes Plan: Resolved; 1.25-> 1.51-> 1.25 Baseline 1.2. Continue gentle IV fluids. Avoid nephrotoxic medications as able. Daily chemistries. (5) HTN (hypertension) Qualifiers: Hypertension type: essential hypertension Qualified Code(s): I10 - Essential (primary) hypertension Is this a current diagnosis for this admission?: Yes Plan: Acceptable blood pressures today. Continue outpatient regiment of losartan, verapamil, and hydrochlorothiazide. (6) Hyperlipidemia Qualifiers: Hyperlipidemia type: unspecified Qualified Code(s): E78.5 - Hyperlipidemia, unspecified Is this a current diagnosis for this admission?: Yes Plan: Cardiac diet Continue home dose atorvastatin. (7) JENAE (obstructive sleep apnea) Is this a current diagnosis for this admission?: Yes Plan: Patient will be offered CPAP for treatment of his obstructive sleep apnea during his hospital course. (8) Bacteremia Is this a current diagnosis for this admission?: Yes Plan: Blood cultures (06/02/2019) 2 of 4 bottles growing gram-positive cocci in chains. Likely a contaminant. Repeat blood culture negative at 24 hours Currently on IV azithromycin and Rocephin; Day #3. - Time Time Spent with patient: 15-24 minutes Medications reviewed and adjusted accordingly: Yes Anticipated discharge: Home Within: within 24 hours - pending BCx result
[2019-06-05] MEDS: ATORVASTATIN CALCIUM 40 MG TABLET PO SCH (21:35)
[2019-06-05] MEDS: CEFTRIAXONE SODIUM 1,000 MG in DEXTROSE 5%-WATER 50 ML IV SCH (21:37)
[2019-06-05] MEDS: AZITHROMYCIN 500 MG in DEXTROSE 5%-WATER 250 ML IV SCH (22:25)
[2019-06-05] MEDS: ZOLPIDEM TARTRATE 5 MG TABLET PO PRN (22:56)
[2019-06-06 04:33] LABS: HEMATOCRIT 34.5 % (37.9-51.0); HEMOGLOBIN 11.8 g/dL (13.5-17.0); MEAN CORPUSCULAR HEMOGLOBIN 32.5 pg (27.0-33.4); MEAN CORPUSCULAR HGB CONC 34.1 g/dL (32.0-36.0); MEAN CORPUSCULAR VOLUME 95 fl (80-97); PLATELET COUNT 317 10^3/uL (150-450); RED BLOOD COUNT 3.62 10^6/uL (4.35-5.55); RED CELL DISTRIBUTION WIDTH 13.7 % (11.5-14.0); WHITE BLOOD COUNT 7.3 10^3/uL (4.0-10.5)
[2019-06-06 04:50] LABS: ANION GAP 8 (5-19); BLOOD UREA NITROGEN 34 mg/dL (7-20); CALCIUM 9.4 mg/dL (8.4-10.2); CARBON DIOXIDE 30 mmol/L (22-30); CHLORIDE 98 mmol/L (98-107); GLUCOSE 110 mg/dL (75-110); POTASSIUM 4.8 mmol/L (3.6-5.0)
[2019-06-06] MEDS: GABAPENTIN 400 MG CAPSULE PO SCH ×2 (05:24→14:19)
[2019-06-06] MEDS: HEPARIN SOD (PORCINE) 5,000 UNIT/ML 1 ML VIAL SUBCUT SCH ×2 (05:25→14:19)
[2019-06-06] MEDS: HYDRALAZINE HCL INJ/PF 20 MG/1 ML SDV IV PRN (06:48)
[2019-06-06] MEDS: TRAMADOL HCL 50 MG TABLET PO PRN (08:07)
[2019-06-06] MEDS: IPRATROPIUM BROMIDE 0.02% NEB 0.5 MG/2.5 ML AMPUL NEB SCH (08:30)
[2019-06-06] MEDS: BUDESONIDE NEB 0.5 MG/2 ML AMPUL NEB SCH (08:31)
[2019-06-06] MEDS: LEVALBUTEROL HCL NEB 1.25 MG/3 ML AMPUL NEB SCH (08:31)
[2019-06-06] MEDS: FLUTICASONE NASAL SPRAY 50 MCG/SPRY 120 SPRAY/16 GM NASL SCH (09:35)
[2019-06-06] MEDS: HYDROCHLOROTHIAZIDE 25 MG TABLET PO SCH (09:36)
[2019-06-06] MEDS: ASPIRIN 81 MG TABLET, ENT COATED PO SCH (09:36)
[2019-06-06] MEDS: ESCITALOPRAM OXALATE 10 MG TABLET PO SCH (09:37)
[2019-06-06] MEDS: VERAPAMIL HCL 240 MG TABLET.SA PO SCH (09:37)
[2019-06-06] MEDS: FAMOTIDINE 20 MG TABLET PO SCH (09:38)
[2019-06-06] MEDS: GUAIFENESIN 600 MG TABLET.SA PO SCH (09:38)
[2019-06-06] MEDS: LOSARTAN POTASSIUM 50 MG TABLET PO SCH (09:38)
[2019-06-06] MEDS: BUTALB/ACETAMINOPHEN/CAFFEINE 1 TAB EACH PO PRN (09:53)
[2019-06-06 14:33] VITALS: BP 150/73
--- NOTE | 2019-06-10 18:46 | PDOC DISCHARGE SUMMARY ---
General - Admit/Disc Date/PCP Admission Date/Primary Care Provider: 06/02/19 23:44 RANDALL MURCIA PA-C Discharge Date: 06/06/19 - Discharge Diagnosis (1) Acute respiratory failure with hypoxia Is this a current diagnosis for this admission?: Yes Summary: Resolved; secondary to COPD exacerbation. Patient now has clear lung sounds, is asymptomatic, and ambulatory on room air. (2) COPD exacerbation Is this a current diagnosis for this admission?: Yes Summary: Significantly improved; now asymptomatic with clear lung sounds and maintaining oxygen saturations while ambulatory on room air. Patient was admitted to the medical floor. He was provided supplemental oxygen, scheduled and as needed nebulizer treatmen ts, Mucinex twice daily, and pulmonary toilet utilizing incentive spirometer and flutter valve. (3) Community acquired pneumonia Is this a current diagnosis for this admission?: Yes Summary: The patient was empirically placed on IV Rocephin and azithromycin for treatment of community-acquired pneumonia; received 3 days of therapy. Patient complained of persistent frontal headache, nasal congestion, rhinorrhea, and postnasal drip. He was transitioned to p.o. Augmentin at discharge for improved for acute sinusitis. Coverage (4) HILLARY (acute kidney injury) Is this a current diagnosis for this admission?: Yes Summary: Resolved. (5) HTN (hypertension) Is this a current diagnosis for this admission?: Yes Summary: Acceptable blood pressures on outpatient regiment of losartan, verapamil, and hydrochlorothiazide. (6) Hyperlipidemia Is this a current diagnosis for this admission?: Yes Summary: Continue home dose atorvastatin. (7) JENAE (obstructive sleep apnea) Is this a current diagnosis for this admission?: Yes Summary: Continue CPAP. (8) Bacteremia Is this a current diagnosis for this admission?: Yes Summary: Ruled out. Initial blood cultures grew Streptococcus mitis (contaminant) and 1 of 4 bottles. Repeat blood cultures are negative. (9) Acute sinusitis Is this a current diagnosis for this admission?: Yes Summary: Patient with persistent frontal and maxillary pressure, headache, nasal congestion, rhinorrhea, and postnasal drip despite 3 days of Rocephin and azithromycin. He reported prior good response to Augmentin; he is transition to Augmentin at discharge for treatment of acute sinusitis. - Additional Information Resuscitation Status: Full Code Discharge Diet: Cardiac Discharge Activity: Activity As Tolerated Prescriptions: Amox Tr/Potassium Clavulanate [Augmentin 875-125 mg Tablet] 1 tab PO BID #20 tablet Butalb/Acetaminophen/Caffeine [Fioricet (50-325-40 mg) Tablet] 1 tab PO Q6HP PRN #12 each PRN Reason: Famotidine [Pepcid 20 mg Tablet] 20 mg PO Q12 #60 tablet Fluticasone Propionate [Flonase Nasal Tyler 50 Mcg/Tyler 16 gm] 1 spray NASL DAILY #1 spray.pump Guaifenesin [Mucinex Sr 600 mg Tablet.sa] 600 mg PO Q12 #14 tablet.sa Prednisone [Deltasone] 60 mg PO DAILY #15 tablet Home Medications: Escitalopram Oxalate [Lexapro 10 mg Tablet] 10 mg PO DAILY 02/10/19 Tamsulosin HCl [Flomax 0.4 mg Cap.sr] 0.4 mg PO DAILY 02/10/19 Aspirin [Ecotrin 81 mg EC Tablet] 81 mg PO DAILY 30 Days #30 tabec 02/13/19 Losartan Potassium [Cozaar 50 mg Tablet] 100 mg PO DAILY 30 Days #30 tablet 02/13/19 Verapamil HCl [Calan Sr 240 mg Tablet.sa] 240 mg PO DAILY 30 Days #30 tablet.sa 02/13/19 Gabapentin [Neurontin] 800 mg PO TIDP PRN 06/03/19 Hydrochlorothiazide [Hydrodiuril 25 mg Tablet] 25 mg PO DAILY 06/03/19 Tramadol HCl [Ultram] 50 mg PO Q8HP PRN 06/03/19 Acetaminophen [Tylenol 325 mg Tablet] 650 mg PO Q4HP PRN tablet 06/06/19 Amox Tr/Potassium Clavulanate [Augmentin 875-125 mg Tablet] 1 tab PO BID #20 tablet 06/06/19 Aspirin [Ecotrin 81 mg EC Tablet] 81 mg PO DAILY tabec 06/06/19 Butalb/Acetaminophen/Caffeine [Fioricet (50-325-40 mg) Tablet] 1 tab PO Q6HP PRN #12 each 06/06/19 Escitalopram Oxalate [Lexapro 10 mg Tablet] 10 mg PO DAILY tablet 06/06/19 Famotidine [Pepcid 20 mg Tablet] 20 mg PO Q12 #60 tablet 06/06/19 Fluticasone Propionate [Flonase Nasal Tyler 50 Mcg/Tyler 16 gm] 1 spray NASL DAILY #1 spray.pump 06/06/19 Guaifenesin [Mucinex Sr 600 mg Tablet.sa] 600 mg PO Q12 #14 tablet.sa 06/06/19 Losartan Potassium [Cozaar 50 mg Tablet] 100 mg PO DAILY tablet 06/06/19 Prednisone [Deltasone] 60 mg PO DAILY #15 tablet 06/06/19 Tamsulosin HCl [Flomax 0.4 mg Cap.sr] 0.4 mg PO PCSUPPER cap.sr.24h 06/06/19 Verapamil HCl [Calan Sr 240 mg Tablet.sa] 240 mg PO DAILY tablet.sa 06/06/19 History of Present Illness History of Present Illness: Per H&P by Dr. Crum: LUTHER LIPSCOMB is a 73 year old male who presented to the emergency room with a one-week history of dyspnea. Patient admits gradually increasing dyspnea over the last week with a significant increase to being severe on the afternoon of admission, prompting his visit to the emergency room. His dyspnea has been associated with a nonproductive cough, mild to moderate generalized chest tightness, moderate diaphoresis and moderate wheezing. He denies accompanying signs or symptoms. His dyspnea is worsened by activity or exertion. He admits prior similar episodes with his COPD in the past. He has not identified any additional aggravating or ameliorating factors for his dyspnea. In the emergency room he was found to have hypoxia with increased work of breathing that improved with nebulizer therapy and supplemental oxygen. His chest x-ray suggested a right infrahilar infiltrate. Patient was subsequently admitted to the hospital for further evaluation and treatment. Physical Exam Vital Signs: Temp Pulse Resp BP Pulse Ox 97.2 F 90 21 H 150/73 H 98 06/06/19 14:28 06/06/19 14:28 06/06/19 14:28 06/06/19 14:28 06/06/19 14:28 Pulse Oximeter Continuous Start: 06/03/19 00:22 Freq: RTQ4 Status: Complete Protocol: Document 06/04/19 15:58 [facility] (Rec: 06/04/19 15:59 [facility] [id number]) Pulse Oximetry Assessment Equipment Usage Equipment Discontinued Continuous SpO2 Machine # 13 General appearance: PRESENT: no acute distress, cooperative, well-developed, well-nourished - Overweight Head exam: PRESENT: atraumatic, normocephalic Eye exam: PRESENT: conjunctiva pink, EOMI, PERRLA. ABSENT: scleral icterus Ear exam: PRESENT: normal external ear exam Mouth exam: PRESENT: moist, tongue midline Neck exam: ABSENT: carotid bruit, JVD, lymphadenopathy, thyromegaly Respiratory exam: PRESENT: clear to auscultation lobito. ABSENT: rales, rhonchi, wheezes Cardiovascular exam: PRESENT: RRR. ABSENT: diastolic murmur, rubs, systolic murmur Pulses: PRESENT: normal dorsalis pedis pul Vascular exam: PRESENT: normal capillary refill GI/Abdominal exam: PRESENT: normal bowel sounds, soft. ABSENT: distended, guarding, mass, organolmegaly, rebound, tenderness Rectal exam: PRESENT: deferred Extremities exam: PRESENT: full ROM. ABSENT: calf tenderness, clubbing, pedal e joanne Musculoskeletal exam: PRESENT: ambulatory - With cane Neurological exam: PRESENT: alert, awake, oriented to person, oriented to place, oriented to time, oriented to situation, CN II-XII grossly intact. ABSENT: motor sensory deficit Psychiatric exam: PRESENT: appropriate affect, normal mood. ABSENT: homicidal ideation, suicidal ideation Skin exam: PRESENT: dry, intact, warm. ABSENT: cyanosis, rash Results Laboratory Results: 06/06/19 03:55 06/06/19 03:55 06/02/19 23:40 Blood Blood Culture - Final Streptococcus Mitis 06/04/19 18:37 Blood Blood Culture - Final NO GROWTH IN 5 DAYS 06/04/19 15:41 Blood Blood Culture - Final NO GROWTH IN 5 DAYS 06/02/19 06/03/19 06/03/19 21:34 05:46 05:46 Creatine Kinase 57 CK-MB (CK-2) 1.67 Troponin I 0.013 0.021 NT-Pro-B Natriuret Pep 631 06/05/19 05:00 Creatine Kinase CK-MB (CK-2) Troponin I 0.012 NT-Pro-B Natriuret Pep Impressions: Chest X-Ray 06/02/19 21:38 IMPRESSION: Mild-moderate mixed interstitial and airspace opacities includes small patchy right infrahilar opacity. Interval worsening. Differential diagnosis includes pulmonary edema, multifocal pneumonia, and chronic interstitial lung disease. Recommend CR/CT surveillance including at 7-12 weeks following initiation of any clinically warranted therapy. Qualifiers - * PATIENT BEING DISCHARGED WITH ANY OF THE FOLLOWING DIAGNOSIS: No Acute Heart Failure - Is this a Heart Failure Patient?: No Plan Discharge Plan: The patient is discharged home with self-care. He is advised to follow-up with his primary care provider within 1 week. He is instructed to take his medications as prescribed; Complete course of Augmentin. Avoid known triggers for his COPD (dust, pollen, smoke, pet dander). Return to the emergency department as needed for concerning symptoms.. Time Spent: Greater than 30 Minutes
== END 2019-06-06 14:58 | disposition home or self-care (01) | DRG 193 ==
LOC: ER 21:03 → EH 23:44 → 5 06-03 01:35
PROVIDERS: ADMIT Emergency Medicine; ATTEND Emergency Medicine
PROC: 5A09457 Assistance with Respiratory Ventilation, 24-96 Consecutive Hours, Continuous Positive Airway Pressure (ICD-10-PCS; principal; 2019-06-03)
DX: J18.9 Pneumonia, unspecified organism (principal); J96.01 Acute respiratory failure with hypoxia; J44.1 Chronic obstructive pulmonary disease with (acute) exacerbation; N17.9 Acute kidney failure, unspecified; J44.0 Chronic obstructive pulmonary disease with (acute) lower respiratory infection; J44.9 Chronic obstructive pulmonary disease, unspecified; H40.9 Unspecified glaucoma; G43.909 Migraine, unspecified, not intractable, without status migrainosus; N40.0 Benign prostatic hyperplasia without lower urinary tract symptoms; J84.10 Pulmonary fibrosis, unspecified; N18.9 Chronic kidney disease, unspecified; H54.62 Unqualified visual loss, left eye, normal vision right eye; G47.33 Obstructive sleep apnea (adult) (pediatric); I11.0 Hypertensive heart disease with heart failure; J01.90 Acute sinusitis, unspecified; B18.2 Chronic viral hepatitis C; E78.5 Hyperlipidemia, unspecified; M19.90 Unspecified osteoarthritis, unspecified site; Z82.61 Family history of arthritis; Z82.3 Family history of stroke; Z79.82 Long term (current) use of aspirin; Z79.899 Other long term (current) drug therapy; Z88.8 Allergy status to other drugs, medicaments and biological substances
CPT/HCPCS: 36415; 71045; 80048; 80053; 82550; 82553; 82803; 83605; 83880; 84484; 85025; 85027; 85610; 85730; 87040; 87077; 87186; 93005; 93010; 94640; 94660; 94667; 94762; 94799; 96374; 96375; 99285; J0360; J0456; J0696; J1644; J2405; J2920; J2930; J3490; J7030; J7060; J7614; J7620

== ENCOUNTER → 2019-07-17 | Outpatient (CLI) | payer MEDICARE, OTHER ==
[2019-07-17 11:21] LABS: ABSOLUTE BASOPHILS # (AUTO) 0.1 10^3/uL (0.0-0.2); ABSOLUTE EOSINOPHILS # (AUTO) 0.7 10^3/uL (0.0-0.6); ABSOLUTE LYMPHOCYTES (AUTO) 1.3 10^3/uL (0.5-4.7); ABSOLUTE MONOCYTES (AUTO) 0.8 10^3/uL (0.1-1.4); ABSOLUTE NEUT (AUTO) 3.2 10^3/uL (1.7-8.2); BASOPHILS % (AUTO) 1.3 % (0-2); EOSINOPHILS % (AUTO) 11.9 % (0-6); HEMATOCRIT 31.9 % (37.9-51.0); HEMOGLOBIN 11.1 g/dL (13.5-17.0); LYMPHOCYTES % (AUTO) 21.8 % (13-45); MEAN CORPUSCULAR HEMOGLOBIN 32.3 pg (27.0-33.4); MEAN CORPUSCULAR HGB CONC 34.9 g/dL (32.0-36.0); MEAN CORPUSCULAR VOLUME 93 fl (80-97); MONOCYTES % (AUTO) 12.8 % (3-13); PLATELET COUNT 398 10^3/uL (150-450); RED BLOOD COUNT 3.44 10^6/uL (4.35-5.55); SEGMENTED NEUTROPHILS % (AUTO) 52.2 % (42-78); TOTAL CELLS COUNTED % (AUTO) 100 %; WHITE BLOOD COUNT 6.1 10^3/uL (4.0-10.5)
[2019-07-17 11:40] LABS: ALBUMIN 3.8 g/dL (3.5-5.0); ALKALINE PHOSPHATASE 99 U/L (38-126); ANION GAP 8 (5-19); ASPARTATE AMINO TRANSFERASE 24 U/L (17-59); BILIRUBIN,DIRECT 0.2 mg/dL (0.0-0.4); BILIRUBIN,TOTAL 0.7 mg/dL (0.2-1.3); BLOOD UREA NITROGEN 33 mg/dL (7-20); C-REACTIVE PROTEIN 63.5 mg/L (<10.0); CALCIUM 9.8 mg/dL (8.4-10.2); CARBON DIOXIDE 32 mmol/L (22-30); CHLORIDE 95 mmol/L (98-107); GLUCOSE 184 mg/dL (75-110); POTASSIUM 4.8 mmol/L (3.6-5.0); TOTAL PROTEIN 6.5 g/dL (6.3-8.2)
[2019-07-17 12:01] LABS: ERYTHROCYTE SEDIMENTATION RATE 70 mm/hr (0-20)
== END ==
LOC: OD 10:58
PROVIDERS: ATTEND Physician Assistant
DX: Z96.652 Presence of left artificial knee joint (principal); Z47.89 Encounter for other orthopedic aftercare
CPT/HCPCS: 36415; 80053; 85025; 85652; 86140

== ENCOUNTER → 2019-07-30 | Outpatient (CLI) | payer MEDICARE, OTHER ==
[2019-07-30 15:29] LABS: ANION GAP 12 (5-19); BLOOD UREA NITROGEN 41 mg/dL (7-20); CALCIUM 10.2 mg/dL (8.4-10.2); CARBON DIOXIDE 26 mmol/L (22-30); CHLORIDE 100 mmol/L (98-107); GLUCOSE 132 mg/dL (75-110); POTASSIUM 5.1 mmol/L (3.6-5.0)
[2019-07-31 17:20] LABS: UR PRO/CREAT RATIO RESULT 0.3 mg/mg (0.0-0.2); URINE CREATININE 87.7 mg/dL (22-328); URINE PROTEIN 22.6 mg/dL (<12)
== END ==
LOC: OD 14:01
PROVIDERS: ATTEND Internal Medicine Nephrology
DX: N17.9 Acute kidney failure, unspecified (principal); I12.9 Hypertensive chronic kidney disease with stage 1 through stage 4 chronic kidney disease, or unspecified chronic kidney disease; N18.3 Chronic kidney disease, stage 3 (moderate); R80.9 Proteinuria, unspecified
CPT/HCPCS: 36415; 80048; 82570; 84156

== ENCOUNTER 2019-10-09 16:36 | Inpatient (IN) | payer MEDICARE ==
--- NOTE | 2019-10-09 16:56 | ER Document Report ---
ED Medical Screen (RME) - General Chief Complaint: Nausea Stated Complaint: SHAKING,NAUSEA,VOMITING Time Seen by Provider: 10/09/19 16:52 Primary Care Provider: KOREY PETE MD [Primary Care Provider] - Follow up as needed Mode of Arrival: Wheelchair Information source: Patient Notes: 74-year-old male presented to ED for shortness of breath weakness shaky and c hecked his blood pressure and it was elevated multiple times. He came into the emergency room his O2 sat in the pivot area was 85% but we are getting 98% in the room. His pulse is 120 he states he did have a mild stroke last year. He states he came in today because he was so anxious and nervous and was becoming very weak. states he has been weak and dizzy since last night but he would not come in because "he is a man". states he has been throwing up yesterday also. He states he is shaking inside and very anxious. I have greeted and performed a rapid initial assessment of this patient. A comprehensive ED assessment and evaluation of the patient, analysis of test results and completion of medical decision making process will be conducted by an additional ED providers. TRAVEL OUTSIDE OF THE [place] IN LAST 30 DAYS: No - Related Data Allergies/Adverse Reactions: lisinopril [Lisinopril] Allergy (Verified 10/09/19 16:52) moxifloxacin HCl [From Avelox] Allergy (Verified 10/09/19 16:52) Past Medical History - Past Medical History Cardiac Medical History: Reports: Hx Hypercholesterolemia, Hx Hypertension Denies: Hx Coronary Artery Disease Pulmonary Medical History: Reports: Hx Bronchitis, Hx COPD, Hx Pneumonia, Hx Sleep Apnea Neurological Medical History: Reports: Hx Migraine. Denies: Hx Cerebrovascular Accident, Hx Seizures Endocrine Medical History: Denies: Hx Diabetes Mellitus Type 1, Hx Diabetes Mellitus Type 2, Hx Hyperthyroidism, Hx Hypothyroidism Renal/ Medical History: Reports: Hx Renal Insufficiency. Denies: Hx Peritoneal Dialysis GI Medical History: Reports: Hx Hepatitis - Hepatitis C. Denies: Hx Cirrhosis, Hx Crohn's Disease, Hx Ulcerative Colitis Musculoskeltal Medical History: Reports Hx Arthritis, Reports Hx Fibromyalgia Skin Medical History: Denies Hx Eczema, Denies Hx Psoriasis Psychiatric Medical History: Reports: Hx Depression Infectious Medical History: Reports: Hx Hepatitis - Hepatitis C Past Surgical History: Reports: Hx Abdominal Surgery - umbilical hernia repair, Hx Herniorrhaphy, Hx Orthopedic Surgery - right shoulder, Other - Sinus surgery - Immunizations Hx Diphtheria, Pertussis, Tetanus Vaccination: No - unknown Physical Exam - Vital signs Vitals: Temp Pulse Resp BP Pulse Ox 98.7 F 133 H 28 H 114/53 L 95 10/09/19 16:43 10/09/19 16:43 10/09/19 16:43 10/09/19 16:43 10/09/19 16:43 Course - Vital Signs Vital signs: Temp Pulse Resp BP Pulse Ox 98.7 F 133 H 28 H 114/53 L 95 10/09/19 16:43 10/09/19 16:43 10/09/19 16:43 10/09/19 16:43 10/09/19 16:43 Doctor's Discharge - Discharge Referrals: KOREY PETE MD [Primary Care Provider] - Follow up as needed
--- NOTE | 2019-10-09 17:30 | RADIOLOGY REPORT (SQ) ---
EXAM DESCRIPTION: CHEST 2 VIEWS COMPLETED DATE/TIME: 10/09/2019 5:14 pm REASON FOR STUDY: cough congestion weakness COMPARISON: Chest radiographs 06/02/2019 EXAM PARAMETERS: NUMBER OF VIEWS: two views TECHNIQUE: Digital Frontal and Lateral radiographic views of the chest acquired. RADIATION DOSE: NA LIMITATIONS: none FINDINGS: LUNGS AND PLEURA: Similar pattern of diffuse interstitial lung markings. No focal airspac e consolidation. No pneumothorax or pleural effusion. MEDIASTINUM AND HILAR STRUCTURES: No masses or contour abnormalities. HEART AND VASCULAR STRUCTURES: Heart normal size. No evidence for failure. BONES: No acute findings. HARDWARE: None in the chest. OTHER: No other significant finding. IMPRESSION: Similar pattern diffuse interstitial lung markings. No acute pulmonary findings. TECHNICAL DOCUMENTATION: JOB ID: [id number] [employer]- All Rights Reserved Reading location - IP/workstation name: [email or web address]--[employer]
[2019-10-09 17:34] LABS: HEMATOCRIT 39.9 % (37.9-51.0); HEMOGLOBIN 13.4 g/dL (13.5-17.0); MEAN CORPUSCULAR HEMOGLOBIN 30.3 pg (27.0-33.4); MEAN CORPUSCULAR HGB CONC 33.6 g/dL (32.0-36.0); MEAN CORPUSCULAR VOLUME 90 fl (80-97); RED BLOOD COUNT 4.42 10^6/uL (4.35-5.55); RED CELL DISTRIBUTION WIDTH 14.9 % (11.5-14.0); WHITE BLOOD COUNT 15.6 10^3/uL (4.0-10.5)
[2019-10-09 17:52] LABS: ABSOLUTE LYMPHOCYTES# (MANUAL) 0.5 10^3/uL (0.5-4.7); ABSOLUTE MONOCYTES # (MANUAL) 0.5 10^3/uL (0.1-1.4); BAND NEUTROPHILS % (MANUAL) 4 % (3-5); BASOPHILS % (MANUAL) 0 % (0-2); EOSINOPHILS % (MANUAL) 0 % (0-6); LYMPHOCYTES % (MANUAL) 3 % (13-45); MONOCYTES % (MANUAL) 3 % (3-13); SEGMENTED NEUTROPHILS % (MAN) 90 % (42-78); TOTAL CELLS COUNTED 100
[2019-10-09 17:54] LABS: ALBUMIN 4.2 g/dL (3.5-5.0); ALKALINE PHOSPHATASE 102 U/L (38-126); ANION GAP 17 (5-19); ANISOCYTOSIS SLIGHT; ASPARTATE AMINO TRANSFERASE 37 U/L (17-59); BILIRUBIN,DIRECT 0.6 mg/dL (0.0-0.4); BILIRUBIN,TOTAL 1.2 mg/dL (0.2-1.3); BLOOD UREA NITROGEN 52 mg/dL (7-20); CALCIUM 9.7 mg/dL (8.4-10.2); CARBON DIOXIDE 24 mmol/L (22-30); CHLORIDE 96 mmol/L (98-107); GLUCOSE 180 mg/dL (75-110); PLATELET CLUMPS PRESENT; PLATELET COMMENT ADEQUATE; PLATELET COUNT 282 10^3/uL (150-450); POTASSIUM 4.7 mmol/L (3.6-5.0); TOTAL PROTEIN 7.7 g/dL (6.3-8.2)
[2019-10-09] MEDS ORDERED: NORMAL SALINE 1000 ML 1,000 ML IV PRN (18:41)
--- NOTE | 2019-10-09 18:44 | ER Document Report ---
ED Dizziness/Weakness - General Mode of Arrival: Wheelchair TRAVEL OUTSIDE OF THE [place] IN LAST 30 DAYS: No - HPI Patient complains to provider of: Dizziness, Weakness Onset: Other - 2 days Onset/Duration: Persistent Quality of pain: Sharp Pain Level: 3 Associated symptoms: Dizzy, Lightheaded, Nausea, Short of breath, Vomiting. de nies: Chest pain, Confused, Headache, Recent fall, Sweating Baseline gait: Walks w/o assistance <KAYLEEN VENTURA - Last Filed: 10/09/19 21:32> <SUBHASH TAYLOR - Last Filed: 10/09/19 22:51> - General Chief Complaint: Dizziness Stated Complaint: SHAKING,NAUSEA,VOMITING Time Seen by Provider: 10/09/19 16:52 Primary Care Provider: KOREY PETE MD [ACTIVE STAFF] - Follow up as needed Notes: Patient presents complaining of dizziness and feeling weak for the past 2 days. Patient denies any chest pain but does report mild cough. Patient complains of abdominal pain and distention and feeling gaseous. Patient states that he has had decreased urine output recently. Patient reports nausea and vomiting. No fever. Patient states that he is status post left knee replacement 8 weeks ago. Patient denies any problems with the surgery. (KAYLEEN VENTURA) - Related Data Allergies/Adverse Reactions: lisinopril [Lisinopril] Allergy (Verified 10/09/19 16:52) moxifloxacin HCl [From Avelox] Allergy (Verified 10/09/19 16:52) Past Medical History - General Information source: Patient - Social History Smoking Status: Former Smoker Frequency of alcohol use: Occasional Drug Abuse: None Lives with: Spouse/Significant other Family History: Arthritis - Rheumatoid arthritis, CAD, CVA - Cerebral hemorrhage, Malignancy - Bladder cancer, Other - Rheumatic fever Patient has suicidal ideation: No Patient has homicidal ideation: No - Past Medical History Cardiac Medical History: Reports: Hx Hypercholesterolemia, Hx Hypertension, Other - Pulmonary fibrosis Denies: Hx Heart Attack Pulmonary Medical History: Reports: Hx Bronchitis, Hx COPD, Hx Pneumonia, Hx Sleep Apnea Neurological Medical History: Reports: Hx Migraine Renal/ Medical History: Reports: Hx Renal Insufficiency. Denies: Hx Peritoneal Dialysis GI Medical History: Reports: Hx Hepatitis - Hepatitis C-treated Musculoskeletal Medical History: Reports Hx Arthritis, Reports Hx Fibromyalgia Skin Medical History: Denies Hx Eczema, Denies Hx Psoriasis Psychiatric Medical History: Reports: Hx Depression Infectious Medical History: Reports: Hx Hepatitis - Hepatitis C Past Surgical History: Reports: Hx Abdominal Surgery - umbilical hernia repair, Hx Herniorrhaphy, Hx Orthopedic Surgery - right shoulder, left knee, Other - Sinus surgery - Immunizations Hx Diphtheria, Pertussis, Tetanus Vaccination: No - unknown Hx Pneumococcal Vaccination: 10/23/12 <KAYLEEN VENTURA - Last Filed: 10/09/19 21:32> Review of Systems - Review of Systems Constitutional: Chills. denies: Fever EENT: No symptoms reported Cardiovascular: Dizziness, Lightheaded. denies: Chest pain Respiratory: Cough, Short of breath Gastrointestinal: Abdominal pain, Nausea, Vomiting Genitourinary: Retention Male Genitourinary: No symptoms reported Musculoskeletal: No symptoms reported Skin: No symptoms reported Hematologic/Lymphatic: No symptoms reported Neurological/Psychological: Weakness. denies: Lost consciousness <KAYLEEN VENTURA - Last Filed: 10/09/19 21:32> Physical Exam - General General appearance: Alert - HEENT Head: Normocephalic Eyes: Normal Conjunctiva: Normal Pupils: PERRL Pharynx: Normal Neck: Normal - Respiratory Respiratory status: Tachypnea. No: Cyanosis Chest status: Nontender Breath sounds: Nonproductive cough, Rales - bilat lower lobes Chest palpation: Normal. No: Tender - Cardiovascular Rhythm: Tachycardia Heart sounds: S1 appreciated, S2 appreciated Murmur: No - Abdominal Inspection: Normal. No: Caput medussa Distension: Distended Bowel sounds: Normal Tenderness: Tender - Diffuse Organomegaly: No organomegaly - Back Back: Normal, Nontender - Extremities General upper extremity: Normal inspection, Normal strength General lower extremity: Normal inspection, Normal strength. No: Edema - Neurological Neuro grossly intact: Yes Cognition: Normal [place] Coma Scale Eye Opening: Spontaneous [place] Coma Scale Verbal: Oriented [place] Coma Scale Motor: Obeys Commands Romelia Coma Scale Total: 15 - Psychological Associated symptoms: Normal affect, Normal mood - Skin Skin Temperature: Warm Skin Moisture: Dry Skin Color: Normal <KAYLEEN VENTURA - Last Filed: 10/09/19 21:32> - Vital signs Vitals: Temp Pulse Resp BP Pulse Ox 98.7 F 133 H 28 H 114/53 L 95 10/09/19 16:43 10/09/19 16:43 10/09/19 16:43 10/09/19 16:43 10/09/19 16:43 Course - Laboratory Result Diagrams: 10/09/19 17:08 10/09/19 17:08 <KAYLENE VENTURA - Last Filed: 10/09/19 21:32> - Laboratory Result Diagrams: 10/09/19 17:08 10/09/19 17:08 <SUBHASH TAYLOR - Last Filed: 10/09/19 22:51> - Re-evaluation Re-evalutation: 10/09/19 18:[address] oGmez regarding patient presentation and diagnostic evaluation. Recommends adding on d-dimer as well as noncontrast CT scan of the chest abdomen and pelvis given patient's complaints of dizziness weakness acute on top of chronic renal failure, also advises giving IV fluids at a rate of 125 an hour. 10/09/19 19:30 Pt returned from radiology department tachypneic and tachycardic, patient with low-grade fever. Patient audibly wheezing with clear sputum. Patient complaining of chest tightness at this time. Additional labs ordered. Cons ulted with Dr. Gomez who did go to bedside to reevaluate patient. Advised adding nitro, Zosyn, Lasix and discontinuing IV fluids. 10/09/19 19:36 Patient continues tachycardic with dyspnea, BiPAP orders placed. 10/09/19 19:45 call to lead athlete, spoke with Subhash Beard who agrees to come and evaluate patient. 10/09/19 20:30 Patient with some improvement of tachycardia after being started on BiPAP. Patient denies any chest discomfort at this time. Bedside report and handoff given to ABIGAIL Cao (KAYLEEN VENTURA) 10/09/19 21:17 Pt meets sepsis criteria. Will give fluids based on ideal body weight and start with 2L. Reviewed echo performed this past january and he had EF >65% without any pulmonary edema or fluid on CT chest/CXR. Guidelines recommend fluids at this time. 10/09/19 21:47 I did speak with the lead athlete, Marti Beard WEB DESIGNER DEVELOPER, who states that patient is feeling much better after meds and being on Bipap. No evidence for pneumonia, ?UTI with urine pending. He does not believe patient warrants ICU level care at this time. BP 90's/50's so we will take off the nitro paste. 10/09/19 22:46 Vitals acceptable. Pt is feeling much better. We were able to take him off of the Bipap and on 2L via NC. Pt is doing well. He still has mild wheezing prima rily expiratory. BP 103/49 after removing the nitropaste. I did speak with Dr. Ann who has accepted pt for admit to IMCU. He does not need V/Q at this time. (SUBHASH TAYLOR) - Vital Signs Vital signs: Temp Pulse Resp BP Pulse Ox 98.6 F 133 H 16 103/49 L 98 10/09/19 22:24 10/09/19 16:43 10/09/19 22:37 10/09/19 22:37 10/09/19 22:37 - Laboratory Laboratory results interpreted by me: 10/09/19 10/09/19 10/09/19 17:08 17:08 17:08 WBC 15.6 H Hgb 13.4 L RDW 14.9 H Seg Neuts % (Manual) 90 H Lymphocytes % (Manual) 3 L Abs Neuts (Manual) 14.7 H D-Dimer ABG pO2 ABG O2 Saturation Chloride 96 L BUN 52 H Creatinine 3.47 H Est GFR ( Amer) 21 L Est GFR (MDRD) Non-Af 17 L Glucose 180 H Lactic Acid Direct Bilirubin 0.6 H NT-Pro-B Natriuret Pep 1810 H Urine Protein Urine Blood Urine Urobilinogen Leukocyte Esterase Rfl 10/09/19 10/09/19 10/09/19 17:08 19:29 20:16 WBC Hgb RDW Seg Neuts % (Manual) Lymphocytes % (Manual) Abs Neuts (Manual) D-Dimer 3.28 H ABG pO2 63.6 L ABG O2 Saturation 93.1 L Chloride BUN Creatinine Est GFR ( Amer) Est GFR (MDRD) Non-Af Glucose Lactic Acid 2.3 H Direct Bilirubin NT-Pro-B Natriuret Pep Urine Protein Urine Blood Urine Urobilinogen Leukocyte Esterase Rfl 10/09/19 20:16 WBC Hgb RDW Seg Neuts % (Manual) Lymphocytes % (Manual) Abs Neuts (Manual) D-Dimer ABG pO2 ABG O2 Saturation Chloride BUN Creatinine Est GFR ( Amer) Est GFR (MDRD) Non-Af Glucose Lactic Acid Direct Bilirubin NT-Pro-B Natriuret Pep Urine Protein 100 H Urine Blood MODERATE H Urine Urobilinogen 2.0 H Leukocyte Esterase Rfl LARGE H Discharge <KAYLEEN VENTURA - Last Filed: 10/09/19 21:32> - Discharge Admitting Provider: Seth (Hospitalist) Unit Admitted: IMCU <CLAUDIASUBHASH - Last Filed: 10/09/19 22:51> - Discharge Clinical Impression: Acute UTI (urinary tract infection), HILLARY (acute kidney injury) COPD (chronic obstructive pulmonary disease) Qualifiers: COPD type: unspecified COPD Qualified Code(s): J44.9 - Chronic obstructive pulmonary disease, unspecified Condition: Stable Disposition: ADMITTED INPATIENT Referrals: KOREY PETE MD [ACTIVE STAFF] - Follow up as needed
[2019-10-09] MEDS ORDERED: IPRATROPIUM/ALBUTEROL 0.5-2.5 MG/3 ML AMPUL NEB ONE (19:25)
[2019-10-09] MEDS ORDERED: NITROGLYCERIN 2% OINTMENT 1 GM PACKET TP ONE (19:26)
[2019-10-09] MEDS ORDERED: MORPHINE SULFATE 10 MG/ML INJ IV ONE (19:26)
[2019-10-09] MEDS ORDERED: ASPIRIN 81 MG TABLET, CHEWABLE PO ONE (19:27)
[2019-10-09] MEDS ORDERED: PIPERACILLIN/TAZOBACTAM 3.375 GM VIAL IV ONE (19:27)
[2019-10-09] MEDS ORDERED: ACETAMINOPHEN 325 MG TABLET PO ONE (19:27)
[2019-10-09] MEDS ORDERED: FUROSEMIDE INJ/PF 40 MG/4 ML SDV IV ONE (19:27)
[2019-10-09] MEDS ORDERED: ONDANSETRON HCL INJ/PF 4 MG/2 ML SDV IV ONE (19:28)
--- NOTE | 2019-10-09 19:29 | RADIOLOGY REPORT (SQ) ---
EXAM DESCRIPTION: CT CHEST WITHOUT COMPLETED DATE/TIME: 10/09/2019 7:14 pm REASON FOR STUDY: dyspnea, cough, weakness COMPARISON: CT of the chest without contrast from 04/18/2018. TECHNIQUE: CT scan performed of the chest without intravenous contrast. Images reviewed with lung, soft tissue and bone windows. Reconstructed coronal and sagittal MPR images reviewed. All images st ored on PACS. All CT scanners at this facility use dose modulation, iterative reconstruction, and/or weight based d osing when appropriate to reduce radiation dose to as low as reasonably achievable (ALARA). [facility]: Dose Right [facility]: CareDose [facility]: Dose Right [facility]: Teradose 4D [facility]: Smart [employer] RADIATION DOSE: CT Rad equipment meets quality standard of care and radiation dose reduction techniq ues were employed. CTDIvol: 12.0 mGy. DLP: 865 mGy-cm. LIMITATIONS: No technical limitations. FINDINGS: LUNGS AND PLEURA: Evaluation is limited due to the absence of intravenous contrast. There is upper lobe predominant centrilobular and paraseptal emphysema. The basilar predominant subpleura l reticular opacities and cysts are unchanged. The bilateral bronchiectasis and bronchiolectasis is also unchanged. There is no superimposed consolidation, pleural effusion or pneumothorax. HILAR AND MEDIASTINAL STRUCTURES: Evaluation of the bebeto for adenopathy is limited due to the absence of intravenous contrast. There are no enlarged mediastinal lymph nodes HEART AND VASCULAR STRUCTURES: Evaluation is limited due to the absence of intravenous contrast. The thoracic aorta is normal in caliber. The left ventricle is enlarged and there is atherosclerotic ca lcification of the coronary arteries. There is no pericardial effusion UPPER ABDOMEN: Refer to the separate report of the CT of the abdomen. THYROID AND OTHER SOFT TISSUES: Mild bilateral gynecomastia. The thyroid gland is heterogeneous. Th ere is no enlarged supraclavicular or axillary adenopathy. BONES: No acute findings. HARDWARE: None in the chest. OTHER: No other findings. 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 TECHNICAL DOCUMENTATION: JOB ID: [id number] Quality ID # [id number]: Final reports with documentation of one or more dose reduction techniques (e.g., Au tomated exposure control, adjustment of the mA and/or kV according to patient size, use of iterative reconstruction technique) 2010 [employer]- All Rights Reserved Reading location - IP/workstation name: [email or web address]
--- NOTE | 2019-10-09 19:37 | RADIOLOGY REPORT (SQ) ---
EXAM DESCRIPTION: CT ABD/PELVIS NO ORAL OR IV COMPLETED DATE/TIME: 10/09/2019 7:14 pm REASON FOR STUDY: abd pain, renal failure, abd distention COMPARISON: CT of the abdomen pelvis with contrast from 08/18/2016. TECHNIQUE: CT scan of the abdomen and pelvis performed without intravenous or oral contrast. Images reviewed with lung, soft tissue, and bone windows. Reconstructed coronal and sagittal MPR images revi ewed. All images stored on PACS. All CT scanners at this facility use dose modulation, iterative reconstruction, and/or weight based d osing when appropriate to reduce radiation dose to as low as reasonably achievable (ALARA). [facility]: Dose Right [facility]: CareDose [facility]: Dose Right [facility]: Teradose 4D [facility]: Smart [employer] LIMITATIONS: None. FINDINGS: LOWER CHEST: Refer to the separate report of the CT of the chest. NON-CONTRASTED LIVER, SPLEEN, ADRENALS: Evaluation is limited due to the absence of intravenous contr ast. The diffuse low attenuation of hepatic parenchyma is consistent with hepatic steatosis. The sp elmer is normal in size. There is no adrenal mass. PANCREAS: No acute gross abnormality of the pancreas GALLBLADDER: No abnormality that is apparent on CT. RIGHT KIDNEY AND URETER: Evaluation is limited due to the absence of intravenous contrast. There is a cortical defect in the interpolar portion of the right kidney with curvilinear hyperdensities. The re is no hydronephrosis, nephrolithiasis, hydroureter or ureterolithiasis. LEFT KIDNEY AND URETER: Evaluation is limited due to the absence of intravenous contrast. The round hypodensities in the lower pole of the kidney could represent cysts. The mild asymmetric perinephric and periureteral stranding is nonspecific and clinical correlation to exclude an ascending urinary t ract infection is recommended. There is no hydronephrosis, nephrolithiasis, hydroureter or ureteroli thiasis. AORTA AND RETROPERITONEUM: No aneurysm of the abdominal aorta. No retroperitoneal adenopathy, hemorr bryon or mass BOWEL AND PERITONEAL CAVITY: Colonic diverticulosis without diverticulitis. There is no bowel obstru ction, bowel wall thickening or pericolonic/ perienteric inflammation. There is no mesenteric adenop athy, free intraperitoneal fluid or mesenteric/omental inflammation. APPENDIX: Normal. PELVIS, BLADDER, AND ABDOMINAL WALL:The urinary bladder is nondistended. The prostate gland is beck l in size. There is a fat containing left inguinal hernia. BONES: No acute findings OTHER: No other finding. IMPRESSION: 1. Asymmetric left perinephric and periureteral stranding without hydronephrosis. Clini cheyanne correlation to exclude an ascending urinary tract infection is recommended. 2. Hepatic steatosis. 3. Colonic diverticulosis without diverticulitis. COMMENT: Quality ID # [id number]: Final reports with documentation of one or more dose reduction techniques (e.g., Automated exposure control, adjustment of the mA and/or kV according to patient size, use of iterative reconstruction technique) TECHNICAL DOCUMENTATION: JOB ID: [id number] [employer]- All Rights Reserved Reading location - IP/workstation name: [email or web address]
[2019-10-09] MEDS ORDERED: LIDOCAINE 2% URO-JET 5 ML KIT MM ONE (19:55)
--- NOTE | 2019-10-09 21:39 | EKG REPORT ---
SEVERITY:- ABNORMAL ECG - SINUS TACHYCARDIA RIGHT BUNDLE BRANCH BLOCK : Confirmed by: Stacie Selby 09-Oct-2019 21:38:06
--- NOTE | 2019-10-09 21:39 | EKG REPORT ---
SEVERITY:- ABNORMAL ECG - SINUS TACHYCARDIA RIGHT BUNDLE BRANCH BLOCK : Confirmed by: Stacie Selby 09-Oct-2019 21:37:48
[2019-10-09 22:04] LABS: APPEARANCE,URINE CLOUDY; BILIRUBIN,URINE NEGATIVE (NEGATIVE); COLOR,URINE AMBER; GLUCOSE, URINE NEGATIVE (NEGATIVE); KETONES,URINE NEGATIVE (NEGATIVE); PROTEIN,URINE 100 mg/dL (NEGATIVE); URINE SPECIFIC GRAVITY 1.019
[2019-10-09 22:20] LABS: ARTERIAL BLOOD BASE EXCESS -0.1 mmol/L; ARTERIAL BLOOD FIO2 ROOM AIR; ARTERIAL BLOOD H2CO3 1.08 mmol/L (1.05-1.35); ARTERIAL BLOOD HCO3 23.6 mmol/L (20-24); ARTERIAL BLOOD O2 SATURATION 93.1 % (94-98); ARTERIAL BLOOD PCO2 35.9 mmHg (35-45); ARTERIAL BLOOD PH 7.44 (7.35-7.45); ARTERIAL BLOOD PO2 63.6 mmHg (80-100); ARTERIAL BLOOD TOTAL CO2 24.7 mmol/L (23-27)
[2019-10-09] MEDS: NORMAL SALINE 1000 ML 1,000 ML IV PRN (22:25)
[2019-10-09] MEDS ORDERED: MAG HYDROX/AL HYDROX/SIMETH SUSP 30 ML UDCUP PO PRN (22:47)
[2019-10-09] MEDS ORDERED: ONDANSETRON HCL INJ/PF 4 MG/2 ML SDV IV PRN (22:47)
[2019-10-09] MEDS ORDERED: IPRATROPIUM/ALBUTEROL 0.5-2.5 MG/3 ML AMPUL NEB PRN (22:47)
[2019-10-09 22:57] LABS: ANION GAP 16 (5-19); BLOOD UREA NITROGEN 55 mg/dL (7-20); CALCIUM 9.5 mg/dL (8.4-10.2); CARBON DIOXIDE 22 mmol/L (22-30); CHLORIDE 95 mmol/L (98-107); GLUCOSE 125 mg/dL (75-110); POTASSIUM 4.4 mmol/L (3.6-5.0)
[2019-10-09] MEDS ORDERED: NORMAL SALINE 1000 ML 1,000 ML IV SCH (23:00)
[2019-10-09] MEDS ORDERED: VANCOMYCIN HCL 0 MG in DEXTROSE 5%-WATER 250 ML IV NR (23:00)
[2019-10-09 23:22] LABS: URINE CREATININE 229.7 mg/dL (22-328)
[2019-10-09] MEDS ORDERED: CEFTRIAXONE 1 GM/D5W RTU 1 GM/50 ML RTUPB IV ONE (23:30)
[2019-10-10 00:13] LABS: ANION GAP 13 (5-19); BLOOD UREA NITROGEN 57 mg/dL (7-20); CALCIUM 9.1 mg/dL (8.4-10.2); CARBON DIOXIDE 23 mmol/L (22-30); CHLORIDE 97 mmol/L (98-107); GLUCOSE 116 mg/dL (75-110); POTASSIUM 4.3 mmol/L (3.6-5.0)
--- NOTE | 2019-10-10 00:40 | Progress Note ---
<PATRIC BEARD - Last Filed: 10/09/19 23:14> Provider Note Provider Note: ICU team was asked by ED STEREOPTICIAN to evaluate Ollie Owusu to determine if he meets critical care criteria. Date/Time of Encounter: 10/09/19 at 21:00 pm Mr. Owusu is a 74-year-old male with a past medical history significant for hypertension, hyperlipidemia, reportedly CHF, COPD with chronic bronchitis, pulmonary fibrosis, pneumonia, JENAE, hep C status post treatment who [facility] complaining of 2 days of feeling dizzy, weak, intermittent nausea, and reports he vomited bile one time which was 3 days ago. He reports chills, but is afebrile. Has a chronic cough for which he expectorates sputum every day (not acute) and is often times yellow at baseline. Reports sputum has not increased in quantity over the past several days. A d- dimer was performed and was elevated; however, in the setting of HILLARY on CKD the marker may not be very reliable. The patient is on 30% BiPAP IPAP 12 EPAP 6 which are very minimal settings, unlabored, respiratory rate of 18, SPO2 96%, and the wheezing that was reportedly present prior to noninvasive ventilation and ipratropium has resolved. He also developed chest pain in the ED that has also resolved, though it is difficult to determine which therapy specifically helped as he received BiPAP, Nitropaste, Lasix, morphine all reasonably close together in time. Mr Owuus reports a change in urinary frequency, noting that he last voided at 6 AM this morning prior to catheterization this evening at [place] (greater than 12 hr period). He denies being around anyone ill over the past week. To note, patient stopped taking Lasix >2 weeks ago per his jawbone breaker given that his BP has been a little bit on the lower side at home. Patient has also not been taking his Lisinopril nor his Carvedilol which he thinks is 6.25 mg daily. Feels he does not need these medications and until recently, his SBP has been no higher than 130. Assessment: Suspected UTI, especially given HPI/ROS and perinephric/cris-ureteral stranding on CT COPD Pneumonia & clinically significant PE unlikely Troponemia stable, no evidence of ongoing CP elevated BNP could be from HILLARY on CKD though cannot exclude cardiac etiology; lasix has already been administered unknown whether or not patient truly has Dx of CHF at baseline after speaking with patient Plan: -will f/u UA, recommend reflex Cx -repeat BMP to evaluate renal function/lytes -add fractional excretion of sodium/creatinine labs to determine if pre- renal/intrinsic (last diuretic use >2 weeks ago per pt report & urinalysis obtained simultaneously as lasix was administered per ED RN so should be good specimen for calculation. -will f/u repeat lactic acid -recommend removing Nitro paste given decreasing BP -will reevaluate Mr Owusu in person as well when this data is back from the lab Mr. Owusu requires no intensive care observation at this time. Will follow up repeat BMP, urine Na+ and urine Cr+. If Mr. Owusu's condition worsens or deteriorates, please do not hesitate to call ICU team for reevaluation. <GENARO LEBRON - Last Filed: 10/10/19 07:11> Provider Note Provider Note: Discussed and reviewed case with EFRAÍN Beard. Agree with plans, findings and care.
[2019-10-10] MEDS ORDERED: VANCOMYCIN HCL INJ 1000 MG VIAL IV PRN (00:52)
[2019-10-10] MEDS: NORMAL SALINE 1000 ML 1,000 ML IV PRN ×4 (01:16→20:22)
[2019-10-10] MEDS ORDERED: VANCOMYCIN HCL 1,000 MG in DEXTROSE 5%-WATER 250 ML IV ONE (01:30)
[2019-10-10] MEDS: DILTIAZEM HCL 90 MG TABLET PO SCH ×5 (03:09→23:53)
--- NOTE | 2019-10-10 04:50 | PDOC H&P ---
History of Present Illness Admission Date/PCP: 10/09/19 22:59 RANDALL MURCIA PA-C Patient complains of: Generalized weakness History of Present Illness: LUTHER LIPSCOMB is a 74 year old male with an extensive past medical history of opiate dependent chronic pain, congestive heart failure, COPD, chronic bronchitis, obstructive sleep apnea and intermittent prostate problems he is unable to clarify. He presents feeling 2 days of weakness dizziness intermitte nt nausea prompting evaluation emergency room he is found to have sepsis, pyuria, pyelonephritis and acute on chronic renal failure. He started on IV fluids, empiric antibiotics and referred to the hospitalist for admission. He includes he feels much better from presentation to the emergency room. He denies previous episode of pyelonephritis. CT shows perinephric stranding but negative for abscess or hydronephrosis. Past Medical History Cardiac Medical History: Reports: Hyperlipidema, Hypertension, Other - Pulmonary fibrosis Denies: Coronary Artery Disease, Myocardial Infarction Pulmonary Medical History: Reports: Bronchitis, Chronic Obstructive Pulmonary Disease (COPD), Pneumonia, Sleep Apnea Neurological Medical History: Reports: Migraine Denies: Seizures Endocrine Medical History: Denies: Diabetes Mellitus Type 1, Diabetes Mellitus Type 2, Hyperthyroidism, Hypothyroidism GI Medical History: Reports: Hepatitis - Hepatitis C Denies: Cirrhosis, Crohn's Disease, Ulcerative Colitis Musculoskeltal Medical History: Reports: Arthritis, Fibromyalgia Skin Medical History: Denies: Eczema, Psoriasis Psychiatric Medical History: Reports: Depression Hematology: Denies: Anemia Past Surgical History Past Surgical History: Reports: Herniorrhaphy, Orthopedic Surgery - right shoulder, left knee, Other - Sinus surgery Social History Information Source: Patient, [facility] Records Lives with: Spouse/Significant other Smoking Status: Former Smoker Frequency of Alcohol Use: Rare Hx Recreational Drug Use: No Drugs: None Hx Prescription Drug Abuse: Yes - Was treated for chronic pain 2017. Compliance issues. - Advance Directive Resuscitation Status: Full Code Family History Family History: Arthritis - Rheumatoid arthritis, CAD, CVA - Cerebral hemorrhage, Malignancy - Bladder cancer, Other - Rheumatic fever Parental Family History Reviewed: Yes Children Family History Reviewed: Yes Sibling(s) Family History Reviewed.: Yes Medication/Allergy Home Medications: Escitalopram Oxalate [Lexapro 10 mg Tablet] 10 mg PO DAILY 02/10/19 Tamsulosin HCl [Flomax 0.4 mg Cap.sr] 0.4 mg PO DAILY 02/10/19 Aspirin [Ecotrin 81 mg EC Tablet] 81 mg PO DAILY 30 Days #30 tabec 02/13/19 Losartan Potassium [Cozaar 50 mg Tablet] 100 mg PO DAILY 30 Days #30 tablet 02/13/19 Verapamil HCl [Calan Sr 240 mg Tablet.sa] 240 mg PO DAILY 30 Days #30 tablet.sa 02/13/19 Gabapentin [Neurontin] 800 mg PO TIDP PRN 06/03/19 Hydrochlorothiazide [Hydrodiuril 25 mg Tablet] 25 mg PO DAILY 06/03/19 Tramadol HCl [Ultram] 50 mg PO Q8HP PRN 06/03/19 Acetaminophen [Tylenol 325 mg Tablet] 650 mg PO Q4HP PRN tablet 06/06/19 Amox Tr/Potassium Clavulanate [Augmentin 875-125 mg Tablet] 1 tab PO BID #20 tablet 06/06/19 Aspirin [Ecotrin 81 mg EC Tablet] 81 mg PO DAILY tabec 06/06/19 Butalb/Acetaminophen/Caffeine [Fioricet (50-325-40 mg) Tablet] 1 tab PO Q6HP PRN #12 each 06/06/19 Escitalopram Oxalate [Lexapro 10 mg Tablet] 10 mg PO DAILY tablet 06/06/19 Famotidine [Pepcid 20 mg Tablet] 20 mg PO Q12 #60 tablet 06/06/19 Fluticasone Propionate [Flonase Nasal [place] 50 Mcg/[place] 16 gm] 1 spray NASL DAILY #1 spray.pump 06/06/19 Guaifenesin [Mucinex Sr 600 mg Tablet.sa] 600 mg PO Q12 #14 tablet.sa 06/06/19 Losartan Potassium [Cozaar 50 mg Tablet] 100 mg PO DAILY tablet 06/06/19 Prednisone [Deltasone] 60 mg PO DAILY #15 tablet 06/06/19 Tamsulosin HCl [Flomax 0.4 mg Cap.sr] 0.4 mg PO PCSUPPER cap.sr.24h 06/06/19 Verapamil HCl [Calan Sr 240 mg Tablet.sa] 240 mg PO DAILY tablet.sa 06/06/19 Allergies/Adverse Reactions: lisinopril [Lisinopril] Allergy (Verified 10/09/19 16:52) moxifloxacin HCl [From Avelox] Allergy (Verified 10/09/19 16:52) Review of Systems Constitutional: ABSENT: chills, fever(s), headache(s), weight gain, weight loss Eyes: ABSENT: visual disturbances Ears: ABSENT: hearing changes Cardiovascular: ABSENT: chest pain, dyspnea on exertion, edema, orthropnea, palpitations Respiratory: ABSENT: cough, hemoptysis Gastrointestinal: ABSENT: abdominal pain, constipation, diarrhea, hematemesis, hematochezia, nausea, vomiting Genitourinary: ABSENT: dysuria, hematuria Musculoskeletal: ABSENT: joint swelling Integumentary: ABSENT: rash, wounds Neurological: ABSENT: abnormal gait, abnormal speech, confusion, dizziness, focal weakness, syncope Psychiatric: ABSENT: anxiety, depression, homidical ideation, suicidal ideation Endocrine: ABSENT: cold intolerance, heat intolerance, polydipsia, polyuria Hematologic/Lymphatic: ABSENT: easy bleeding, easy bruising Physical Exam Vital Signs: Temp Pulse Resp BP Pulse Ox 98.6 F 133 H 11 L 125/60 100 10/09/19 22:24 10/09/19 16:43 10/10/19 04:39 10/10/19 04:39 10/10/19 04:39 Intake & Output 10/08/19 10/09/19 10/10/19 11:59 11:59 11:59 Intake Total 2306 Balance 2306 Weight 88.6 kg General appearance: PRESENT: cooperative, mild distress, well-developed, well- nourished Head exam: PRESENT: atraumatic, normocephalic Eye exam: PRESENT: conjunctiva pink, EOMI, PERRLA. ABSENT: scleral icterus Ear exam: PRESENT: normal external ear exam Mouth exam: PRESENT: dry mucosa, tongue midline. ABSENT: moist Neck exam: ABSENT: carotid bruit, JVD, lymphadenopathy, thyromegaly Respiratory exam: PRESENT: accessory muscle use, prolonged expiratory phas, symmetrical, tachypnea. ABSENT: rhonchi, stridor Cardiovascular exam: PRESENT: RRR. ABSENT: diastolic murmur, rubs, systolic murmur Pulses: PRESENT: normal dorsalis pedis pul Vascular exam: PRESENT: normal capillary refill GI/Abdominal exam: PRESENT: normal bowel sounds, soft. ABSENT: distended, guarding, mass, organolmegaly, rebound, tenderness Rectal exam: PRESENT: deferred Extremities exam: PRESENT: full ROM. ABSENT: calf tenderness, clubbing, pedal edema Neurological exam: PRESENT: alert, awake, oriented to person, oriented to place, oriented to time, oriented to situation, CN II-XII grossly intact. ABSENT: motor sensory deficit Psychiatric exam: PRESENT: appropriate affect, normal mood. ABSENT: homicidal ideation, suicidal ideation Skin exam: PRESENT: dry, intact, warm. ABSENT: cyanosis, rash Results Laboratory Results: 10/09/19 17:08 10/09/19 23:49 10/09/19 10/09/19 10/09/19 17:08 17:08 19:29 WBC 15.6 H RBC 4.42 Hgb 13.4 L Hct 39.9 MCV 90 MCH 30.3 MCHC 33.6 RDW 14.9 H Plt Count 282 Seg Neutrophils % Not Reportable Carbonic Acid HCO3/H2CO3 Ratio ABG pH ABG pCO2 ABG pO2 ABG HCO3 ABG O2 Saturation ABG Base Excess FiO2 Sodium 137.0 Potassium 4.7 Chloride 96 L Carbon Dioxide 24 Anion Gap 17 BUN 52 H Creatinine 3.47 H Est GFR ( Amer) 21 L Glucose 180 H Lactic Acid 2.3 H Calcium 9.7 Total Bilirubin 1.2 AST 37 Alkaline Phosphatase 102 Total Protein 7.7 Albumin 4.2 Lipase 28.7 Urine Color Urine Appearance Urine pH Ur Specific [place] Urine Protein Urine Glucose (UA) Urine Ketones Urine Blood Urine RBC (Auto) 10/09/19 10/09/19 10/09/19 20:16 20:16 20:30 WBC RBC Hgb Hct MCV MCH MCHC RDW Plt Count Seg Neutrophils % Carbonic Acid 1.08 HCO3/H2CO3 Ratio 21:1 ABG pH 7.44 ABG pCO2 35.9 ABG pO2 63.6 L ABG HCO3 23.6 ABG O2 Saturation 93.1 L ABG Base Excess -0.1 FiO2 ROOM AIR Sodium 133.0 L Potassium 4.4 Chloride 95 L Carbon Dioxide 22 Anion Gap 16 BUN 55 H Creatinine 3.68 H Est GFR ( Amer) 20 L Glucose 125 H Lactic Acid Calcium 9.5 Total Bilirubin AST Alkaline Phosphatase Total Protein Albumin Lipase Urine Color SUZE Urine Appearance CLOUDY Urine pH 5.0 Ur Specific [place] 1.019 Urine Protein 100 H Urine Glucose (UA) NEGATIVE Urine Ketones NEGATIVE Urine Blood MODERATE H Urine RBC (Auto) 7 10/09/19 10/09/19 21:08 23:49 WBC RBC Hgb Hct MCV MCH MCHC RDW Plt Count Seg Neutrophils % Carbonic Acid HCO3/H2CO3 Ratio ABG pH ABG pCO2 ABG pO2 ABG HCO3 ABG O2 Saturation ABG Base Excess FiO2 Sodium 133.3 L Potassium 4.3 Chloride 97 L Carbon Dioxide 23 Anion Gap 13 BUN 57 H Creatinine 4.08 H Est GFR ( Amer) 17 L Glucose 116 H Lactic Acid 1.7 Calcium 9.1 Total Bilirubin AST Alkaline Phosphatase Total Protein Albumin Lipase Urine Color Urine Appearance Urine pH Ur Specific [place] Urine Protein Urine Glucose (UA) Urine Ketones Urine Blood Urine RBC (Auto) 10/09/19 10/09/19 10/09/19 17:08 17:08 20:30 Troponin I 0.031 0.032 NT-Pro-B Natriuret Pep 1810 H Impressions: Chest X-Ray 10/09/19 16:56 IMPRESSION: Similar pattern diffuse interstitial lung markings. No acute pulmonary findings. Chest CT 10/09/19 18:39 IMPRESSION: Findings of chronic fibrotic interstitial lung disease without a superimposed acute cardiopulmonary process. Abdomen/Pelvis CT 10/09/19 18:40 IMPRESSION: 1. Asymmetric left perinephric and periureteral stranding without hydronephrosis. Clinical correlation to exclude an ascending urinary tract infection is recommended. 2. Hepatic steatosis. 3. Colonic diverticulosis without diverticulitis. Assessment and Plan - Diagnosis (1) Pyelonephritis Is this a current diagnosis for this admission?: Yes Plan: Likely secondary to underlying BPH, some unclear urologic history. No hydronephrosis, no nephrolithiasis, no abscess, empiric antibiotics, IV fluid challenge, follow-up blood and urine culture (2) HILLARY (acute kidney injury) Is this a current diagnosis for this admission?: Yes Plan: Secondary to sepsis and #1, IV fluid challenge, avoid nephrotoxic meds and doses follow-up chemistry (3) COPD (chronic obstructive pulmonary disease) Qualifiers: COPD type: unspecified COPD Qualified Code(s): J44.9 - Chronic obstructive pulmonary disease, unspecified Is this a current diagnosis for this admission?: Yes Plan: Secondary #1, incentive spirometry, scheduled DuoNeb. - Time Time Spent with patient: 25-34 minutes - Inpatient Certification Medical Necessity: Need Close Monitoring Due to Risk of Patient Decompensation
[2019-10-10] MEDS ORDERED: DILTIAZEM HCL 90 MG TABLET ONE (06:02)
[2019-10-10 06:47] LABS: HEMATOCRIT 34.8 % (37.9-51.0); HEMOGLOBIN 11.8 g/dL (13.5-17.0); MEAN CORPUSCULAR HEMOGLOBIN 30.4 pg (27.0-33.4); MEAN CORPUSCULAR VOLUME 90 fl (80-97); PLATELET COUNT 208 10^3/uL (150-450); RED BLOOD COUNT 3.89 10^6/uL (4.35-5.55); RED CELL DISTRIBUTION WIDTH 14.9 % (11.5-14.0); WHITE BLOOD COUNT 9.1 10^3/uL (4.0-10.5)
[2019-10-10] MEDS: HEPARIN SOD (PORCINE) 5,000 UNIT/ML 1 ML VIAL SUBCUT SCH ×3 (06:59→21:46)
[2019-10-10] MEDS: ACETAMINOPHEN 325 MG TABLET PO PRN ×2 (07:06→18:43)
[2019-10-10 07:09] LABS: ABSOLUTE LYMPHOCYTES# (MANUAL) 0.3 10^3/uL (0.5-4.7); ABSOLUTE MONOCYTES # (MANUAL) 0.7 10^3/uL (0.1-1.4); BAND NEUTROPHILS % (MANUAL) 3 % (3-5); BASOPHILS % (MANUAL) 0 % (0-2); EOSINOPHILS % (MANUAL) 1 % (0-6); LYMPHOCYTES % (MANUAL) 3 % (13-45); MONOCYTES % (MANUAL) 8 % (3-13); PLATELET COMMENT ADEQUATE; POLYCHROMASIA SLIGHT; SEGMENTED NEUTROPHILS % (MAN) 85 % (42-78); TOTAL CELLS COUNTED 100
[2019-10-10] MEDS ORDERED: NORMAL SALINE 1000 ML 3,000 ML IV SCH (11:00)
--- NOTE | 2019-10-10 13:07 | PDOC PROGRESS REPORT ---
Subjective Progress Note for:: 10/10/19 Subjective:: The patient is a 74-year-old male with a past medical history of opiate dependent chronic pain, CHF, COPD, chronic bronchitis, JENAE, hypertension, hyperlipidemia, pulmonary fibrosis, arthritis, fibromyalgia, depression, and BPH who was admitted 10/09/2019 for sepsis secondary to pyelonephritis. The patient was seen on morning rounds while still in the emergency department. He is found resting in bed, comfortably, on supplemental oxygen via nasal cannula 2 L/min. He is not home O2 dependent. He does report that he is feeling better today; decreased shortness of breath, no further episodes of chest pain, vague generalized abdominal discomfort, without nausea, vomiting, or diarrhea. He does report chronic right knee pain. Otherwise, he denies fever, chills, palpitations, orthopnea, cough. He is noted to be diaphoretic and slightly tachypneic. He has no new questions or concerns at this time. No concerns per nursing. Reason For Visit: SEPSIS PYELONEPHRITIS ARF Physical Exam Vital Signs: Temp Pulse Resp BP Pulse Ox 99.2 F 133 H 21 H 112/62 100 10/10/19 07:05 10/09/19 16:43 10/10/19 11:00 10/10/19 10:03 10/10/19 11:00 Intake & Output 10/09/19 10/10/19 10/11/19 06:59 06:59 06:59 Intake Total 2306 Output Total 1050 Balance 1256 Weight 88.6 kg General appearance: PRESENT: no acute distress, cooperative, well-developed, well-nourished - Overweight Head exam: PRESENT: atraumatic, normocephalic Eye exam: PRESENT: conjunctiva pink, EOMI, PERRLA. ABSENT: scleral icterus Ear exam: PRESENT: normal external ear exam Mouth exam: PRESENT: moist, tongue midline Neck exam: ABSENT: carotid bruit, JVD, lymphadenopathy, thyromegaly Respiratory exam: PRESENT: clear to auscultation lob[place], prolonged expiratory phas, symmetrical, tachypnea, unlabored, other - Supplemental oxygen via nasal cannula. ABSENT: rales, rhonchi, wheezes Cardiovascular exam: PRESENT: RRR, +S1, +S2. ABSENT: diastolic murmur, rubs, systolic murmur Pulses: PRESENT: normal dorsalis pedis pul Vascular exam: PRESENT: normal capillary refill GI/Abdominal exam: PRESENT: normal bowel sounds, soft, tenderness - Generalized. ABSENT: distended, guarding, mass, organolmegaly, rebound Rectal exam: PRESENT: deferred Gentrourinary exam: PRESENT: indwelling catheter Extremities exam: PRESENT: full ROM. ABSENT: calf tenderness, clubbing, pedal edema Neurological exam: PRESENT: alert, awake, oriented to person, oriented to place, oriented to time, oriented to situation, CN II-XII grossly intact. ABSENT: motor sensory deficit Psychiatric exam: PRESENT: appropriate affect, normal mood. ABSENT: homicidal ideation, suicidal ideation Skin exam: PRESENT: dry, intact, warm, other - Diaphoretic. ABSENT: cyanosis, rash Results Laboratory Results: 10/10/19 06:32 10/09/19 23:49 10/09/19 10/09/19 10/09/19 17:08 17:08 19:29 WBC 15.6 H RBC 4.42 Hgb 13.4 L Hct 39.9 MCV 90 MCH 30.3 MCHC 33.6 RDW 14.9 H Plt Count 282 Seg Neutrophils % Not Reportable Carbonic Acid HCO3/H2CO3 Ratio ABG pH ABG pCO2 ABG pO2 ABG HCO3 ABG O2 Saturation ABG Base Excess FiO2 Sodium 137.0 Potassium 4.7 Chloride 96 L Carbon Dioxide 24 Anion Gap 17 BUN 52 H Creatinine 3.47 H Est GFR ( Amer) 21 L Glucose 180 H Lactic Acid 2.3 H Calcium 9.7 Total Bilirubin 1.2 AST 37 Alkaline Phosphatase 102 Total Protein 7.7 Albumin 4.2 Lipase 28.7 Urine Color Urine Appearance Urine pH Ur Specific [place] Urine Protein Urine Glucose (UA) Urine Ketones Urine Blood Urine RBC (Auto) 10/09/19 10/09/19 10/09/19 20:16 20:16 20:30 WBC RBC Hgb Hct MCV MCH MCHC RDW Plt Count Seg Neutrophils % Carbonic Acid 1.08 HCO3/H2CO3 Ratio 21:1 ABG pH 7.44 ABG pCO2 35.9 ABG pO2 63.6 L ABG HCO3 23.6 ABG O2 Saturation 93.1 L ABG Base Excess -0.1 FiO2 ROOM AIR Sodium 133.0 L Potassium 4.4 Chloride 95 L Carbon Dioxide 22 Anion Gap 16 BUN 55 H Creatinine 3.68 H Est GFR ( Amer) 20 L Glucose 125 H Lactic Acid Calcium 9.5 Total Bilirubin AST Alkaline Phosphatase Total Protein Albumin Lipase Urine Color SUZE Urine Appearance CLOUDY Urine pH 5.0 Ur Specific [place] 1.019 Urine Protein 100 H Urine Glucose (UA) NEGATIVE Urine Ketones NEGATIVE Urine Blood MODERATE H Urine RBC (Auto) 7 10/09/19 10/09/19 10/10/19 21:08 23:49 06:32 WBC 9.1 RBC 3.89 L Hgb 11.8 L Hct 34.8 L MCV 90 MCH 30.4 MCHC 34.0 RDW 14.9 H Plt Count 208 Seg Neutrophils % Not Reportable Carbonic Acid HCO3/H2CO3 Ratio ABG pH ABG pCO2 ABG pO2 ABG HCO3 ABG O2 Saturation ABG Base Excess FiO2 Sodium 133.3 L Potassium 4.3 Chloride 97 L Carbon Dioxide 23 Anion Gap 13 BUN 57 H Creatinine 4.08 H Est GFR ( Amer) 17 L Glucose 116 H Lactic Acid 1.7 Calcium 9.1 Total Bilirubin AST Alkaline Phosphatase Total Protein Albumin Lipase Urine Color Urine Appearance Urine pH Ur Specific [place] Urine Protein Urine Glucose (UA) Urine Ketones Urine Blood Urine RBC (Auto) 10/09/19 19:29 Blood Blood Culture (PCR) - Final Escherichia Coli 10/09/19 20:30 Blood Blood Culture (PCR) - Final Escherichia Coli 10/09/19 10/09/19 10/09/19 17:08 17:08 20:30 Troponin I 0.031 0.032 NT-Pro-B Natriuret Pep 1810 H Impressions: Chest X-Ray 10/09/19 16:56 IMPRESSION: Similar pattern diffuse interstitial lung markings. No acute pulm onary findings. Chest CT 10/09/19 18:39 IMPRESSION: Findings of chronic fibrotic interstitial lung disease without a superimposed acute cardiopulmonary process. Abdomen/Pelvis CT 10/09/19 18:40 IMPRESSION: 1. Asymmetric left perinephric and periureteral stranding without hydronephrosis. Clinical correlation to exclude an ascending urinary tract infection is recommended. 2. Hepatic steatosis. 3. Colonic diverticulosis without diverticulitis. Assessment and Plan - Diagnosis (1) Sepsis Qualifiers: Sepsis type: Escherichia coli Sepsis acute organ dysfunction status: with acute organ dysfunction Severe sepsis acute organ dysfunction type: acute renal failure Severe sepsis shock status: without septic shock Is this a current diagnosis for this admission?: Yes Plan: Sepsis due to E. coli pyelonephritis, present on admission, evidenced by fever, tachycardia, tachypnea, hypoxia, leukocytosis, elevated d-dimer, acute on chronic kidney injury, and elevated lactic acid. Unfortunately, it does not appear that the patient received the IV fluid boluses by the as ordered by the capture manager at time of admission. Urine culture positive for E. coli. Blood cultures positive for E. coli. Patient is admitted to [facility] on continuous cardiac telemetry. We will continue maintenance IV fluids. Continue IV vancomycin and Rocephin until sensitivity reports are available, patient is afebrile x48 hours, with clinical improvement. Antiemetics and analgesics as needed. (2) Pyelonephritis Is this a current diagnosis for this admission?: Yes Plan: Likely secondary to underlying BPH, some unclear urologic history. No hydronephrosis, no nephrolithiasis, no abscess on CT imaging. Urine and blood cultures positive for E. coli. Continue vancomycin and ceftriaxone. Continue IV fluids. Antiemetics and analgesics as needed. (3) HILLARY (acute kidney injury) Is this a current diagnosis for this admission?: Yes Plan: Secondary to sepsis and pyelonephritis. Creatinine 4.08; baseline 1.2-1.5. Continue IV fluids. Avoid nephrotoxic medications as able; pharmacy to dose vancomycin. Daily chemistries. (4) Acute respiratory failure with hypoxia Is this a current diagnosis for this admission?: Yes Plan: Respiratory distress and elevated d-dimer likely secondary to sepsis. VQ scan pending to rule out pulmonary embolus. Supplemental oxygen as needed to maintain saturations greater than 89%. BiPAP as needed. As needed nebulizer treatments. Resume home dose Incruse Aggressive pulmonary toilet (5) Bacteremia Is this a current diagnosis for this admission?: Yes Plan: E. coli bacteremia. Continue IV vancomycin and ceftriaxone. (6) COPD (chronic obstructive pulmonary disease) Qualifiers: COPD type: unspecified COPD Qualified Code(s): J44.9 - Chronic obstructive pulmonary disease, unspecified Is this a current diagnosis for this admission?: Yes Plan: As above. (7) Chronic renal failure, stage 3 (moderate) Is this a current diagnosis for this admission?: Yes Plan: Evaluation management as above. - Time Time Spent with patient: 35 or more minutes Medications reviewed and adjusted accordingly: Yes
[2019-10-10] MEDS: OXYCODONE-ACETAMINOPHEN 5-325 MG TABLET PO PRN (13:09)
--- NOTE | 2019-10-10 13:12 | RADIOLOGY REPORT (SQ) ---
EXAM DESCRIPTION: NM LUNG VENT/PERF SCAN COMPLETED DATE/TIME: 10/10/2019 12:51 pm REASON FOR STUDY: elevated dimer, SOB COMPARISON: Chest films 02/09/2019, 06/02/2019, 10/09/2019 CT chest without contrast 10/09/2019 RADIONUCLIDE AND DOSE: 5.5 millicuries TC-99m MAA Intravenous 32.4 millicuries TC-99m DTPA Inhaled aerosol TECHNIQUE: Two views of the lungs acquired post ventilation of DTPA aerosol. Eight views of the lungs acquired following injection of MAA. LIMITATIONS: None. FINDINGS: VENTILATION: Symmetric and homogeneous distribution of DTPA aerosol during ventilatory pha se. No significant areas of photopenia. PERFUSION: Perfusion images with normal homogenous activity and no wedge-shaped or segmental defects. No ventilation-perfusion mismatches. OTHER: No other significant finding. IMPRESSION: NORMAL VENTILATION-PERFUSION LUNG SCAN. NEGATIVE FOR PULMONARY EMBOLI. TECHNICAL DOCUMENTATION: JOB ID: [id number] [employer]- All Rights Reserved Reading location - IP/workstation name: [email or web address]
[2019-10-10] MEDS: VENLAFAXINE HCL 75 MG CAP.SR.24H PO SCH ×2 (13:15→21:45)
[2019-10-10] MEDS: CEFTRIAXONE 1 GM/D5W RTU 1 GM/50 ML RTUPB IV SCH (21:46)
[2019-10-11] MEDS: OXYCODONE-ACETAMINOPHEN 5-325 MG TABLET PO PRN ×2 (04:36→18:29)
[2019-10-11] MEDS: DILTIAZEM HCL 90 MG TABLET PO SCH ×4 (05:33→23:54)
[2019-10-11] MEDS: HEPARIN SOD (PORCINE) 5,000 UNIT/ML 1 ML VIAL SUBCUT SCH ×3 (05:34→21:01)
[2019-10-11] MEDS: ACETAMINOPHEN 325 MG TABLET PO PRN ×2 (05:41→19:55)
[2019-10-11 05:55] LABS: HEMATOCRIT 32.5 % (37.9-51.0); HEMOGLOBIN 11.2 g/dL (13.5-17.0); MEAN CORPUSCULAR HEMOGLOBIN 30.7 pg (27.0-33.4); MEAN CORPUSCULAR HGB CONC 34.4 g/dL (32.0-36.0); MEAN CORPUSCULAR VOLUME 89 fl (80-97); PLATELET COUNT 198 10^3/uL (150-450); RED BLOOD COUNT 3.63 10^6/uL (4.35-5.55); WHITE BLOOD COUNT 7.2 10^3/uL (4.0-10.5)
[2019-10-11 06:12] LABS: ANION GAP 11 (5-19); BLOOD UREA NITROGEN 60 mg/dL (7-20); CALCIUM 8.7 mg/dL (8.4-10.2); CARBON DIOXIDE 23 mmol/L (22-30); CHLORIDE 101 mmol/L (98-107); GLUCOSE 98 mg/dL (75-110)
[2019-10-11] MEDS ORDERED: (PENDING PHARMACY ID) (Tiotropium Bromide [Spiriva Handihaler 5 Cap/Kit (18 Mcg/Cap)] 1 CA IH SCH (10:00)
[2019-10-11] MEDS: VENLAFAXINE HCL 75 MG CAP.SR.24H PO SCH ×2 (10:01→21:01)
[2019-10-11] MEDS: UMECLIDINIUM BROMIDE 62.5 MCG/DOSE IH SCH (10:04)
--- NOTE | 2019-10-11 12:14 | PDOC PROGRESS REPORT ---
Subjective Progress Note for:: 10/11/19 Subjective:: The patient is a 74-year-old male with a past medical history of opiate dependent chronic pain, CHF, COPD, chronic bronchitis, JENAE, hypertension, hyperlipidemia, pulmonary fibrosis, arthritis, fibromyalgia, depression, and BPH who was admitted 10/09/2019 for sepsis secondary to pyelonephritis. The patient was seen on morning rounds with his present. He is found sitting up to the recliner, comfortably, on supplemental oxygen via nasal cannula 2 L/min. He is not home O2 dependent. He does report that he is feeling better today. He dose report vague generalized abdominal discomfort, without nausea, vomiting, or diarrhea. Otherwise, he denies fever, chills, chest pain, palpitations, dyspnea, orthopnea, cough. He has no new questions or concerns at this time. No concerns per nursing. Reason For Visit: SEPSIS PYELONEPHRITIS ARF Physical Exam Vital Signs: Temp Pulse Resp BP Pulse Ox 97.4 F 79 17 102/58 L 98 10/11/19 08:31 10/11/19 08:31 10/11/19 08:31 10/11/19 08:31 10/11/19 08:31 Intake & Output 10/10/19 10/11/19 10/12/19 06:59 06:59 06:59 Intake Total 2306 3071 Output Total 1050 1050 Balance 1256 2021 Weight 88.6 kg 97 kg General appearance: PRESENT: no acute distress, cooperative, obese, well- developed, well-nourished Head exam: PRESENT: atraumatic, normocephalic Eye exam: PRESENT: conjunctiva pink, EOMI, PERRLA. ABSENT: scleral icterus Ear exam: PRESENT: normal external ear exam Mouth exam: PRESENT: moist, tongue midline Respiratory exam: PRESENT: clear to auscultation lobito, symmetrical, unlabored. ABSENT: rales, rhonchi, wheezes Cardiovascular exam: PRESENT: RRR, +S1, +S2. ABSENT: diastolic murmur, rubs, systolic murmur Pulses: PRESENT: normal dorsalis pedis pul Vascular exam: PRESENT: normal capillary refill GI/Abdominal exam: PRESENT: normal bowel sounds, soft, tenderness. ABSENT: distended, guarding, mass, organolmegaly, rebound Rectal exam: PRESENT: deferred Extremities exam: PRESENT: full ROM. ABSENT: calf tenderness, clubbing, pedal edema Neurological exam: PRESENT: alert, awake, oriented to person, oriented to place, oriented to time, oriented to situation, CN II-XII grossly intact. ABSENT: motor sensory deficit Psychiatric exam: PRESENT: appropriate affect, normal mood. ABSENT: homicidal ideation, suicidal ideation Skin exam: PRESENT: dry, intact, warm. ABSENT: cyanosis, rash Results Laboratory Results: 10/11/19 05:45 10/11/19 05:45 10/11/19 10/11/19 05:45 05:45 WBC 7.2 RBC 3.63 L Hgb 11.2 L Hct 32.5 L MCV 89 MCH 30.7 MCHC 34.4 RDW 15.0 H Plt Count 198 Sodium 134.8 L Potassium 4.0 Chloride 101 Carbon Dioxide 23 Anion Gap 11 BUN 60 H Creatinine 3.60 H Est GFR ( Amer) 20 L Glucose 98 Calcium 8.7 10/09/19 20:16 Catheterized Urine Urine Culture - Final Escherichia Coli 10/09/19 20:30 Blood Blood Culture (PCR) - Final Escherichia Coli 10/09/19 19:29 Blood Blood Culture (PCR) - Final Escherichia Coli 10/09/19 10/09/19 10/09/19 17:08 17:08 20:30 Troponin I 0.031 0.032 NT-Pro-B Natriuret Pep 1810 H Impressions: Chest X-Ray 10/09/19 16:56 IMPRESSION: Similar pattern diffuse interstitial lung markings. No acute pulmonary findings. Chest CT 10/09/19 18:39 IMPRESSION: Findings of chronic fibrotic interstitial lung disease without a superimposed acute cardiopulmonary process. Abdomen/Pelvis CT 10/09/19 18:40 IMPRESSION: 1. Asymmetric left perinephric and periureteral stranding without hydronephrosis. Clinical correlation to exclude an ascending urinary tract infection is recommended. 2. Hepatic steatosis. 3. Colonic diverticulosis without diverticulitis. Lung Scan-VQ MS 10/09/19 21:25 IMPRESSION: NORMAL VENTILATION-PERFUSION LUNG SCAN. NEGATIVE FOR PULMONARY EMBOLI. Assessment and Plan - Diagnosis (1) Sepsis Qualifiers: Sepsis type: Escherichia coli Sepsis acute organ dysfunction status: with acute organ dysfunction Severe sepsis acute organ dysfunction type: acute renal failure Severe sepsis shock status: without septic shock Is this a current diagnosis for this admission?: Yes Plan: Improved; leukocytosis has resolved, afebrile x24 hours, blood pressures are improved, tachycardia and tachypnea improved.. Sepsis due to E. coli pyelonephritis, present on admission, evidenced by fever, tachycardia, tachypnea, hypoxia, leukocytosis, elevated d-dimer, acute on chronic kidney injury, and elevated lactic acid. Unfortunately, it does not appear that the patient received the IV fluid boluses by the as ordered by the dinkey locomotive engineer at time of admission. Urine culture positive for E. coli. Blood cultures positive for E. coli. Patient is admitted to [facility] on continuous cardiac telemetry. We will continue maintenance IV fluids. Continue IV vancomycin and Rocephin until sensitivity reports are available, patient is afebrile x48 hours, with clinical improvement. We will plan on discontinuing vancomycin tomorrow. Antiemetics and analgesics as needed. (2) Pyelonephritis Is this a current diagnosis for this admission?: Yes Plan: Likely secondary to underlying BPH, some unclear urologic history. No hydronephrosis, no nephrolithiasis, no abscess on CT imaging. Urine and blood cultures positive for E. coli. Continue vancomycin and ceftriaxone. Continue IV fluids. Antiemetics and analgesics as needed. (3) HILLARY (acute kidney injury) Is this a current diagnosis for this admission?: Yes Plan: Secondary to sepsis and pyelonephritis. Creatinine 4.08-> 3.6; baseline 1.2-1.5. Continue IV fluids. Avoid nephrotoxic medications as able; pharmacy to dose vancomycin. Daily chemistries. (4) Acute respiratory failure with hypoxia Is this a current diagnosis for this admission?: Yes Plan: Respiratory distress and elevated d-dimer likely secondary to sepsis. VQ scan pending to rule out pulmonary embolus. Supplemental oxygen as needed to maintain saturations greater than 89%. BiPAP as needed. As needed nebulizer treatments. Resume home dose Incruse Aggressive pulmonary toilet (5) Bacteremia Is this a current diagnosis for this admission?: Yes Plan: E. coli bacteremia. Repeat blood cultures pending. Continue IV vancomycin and ceftriaxone. (6) COPD (chronic obstructive pulmonary disease) Qualifiers: COPD type: unspecified COPD Qualified Code(s): J44.9 - Chronic obstructive pulmonary disease, unspecified Is this a current diagnosis for this admission?: Yes Plan: As above. (7) Chronic renal failure, stage 3 (moderate) Is this a current diagnosis for this admission?: Yes Plan: Evaluation management as above. - Time Time Spent with patient: 25-34 minutes Medications reviewed and adjusted accordingly: Yes Anticipated discharge: Home
[2019-10-11] MEDS: LOSARTAN POTASSIUM 50 MG TABLET PO SCH (13:44)
[2019-10-11] MEDS: CEFTRIAXONE 1 GM/D5W RTU 1 GM/50 ML RTUPB IV SCH (21:02)
[2019-10-12] MEDS: DILTIAZEM HCL 90 MG TABLET PO SCH ×4 (05:27→23:44)
[2019-10-12] MEDS: HEPARIN SOD (PORCINE) 5,000 UNIT/ML 1 ML VIAL SUBCUT SCH (05:27)
[2019-10-12 05:46] LABS: HEMATOCRIT 33.9 % (37.9-51.0); HEMOGLOBIN 11.8 g/dL (13.5-17.0); MEAN CORPUSCULAR HEMOGLOBIN 30.9 pg (27.0-33.4); MEAN CORPUSCULAR HGB CONC 34.6 g/dL (32.0-36.0); MEAN CORPUSCULAR VOLUME 89 fl (80-97); PLATELET COUNT 216 10^3/uL (150-450); RED BLOOD COUNT 3.81 10^6/uL (4.35-5.55); RED CELL DISTRIBUTION WIDTH 15.4 % (11.5-14.0); WHITE BLOOD COUNT 8.6 10^3/uL (4.0-10.5)
[2019-10-12 06:13] LABS: ANION GAP 15 (5-19); BLOOD UREA NITROGEN 52 mg/dL (7-20); CALCIUM 9.5 mg/dL (8.4-10.2); CARBON DIOXIDE 20 mmol/L (22-30); CHLORIDE 103 mmol/L (98-107); GLUCOSE 138 mg/dL (75-110); POTASSIUM 4.1 mmol/L (3.6-5.0)
[2019-10-12] MEDS: OXYCODONE-ACETAMINOPHEN 5-325 MG TABLET PO PRN ×2 (06:25→20:07)
[2019-10-12] MEDS ORDERED: MORPHINE SULFATE 10 MG/ML INJ IV ONE (06:55)
[2019-10-12] MEDS ORDERED: MORPHINE SULFATE 10 MG/ML INJ ONE (06:59)
[2019-10-12] MEDS ORDERED: NITROGLYCERIN 0.4 MG/TAB 25 TAB/BOTTLE ONE (07:59)
[2019-10-12 09:23] LABS: CREATINE KINASE MB 1.77 ng/mL (<4.55); TROPONIN I 0.033 ng/mL
--- NOTE | 2019-10-12 09:28 | EKG REPORT ---
SEVERITY:- ABNORMAL ECG - SINUS TACHYCARDIA FIRST DEGREE AV BLOCK PROBABLE LEFT ATRIAL ABNORMALITY RIGHT BUNDLE BRANCH BLOCK : Confirmed by: Stacie Selby 12-Oct-2019 09:27:26
[2019-10-12] MEDS ORDERED: VANCOMYCIN HCL 1,000 MG in DEXTROSE 5%-WATER 250 ML IV SCH (10:00)
--- NOTE | 2019-10-12 11:08 | PDOC PROGRESS REPORT ---
Subjective Progress Note for:: 10/12/19 Subjective:: The patient is a 74-year-old male with a past medical history of opiate dependent chronic pain, CHF, COPD, chronic bronchitis, JENAE, hypertension, hyperlipidemia, pulmonary fibrosis, arthritis, fibromyalgia, depression, and BPH who was admitted 10/09/2019 for sepsis secondary to pyelonephritis. The patient was seen on morning rounds. Was called to the bedside by nursing due to patient report of severe chest pain. He is found sitting upright, tripod position, diaphoretic, and in clear discomfort. He is on supplemental oxygen; nursing has increased to 3 L/min due to SPO2 90%. Patient reports sudden onset of left sternal border chest pain radiating directly to his back, described as pressure, unrelieved by position changes and IV morphine. He was provided a sublingual nitroglycerin tab with near immediate relief of his symptoms. The patient reports that he had a similar episode while in the emergency department; at that time, he did receive multiple interventions (oxygen, Lasix, morphine) with gradual relief of his symptoms. Patient denies history of CAD or TX. He does report a negative stress test greater than a year ago. He does not recall ever having had a cardiac cath. He otherwise denies fever, chills, abdominal pain, nausea vomiting and diarrhea. He does request to have his Euceda catheter removed today. He has no other questions or concerns at this time. No concerns per nursing. Reason For Visit: SEPSIS PYELONEPHRITIS ARF Physical Exam Vital Signs: Temp Pulse Resp BP Pulse Ox 98.6 F 91 18 116/45 L 90 L 10/12/19 08:38 10/12/19 08:38 10/12/19 08:38 10/12/19 08:38 10/12/19 08:38 Intake & Output 10/11/19 10/12/19 10/13/19 06:59 06:59 06:59 Intake Total 3071 740 Output Total 1050 5195 Balance 2020 Weight 97 kg 94.9 kg General appearance: PRESENT: cooperative, mild distress, obese, well-developed, well-nourished Head exam: PRESENT: atraumatic, normocephalic Eye exam: PRESENT: conjunctiva pink, EOMI, PERRLA. ABSENT: scleral icterus Ear exam: PRESENT: normal external ear exam Mouth exam: PRESENT: moist, tongue midline Neck exam: ABSENT: carotid bruit, JVD, lymphadenopathy, thyromegaly Respiratory exam: PRESENT: clear to auscultation lobito, symmetrical, tachypnea, unlabored, other - supplemental oxygen via NC. ABSENT: rales, rhonchi, wheezes Cardiovascular exam: PRESENT: RRR, +S1, +S2. ABSENT: diastolic murmur, rubs, systolic murmur Pulses: PRESENT: normal dorsalis pedis pul Vascular exam: PRESENT: normal capillary refill GI/Abdominal exam: PRESENT: normal bowel sounds, soft. ABSENT: distended, guarding, mass, organolmegaly, rebound, tenderness Rectal exam: PRESENT: deferred Gentrourinary exam: PRESENT: indwelling catheter Extremities exam: PRESENT: full ROM. ABSENT: calf tenderness, clubbing, pedal edema Neurological exam: PRESENT: alert, awake, oriented to person, oriented to place, oriented to time, oriented to situation, CN II-XII grossly intact. ABSENT: motor sensory deficit Psychiatric exam: PRESENT: appropriate affect, normal mood. ABSENT: homicidal ideation, suicidal ideation Skin exam: PRESENT: intact, warm, other - Diaphoretic. ABSENT: cyanosis, rash Results Laboratory Results: 10/12/19 05:32 10/12/19 05:32 10/12/19 10/12/19 05:32 05:32 WBC 8.6 RBC 3.81 L Hgb 11.8 L Hct 33.9 L MCV 89 MCH 30.9 MCHC 34.6 RDW 15.4 H Plt Count 216 Sodium 137.7 Potassium 4.1 Chloride 103 Carbon Dioxide 20 L Anion Gap 15 BUN 52 H Creatinine 2.35 H Est GFR ( Amer) 33 L Glucose 138 H Calcium 9.5 10/09/19 20:16 Catheterized Urine Urine Culture - Final Escherichia Coli 10/09/19 20:30 Blood Blood Culture (PCR) - Final Escherichia Coli 10/09/19 19:29 Blood Blood Culture (PCR) - Final Escherichia Coli 10/09/19 10/09/19 10/09/19 17:08 17:08 20:30 Creatine Kinase CK-MB (CK-2) Troponin I 0.031 0.032 NT-Pro-B Natriuret Pep 1810 H 10/12/19 10/12/19 08:21 08:21 Creatine Kinase 42 L CK-MB (CK-2) 1.77 Troponin I 0.033 NT-Pro-B Natriuret Pep Impressions: Chest X-Ray 10/09/19 16:56 IMPRESSION: Similar pattern diffuse interstitial lung markings. No acute pulmonary findings. Chest CT 10/09/19 18:39 IMPRESSION: Findings of chronic fibrotic interstitial lung disease without a superimposed acute cardiopulmonary process. Abdomen/Pelvis CT 10/09/19 18:40 IMPRESSION: 1. Asymmetric left perinephric and periureteral stranding without hydronephrosis. Clinical correlation to exclude an ascending urinary tract infection is recommended. 2. Hepatic steatosis. 3. Colonic diverticulosis without diverticulitis. Lung Scan-VQ NM 10/09/19 21:25 IMPRESSION: NORMAL VENTILATION-PERFUSION LUNG SCAN. NEGATIVE FOR PULMONARY EMBOLI. Assessment and Plan - Diagnosis (1) Chest pain Qualifiers: Chest pain type: unspecified Qualified Code(s): R07.9 - Chest pain, unspecified Is this a current diagnosis for this admission?: Yes Plan: Patient reported sudden onset of left sternal border chest pain radiating directly to his back, described as pressure, unrelieved by position changes and IV morphine. He was provided a sublingual nitroglycerin tab with near immediate relief of his symptoms. The patient reports that he had a similar episode while in the emergency department; at that time, he did receive multiple interventions (oxygen, Lasix, morphine) with gradual relief of his symptoms. Patient denies history of CAD or TX. He does report a negative stress test greater than a year ago. He does not recall ever having had a cardiac cath. Echo (January 2019) LVEF 65%. mild diastolic dysfunction, mild pulmonary hypertension proBNP (10/09/19) 1810; wt up ~5 kg, improved urine output (HILLARY) EKG unchanged from previous Troponin 0.033; continue trending. CXR pending. Spoke with cardiology, Dr. Rabago, who will see the patient; appreciate his evaluation and assistance. (2) Sepsis Qualifiers: Sepsis type: Escherichia coli Sepsis acute organ dysfunction status: with acute organ dysfunction Severe sepsis acute organ dysfunction type: acute r enal failure Severe sepsis shock status: without septic shock Is this a current diagnosis for this admission?: Yes Plan: Resolved; leukocytosis has resolved, afebrile >48 hours, blood pressures are improved, tachycardia and tachypnea improved. Sepsis due to E. coli pyelonephritis, present on admission, evidenced by fever, tachycardia, tachypnea, hypoxia, leukocytosis, elevated d-dimer, acute on chronic kidney injury, and elevated lactic acid. Urine culture positive for E. coli. Blood cultures positive for E. coli. Patient is admitted to [facility] on continuous cardiac telemetry. We will continue maintenance IV fluids. He was empirically placed on IV vancomycin and Rocephin; discontinuing vancomycin today. Day #3 Antiemetics and analgesics as needed. (3) Pyelonephritis Is this a current diagnosis for this admission?: Yes Plan: Likely secondary to underlying BPH, some unclear urologic history. No hydronephrosis, no nephrolithiasis, no abscess on CT imaging. Urine and blood cultures positive for E. coli. Received 3 days vancomycin Continue ceftriaxone. Continue IV fluids. Antiemetics and analgesics as needed. (4) HILLARY (acute kidney injury) Is this a current diagnosis for this admission?: Yes Plan: Secondary to sepsis and pyelonephritis. Creatinine 4.08-> 3.6-> 2.35; baseline 1.2-1.5. Continue IV fluids. Avoid nephrotoxic medications as able Vancomycin discontinued today Daily chemistries. (5) Acute respiratory failure with hypoxia Is this a current diagnosis for this admission?: Yes Plan: Respiratory distress and elevated d-dimer likely secondary to sepsis. VQ scan negative for pulmonary embolus. Supplemental oxygen as needed to maintain saturations greater than 89%. BiPAP as needed. As needed nebulizer treatments. Resume home dose Incruse Aggressive pulmonary toilet (6) Bacteremia Is this a current diagnosis for this admission?: Yes Plan: E. coli bacteremia. Repeat blood cultures pending. Continue IV ceftriaxone. (7) COPD (chronic obstructive pulmonary disease) Qualifiers: COPD type: unspecified COPD Qualified Code(s): J44.9 - Chronic obstructive pulmonary disease, unspecified Is this a current diagnosis for this admission?: Yes Plan: As above. (8) Chronic renal failure, stage 3 (moderate) Is this a current diagnosis for this admission?: Yes Plan: Evaluation management as above. - Time Time Spent with patient: 35 or more minutes Medications reviewed and adjusted accordingly: Yes Anticipated discharge: Home
[2019-10-12] MEDS: NITROGLYCERIN 0.4 MG/TAB 25 TAB/BOTTLE SL PRN (11:22)
[2019-10-12] MEDS: NORMAL SALINE 1000 ML 1,000 ML IV PRN ×2 (11:53→20:08)
--- NOTE | 2019-10-12 11:55 | PDOC CONSULTATION ---
Consultation Consult Date: 10/12/19 Attending physician:: IHSAN KOENIG Provider Consulted: GABRIEL MULLINS Consult reason:: Chest pain History of Present Illness Admission Date/PCP: 10/09/19 22:59 RADNALL MURCIA PA-C Patient complains of: Chest pain History of Present Illness: LUTHER LIPSCOMB is a 74 year old male with a past medical history of pulmonary fibrosis, hypertension who came into the hospital with pyelonephritis while he was in the emergency department he complained of chest pain central chest pain no radiation associated with significant diaphoresis. This resolved and then happened again this morning with severe chest pain central tightness. Associated with some diaphoresis. Also with shortness of breath. No orthopnea. No PND. No nausea vomiting. No prior history of heart disease. Past Medical History Cardiac Medical History: Reports: Hyperlipidema, Hypertension, Other - Pulmonary fibrosis Denies: Coronary Artery Disease, Myocardial Infarction Pulmonary Medical History: Reports: Bronchitis, Chronic Obstructive Pulmonary Disease (COPD), Pneumonia, Sleep Apnea Neurological Medical History: Reports: Migraine Denies: Seizures Endocrine Medical History: Denies: Diabetes Mellitus Type 1, Diabetes Mellitus Type 2, Hyperthyroidism, Hypothyroidism GI Medical History: Reports: Hepatitis - Hepatitis C Denies: Cirrhosis, Crohn's Disease, Ulcerative Colitis Musculoskeltal Medical History: Reports: Arthritis, Fibromyalgia Skin Medical History: Denies: Eczema, Psoriasis Psychiatric Medical History: Reports: Depression Hematology: Denies: Anemia Past Surgical History Past Surgical History: Reports: Herniorrhaphy, Orthopedic Surgery - right shoulder, left knee, Other - Sinus surgery Social History Lives with: Spouse/Significant other Smoking Status: Former Smoker Cigarettes Packs Per Day: 1.5 Electronic Cigarette use?: No Number of Years Smokin Last Time Smoked: 09/22/2018 Frequency of Alcohol Use: Occasional Hx Recreational Drug Use: No Drugs: None Hx Prescription Drug Abuse: No - Advance Directive Resuscitation Status: Full Code Family History Family History: Arthritis - Rheumatoid arthritis, CAD, CVA - Cerebral hemorrhage, Malignancy - Bladder cancer, Other - Rheumatic fever Parental Family History Reviewed: Yes Children Family History Reviewed: Yes Sibling(s) Family History Reviewed.: Yes Medication/Allergy Home Medications: Losartan Potassium [Cozaar 50 mg Tablet] 100 mg PO DAILY 30 Days #30 tablet 02/13/19 Hydrochlorothiazide [Hydrodiuril 25 mg Tablet] 25 mg PO DAILY 06/03/19 Tramadol HCl [Ultram] 50 mg PO Q8HP PRN 06/03/19 Brimonidine Tartrate [Alphagan 0.2% Oph Soln 5 ml] 1 drop OU Q12 10/10/19 Celecoxib [Celebrex 200 mg Capsule] 200 mg PO Q12 10/10/19 Famotidine [Pepcid 20 mg Tablet] 20 mg PO Q12 10/10/19 Timolol Maleate [Timoptic 0.5% Oph Soln 5 ml] 1 drop OU Q12 10/10/19 Tiotropium Galt [Spiriva Handihaler 5 Cap/Kit (18 Mcg/Cap)] 1 cap IH DAILY 10/10/19 Venlafaxine HCl ER [Effexor Xr 75 mg Cap.sr] 75 mg PO Q12 10/10/19 Allergies/Adverse Reactions: lisinopril [Lisinopril] Allergy (Verified 10/09/19 16:52) moxifloxacin HCl [From Avelox] Allergy (Verified 10/09/19 16:52) Physical Exam Vital Signs: Temp Pulse Resp BP Pulse Ox 98.6 F 91 18 116/45 L 90 L 10/12/19 08:38 10/12/19 08:38 10/12/19 08:38 10/12/19 08:38 10/12/19 08:38 Intake & Output 10/11/19 10/12/19 10/13/19 06:59 06:59 06:59 Intake Total 3071 740 Output Total 1050 2475 Balance 2020 -1734 Weight 97 kg 94.9 kg Results Laboratory Results: 10/12/19 05:32 10/12/19 05:32 10/12/19 10/12/19 05:32 05:32 WBC 8.6 RBC 3.81 L Hgb 11.8 L Hct 33.9 L MCV 89 MCH 30.9 MCHC 34.6 RDW 15.4 H Plt Count 216 Sodium 137.7 Potassium 4.1 Chloride 103 Carbon Dioxide 20 L Anion Gap 15 BUN 52 H Creatinine 2.35 H Est GFR ( Amer) 33 L Glucose 138 H Calcium 9.5 10/09/19 20:16 Catheterized Urine Urine Culture - Final Escherichia Coli 10/09/19 20:30 Blood Blood Culture (PCR) - Final Escherichia Coli 10/09/19 19:29 Blood Blood Culture (PCR) - Final Escherichia Coli 10/09/19 10/09/19 10/09/19 17:08 17:08 20:30 Creatine Kinase CK-MB (CK-2) Troponin I 0.031 0.032 NT-Pro-B Natriuret Pep 1810 H 10/12/19 10/12/19 08:21 08:21 Creatine Kinase 42 L CK-MB (CK-2) 1.77 Troponin I 0.033 NT-Pro-B Natriuret Pep Impressions: Chest CT 10/09/19 18:39 IMPRESSION: Findings of chronic fibrotic interstitial lung disease without a superimposed acute cardiopulmonary process. Abdomen/Pelvis CT 10/09/19 18:40 IMPRESSION: 1. Asymmetric left perinephric and periureteral stranding without hydronephrosis. Clinical correlation to exclude an ascending urinary tract infection is recommended. 2. Hepatic steatosis. 3. Colonic diverticulosis without diverticulitis. Lung Scan-VQ NM 10/09/19 21:25 IMPRESSION: NORMAL VENTILATION-PERFUSION LUNG SCAN. NEGATIVE FOR PULMONARY EMBOLI. Assessment & Plan - Notes Notes: Patient does give a good story for chest pain. This is most likely due to coronary artery disease. At this time with his confusion and underlying pyelonephritis I would hold off on any work-up. He would not be a good candidate for stress testing. He will most likely need further work-up which can be performed as an outpatient. At this time we could start him on Imdur. I will also start him on other medical therapy including aspirin.
--- NOTE | 2019-10-12 11:55 | RADIOLOGY REPORT (SQ) ---
EXAM DESCRIPTION: CHEST SINGLE VIEW COMPLETED DATE/TIME: 10/12/2019 11:47 am REASON FOR STUDY: chest pain COMPARISON: 06/02/2019, 10/09/2019 EXAM PARAMETERS: NUMBER OF VIEWS: One view. TECHNIQUE: Single frontal radiographic view of the chest acquired. RADIATION DOSE: NA LIMITATIONS: None. FINDINGS: LUNGS AND PLEURA: Generalize interstitial changes. There is increased prominence in the r ight upper lobe and at the left base suggested acute superimposed opacities. MEDIASTINUM AND HILAR STRUCTURES: No masses. Contour normal. HEART AND VASCULAR STRUCTURES: Heart normal in size. Normal vasculature. BONES: No acute findings. HARDWARE: None in the chest. OTHER: No other significant finding. IMPRESSION: Right upper lobe and left lower lobe pneumonia superimposed on interstitial lung disease . TECHNICAL DOCUMENTATION: JOB ID: [id number] [employer]- All Rights Reserved Reading location - IP/workstation name: [email or web address]
[2019-10-12] MEDS: VENLAFAXINE HCL 75 MG CAP.SR.24H PO SCH ×2 (11:58→22:00)
[2019-10-12] MEDS: UMECLIDINIUM BROMIDE 62.5 MCG/DOSE IH SCH (11:58)
[2019-10-12] MEDS: LOSARTAN POTASSIUM 50 MG TABLET PO SCH (11:58)
[2019-10-12 12:02] LABS: ALBUMIN 3.4 g/dL (3.5-5.0); ALKALINE PHOSPHATASE 128 U/L (38-126); ASPARTATE AMINO TRANSFERASE 46 U/L (17-59); BILIRUBIN,DIRECT 0.5 mg/dL (0.0-0.4); BILIRUBIN,TOTAL 0.6 mg/dL (0.2-1.3); TOTAL PROTEIN 6.6 g/dL (6.3-8.2)
[2019-10-12 12:05] LABS: ARTERIAL BLOOD BASE EXCESS -2.3 mmol/L; ARTERIAL BLOOD FIO2 3L; ARTERIAL BLOOD H2CO3 1.49 mmol/L (1.05-1.35); ARTERIAL BLOOD HCO3 24.5 mmol/L (20-24); ARTERIAL BLOOD O2 SATURATION 96.4 % (94-98); ARTERIAL BLOOD PCO2 49.4 mmHg (35-45); ARTERIAL BLOOD PH 7.31 (7.35-7.45); ARTERIAL BLOOD PO2 93.2 mmHg (80-100)
[2019-10-12] MEDS: ENOXAPARIN SODIUM INJ 100 MG/1 ML DISP.SYRIN SUBCUT SCH ×2 (12:29→22:00)
[2019-10-12 15:46] LABS: CREATINE KINASE MB 1.81 ng/mL (<4.55); TROPONIN I 0.022 ng/mL
[2019-10-12] MEDS ORDERED: AZITHROMYCIN INJ 500 MG VIAL IV ONE (19:57)
[2019-10-12] MEDS ORDERED: AZITHROMYCIN 500 MG in DEXTROSE 5%-WATER 250 ML IV ONE (20:00)
[2019-10-12 21:22] LABS: CREATINE KINASE MB 1.86 ng/mL (<4.55); TROPONIN I 0.024 ng/mL
[2019-10-12] MEDS ORDERED: VANCOMYCIN HCL 1,250 MG in DEXTROSE 5%-WATER 250 ML IV SCH (22:00)
[2019-10-12] MEDS: CEFTRIAXONE 1 GM/D5W RTU 1 GM/50 ML RTUPB IV SCH (22:00)
[2019-10-13] MEDS: DILTIAZEM HCL 90 MG TABLET PO SCH ×3 (05:29→17:32)
[2019-10-13] MEDS: NORMAL SALINE 1000 ML 1,000 ML IV PRN ×3 (05:29→23:44)
[2019-10-13 06:33] LABS: ANION GAP 10 (5-19); BLOOD UREA NITROGEN 47 mg/dL (7-20); CALCIUM 9.1 mg/dL (8.4-10.2); CARBON DIOXIDE 25 mmol/L (22-30); CHLORIDE 102 mmol/L (98-107); GLUCOSE 115 mg/dL (75-110); POTASSIUM 3.9 mmol/L (3.6-5.0)
[2019-10-13] MEDS ORDERED: ALBUTEROL SULFATE 0.083% NEB 2.5 MG/3 ML AMPUL NEB PRN (08:45)
[2019-10-13] MEDS: OXYCODONE-ACETAMINOPHEN 5-325 MG TABLET PO PRN ×3 (08:52→21:20)
--- NOTE | 2019-10-13 09:20 | RADIOLOGY REPORT (SQ) ---
EXAM DESCRIPTION: ACUTE ABDOMEN SERIES COMPLETED DATE/TIME: 10/13/2019 8:37 am REASON FOR STUDY: abd pain COMPARISON: Plain radiograph 10/12/2019 NUMBER OF VIEWS: Three views. TECHNIQUE: Frontal chest, supine abdomen and upright/decubitus abdomen radiographic images acquired. LIMITATIONS: None. FINDINGS: CHEST: Stable appearance. Interstitial lung disease. FREE AIR: None. No abnormal gas collections. BOWEL GAS PATTERN: Scattered small bowel loops. Colonic gas and fecal material. CALCIFICATIONS: No suspicious calcifications. HARDWARE: None in the abdomen. SOFT TISSUES: No gross mass or suggestion of organomegaly. BONES: Degenerative changes in the spine. OTHER: No other significant finding. IMPRESSION: Nonspecific bowel gas pattern without evidence for obstruction. Interstitial lung disease. TECHNICAL DOCUMENTATION: JOB ID: [id number] [email or web address]- All Rights Reserved Reading location - IP/workstation name: [email or web address]
[2019-10-13] MEDS ORDERED: LEVOFLOXACIN 750 MG/D5W RTU 750 MG/150 ML RTUPB IV SCH (10:00)
[2019-10-13] MEDS ORDERED: CEFEPIME 2 GM/D5W RTU 2 GM/50 ML RTUPB IV SCH (10:00)
[2019-10-13] MEDS: AZTREONAM 1 GM in DEXTROSE 5%-WATER 50 ML IV SCH ×2 (10:08→17:30)
[2019-10-13] MEDS: VENLAFAXINE HCL 75 MG CAP.SR.24H PO SCH ×2 (10:08→21:19)
[2019-10-13] MEDS: LOSARTAN POTASSIUM 50 MG TABLET PO SCH (10:08)
[2019-10-13] MEDS: GUAIFENESIN 600 MG TABLET.SA PO SCH ×2 (10:08→21:19)
--- NOTE | 2019-10-13 10:09 | PDOC PROGRESS REPORT ---
Subjective Progress Note for:: 10/13/19 Subjective:: The patient is a 74-year-old male with a past medical history of opiate dependent chronic pain, CHF, COPD, chronic bronchitis, JENAE, hypertension, hyperlipidemia, pulmonary fibrosis, arthritis, fibromyalgia, depression, and BPH who was admitted 10/09/2019 for sepsis secondary to pyelonephritis. The patient was seen on morning rounds. He was found lying in bed, comfortably, on supplemental oxygen by nasal cannula. He is not home O2 dependent. He did utilize BiPAP for most of the night. He is A&O x4 but slightly confused; overall, improved from yesterday. He denies further episodes of chest discomfort or diaphoresis. He does endorse slight shortness of breath, productive cough, generalized fatigue. He otherwise denies fever, chills, abdominal pain, nausea vomiting and diarrhea. He has no other questions or concerns at this time. No concerns per nursing. Reason For Visit: SEPSIS PYELONEPHRITIS ARF Physical Exam Vital Signs: Temp Pulse Resp BP Pulse Ox 98.5 F 95 16 150/62 H 92 10/13/19 07:00 10/13/19 07:00 10/13/19 07:00 10/13/19 07:00 10/13/19 07:00 Intake & Output 10/12/19 10/13/19 10/14/19 06:59 06:59 06:59 Intake Total 740 3030 Output Total 2475 1100 Balance -1735 1930 Weight 94.9 kg 95.9 kg General appearance: PRESENT: no acute distress, cooperative, well-developed, well-nourished - Overweight Head exam: PRESENT: atraumatic, normocephalic Eye exam: PRESENT: conjunctiva pink, EOMI, PERRLA. ABSENT: scleral icterus Ear exam: PRESENT: normal external ear exam Mouth exam: PRESENT: moist, tongue midline Respiratory exam: PRESENT: rhonchi, symmetrical, unlabored, other - Supplemental oxygen via nasal cannula. ABSENT: rales, wheezes Cardiovascular exam: PRESENT: RRR, +S1, +S2. ABSENT: diastolic murmur, rubs, systolic murmur Pulses: PRESENT: normal dorsalis pedis pul Vascular exam: PRESENT: normal capillary refill GI/Abdominal exam: PRESENT: distended, normal bowel sounds, soft. ABSENT: guarding, mass, organolmegaly, rebound, tenderness Rectal exam: PRESENT: deferred Extremities exam: PRESENT: full ROM. ABSENT: calf tenderness, clubbing, pedal edema Neurological exam: PRESENT: alert, awake, oriented to person, oriented to place, oriented to time, oriented to situation, CN II-XII grossly intact, other - Forgetful, repetitive. ABSENT: motor sensory deficit Psychiatric exam: PRESENT: appropriate affect, normal mood. ABSENT: homicidal ideation, suicidal ideation Skin exam: PRESENT: dry, intact, warm. ABSENT: cyanosis, rash Results Laboratory Results: 10/12/19 05:32 10/13/19 05:41 10/12/19 10/12/19 10/13/19 08:21 11:29 05:41 Carbonic Acid 1.49 H HCO3/H2CO3 Ratio 16:1 ABG pH 7.31 L ABG pCO2 49.4 H ABG pO2 93.2 ABG HCO3 24.5 H ABG O2 Saturation 96.4 ABG Base Excess -2.3 FiO2 3L Sodium 136.5 L Potassium 3.9 Chloride 102 Carbon Dioxide 25 Anion Gap 10 BUN 47 H Creatinine 2.37 H Est GFR ( Amer) 33 L Glucose 115 H Calcium 9.1 Total Bilirubin 0.6 AST 46 Alkaline Phosphatase 128 H Total Protein 6.6 Albumin 3.4 L 10/09/19 20:30 Blood Blood Culture (PCR) - Final Escherichia Coli 10/09/19 20:30 Blood Blood Culture - Final Escherichia Coli 10/09/19 19:29 Blood Blood Culture (PCR) - Final Escherichia Coli 10/09/19 19:29 Blood Blood Culture - Final Escherichia Coli 10/09/19 10/09/19 10/09/19 17:08 17:08 20:30 Creatine Kinase CK-MB (CK-2) Troponin I 0.031 0.032 NT-Pro-B Natriuret Pep 1810 H 10/12/19 10/12/19 10/12/19 08:21 08:21 14:30 Creatine Kinase 42 L 37 L CK-MB (CK-2) 1.77 Troponin I 0.033 NT-Pro-B Natriuret Pep 10/12/19 10/12/19 10/12/19 14:30 20:41 20:41 Creatine Kinase 53 L CK-MB (CK-2) 1.81 1.86 Troponin I 0.022 0.024 NT-Pro-B Natriuret Pep Impressions: Chest CT 10/09/19 18:39 IMPRESSION: Findings of chronic fibrotic interstitial lung disease without a superimposed acute cardiopulmonary process. Abdomen/Pelvis CT 10/09/19 18:40 IMPRESSION: 1. Asymmetric left perinephric and periureteral stranding without hydronephrosis. Clinical correlation to exclude an ascending urinary tract infection is recommended. 2. Hepatic steatosis. 3. Colonic diverticulosis without diverticulitis. Lung Scan-VQ NM 10/09/19 21:25 IMPRESSION: NORMAL VENTILATION-PERFUSION LUNG SCAN. NEGATIVE FOR PULMONARY EMBOLI. Chest X-Ray 10/12/19 00:00 IMPRESSION: Right upper lobe and left lower lobe pneumonia superimposed on interstitial lung disease. Acute Abdomen Series 10/12/19 06:58 IMPRESSION: Nonspecific bowel gas pattern without evidence for obstruction. Interstitial lung disease. Assessment and Plan - Diagnosis (1) Pneumonia Qualifiers: Pneumonia type: due to unspecified organism Laterality: bilateral Lung location: unspecified part of lung Qualified Code(s): J18.9 - Pneumonia, unspecified organism Is this a current diagnosis for this admission?: Yes Plan: CXR shows RUL and LLL pneumonia. Influenza pending. Antibiotics escalated to Azactam and Cefepime today. Consider resuming Vancomycin if does not rapidly improve; no hx of MRSA Supplemental oxygen, BiPAP, nebs, and pulmonary toilet. (2) Chest pain Qualifiers: Chest pain type: unspecified Qualified Code(s): R07.9 - Chest pain, unspecified Is this a current diagnosis for this admission?: Yes Plan: Resolved; no further episodes overnight. Echo (January 2019) LVEF 65%. mild diastolic dysfunction, mild pulmonary hypertension proBNP (10/09/19) 1810; wt up ~6 kg, improved urine output ([facility]) EKG unchanged from previous Troponin negative x5 CXR multifocal pneumonia Dr. Rabago, cardiology, was consulted. Recommends further outpatient evaluation. Daily aspirin and statin therapy. Will stop full dose lovenox today. (3) Sepsis Qualifiers: Sepsis type: Escherichia coli Sepsis acute organ dysfunction status: with acute organ dysfunction Severe sepsis acute organ dysfunction type: acute renal failure Severe sepsis shock status: without septic shock Is this a current diagnosis for this admission?: Yes Plan: Resolved; leukocytosis has resolved, afebrile >48 hours, blood pressures are improved, tachycardia and tachypnea improved. Sepsis due to E. coli pyelonephritis, present on admission, evidenced by fever, tachycardia, tachypnea, hypoxia, leukocytosis, elevated d-dimer, acute on chronic kidney injury, and elevated lactic acid. Urine culture positive for E. coli. Blood cultures positive for E. coli. Patient is admitted to [facility] on continuous cardiac telemetry. We will continue maintenance IV fluids. IV Vancomycin x 3 days IV Rocephin x4 days Abx escalated to Azactam and Cefepime r/t HAP. Consider resuming Vancomycin if does not rapidly improve. Antiemetics and analgesics as needed. (4) Pyelonephritis Is this a current diagnosis for this admission?: Yes Plan: Likely secondary to underlying BPH, some unclear urologic history. No hydronephrosis, no nephrolithiasis, no abscess on CT imaging. Urine and blood cultures positive for E. coli. Initially placed on Vanc and Rocephin Now on Cefepime and Azactam for dual coverage of Pyelonephritis and Healthcare associated PNA. Continue IV fluids. Antiemetics and analgesics as needed. (5) HILLARY (acute kidney injury) Is this a current diagnosis for this admission?: Yes Plan: Secondary to sepsis and pyelonephritis. Creatinine 4.08-> 3.6-> 2.35-> 2.37; baseline 1.2-1.5. Continue IV fluids. Avoid nephrotoxic medications as able Daily chemistries. (6) Acute respiratory failure with hypoxia Is this a current diagnosis for this admission?: Yes Plan: Respiratory distress and elevated d-dimer likely secondary to sepsis. VQ scan negative for pulmonary embolus. CXR shows RUL and LLL PNA Supplemental oxygen as needed to maintain saturations greater than 89%. BiPAP as needed. Scheduled and as needed nebulizer treatments. Mucinex twice daily Aggressive pulmonary toilet (7) Bacteremia Is this a current diagnosis for this admission?: Yes Plan: E. coli bacteremia. Repeat blood cultures negative Antibiotics as above. (8) COPD (chronic obstructive pulmonary disease) Qualifiers: COPD type: unspecified COPD Qualified Code(s): J44.9 - Chronic obstructive pulmonary disease, unspecified Is this a current diagnosis for this admission?: Yes Plan: As above. Consider steroid therapy. (9) Chronic renal failure, stage 3 (moderate) Is this a current diagnosis for this admission?: Yes Plan: Evaluation management as above. - Time Time Spent with patient: 35 or more minutes Medications reviewed and adjusted accordingly: Yes Anticipated discharge: Home
[2019-10-13] MEDS: CEFEPIME HCL 2 GM in DEXTROSE 5%-WATER 50 ML IV SCH (12:00)
[2019-10-13] MEDS: HEPARIN SOD (PORCINE) 5,000 UNIT/ML 1 ML VIAL SUBCUT SCH ×2 (13:37→21:20)
[2019-10-13] MEDS: IPRATROPIUM/ALBUTEROL 0.5-2.5 MG/3 ML AMPUL NEB SCH ×2 (13:58→20:06)
[2019-10-13 14:36] LABS: A TYPE INFLUENZA AG NEGATIVE (NEGATIVE); B INFLUENZA AG NEGATIVE (NEGATIVE)
[2019-10-13] MEDS: ATORVASTATIN CALCIUM 10 MG TABLET PO SCH (21:19)
[2019-10-13] MEDS ORDERED: AZITHROMYCIN 500 MG in DEXTROSE 5%-WATER 250 ML IV SCH (22:00)
[2019-10-13] MEDS ORDERED: DILTIAZEM HCL INJ 25 MG/5 ML VIAL ONE (22:55)
[2019-10-13] MEDS ORDERED: DILTIAZEM HCL INJ 25 MG/5 ML VIAL IV ONE (23:15)
[2019-10-13 23:31] LABS: ANION GAP 13 (5-19); BLOOD UREA NITROGEN 39 mg/dL (7-20); CALCIUM 9.2 mg/dL (8.4-10.2); CARBON DIOXIDE 26 mmol/L (22-30); CHLORIDE 100 mmol/L (98-107); CREATINE KINASE 35 U/L (55-170); GLUCOSE 140 mg/dL (75-110); POTASSIUM 3.7 mmol/L (3.6-5.0)
[2019-10-13 23:43] LABS: CREATINE KINASE MB 1.6 ng/mL (<4.55); TROPONIN I 0.018 ng/mL
[2019-10-14] MEDS: DILTIAZEM HCL 90 MG TABLET PO SCH ×4 (00:44→18:16)
--- NOTE | 2019-10-14 01:17 | EKG REPORT ---
SEVERITY:- ABNORMAL ECG - SINUS RHYTHM ATRIAL PREMATURE COMPLEX FIRST DEGREE AV BLOCK RIGHT BUNDLE BRANCH BLOCK : Confirmed by: Stacie Selby 14-Oct-2019 01:17:16
[2019-10-14] MEDS: AZTREONAM 1 GM in DEXTROSE 5%-WATER 50 ML IV SCH ×3 (02:07→18:16)
[2019-10-14] MEDS: IPRATROPIUM/ALBUTEROL 0.5-2.5 MG/3 ML AMPUL NEB SCH ×4 (02:22→21:04)
[2019-10-14] MEDS: POTASSI CL 20 MEQ/50 ML RIDER 20 MEQ/50 ML RTUPB IV SCH ×2 (02:24→04:26)
[2019-10-14 05:10] LABS: HEMOGLOBIN 10.2 g/dL (13.5-17.0); MEAN CORPUSCULAR HEMOGLOBIN 30.5 pg (27.0-33.4); MEAN CORPUSCULAR HGB CONC 33.9 g/dL (32.0-36.0); MEAN CORPUSCULAR VOLUME 90 fl (80-97); PLATELET COUNT 263 10^3/uL (150-450); RED BLOOD COUNT 3.34 10^6/uL (4.35-5.55); RED CELL DISTRIBUTION WIDTH 15.1 % (11.5-14.0); WHITE BLOOD COUNT 7.3 10^3/uL (4.0-10.5)
[2019-10-14] MEDS: HEPARIN SOD (PORCINE) 5,000 UNIT/ML 1 ML VIAL SUBCUT SCH ×3 (05:16→22:26)
[2019-10-14 05:36] LABS: ANION GAP 11 (5-19); BLOOD UREA NITROGEN 38 mg/dL (7-20); CALCIUM 9.3 mg/dL (8.4-10.2); CARBON DIOXIDE 27 mmol/L (22-30); CHLORIDE 103 mmol/L (98-107); CREATINE KINASE 24 U/L (55-170); GLUCOSE 128 mg/dL (75-110); POTASSIUM 4.3 mmol/L (3.6-5.0)
[2019-10-14 05:43] LABS: CREATINE KINASE MB 1.14 ng/mL (<4.55); TROPONIN I 0.014 ng/mL
[2019-10-14] MEDS ORDERED: HYDROCORTISONE 1% CREAM 28.35 GM TP PRN (07:26)
--- NOTE | 2019-10-14 09:38 | PDOC PROGRESS REPORT ---
Subjective Progress Note for:: 10/14/19 Subjective:: The patient is a 74-year-old male with a past medical history of opiate dependent chronic pain, CHF, COPD, chronic bronchitis, JENAE, hypertension, hyperlipidemia, pulmonary fibrosis, arthritis, fibromyalgia, depression, and BPH who was admitted 10/09/2019 for sepsis secondary to pyelonephritis. The patient was seen on morning rounds. He was found lying in bed, comfortably, on supplemental oxygen by nasal cannula. He is not home O2 dependent. He did utilize BiPAP for most of the night. He is A&O x4; no longer any signs of confusion. He denies further episodes of chest discomfort or diaphoresis. Reports his breathing is much improved. He otherwise denies fever, chills, chest pain, palpitations, abdominal pain, nausea, vomiting and diarrhea. Requests to have ledezma removed. He has no other questions or concerns at this time. No concerns per nursing. Reason For Visit: SEPSIS PYELONEPHRITIS ARF Physical Exam Vital Signs: Temp Pulse Resp BP Pulse Ox 97.5 F 93 18 124/53 L 91 L 10/14/19 03:16 10/14/19 08:43 10/14/19 08:43 10/14/19 03:16 10/14/19 08:43 Intake & Output 10/13/19 10/14/19 10/15/19 06:59 06:59 06:59 Intake Total 3030 2840 Output Total 1100 2775 Balance 1930 65 Weight 95.9 kg 92.7 kg General appearance: PRESENT: no acute distress, cooperative, disheveled, well- developed, well-nourished Head exam: PRESENT: atraumatic, normocephalic Eye exam: PRESENT: conjunctiva pink, EOMI, PERRLA. ABSENT: scleral icterus Ear exam: PRESENT: normal external ear exam Mouth exam: PRESENT: moist, tongue midline Respiratory exam: PRESENT: clear to auscultation lobito, symmetrical, unlabored, other - supplemental oxygen via NC. ABSENT: rales, rhonchi, wheezes Cardiovascular exam: PRESENT: RRR, +S1, +S2. ABSENT: diastolic murmur, rubs, sy stolic murmur Vascular exam: PRESENT: normal capillary refill GI/Abdominal exam: PRESENT: normal bowel sounds, soft. ABSENT: distended, guarding, mass, organolmegaly, rebound, tenderness Rectal exam: PRESENT: deferred Gentrourinary exam: PRESENT: indwelling catheter Extremities exam: PRESENT: full ROM. ABSENT: calf tenderness, clubbing, pedal edema Neurological exam: PRESENT: alert, awake, oriented to person, oriented to place, oriented to time, oriented to situation, CN II-XII grossly intact. ABSENT: motor sensory deficit Psychiatric exam: PRESENT: appropriate affect, normal mood. ABSENT: homicidal ideation, suicidal ideation Skin exam: PRESENT: dry, intact, warm. ABSENT: cyanosis, rash Results Laboratory Results: 10/14/19 04:56 10/14/19 05:00 10/13/19 10/14/19 10/14/19 22:58 04:56 05:00 WBC 7.3 RBC 3.34 L Hgb 10.2 L Hct 30.0 L MCV 90 MCH 30.5 MCHC 33.9 RDW 15.1 H Plt Count 263 Sodium 138.9 140.6 Potassium 3.7 4.3 Chloride 100 103 Carbon Dioxide 26 27 Anion Gap 13 11 BUN 39 H 38 H Creatinine 1.92 H 1.83 H Est GFR ( Amer) 42 L 44 L Glucose 140 H 128 H Calcium 9.2 9.3 Magnesium 1.7 10/09/19 10/09/19 10/09/19 17:08 17:08 20:30 Creatine Kinase CK-MB (CK-2) Troponin I 0.031 0.032 NT-Pro-B Natriuret Pep 1810 H 10/12/19 10/12/19 10/12/19 08:21 08:21 14:30 Creatine Kinase 42 L 37 L CK-MB (CK-2) 1.77 Troponin I 0.033 NT-Pro-B Natriuret Pep 10/12/19 10/12/19 10/12/19 14:30 20:41 20:41 Creatine Kinase 53 L CK-MB (CK-2) 1.81 1.86 Troponin I 0.022 0.024 NT-Pro-B Natriuret Pep 10/13/19 10/13/19 10/14/19 22:58 22:58 05:00 Creatine Kinase 35 L 24 L CK-MB (CK-2) 1.60 Troponin I 0.018 NT-Pro-B Natriuret Pep 10/14/19 05:00 Creatine Kinase CK-MB (CK-2) 1.14 Troponin I 0.014 NT-Pro-B Natriuret Pep Impressions: Chest CT 10/09/19 18:39 IMPRESSION: Findings of chronic fibrotic interstitial lung disease without a superimposed acute cardiopulmonary process. Abdomen/Pelvis CT 10/09/19 18:40 IMPRESSION: 1. Asymmetric left perinephric and periureteral stranding without hydronephrosis. Clinical correlation to exclude an ascending urinary tract infection is recommended. 2. Hepatic steatosis. 3. Colonic diverticulosis without diverticulitis. Lung Scan-VQ NM 10/09/19 21:25 IMPRESSION: NORMAL VENTILATION-PERFUSION LUNG SCAN. NEGATIVE FOR PULMONARY EMBOLI. Chest X-Ray 10/12/19 00:00 IMPRESSION: Right upper lobe and left lower lobe pneumonia superimposed on interstitial lung disease. Acute Abdomen Series 10/12/19 06:58 IMPRESSION: Nonspecific bowel gas pattern without evidence for obstruction. Interstitial lung disease. Assessment and Plan - Diagnosis (1) Pneumonia Qualifiers: Pneumonia type: due to unspecified organism Laterality: bilateral Lung location: unspecified part of lung Qualified Code(s): J18.9 - Pneumonia, unspecified organism Is this a current diagnosis for this admission?: Yes Plan: Improved clinical appearance; afebrile, WBC nml. Remains on supplemental oxygen, BiPAP overnight. CXR showed RUL and LLL pneumonia. Influenza negative Blood cultures (10/12/19) negative to date. Sputum culture pending. Antibiotics escalated to Azactam and Cefepime today. Consider resuming Vancomycin if does not rapidly improve; no hx of MRSA Supplemental oxygen, BiPAP, nebs, and pulmonary toilet. (2) Chest pain Qualifiers: Chest pain type: unspecified Qualified Code(s): R07.9 - Chest pain, unspecified Is this a current diagnosis for this admission?: Yes Plan: Resolved; no further episodes overnight. Echo (January 2019) LVEF 65%. mild diastolic dysfunction, mild pulmonary hypertension proBNP (10/09/19) 1810; wt up ~6 kg, improved urine output ([facility]) EKG unchanged from previous Troponin negative x5 CXR multifocal pneumonia Dr. Rabago, cardiology, was consulted. Recommends further outpatient evaluation. Daily aspirin and statin therapy. (3) Sepsis Qualifiers: Sepsis type: Escherichia coli Sepsis acute organ dysfunction status: with acute organ dysfunction Severe sepsis acute organ dysfunction type: acute renal failure Severe sepsis shock status: without septic shock Is this a current diagnosis for this admission?: Yes Plan: Resolved; leukocytosis has resolved, afebrile >48 hours, blood pressures are improved, tachycardia and tachypnea improved. Sepsis due to E. coli pyelonephritis, present on admission, evidenced by fever, tachycardia, tachypnea, hypoxia, leukocytosis, elevated d-dimer, acute on chronic kidney injury, and elevated lactic acid. Urine culture positive for E. coli. Blood cultures positive for E. coli. Patient is admitted to [facility] on continuous cardiac telemetry. We will continue maintenance IV fluids. IV Vancomycin x 3 days IV Rocephin x4 days Abx escalated to Azactam and Cefepime r/t HAP. Consider resuming Vancomycin if does not rapidly improve. Antiemetics and analgesics as needed. (4) Pyelonephritis Is this a current diagnosis for this admission?: Yes Plan: Likely secondary to underlying BPH, some unclear urologic history. No hydronephrosis, no nephrolithiasis, no abscess on CT imaging. Urine and blood cultures positive for E. coli. Initially placed on Vanc and Rocephin Now on Cefepime and Azactam for dual coverage of Pyelonephritis and Healthcare associated PNA. Continue IV fluids. Antiemetics and analgesics as needed. (5) HILLARY (acute kidney injury) Is this a current diagnosis for this admission?: Yes Plan: Secondary to sepsis and pyelonephritis. Creatinine 4.08-> 3.6-> 2.35-> 2.37-> 1.83; baseline 1.2-1.5. Continue IV fluids. Avoid nephrotoxic medications as able Daily chemistries. (6) Acute respiratory failure with hypoxia Is this a current diagnosis for this admission?: Yes Plan: Improved. Now w/ clear lung sounds and decreased work of breathing. Remains on O2. Respiratory distress and elevated d-dimer likely secondary to sepsis. VQ scan negative for pulmonary embolus. CXR shows RUL and LLL PNA Supplemental oxygen as needed to maintain saturations greater than 89%. BiPAP as needed. Scheduled and as needed nebulizer treatments. Mucinex twice daily Aggressive pulmonary toilet (7) Bacteremia Is this a current diagnosis for this admission?: Yes Plan: E. coli bacteremia. Repeat blood cultures negative Antibiotics as above. (8) COPD (chronic obstructive pulmonary disease) Qualifiers: COPD type: unspecified COPD Qualified Code(s): J44.9 - Chronic obstructive pulmonary disease, unspecified Is this a current diagnosis for this admission?: Yes Plan: As above. Consider steroid therapy. (9) Chronic renal failure, stage 3 (moderate) Is this a current diagnosis for this admission?: Yes Plan: Evaluation management as above. - Plan Summary Summary: Downgrade to telemetry today. - Time Time Spent with patient: 25-34 minutes Medications reviewed and adjusted accordingly: Yes Anticipated discharge: Home Within: within 72 hours
[2019-10-14] MEDS: GUAIFENESIN 600 MG TABLET.SA PO SCH ×2 (09:48→22:26)
[2019-10-14] MEDS: ASPIRIN 81 MG TABLET, CHEWABLE PO SCH (09:48)
[2019-10-14] MEDS: LOSARTAN POTASSIUM 50 MG TABLET PO SCH (09:48)
[2019-10-14] MEDS: VENLAFAXINE HCL 75 MG CAP.SR.24H PO SCH ×2 (09:49→22:26)
[2019-10-14 11:59] LABS: CREATINE KINASE MB 1.28 ng/mL (<4.55); TROPONIN I 0.016 ng/mL
[2019-10-14] MEDS: CEFEPIME HCL 2 GM in DEXTROSE 5%-WATER 50 ML IV SCH (15:19)
[2019-10-14] MEDS: NITROGLYCERIN 0.4 MG/TAB 25 TAB/BOTTLE SL PRN (20:04)
[2019-10-14] MEDS: NORMAL SALINE 1000 ML 1,000 ML IV PRN (20:09)
[2019-10-14] MEDS: OXYCODONE-ACETAMINOPHEN 5-325 MG TABLET PO PRN (20:24)
[2019-10-14] MEDS: ATORVASTATIN CALCIUM 10 MG TABLET PO SCH (22:26)
[2019-10-15] MEDS: ACETAMINOPHEN 325 MG TABLET PO PRN ×3 (01:01→14:13)
[2019-10-15] MEDS: DILTIAZEM HCL 90 MG TABLET PO SCH ×5 (01:02→23:17)
[2019-10-15] MEDS: IPRATROPIUM/ALBUTEROL 0.5-2.5 MG/3 ML AMPUL NEB SCH ×4 (02:21→20:55)
[2019-10-15] MEDS: AZTREONAM 1 GM in DEXTROSE 5%-WATER 50 ML IV SCH ×2 (03:25→10:13)
[2019-10-15] MEDS: HEPARIN SOD (PORCINE) 5,000 UNIT/ML 1 ML VIAL SUBCUT SCH ×3 (05:37→21:18)
[2019-10-15 05:50] LABS: HEMATOCRIT 30.5 % (37.9-51.0); HEMOGLOBIN 10.5 g/dL (13.5-17.0); MEAN CORPUSCULAR HEMOGLOBIN 30.4 pg (27.0-33.4); MEAN CORPUSCULAR HGB CONC 34.3 g/dL (32.0-36.0); MEAN CORPUSCULAR VOLUME 89 fl (80-97); PLATELET COUNT 331 10^3/uL (150-450); RED BLOOD COUNT 3.44 10^6/uL (4.35-5.55); RED CELL DISTRIBUTION WIDTH 15.1 % (11.5-14.0); WHITE BLOOD COUNT 9.7 10^3/uL (4.0-10.5)
[2019-10-15 06:02] LABS: ANION GAP 14 (5-19); BLOOD UREA NITROGEN 31 mg/dL (7-20); CALCIUM 9.7 mg/dL (8.4-10.2); CARBON DIOXIDE 26 mmol/L (22-30); CHLORIDE 100 mmol/L (98-107); GLUCOSE 143 mg/dL (75-110); POTASSIUM 3.4 mmol/L (3.6-5.0)
--- NOTE | 2019-10-15 10:09 | Progress Note ---
Provider Note Provider Note: [facility] ID Antimicrobial Stewardship Recommendations: Chart reviewed. Patient is a 74-year-old man with hisotry of CAD, BPH who was admitted on 10/09 due to sepsis secondary to E coli UTI and bacteremia in the setting of BPH. CT scan demonstrated changes consistent with pyelonephritis. Blood and urine cultures positive for E coli. He was started on cefepime and aztreonam. Allergies: lisinopril [Lisinopril] Allergy (Verified 10/09/19 16:52) moxifloxacin HCl [From Avelox] Allergy (Verified 10/09/19 16:52) Vital Signs: Temp Pulse Resp BP Pulse Ox 97.8 F 96 20 159/64 H 92 10/15/19 07:27 10/15/19 07:40 10/15/19 07:40 10/15/19 07:27 10/15/19 07:40 Intake & Output 10/14/19 10/15/19 10/16/19 06:59 06:59 06:59 Intake Total 2840 1390 Output Total 2775 5855 Balance 65 -1085 Weight 92.7 kg 92.8 kg Weight/Height Weight 92.8 kg Height 5 ft 7 in Laboratories: 10/15/19 05:20 10/15/19 05:20 MCV 89 fl (80-97) 10/15/19 05:20 MCH 30.4 pg (27.0-33.4) 10/15/19 05:20 MCHC 34.3 g/dL (32.0-36.0) 10/15/19 05:20 RDW 15.1 % (11.5-14.0) H 10/15/19 05:20 Seg Neutrophils % Not Reportable 10/10/19 06:32 Carbonic Acid 1.49 mmol/L (1.05-1.35) H 10/12/19 11:29 HCO3/H2CO3 Ratio 16:1 10/12/19 11:29 ABG pH 7.31 (7.35-7.45) L 10/12/19 11:29 ABG pCO2 49.4 mmHg (35-45) H 10/12/19 11:29 ABG pO2 93.2 mmHg (80-100) 10/12/19 11:29 ABG HCO3 24.5 mmol/L (20-24) H 10/12/19 11:29 ABG O2 Saturation 96.4 % (94-98) 10/12/19 11:29 ABG Base Excess -2.3 mmol/L 10/12/19 11:29 FiO2 3L 10/12/19 11:29 Chloride 100 mmol/L (98-107) 10/15/19 05:20 Carbon Dioxide 26 mmol/L (22-30) 10/15/19 05:20 Anion Gap 14 (5-19) 10/15/19 05:20 Est GFR ( Amer) 58 (>60) L 10/15/19 05:20 Glucose 143 mg/dL (75-110) H 10/15/19 05:20 Lactic Acid 1.7 mmol/L (0.7-2.1) 10/09/19 21:08 Calcium 9.7 mg/dL (8.4-10.2) 10/15/19 05:20 Magnesium 1.7 mg/dL (1.6-2.3) 10/13/19 22:58 Total Bilirubin 0.6 mg/dL (0.2-1.3) 10/12/19 08:21 AST 46 U/L (17-59) 10/12/19 08:21 Alkaline Phosphatase 128 U/L (38-126) H 10/12/19 08:21 Total Protein 6.6 g/dL (6.3-8.2) 10/12/19 08:21 Albumin 3.4 g/dL (3.5-5.0) L 10/12/19 08:21 Lipase 28.7 U/L (23-300) 10/09/19 17:08 Urine Color SUZE 10/09/19 20:16 Urine Appearance CLOUDY 10/09/19 20:16 Urine pH 5.0 (5.0-9.0) 10/09/19 20:16 Ur Specific [place] 1.019 10/09/19 20:16 Urine Protein 100 mg/dL (NEGATIVE) H 10/09/19 20:16 Urine Glucose (UA) NEGATIVE mg/dL (NEGATIVE) 10/09/19 20:16 Urine Ketones NEGATIVE mg/dL (NEGATIVE) 10/09/19 20:16 Urine Blood MODERATE (NEGATIVE) H 10/09/19 20:16 Urine RBC (Auto) 7 /HPF 10/09/19 20:16 10/09/19 10/09/19 10/09/19 17:08 17:08 20:30 Creatine Kinase CK-MB (CK-2) Troponin I 0.031 0.032 NT-Pro-B Natriuret Pep 1810 H 10/12/19 10/12/19 10/12/19 08:21 08:21 14:30 Creatine Kinase 42 L 37 L CK-MB (CK-2) 1.77 Troponin I 0.033 NT-Pro-B Natriuret Pep 10/12/19 10/12/19 10/12/19 14:30 20:41 20:41 Creatine Kinase 53 L CK-MB (CK-2) 1.81 1.86 Troponin I 0.022 0.024 NT-Pro-B Natriuret Pep 10/13/19 10/13/19 10/14/19 22:58 22:58 05:00 Creatine Kinase 35 L 24 L CK-MB (CK-2) 1.60 Troponin I 0.018 NT-Pro-B Natriuret Pep 10/14/19 10/14/19 10/14/19 05:00 10:59 10:59 Creatine Kinase < 20 L CK-MB (CK-2) 1.14 1.28 Troponin I 0.014 0.016 NT-Pro-B Natriuret Pep Radiology: Chest CT 10/09/19 18:39 IMPRESSION: Findings of chronic fibrotic interstitial lung disease without a superimposed acute cardiopulmonary process. Abdomen/Pelvis CT 10/09/19 18:40 IMPRESSION: 1. Asymmetric left perinephric and periureteral stranding without hydronephrosis. Clinical correlation to exclude an ascending urinary tract infection is recommended. 2. Hepatic steatosis. 3. Colonic diverticulosis without diverticulitis. Lung Scan-VQ NM 10/09/19 21:25 IMPRESSION: NORMAL VENTILATION-PERFUSION LUNG SCAN. NEGATIVE FOR PULMONARY EMBOLI. Chest X-Ray 10/12/19 00:00 IMPRESSION: Right upper lobe and left lower lobe pneumonia superimposed on interstitial lung disease. Acute Abdomen Series 10/12/19 06:58 IMPRESSION: Nonspecific bowel gas pattern without evidence for obstruction. Interstitial lung disease. Recommendations: After reviewing the cultures, E coli didn't have any resistance markers detected. Ceftriaxone 2g IV daily is recommended for 14 days as he has evidence of pyelonephritis. Will not recommend fluoroquinolones due to reported allergy to moxifloxacin. EOT October 26, 2019. Please call if any questions. Breanna Cherry MD [facility] [phone]
[2019-10-15] MEDS: GUAIFENESIN 600 MG TABLET.SA PO SCH ×2 (10:12→21:18)
[2019-10-15] MEDS: VENLAFAXINE HCL 75 MG CAP.SR.24H PO SCH ×2 (10:12→21:18)
[2019-10-15] MEDS: LOSARTAN POTASSIUM 50 MG TABLET PO SCH (10:12)
[2019-10-15] MEDS: ASPIRIN 81 MG TABLET, CHEWABLE PO SCH (10:12)
--- NOTE | 2019-10-15 11:20 | PDOC PROGRESS REPORT ---
Subjective Progress Note for:: 10/15/19 Reason For Visit: SEPSIS PYELONEPHRITIS ARF 10/15/2019, Pyelonephritis with urosepsis Physical Exam Vital Signs: Temp Pulse Resp BP Pulse Ox 97.8 F 96 20 159/64 H 92 10/15/19 07:27 10/15/19 07:40 10/15/19 07:40 10/15/19 07:27 10/15/19 07:40 Intake & Output 10/14/19 10/15/19 10/16/19 06:59 06:59 06:59 Intake Total 2840 1390 Output Total 2775 1065 Balance 65 -1085 Weight 92.7 kg 92.8 kg General appearance: PRESENT: no acute distress, other - Doing up in bed talking in no distress Respiratory exam: PRESENT: clear to auscultation lobito. ABSENT: rales, rhonchi, wheezes Cardiovascular exam: PRESENT: RRR. ABSENT: diastolic murmur, rubs, systolic murmur Neurological exam: PRESENT: alert, awake, oriented to person, oriented to place, oriented to time, oriented to situation, CN II-XII grossly intact. ABSENT: motor sensory deficit Psychiatric exam: PRESENT: appropriate affect, normal mood. ABSENT: homicidal ideation, suicidal ideation Results Laboratory Results: 10/15/19 05:20 10/15/19 05:20 10/15/19 10/15/19 05:20 05:20 WBC 9.7 RBC 3.44 L Hgb 10.5 L Hct 30.5 L MCV 89 MCH 30.4 MCHC 34.3 RDW 15.1 H Plt Count 331 Sodium 139.7 Potassium 3.4 L Chloride 100 Carbon Dioxide 26 Anion Gap 14 BUN 31 H Creatinine 1.44 H Est GFR ( Amer) 58 L Glucose 143 H Calcium 9.7 10/09/19 10/09/19 10/09/19 17:08 17:08 20:30 Creatine Kinase CK-MB (CK-2) Troponin I 0.031 0.032 NT-Pro-B Natriuret Pep 1810 H 10/12/19 10/12/19 10/12/19 08:21 08:21 14:30 Creatine Kinase 42 L 37 L CK-MB (CK-2) 1.77 Troponin I 0.033 NT-Pro-B Natriuret Pep 12/10/12/19 10/12/19 14:30 20:41 20:41 Creatine Kinase 53 L CK-MB (CK-2) 1.81 1.86 Troponin I 0.022 0.024 NT-Pro-B Natriuret Pep 10/13/19 10/13/19 10/14/19 22:58 22:58 05:00 Creatine Kinase 35 L 24 L CK-MB (CK-2) 1.60 Troponin I 0.018 NT-Pro-B Natriuret Pep 10/14/19 10/14/19 10/14/19 05:00 10:59 10:59 Creatine Kinase < 20 L CK-MB (CK-2) 1.14 1.28 Troponin I 0.014 0.016 NT-Pro-B Natriuret Pep Impressions: Chest CT 10/09/19 18:39 IMPRESSION: Findings of chronic fibrotic interstitial lung disease without a superimposed acute cardiopulmonary process. Abdomen/Pelvis CT 10/09/19 18:40 IMPRESSION: 1. Asymmetric left perinephric and periureteral stranding without hydronephrosis. Clinical correlation to exclude an ascending urinary tract infection is recommended. 2. Hepatic steatosis. 3. Colonic diverticulosis without diverticulitis. Lung Scan-VQ NM 10/09/19 21:25 IMPRESSION: NORMAL VENTILATION-PERFUSION LUNG SCAN. NEGATIVE FOR PULMONARY EMBOLI. Chest X-Ray 10/12/19 00:00 IMPRESSION: Right upper lobe and left lower lobe pneumonia superimposed on interstitial lung disease. Acute Abdomen Series 10/12/19 06:58 IMPRESSION: Nonspecific bowel gas pattern without evidence for obstruction. Interstitial lung disease. Assessment and Plan - Diagnosis (1) Pyelonephritis Is this a current diagnosis for this admission?: Yes (2) Sepsis Qualifiers: Sepsis type: Escherichia coli Sepsis acute organ dysfunction status: with acute organ dysfunction Severe sepsis acute organ dysfunction type: acute renal failure Severe sepsis shock status: without septic shock Is this a current diagnosis for this admission?: Yes (3) Anxiety Is this a current diagnosis for this admission?: Yes (4) Chest pain Qualifiers: Chest pain type: unspecified Qualified Code(s): R07.9 - Chest pain, unspecified Is this a current diagnosis for this admission?: Yes - Plan Summary Summary: Downgrade to telemetry today. 10/15/2019 temp 97.5, pulse 87 blood pressure 147/59 O2 sat 95% on 2 L Patient has been seen by cardiology and feels that he can continue his work-up as an outpatient She is growing out E. coli both urine as well as blood cultures Patient also has a right upper lobe and left lower lobe pneumonia She was seen by infectious disease today who feels that the patient needs 14 days of Rocephin 2 g IV daily. We will DC the cefepime and Azactam White count is now 9.7 BUN is gone from 52 down to 31 and creatinine is gone from 3.47 down to 1.44 Continue IV antibiotics for the next 48 hours and then discussed possibly discharging home on IV antibiotics - Time Time Spent with patient: 35 or more minutes
[2019-10-15] MEDS: CEFTRIAXONE 2 GM/D5W RTU 2 GM/50 ML RTUPB IV SCH (14:09)
[2019-10-15] MEDS: ATORVASTATIN CALCIUM 10 MG TABLET PO SCH (21:18)
[2019-10-15] MEDS: OXYCODONE-ACETAMINOPHEN 5-325 MG TABLET PO PRN (21:18)
[2019-10-16] MEDS: ACETAMINOPHEN 325 MG TABLET PO PRN ×3 (01:40→21:03)
[2019-10-16] MEDS: NORMAL SALINE 1000 ML 1,000 ML IV PRN ×2 (01:41→10:11)
[2019-10-16] MEDS: IPRATROPIUM/ALBUTEROL 0.5-2.5 MG/3 ML AMPUL NEB SCH ×4 (02:44→20:52)
[2019-10-16] MEDS: HEPARIN SOD (PORCINE) 5,000 UNIT/ML 1 ML VIAL SUBCUT SCH ×3 (05:24→21:55)
[2019-10-16] MEDS: DILTIAZEM HCL 90 MG TABLET PO SCH ×4 (05:24→23:58)
[2019-10-16] MEDS: GUAIFENESIN 600 MG TABLET.SA PO SCH ×2 (10:02→21:55)
[2019-10-16] MEDS: ASPIRIN 81 MG TABLET, CHEWABLE PO SCH (10:02)
[2019-10-16] MEDS: LOSARTAN POTASSIUM 50 MG TABLET PO SCH (10:02)
[2019-10-16] MEDS: VENLAFAXINE HCL 75 MG CAP.SR.24H PO SCH ×2 (10:02→21:55)
[2019-10-16] MEDS: CEFTRIAXONE 2 GM/D5W RTU 2 GM/50 ML RTUPB IV SCH (10:11)
[2019-10-16] MEDS: OXYCODONE-ACETAMINOPHEN 5-325 MG TABLET PO PRN ×3 (10:16→23:57)
--- NOTE | 2019-10-16 10:46 | PDOC PROGRESS REPORT ---
Subjective Progress Note for:: 10/16/19 Reason For Visit: SEPSIS PYELONEPHRITIS ARF 10/16/2019 Pyelonephritis and urosepsis Physical Exam Vital Signs: Temp Pulse Resp BP Pulse Ox 97.3 F 96 19 166/69 H 98 10/16/19 03:33 10/16/19 06:45 10/16/19 03:33 10/16/19 03:33 10/16/19 03:33 Intake & Output 10/15/19 10/16/19 10/17/19 06:59 06:59 06:59 Intake Total 1390 1410 638 Output Total 2475 1775 Balance -1081 -460 638 Weight 92.8 kg 90.2 kg General appearance: PRESENT: no acute distress Respiratory exam: PRESENT: clear to auscultation lobito. ABSENT: rales, rhonchi, wheezes Cardiovascular exam: PRESENT: RRR. ABSENT: diastolic murmur, rubs, systolic murmur Neurological exam: PRESENT: alert, awake, oriented to person, oriented to place, oriented to time, oriented to situation, CN II-XII grossly intact. ABSENT: motor sensory deficit Psychiatric exam: PRESENT: appropriate affect, normal mood. ABSENT: homicidal ideation, suicidal ideation Results Laboratory Results: 10/15/19 05:20 10/15/19 05:20 10/09/19 10/09/19 10/09/19 17:08 17:08 20:30 Creatine Kinase CK-MB (CK-2) Troponin I 0.031 0.032 NT-Pro-B Natriuret Pep 1810 H 10/12/19 10/12/19 10/12/19 08:21 08:21 14:30 Creatine Kinase 42 L 37 L CK-MB (CK-2) 1.77 Troponin I 0.033 NT-Pro-B Natriuret Pep 10/12/19 10/12/19 10/12/19 14:30 20:41 20:41 Creatine Kinase 53 L CK-MB (CK-2) 1.81 1.86 Troponin I 0.022 0.024 NT-Pro-B Natriuret Pep 10/13/19 10/13/19 10/14/19 22:58 22:58 05:00 Creatine Kinase 35 L 24 L CK-MB (CK-2) 1.60 Troponin I 0.018 NT-Pro-B Natriuret Pep 10/14/19 10/14/19 10/14/19 05:00 10:59 10:59 Creatine Kinase < 20 L CK-MB (CK-2) 1.14 1.28 Troponin I 0.014 0.016 NT-Pro-B Natriuret Pep Impressions: Chest CT 10/09/19 18:39 IMPRESSION: Findings of chronic fibrotic interstitial lung disease without a superimposed acute cardiopulmonary process. Abdomen/Pelvis CT 10/09/19 18:40 IMPRESSION: 1. Asymmetric left perinephric and periureteral stranding without hydronephrosis. Clinical correlation to exclude an ascending urinary tract infection is recommended. 2. Hepatic steatosis. 3. Colonic diverticulosis without diverticulitis. Lung Scan-VQ NM 10/09/19 21:25 IMPRESSION: NORMAL VENTILATION-PERFUSION LUNG SCAN. NEGATIVE FOR PULMONARY EMBOLI. Chest X-Ray 10/12/19 00:00 IMPRESSION: Right upper lobe and left lower lobe pneumonia superimposed on interstitial lung disease. Acute Abdomen Series 10/12/19 06:58 IMPRESSION: Nonspecific bowel gas pattern without evidence for obstruction. Interstitial lung disease. Assessment and Plan - Diagnosis (1) Pyelonephritis Is this a current diagnosis for this admission?: Yes (2) Sepsis Qualifiers: Sepsis type: Escherichia coli Sepsis acute organ dysfunction status: with acute organ dysfunction Severe sepsis acute organ dysfunction type: acute renal failure Severe sepsis shock status: without septic shock Is this a current diagnosis for this admission?: Yes (3) Anxiety Is this a current diagnosis for this admission?: Yes (4) Chest pain Qualifiers: Chest pain type: unspecified Qualified Code(s): R07.9 - Chest pain, unspecified Is this a current diagnosis for this admission?: Yes - Plan Summary Summary: Downgrade to telemetry today. 10/15/2019 temp 97.5, pulse 87 blood pressure 147/59 O2 sat 95% on 2 L Patient has been seen by cardiology and feels that he can continue his work-up as an outpatient She is growing out E. coli both urine as well as blood cultures Patient also has a right upper lobe and left lower lobe pneumonia She was seen by infectious disease today who feels that the patient needs 14 days of Rocephin 2 g IV daily. We will DC the cefepime and Azactam White count is now 9.7 BUN is gone from 52 down to 31 and creatinine is gone from 3.47 down to 1.44 Continue IV antibiotics for the next 48 hours and then discussed possibly discharging home on IV antibiotics 10/16/2019 Patient vital signs are stable, blood pressure still slightly elevated 166/69, although this is not consistent, accident saturations are in the mid to upper 90s either BiPAP or nasal cannula Labs appear stable, potassium is down slightly to 3.4 we will give p.o. potassium to replace. BUN is improved to 31 and creatinine is improved to 1.4 Patient is currently on Rocephin 2 g daily PICC line tomorrow for 12 more days of IV Rocephin Patient has positive blood cultures and urine cultures. Sure for going to be able to get echo was done due to scheduling. - Time Time Spent with patient: 25-34 minutes
[2019-10-16] MEDS: POTASSIUM CHLORIDE 10 MEQ TABLET.ER PO SCH ×2 (11:41→21:54)
[2019-10-16] MEDS: ATORVASTATIN CALCIUM 10 MG TABLET PO SCH (21:55)
[2019-10-17] MEDS: IPRATROPIUM/ALBUTEROL 0.5-2.5 MG/3 ML AMPUL NEB SCH ×4 (02:59→21:26)
[2019-10-17] MEDS: DILTIAZEM HCL 90 MG TABLET PO SCH ×4 (05:35→23:07)
[2019-10-17] MEDS: HEPARIN SOD (PORCINE) 5,000 UNIT/ML 1 ML VIAL SUBCUT SCH ×3 (05:35→22:15)
[2019-10-17] MEDS: NORMAL SALINE 1000 ML 1,000 ML IV PRN (08:06)
[2019-10-17 08:49] LABS: ABSOLUTE BASOPHILS # (AUTO) 0.1 10^3/uL (0.0-0.2); ABSOLUTE EOSINOPHILS # (AUTO) 1.1 10^3/uL (0.0-0.6); ABSOLUTE LYMPHOCYTES (AUTO) 0.9 10^3/uL (0.5-4.7); ABSOLUTE MONOCYTES (AUTO) 0.8 10^3/uL (0.1-1.4); ABSOLUTE NEUT (AUTO) 10.5 10^3/uL (1.7-8.2); BASOPHILS % (AUTO) 0.5 % (0-2); HEMATOCRIT 32.6 % (37.9-51.0); LYMPHOCYTES % (AUTO) 6.8 % (13-45); MEAN CORPUSCULAR HEMOGLOBIN 30.1 pg (27.0-33.4); MEAN CORPUSCULAR HGB CONC 33.9 g/dL (32.0-36.0); MEAN CORPUSCULAR VOLUME 89 fl (80-97); PLATELET COUNT 463 10^3/uL (150-450); RED BLOOD COUNT 3.67 10^6/uL (4.35-5.55); RED CELL DISTRIBUTION WIDTH 15.6 % (11.5-14.0); SEGMENTED NEUTROPHILS % (AUTO) 78.7 % (42-78); TOTAL CELLS COUNTED % (AUTO) 100 %; WHITE BLOOD COUNT 13.4 10^3/uL (4.0-10.5)
[2019-10-17 09:09] LABS: ANION GAP 10 (5-19); BLOOD UREA NITROGEN 29 mg/dL (7-20); CALCIUM 9.5 mg/dL (8.4-10.2); CARBON DIOXIDE 30 mmol/L (22-30); CHLORIDE 101 mmol/L (98-107); GLUCOSE 128 mg/dL (75-110); POTASSIUM 3.4 mmol/L (3.6-5.0)
[2019-10-17] MEDS: POTASSIUM CHLORIDE 10 MEQ TABLET.ER PO SCH ×2 (10:47→22:15)
[2019-10-17] MEDS: LOSARTAN POTASSIUM 50 MG TABLET PO SCH (10:47)
[2019-10-17] MEDS: VENLAFAXINE HCL 75 MG CAP.SR.24H PO SCH ×2 (10:47→22:15)
[2019-10-17] MEDS: GUAIFENESIN 600 MG TABLET.SA PO SCH ×2 (10:47→22:15)
[2019-10-17] MEDS: ASPIRIN 81 MG TABLET, CHEWABLE PO SCH (10:47)
[2019-10-17] MEDS: ACETAMINOPHEN 325 MG TABLET PO PRN ×2 (10:48→20:07)
--- NOTE | 2019-10-17 11:48 | PDOC PROGRESS REPORT ---
Subjective Progress Note for:: 10/17/19 Reason For Visit: SEPSIS PYELONEPHRITIS ARF 10/17/2019 pyelonephritis and sepsis Physical Exam Vital Signs: Temp Pulse Resp BP Pulse Ox 97.6 F 92 16 170/73 H 98 10/17/19 08:15 10/17/19 08:15 10/17/19 08:15 10/17/19 08:15 10/17/19 08:15 Intake & Output 10/16/19 10/17/19 10/18/19 06:59 06:59 06:59 Intake Total 1410 2995 Output Total 1775 1800 Balance -365 1195 Weight 90.2 kg 90.5 kg General appearance: PRESENT: mild distress, other - Mild respiratory distress from his COPD Respiratory exam: PRESENT: rhonchi, wheezes Cardiovascular exam: PRESENT: RRR. ABSENT: diastolic murmur, rubs, systolic murmur Neurological exam: PRESENT: alert, awake, oriented to person, oriented to place, oriented to time, oriented to situation, CN II-XII grossly intact. ABSENT: motor sensory deficit Psychiatric exam: PRESENT: anxious Results Laboratory Results: 10/17/19 08:42 10/17/19 08:42 10/17/19 10/17/19 08:42 08:42 WBC 13.4 H RBC 3.67 L Hgb 11.0 L Hct 32.6 L MCV 89 MCH 30.1 MCHC 33.9 RDW 15.6 H Plt Count 463 H Seg Neutrophils % 78.7 H Sodium 140.9 Potassium 3.4 L Chloride 101 Carbon Dioxide 30 Anion Gap 10 BUN 29 H Creatinine 1.18 Est GFR ( Amer) > 60 Glucose 128 H Calcium 9.5 10/15/19 09:13 Sputum Gram Stain - Final 10/15/19 09:13 Sputum Sputum Culture - Final C.albicans/C.dubliniensis Normal Vannessa 10/12/19 04:50 Blood Blood Culture - Final NO GROWTH IN 5 DAYS 10/12/19 05:32 Blood Blood Culture - Final NO GROWTH IN 5 DAYS 10/09/19 10/09/19 10/09/19 17:08 17:08 20:30 Creatine Kinase CK-MB (CK-2) Troponin I 0.031 0.032 NT-Pro-B Natriuret Pep 1810 H 10/12/19 10/12/19 10/12/19 08:21 08:21 14:30 Creatine Kinase 42 L 37 L CK-MB (CK-2) 1.77 Troponin I 0.033 NT-Pro-B Natriuret Pep 10/12/19 10/12/19 10/12/19 14:30 20:41 20:41 Creatine Kinase 53 L CK-MB (CK-2) 1.81 1.86 Troponin I 0.022 0.024 NT-Pro-B Natriuret Pep 10/13/19 10/13/19 10/14/19 22:58 22:58 05:00 Creatine Kinase 35 L 24 L CK-MB (CK-2) 1.60 Troponin I 0.018 NT-Pro-B Natriuret Pep 10/14/19 10/14/19 10/14/19 05:00 10:59 10:59 Creatine Kinase < 20 L CK-MB (CK-2) 1.14 1.28 Troponin I 0.014 0.016 NT-Pro-B Natriuret Pep Impressions: Chest CT 10/09/19 18:39 IMPRESSION: Findings of chronic fibrotic interstitial lung disease without a superimposed acute cardiopulmonary process. Abdomen/Pelvis CT 10/09/19 18:40 IMPRESSION: 1. Asymmetric left perinephric and periureteral stranding without hydronephrosis. Clinical correlation to exclude an ascending urinary tract infection is recommended. 2. Hepatic steatosis. 3. Colonic diverticulosis without diverticulitis. Lung Scan-VQ NM 10/09/19 21:25 IMPRESSION: NORMAL VENTILATION-PERFUSION LUNG SCAN. NEGATIVE FOR PULMONARY EMBOLI. Chest X-Ray 10/12/19 00:00 IMPRESSION: Right upper lobe and left lower lobe pneumonia superimposed on interstitial lung disease. Acute Abdomen Series 10/12/19 06:58 IMPRESSION: Nonspecific bowel gas pattern without evidence for obstruction. Interstitial lung disease. Assessment and Plan - Diagnosis (1) Pyelonephritis Is this a current diagnosis for this admission?: Yes (2) Sepsis Qualifiers: Sepsis type: Escherichia coli Sepsis acute organ dysfunction status: with acute organ dysfunction Severe sepsis acute organ dysfunction type: acute renal failure Severe sepsis shock status: without septic shock Is this a current diagnosis for this admission?: Yes (3) Anxiety Is this a current diagnosis for this admission?: Yes (4) Chest pain Qualifiers: Chest pain type: unspecified Qualified Code(s): R07.9 - Chest pain, unspecified Is this a current diagnosis for this admission?: Yes (5) End stage COPD Is this a current diagnosis for this admission?: Yes - Plan Summary Summary: Downgrade to telemetry today. 10/15/2019 temp 97.5, pulse 87 blood pressure 147/59 O2 sat 95% on 2 L Patient has been seen by cardiology and feels that he can continue his work-up as an outpatient She is growing out E. coli both urine as well as blood cultures Patient also has a right upper lobe and left lower lobe pneumonia She was seen by infectious disease today who feels that the patient needs 14 days of Rocephin 2 g IV daily. We will DC the cefepime and Azactam White count is now 9.7 BUN is gone from 52 down to 31 and creatinine is gone from 3.47 down to 1.44 Continue IV antibiotics for the next 48 hours and then discussed possibly discharging home on IV antibiotics 10/16/2019 Patient vital signs are stable, blood pressure still slightly elevated 166/69, although this is not consistent, accident saturations are in the mid to upper 90s either BiPAP or nasal cannula Labs appear stable, potassium is down slightly to 3.4 we will give p.o. potassiu m to replace. BUN is improved to 31 and creatinine is improved to 1.4 Patient is currently on Rocephin 2 g daily PICC line tomorrow for 12 more days of IV Rocephin Patient has positive blood cultures and urine cultures. Not sure if going to be able to get an echocardiogram done due to scheduling 10/17/2019 Patient was originally admitted to the hospital for generalized weakness secondary to sepsis and pyelonephritis with acute on chronic renal failure Patient's primary problem now is his end-stage COPD and his bacteremia in secondary to urine and blood cultures being positive with E. coli Patient is scheduled for PICC line today. I am going to talk to cardiology over the phone and see if we can schedule an echo as an outpatient Tells me he has had COPD for 35 years and the last 1 year it it has worsened. 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 Also sounds as though patient may have an element of pulmonary fibrosis. Patient also tells me that his railroad operator Dr. Javier Galeas has stated in the past that he probably does not have pneumonia often as it has been diagnosed. Patient's vital signs are stable, today he is also growing out yeast in his sputum Anticipate discharge to home either tomorrow or Monday - Time Time Spent with patient: 25-34 minutes
[2019-10-17] MEDS: CEFTRIAXONE 2 GM/D5W RTU 2 GM/50 ML RTUPB IV SCH (12:27)
--- NOTE | 2019-10-17 15:03 | RADIOLOGY REPORT (SQ) ---
EXAM DESCRIPTION: CHEST SINGLE VIEW COMPLETED DATE/TIME: 10/17/2019 2:52 pm REASON FOR STUDY: Shortness of breath, pneumonia COMPARISON: 10/12/2019 EXAM PARAMETERS: NUMBER OF VIEWS: One view. TECHNIQUE: Single frontal radiographic view of the chest acquired. RADIATION DOSE: NA LIMITATIONS: None. FINDINGS: LUNGS AND PLEURA: Worsening multifocal airspace disease greatest within the bilateral uppe r lobes and right infrahilar region. No large effusion. No pneumothorax. MEDIASTINUM AND HILAR STRUCTURES: No masses. Contour normal. HEART AND VASCULAR STRUCTURES: Heart normal in size. Normal vasculature. BONES: No acute findings. HARDWARE: None in the chest. OTHER: No other significant finding. IMPRESSION: Worsening multifocal airspace disease compatible with pneumonia. No significant effusio n. TECHNICAL DOCUMENTATION: JOB ID: [id number] [employer] All Rights Reserved Reading location - IP/workstation name: [email or web address]
--- NOTE | 2019-10-17 21:51 | PDOC CONSULTATION ---
Consultation Consult Date: 10/17/19 Provider Consulted: KOREY PETE Consult reason:: I was asked to see the patient to evaluate for possible PICC line placement for home antibiotics. History of Present Illness Admission Date/PCP: 10/09/19 22:59 RANDALL MURCIA PA-C History of Present Illness: LUTHER LIPSCOMB is a 74 year old male known to me with history of chronic kidney disease stage III, hypertension, non-nephrotic range proteinuria, BPH, COPD, pulmonary fibrosis, and obstructive sleep apnea who was admitted on 10/09/2019 due to weakness, dizziness, nausea and inability to urinate. He was diagnosed with acute pyelonephritis associated with sepsis secondary to E. coli. He has been on IV antibiotics which include IV cefepime, azithromycin, aztreonam and Zosyn for the last few days. Infectious disease evaluated him and recommendation was to continue with ceftriaxone IV for 14 more days. Thus the patient would need an IV access so he can be given antibiotics at home. The p atient also developed some multifocal airspace disease consistent with possible pneumonia for the last couple of days. He admits having some cough with thick yellowish, whitish and sometimes greenish phlegm last few days. Upon admission the patient also presented with elevated BUN of 57, creatinine of 4.08. Review of records revealed that the patient's previous baseline BUN ranges anywhere between 30-50, creatinine ranges 1.2-1.6 and EGFR ranges between 36-57. The last time I have seen the patient in my office in April that patient had a BUN of 34, and creatinine of 1.33 with EGFR 53 which I believe is pretty much his baseline kidney function. He does have some non-nephrotic range protei wes. Today the patient's kidney function include a BUN of 29, creatinine of 1.18 with EGFR of 60.9-64.3. He is non-oliguric producing urine approximately 1683-8620 mL plus daily for the last couple of days. Patient states that his urination has improved since admission. However the at bedside confirms that he still has dark and cloudy urine. He still has decreased appetite. Past Medical History Cardiac Medical History: Reports: CHF-Systolic, Hyperlipidemia, Hypertension- primary Pulmonary Medical History: Reports: Chronic Obstructive Pulmonary Disease (COPD), Pneumonia, Sleep Apnea, Other - Pulmonary fibrosis EENT Medical History: Reports: Cataracts, Eyes - Low,, legally blind Neurological Medical History: Reports: Migraine, Other - TIA on January 2019 Renal/ Medical History: Reports: Benign Prostatic Hyperplasia, Chronic Kidney Disease Stage III, Proteinuria GI Medical History: Reports: Hepatitis - Hepatitis C Musculoskeltal Medical History: Reports: Arthritis, Fibromyalgia, Gout Psychiatric Medical History: Reports: Depression, General Anxiety Disorder Hematology Medical History: Reports Anemia Past Surgical History Past Surgical History: Reports: Herniorrhaphy - Umbilical repair, Orthopedic Surgery - right shoulder, left knee, Other - Sinus surgery, cataract extraction Social History Information Source: Patient, [employer] Office Lives with: Spouse/Significant other Smoking Status: Former Smoker Cigarettes Packs Per Day: 1.5 Electronic Cigarette use?: No Number of Years Smokin Last Time Smoked: 09/22/2018 Frequency of Alcohol Use: Occasional Hx Recreational Drug Use: No Drugs: None Hx Prescription Drug Abuse: No - Advance Directive Resuscitation Status: Full Code Family History Family History: CAD - Mother, Chronic Kidney Disease - Father, CVA - Father and mother, Malignancy - Bladder cancer on his sister Parental Family History Reviewed: Yes Children Family History Reviewed: No Sibling(s) Family History Reviewed.: Yes Medication/Allergy Home Medications: Losartan Potassium [Cozaar 50 mg Tablet] 100 mg PO DAILY 30 Days #30 tablet 02/13/19 Hydrochlorothiazide [Hydrodiuril 25 mg Tablet] 25 mg PO DAILY 06/03/19 Tramadol HCl [Ultram] 50 mg PO Q8HP PRN 06/03/19 Brimonidine Tartrate [Alphagan 0.2% Oph Soln 5 ml] 1 drop OU Q12 10/10/19 Celecoxib [Celebrex 200 mg Capsule] 200 mg PO Q12 10/10/19 Famotidine [Pepcid 20 mg Tablet] 20 mg PO Q12 10/10/19 Timolol Maleate [Timoptic 0.5% Oph Soln 5 ml] 1 drop OU Q12 10/10/19 Tiotropium Immaculata [Spiriva Handihaler 5 Cap/Kit (18 Mcg/Cap)] 1 cap IH DAILY 10/10/19 Venlafaxine HCl ER [Effexor Xr 75 mg Cap.sr] 75 mg PO Q12 10/10/19 Allergies/Adverse Reactions: lisinopril [Lisinopril] Allergy (Verified 10/09/19 16:52) moxifloxacin HCl [From Avelox] Allergy (Verified 10/09/19 16:52) Review of Systems All systems: reviewed and no additional remarkable complaints except as stated Review of Systems: Constitutional: ABSENT: chills, fever(s), headache(s), weight gain, weight loss; admits fatigue and feeling tired Eyes: Legally blind Ears: ABSENT: hearing changes Cardiovascular: ABSENT: chest pain, edema, orthropnea, palpitations; admits shortness of breath Respiratory: ABSENT: hemoptysis; admits cough Gastrointestinal: ABSENT: abdominal pain, constipation, diarrhea, hematemesis, hematochezia, nausea, vomiting Genitourinary: ABSENT: dysuria, hematuria Musculoskeletal: ABSENT: joint swelling Integumentary: ABSENT: rash, wounds Neurological: ABSENT: abnormal gait, abnormal speech, confusion, dizziness, focal weakness, numbness, syncope Psychiatric: ABSENT: anxiety, depression Endocrine: ABSENT: cold intolerance, heat intolerance, polydipsia, polyuria Hematologic/Lymphatic: ABSENT: easy bleeding, easy bruising, lymphadenopathy Physical Exam Vital Signs: Temp Pulse Resp BP Pulse Ox 97.7 F 85 16 176/74 H 95 10/17/19 12:16 10/17/19 13:52 10/17/19 13:52 10/17/19 12:16 10/17/19 13:52 Intake & Output 10/16/19 10/17/19 10/18/19 06:59 06:59 06:59 Intake Total 1410 2995 890 Output Total 1775 1800 400 Balance -365 1195 490 Weight 90.2 kg 90.5 kg Exam: General appearance: No acute distress, cooperative, well-developed, well- nourished Head exam: PRESENT: atraumatic, normocephalic Eye exam: PRESENT: Conjunctiva Humphrey, EOMI, PERRLA. ABSENT: conjunctival injection, scleral icterus Mouth exam: PRESENT: moist, neck supple, tongue midline Neck exam: PRESENT: full ROM. ABSENT: carotid bruit, JVD, lymphadenopathy, thyromegaly Respiratory exam: PRESENT: Diminished to auscultation bilaterally. Positive bibasilar crackles ABSENT: Rhonchi, stridor, wheezes Cardiovascular exam: PRESENT: RRR, +S1, +S2. ABSENT: systolic murmur Pulses: PRESENT: normal radial pulses, normal dorsalis pedis pulses GI/Abdominal exam: PRESENT: normal bowel sounds, soft. ABSENT: guarding, mass, tenderness Rectal exam: Deferred Extremities exam: PRESENT: full ROM. ABSENT: calf tenderness, pedal edema Musculoskeletal: PRESENT: full ROM. ABSENT: deformity Neurological exam: PRESENT: alert, Awake, Oriented to person, Oriented to place, Oriented to time, reflexes normal, CN II-XII grossly intact. ABSENT: motor sensory deficit Psychiatric exam: PRESENT: appropriate affect, normal mood. ABSENT: homicidal i deation, suicidal ideation Skin exam: PRESENT: intact, dry, warm. ABSENT: rash Results Laboratory Results: 10/17/19 08:42 10/17/19 08:42 10/17/19 10/17/19 08:42 08:42 WBC 13.4 H RBC 3.67 L Hgb 11.0 L Hct 32.6 L MCV 89 MCH 30.1 MCHC 33.9 RDW 15.6 H Plt Count 463 H Seg Neutrophils % 78.7 H Sodium 140.9 Potassium 3.4 L Chloride 101 Carbon Dioxide 30 Anion Gap 10 BUN 29 H Creatinine 1.18 Est GFR ( Amer) > 60 Glucose 128 H Calcium 9.5 10/15/19 09:13 Sputum Gram Stain - Final 10/15/19 09:13 Sputum Sputum Culture - Final C.albicans/C.dubliniensis Normal Vannessa 10/12/19 04:50 Blood Blood Culture - Final NO GROWTH IN 5 DAYS 10/12/19 05:32 Blood Blood Culture - Final NO GROWTH IN 5 DAYS 10/09/19 10/09/19 10/09/19 17:08 17:08 20:30 Creatine Kinase CK-MB (CK-2) Troponin I 0.031 0.032 NT-Pro-B Natriuret Pep 1810 H 10/12/19 10/12/19 10/12/19 08:21 08:21 14:30 Creatine Kinase 42 L 37 L CK-MB (CK-2) 1.77 Troponin I 0.033 NT-Pro-B Natriuret Pep 10/12/19 10/12/19 10/12/19 14:30 20:41 20:41 Creatine Kinase 53 L CK-MB (CK-2) 1.81 1.86 Troponin I 0.022 0.024 NT-Pro-B Natriuret Pep 10/13/19 10/13/19 10/14/19 22:58 22:58 05:00 Creatine Kinase 35 L 24 L CK-MB (CK-2) 1.60 Troponin I 0.018 NT-Pro-B Natriuret Pep 10/14/19 10/14/19 10/14/19 05:00 10:59 10:59 Creatine Kinase < 20 L CK-MB (CK-2) 1.14 1.28 Troponin I 0.014 0.016 NT-Pro-B Natriuret Pep Impressions: Chest CT 10/09/19 18:39 IMPRESSION: Findings of chronic fibrotic interstitial lung disease without a superimposed acute cardiopulmonary process. Abdomen/Pelvis CT 10/09/19 18:40 IMPRESSION: 1. Asymmetric left perinephric and periureteral stranding without hydronephrosis. Clinical correlation to exclude an ascending urinary tract infection is recommended. 2. Hepatic steatosis. 3. Colonic diverticulosis without diverticulitis. Lung Scan-VQ NM 10/09/19 21:25 IMPRESSION: NORMAL VENTILATION-PERFUSION LUNG SCAN. NEGATIVE FOR PULMONARY EMBOLI. Acute Abdomen Series 10/12/19 06:58 IMPRESSION: Nonspecific bowel gas pattern without evidence for obstruction. Interstitial lung disease. Chest X-Ray 10/17/19 00:00 IMPRESSION: Worsening multifocal airspace disease compatible with pneumonia. No significant effusion. Assessment & Plan - Diagnosis (1) Acute kidney injury superimposed on chronic kidney disease Is this a current diagnosis for this admission?: Yes Plan: Acute kidney injury is now resolved. Patient is non-oliguric. Patient's kidney function is even better than previous baseline. Given the patient's current kidney function and previous baseline I think the patient's probability of ending up in end-stage renal disease requiring chronic hemodialysis treatment considering his age is low to moderate in the next 5 years. I think the patient can reasonably have a PICC line inserted so he can be given home antibiotics pe r ID recommendation. (2) Pyelonephritis Is this a current diagnosis for this admission?: Yes Plan: Due to E. coli. Patient being given IV antibiotics per hospitalist and ID recommendation. (3) Sepsis Qualifiers: Sepsis type: Escherichia coli Sepsis acute organ dysfunction status: with acute organ dysfunction Severe sepsis acute organ dysfunction type: acute renal failure Severe sepsis shock status: without septic shock Is this a current diagnosis for this admission?: Yes Plan: Due to E. coli treated as above. (4) COPD (chronic obstructive pulmonary disease) Qualifiers: COPD type: unspecified COPD Qualified Code(s): J44.9 - Chronic obstructive pulmonary disease, unspecified Is this a current diagnosis for this admission?: Yes (5) Pneumonia Qualifiers: Pneumonia type: due to unspecified organism Laterality: bilateral Lung location: unspecified part of lung Qualified Code(s): J18.9 - Pneumonia, unspecified organism Is this a current diagnosis for this admission?: Yes Plan: Likely healthcare associated pneumonia this seems to have developed during this hospitalization. Management per hospitalist service. When I reviewed the most recent chest x-ray I think a superimposed developing pulmonary congestion cannot be excluded overlying a possible pneumonia. I recommend discontinuation of IV fluids at this time. (6) Anemia Is this a current diagnosis for this admission?: Yes (7) Chronic renal failure, stage 3 (moderate) Is this a current diagnosis for this admission?: Yes Plan: Patient has underlying non-nephrotic range proteinuria. Risk factors for chronic kidney disease include hypertension, and previous use of analgesics. (8) Hypertension Is this a current diagnosis for this admission?: Yes Plan: Suboptimally controlled. Patient may need additional blood pressure medications. - Notes Notes: Thank you very much for this consultation. Discussed recommendation with Ian Peña Jr., PA-C. - Time Time Spent: 50 to 70 Minutes
[2019-10-17] MEDS: ATORVASTATIN CALCIUM 10 MG TABLET PO SCH (22:15)
[2019-10-18] MEDS: ACETAMINOPHEN 325 MG TABLET PO PRN ×3 (00:22→17:13)
[2019-10-18] MEDS: IPRATROPIUM/ALBUTEROL 0.5-2.5 MG/3 ML AMPUL NEB SCH ×4 (02:03→20:44)
[2019-10-18] MEDS: HEPARIN SOD (PORCINE) 5,000 UNIT/ML 1 ML VIAL SUBCUT SCH ×3 (05:23→23:17)
[2019-10-18] MEDS: DILTIAZEM HCL 90 MG TABLET PO SCH (05:23)
[2019-10-18] MEDS: ASPIRIN 81 MG TABLET, CHEWABLE PO SCH (09:54)
[2019-10-18] MEDS: POTASSIUM CHLORIDE 10 MEQ TABLET.ER PO SCH ×2 (09:55→21:47)
[2019-10-18] MEDS: LOSARTAN POTASSIUM 50 MG TABLET PO SCH (09:55)
[2019-10-18] MEDS: VENLAFAXINE HCL 75 MG CAP.SR.24H PO SCH ×2 (09:55→21:38)
[2019-10-18] MEDS: DILTIAZEM HCL 180 MG CAPSULE.CR PO SCH ×2 (09:55→21:47)
[2019-10-18] MEDS: CEFTRIAXONE 2 GM/D5W RTU 2 GM/50 ML RTUPB IV SCH (09:56)
[2019-10-18] MEDS: GUAIFENESIN 600 MG TABLET.SA PO SCH ×2 (09:56→21:38)
[2019-10-18] MEDS ORDERED: DILTIAZEM HCL 120 MG CAP.SR.24H PO SCH (10:00)
--- NOTE | 2019-10-18 11:21 | RADIOLOGY REPORT (SQ) ---
EXAM DESCRIPTION: PICC INSERTION; FLUORO/CV PLACEMENT; U/S GUIDE FOR VASCULAR ACCESS COMPLETED DATE/TIME: 10/18/2019 9:26 am REASON FOR STUDY: Urosepsis; UROSEPSIS IV ABX; IV ACCESS COMPARISON: None. FLUOROSCOPY TIME: 0.37 minutes 3 images submitted to PACS. TECHNIQUE: Fluoroscopic and ultrasound guided PICC placement. LIMITATIONS: None. PROCEDURE: The procedure, risks, benefits, and alternatives were discussed with the patient in the p reprocedural area, and all questions were answered. Informed consent was obtained verbally and in wri ting. The patient was then brought to the procedural suite, positioned supine on the fluoroscopy table, and a time-out was performed. At first the right upper extremity was evaluated with ultrasound and the brachial vein was found to b e patent and compressible. The right upper extremity was then prepped and draped with 2% chlorhexidin e utilizing standard sterile technique. After the skin over the brachial vein was anesthetized with 1 % lidocaine, ultrasound guidance was used to access the vessel with a 21-gauge needle - a sonographic image was stored for documentation. A 0.018 inch guidewire was then inserted through the needle and advanced under fluoroscopic guidance into the SVC. After that, the needle was exchanged over the guid ewire for a peel-away sheath. A 5 Macedonian double -lumen PICC was then cut to the appropriate length of 35 cm, inserted through the sheath and advanced under fluoroscopic guidance into the SVC. After that , the peel-away sheath was removed and a fluoroscopic image of the chest was obtained to confirm prop er position of the catheter tip within SVC. The lumens of the PICC were then aspirated, flushed with sterile saline and heparinized. At the end of the procedure the PICC was secured in place and a sterile dressing applied over it. The patient tolerated the procedure well without immediate complication. At the end of the procedure the patient's condition was unchanged from the preprocedural baseline. No IV conscious sedation was administered. Physiologic monitoring was provided before, during, and after the procedure. Documentation of [id number] time performing proceduralist spent monitoring the patient: minutes. IMPRESSION: Successful placement of a 5 Macedonian x 35 cm double-lumen PICC via the right brachial vein utilizing fluoroscopic and sonographic guidance. COMMENT: Patient medication list reviewed: Yes- Quality ID# [id number]:Eligible professional attests to doc umenting in the medical record they obtained, updated, or reviewed the patient's current medications. . Quality ID 145: Final reports for procedures using fluoroscopy that document radiation exposure sowmya luis daniel, or exposure time and number of fluorographic images (if radiation exposure indices are not avail able) Quality ID #[id number]: The patient was prepped and draped using maximum sterile barrier technique including cap, mask, sterile gown, sterile gloves, a large sterile sheet, hand hygiene, and 2% Chlorhexidine fo r cutaneous antisepsis. When ultrasound is used, sterile ultrasound techniques are followed requiring sterile gel and sterile probes. TECHNICAL DOCUMENTATION: JOB ID: [id number] [employer]- All Rights Reserved rev Reading location - IP/workstation name: [email or web address]
--- NOTE | 2019-10-18 16:25 | PDOC PROGRESS REPORT ---
Subjective Progress Note for:: 10/18/19 Reason For Visit: SEPSIS PYELONEPHRITIS ARF 10/18/2019 End-stage COPD, pyelonephritis, sepsis Physical Exam Vital Signs: Temp Pulse Resp BP Pulse Ox 97.2 F 90 24 H 185/72 H 97 10/18/19 07:57 10/18/19 13:35 10/18/19 13:35 10/18/19 07:57 10/18/19 13:35 Intake & Output 10/17/19 10/18/19 10/19/19 06:59 06:59 06:59 Intake Total 2995 1898 150 Output Total 1800 1250 225 Balance 1195 648 -75 Weight 90.5 kg 90.8 kg General appearance: PRESENT: mild distress, other - Patient is in no distress when lying in bed with his nasal oxygen but as soon as he gets up on the edge of bed he becomes hypoxic Respiratory exam: PRESENT: decreased breath sounds, wheezes Cardiovascular exam: PRESENT: RRR. ABSENT: diastolic murmur, rubs, systolic murmur Neurological exam: PRESENT: alert, awake, oriented to person, oriented to place, oriented to time, oriented to situation, CN II-XII grossly intact. ABSENT: motor sensory deficit Psychiatric exam: PRESENT: anxious, appropriate affect, normal mood. ABSENT: homicidal ideation, suicidal ideation Results Laboratory Results: 10/17/19 08:42 10/17/19 08:42 10/15/19 09:13 Sputum Gram Stain - Final 10/15/19 09:13 Sputum Sputum Culture - Final C.albicans/C.dubliniensis Normal Vannessa 10/09/19 10/09/19 10/09/19 17:08 17:08 20:30 Creatine Kinase CK-MB (CK-2) Troponin I 0.031 0.032 NT-Pro-B Natriuret Pep 1810 H 10/12/19 10/12/19 10/12/19 08:21 08:21 14:30 Creatine Kinase 42 L 37 L CK-MB (CK-2) 1.77 Troponin I 0.033 NT-Pro-B Natriuret Pep 10/12/19 10/12/19 10/12/19 14:30 20:41 20:41 Creatine Kinase 53 L CK-MB (CK-2) 1.81 1.86 Troponin I 0.022 0.024 NT-Pro-B Natriuret Pep 10/13/19 10/13/19 10/14/19 22:58 22:58 05:00 Creatine Kinase 35 L 24 L CK-MB (CK-2) 1.60 Troponin I 0.018 NT-Pro-B Natriuret Pep 10/14/19 10/14/19 10/14/19 05:00 10:59 10:59 Creatine Kinase < 20 L CK-MB (CK-2) 1.14 1.28 Troponin I 0.014 0.016 NT-Pro-B Natriuret Pep Impressions: Chest CT 10/09/19 18:39 IMPRESSION: Findings of chronic fibrotic interstitial lung disease without a superimposed acute cardiopulmonary process. Abdomen/Pelvis CT 10/09/19 18:40 IMPRESSION: 1. Asymmetric left perinephric and periureteral stranding without hydronephrosis. Clinical correlation to exclude an ascending urinary tract infection is recommended. 2. Hepatic steatosis. 3. Colonic diverticulosis without diverticulitis. Lung Scan-VQ NM 10/09/19 21:25 IMPRESSION: NORMAL VENTILATION-PERFUSION LUNG SCAN. NEGATIVE FOR PULMONARY EMBOLI. Acute Abdomen Series 10/12/19 06:58 IMPRESSION: Nonspecific bowel gas pattern without evidence for obstruction. Interstitial lung disease. Chest X-Ray 10/17/19 00:00 IMPRESSION: Worsening multifocal airspace disease compatible with pneumonia. No significant effusion. Guidance Fluoroscopy 10/18/19 00:00 IMPRESSION: Successful placement of a 5 Canadian x 35 cm double-lumen PICC via the right brachial vein utilizing fluoroscopic and sonographic guidance. Interventional Vascular Procedure 10/18/19 00:00 IMPRESSION: Successful placement of a 5 Canadian x 35 cm double-lumen PICC via the right brachial vein utilizing fluoroscopic and sonographic guidance. PICC Line Insertion 10/18/19 00:00 IMPRESSION: Successful placement of a 5 Canadian x 35 cm double-lumen PICC via the right brachial vein utilizing fluoroscopic and sonographic guidance. Assessment and Plan - Diagnosis (1) Pyelonephritis Is this a current diagnosis for this admission?: Yes (2) Sepsis Qualifiers: Sepsis type: Escherichia coli Sepsis acute organ dysfunction status: with acute organ dysfunction Severe sepsis acute organ dysfunction type: acute renal failure Severe sepsis shock status: without septic shock Is this a current diagnosis for this admission?: Yes (3) Anxiety Is this a current diagnosis for this admission?: Yes (4) Chest pain Qualifiers: Chest pain type: unspecified Qualified Code(s): R07.9 - Chest pain, unspecified Is this a current diagnosis for this admission?: Yes (5) End stage COPD Is this a current diagnosis for this admission?: Yes - Plan Summary Summary: Downgrade to telemetry today. 10/15/2019 temp 97.5, pulse 87 blood pressure 147/59 O2 sat 95% on 2 L Patient has been seen by cardiology and feels that he can continue his work-up as an outpatient She is growing out E. coli both urine as well as blood cultures Patient also has a right upper lobe and left lower lobe pneumonia She was seen by infectious disease today who feels that the patient needs 14 days of Rocephin 2 g IV daily. We will DC the cefepime and Azactam White count is now 9.7 BUN is gone from 52 down to 31 and creatinine is gone from 3.47 down to 1.44 Continue IV antibiotics for the next 48 hours and then discussed possibly discharging home on IV antibiotics 10/16/2019 Patient vital signs are stable, blood pressure still slightly elevated 166/69, although this is not consistent, accident saturations are in the mid to upper 90s either BiPAP or nasal cannula Labs appear stable, potassium is down slightly to 3.4 we will give p.o. potassium to replace. BUN is improved to 31 and creatinine is improved to 1.4 Patient is currently on Rocephin 2 g daily PICC line tomorrow for 12 more days of IV Rocephin Patient has positive blood cultures and urine cultures. 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 coli Patient is scheduled for PICC line today. Tells me he has had COPD for 35 years and the last 1 year it it has worsened. 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 Also sounds as though patient may have an element of pulmonary fibrosis. Patient also tells me that his mash tub cooker operator Dr. Javier Galeas has stated in the past that he probably does not have pneumonia often as it has been diagnosed. Patient's vital signs are stable, today he is also growing out yeast in his sputum Anticipate discharge to home either tomorrow or Monday10/18/2019 Temp 97 4, pulse 84, blood pressure 159/60 which is normal for him, though I am going to add a low dose of Catapres, O2 sat is between 94-96 on either BiPAP or nasal cannula of 7 L Sputum is growing out yeast blood culture and urine cultures growing out E. coli I have changed him to Cardizem CD 180 every 12 hours from 90 mg every 6 hours I was contemplating sending patient home today but he is still to oxygen dependent on either the BiPAP or nasal cannula. Cannot even get up sit on the edge of the bed without dropping his sats into the 70s. Ordered a CT scan of his chest, without contrast due to his renal functions. I am going to order Solu-Medrol 40 mg IV every 8 hours See how he does on Solu-Medrol check the results of the CT scan of the chest and make decisions based on these findings. - Time Time Spent with patient: 35 or more minutes
[2019-10-18] MEDS: ATORVASTATIN CALCIUM 10 MG TABLET PO SCH (21:38)
[2019-10-18] MEDS: METHYLPREDNISOLONE INJ 40 MG/1 ML SDV IV SCH ×2 (21:38→23:17)
[2019-10-18] MEDS: CLONIDINE HCL 0.1 MG TABLET PO SCH (21:38)
[2019-10-18] MEDS: OXYCODONE-ACETAMINOPHEN 5-325 MG TABLET PO PRN (21:46)
[2019-10-18] MEDS: FLUTICASONE NASAL SPRAY 50 MCG/SPRY 120 SPRAY/16 GM NAREB SCH (23:17)
--- NOTE | 2019-10-19 01:50 | RADIOLOGY REPORT (SQ) ---
CLINICAL HISTORY: end stage copd COMPARISON: 10/09/2019. 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 FINDINGS: The heart is normal in size. There is no pericardial effusion. There are multiple mildly enlarged mediastinal lymph nodes measuring up to 2.0 cm. Right PICC line tip is in the mid SVC. There is a small left pleural effusion. Central airways are patent. There is upper lung centrilobular emphysema. There are new moderate consolidations throughout the upper lungs as well as the posterior lower lobes. There are no acute abnormalities within the limited images of the upper abdomen. There are no acute osseous findings. No suspicious bony lesions. IMPRESSION: Bilateral pneumonia on a background of emphysema.
[2019-10-19] MEDS: IPRATROPIUM/ALBUTEROL 0.5-2.5 MG/3 ML AMPUL NEB SCH ×4 (02:20→20:10)
[2019-10-19] MEDS: HYDRALAZINE HCL INJ/PF 20 MG/1 ML SDV IV PRN (04:29)
[2019-10-19] MEDS: HEPARIN SOD (PORCINE) 5,000 UNIT/ML 1 ML VIAL SUBCUT SCH ×3 (06:10→22:18)
[2019-10-19] MEDS: METHYLPREDNISOLONE INJ 40 MG/1 ML SDV IV SCH ×3 (06:11→22:21)
[2019-10-19] MEDS: ACETAMINOPHEN 325 MG TABLET PO PRN ×2 (06:19→18:15)
[2019-10-19] MEDS ORDERED: IMIPENEM/CILASTATIN SODIUM 1,000 MG in NORMAL SALINE 250 ML IV SCH (08:00)
[2019-10-19 10:35] LABS: ABSOLUTE LYMPHOCYTES (AUTO) 0.4 10^3/uL (0.5-4.7); ABSOLUTE MONOCYTES (AUTO) 0.1 10^3/uL (0.1-1.4); ABSOLUTE NEUT (AUTO) 6.5 10^3/uL (1.7-8.2); BASOPHILS % (AUTO) 0.2 % (0-2); EOSINOPHILS % (AUTO) 0.1 % (0-6); HEMATOCRIT 35.9 % (37.9-51.0); HEMOGLOBIN 12.1 g/dL (13.5-17.0); LYMPHOCYTES % (AUTO) 5.6 % (13-45); MEAN CORPUSCULAR HGB CONC 33.8 g/dL (32.0-36.0); MEAN CORPUSCULAR VOLUME 89 fl (80-97); MONOCYTES % (AUTO) 1.3 % (3-13); PLATELET COUNT 598 10^3/uL (150-450); RED BLOOD COUNT 4.04 10^6/uL (4.35-5.55); RED CELL DISTRIBUTION WIDTH 15.7 % (11.5-14.0); SEGMENTED NEUTROPHILS % (AUTO) 92.8 % (42-78); TOTAL CELLS COUNTED % (AUTO) 100 %
[2019-10-19] MEDS: GUAIFENESIN 600 MG TABLET.SA PO SCH ×2 (10:35→22:20)
[2019-10-19] MEDS: POTASSIUM CHLORIDE 10 MEQ TABLET.ER PO SCH ×2 (10:35→22:18)
[2019-10-19] MEDS: FLUCONAZOLE 100 MG TABLET PO SCH (10:35)
[2019-10-19] MEDS: ASPIRIN 81 MG TABLET, CHEWABLE PO SCH (10:35)
[2019-10-19] MEDS: DILTIAZEM HCL 180 MG CAPSULE.CR PO SCH ×2 (10:35→22:21)
[2019-10-19] MEDS: CLONIDINE HCL 0.1 MG TABLET PO SCH ×2 (10:36→22:19)
[2019-10-19] MEDS: VENLAFAXINE HCL 75 MG CAP.SR.24H PO SCH ×2 (10:36→22:20)
[2019-10-19] MEDS: FLUTICASONE NASAL SPRAY 50 MCG/SPRY 120 SPRAY/16 GM NAREB SCH (10:36)
[2019-10-19] MEDS: LOSARTAN POTASSIUM 50 MG TABLET PO SCH (10:36)
[2019-10-19] MEDS: OXYCODONE-ACETAMINOPHEN 5-325 MG TABLET PO PRN ×2 (10:38→20:09)
[2019-10-19] MEDS: IMIPENEM/CILASTATIN SODIUM 1,000 MG in NORMAL SALINE 250 ML IV SCH ×2 (10:44→18:03)
[2019-10-19 10:57] LABS: ALBUMIN 3.4 g/dL (3.5-5.0); ALKALINE PHOSPHATASE 257 U/L (38-126); ANION GAP 17 (5-19); ASPARTATE AMINO TRANSFERASE 38 U/L (17-59); BILIRUBIN,DIRECT 0.5 mg/dL (0.0-0.4); BILIRUBIN,TOTAL 0.6 mg/dL (0.2-1.3); BLOOD UREA NITROGEN 34 mg/dL (7-20); CALCIUM 9.7 mg/dL (8.4-10.2); CARBON DIOXIDE 28 mmol/L (22-30); CHLORIDE 98 mmol/L (98-107); GLUCOSE 174 mg/dL (75-110); POTASSIUM 4.1 mmol/L (3.6-5.0); TOTAL PROTEIN 7.6 g/dL (6.3-8.2)
--- NOTE | 2019-10-19 11:13 | PDOC PROGRESS REPORT ---
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 ABSENT: diastolic murmur, rubs, systolic murmur Neurological exam: PRESENT: alert, awake, oriented to person, oriented to place, oriented to time, oriented to situation, CN II-XII grossly intact. ABSENT: motor sensory deficit Psychiatric exam: PRESENT: appropriate affect, normal mood. ABSENT: homicidal ideation, suicidal ideation Results Laboratory Results: 10/19/19 10:15 10/19/19 10:15 WBC 7.0 RBC 4.04 L Hgb 12.1 L Hct 35.9 L MCV 89 MCH 30.0 MCHC 33.8 RDW 15.7 H Plt Count 598 H Seg Neutrophils % 92.8 H 10/09/19 10/09/19 10/09/19 17:08 17:08 20:30 Creatine Kinase CK-MB (CK-2) Troponin I 0.031 0.032 NT-Pro-B Natriuret Pep 1810 H 10/12/19 10/12/19 10/12/19 08:21 08:21 14:30 Creatine Kinase 42 L 37 L CK-MB (CK-2) 1.77 Troponin I 0.033 NT-Pro-B Natriuret Pep 10/12/19 10/12/19 10/12/19 14:30 20:41 20:41 Creatine Kinase 53 L CK-MB (CK-2) 1.81 1.86 Troponin I 0.022 0.024 NT-Pro-B Natriuret Pep 10/13/19 10/13/1919 22:58 22:58 05:00 Creatine Kinase 35 L 24 L CK-MB (CK-2) 1.60 Troponin I 0.018 NT-Pro-B Natriuret Pep 10/14/19 10/14/19 10/14/19 05:00 10:59 10:59 Creatine Kinase < 20 L CK-MB (CK-2) 1.14 1.28 Troponin I 0.014 0.016 NT-Pro-B Natriuret Pep Impressions: Abdomen/Pelvis CT 10/09/19 18:40 IMPRESSION: 1. Asymmetric left perinephric and periureteral stranding without hydronephrosis. Clinical correlation to exclude an ascending urinary tract infection is recommended. 2. Hepatic steatosis. 3. Colonic diverticulosis without diverticulitis. Lung Scan-VQ NM 10/09/19 21:25 IMPRESSION: NORMAL VENTILATION-PERFUSION LUNG SCAN. NEGATIVE FOR PULMONARY EMBOLI. Acute Abdomen Series 10/12/19 06:58 IMPRESSION: Nonspecific bowel gas pattern without evidence for obstruction. Interstitial lung disease. Chest X-Ray 10/17/19 00:00 IMPRESSION: Worsening multifocal airspace disease compatible with pneumonia. No significant effusion. Chest CT 10/18/19 00:00 IMPRESSION: Bilateral pneumonia on a background of emphysema. Guidance Fluoroscopy 10/18/19 00:00 IMPRESSION: Successful placement of a 5 Ukrainian x 35 cm double-lumen PICC via the right brachial vein utilizing fluoroscopic and sonographic guidance. Interventional Vascular Procedure 10/18/19 00:00 IMPRESSION: Successful placement of a 5 Ukrainian x 35 cm double-lumen PICC via the right brachial vein utilizing fluoroscopic and sonographic guidance. PICC Line Insertion 10/18/19 00:00 IMPRESSION: Successful placement of a 5 Ukrainian x 35 cm double-lumen PICC via the right brachial vein utilizing fluoroscopic and sonographic guidance. Assessment and Plan - Diagnosis (1) Pyelonephritis Is this a current diagnosis for this admission?: Yes (2) Sepsis Qualifiers: Sepsis type: Escherichia coli Sepsis acute organ dysfunction status: with acute organ dysfunction Severe sepsis acute organ dysfunction type: acute renal failure Severe sepsis shock status: without septic shock Is this a current diagnosis for this admission?: Yes (3) Anxiety Is this a current diagnosis for this admission?: Yes (4) Chest pain Qualifiers: Chest pain type: unspecified Qualified Code(s): R07.9 - Chest pain, unspecified Is this a current diagnosis for this admission?: Yes (5) End stage COPD Is this a current diagnosis for this admission?: Yes (6) Emphysema of lung Is this a current diagnosis for this admission?: Yes (7) Pneumonia Is this a current diagnosis for this admission?: Yes - Plan Summary Summary: Downgrade to telemetry today. 10/15/2019 temp 97.5, pulse 87 blood pressure 147/59 O2 sat 95% on 2 L Patient has been seen by cardiology and feels that he can continue his work-up as an outpatient She is growing out E. coli both urine as well as blood cultures Patient also has a right upper lobe and left lower lobe pneumonia She was seen by infectious disease today who feels that the patient needs 14 days of Rocephin 2 g IV daily. We will DC the cefepime and Azactam White count is now 9.7 BUN is gone from 52 down to 31 and creatinine is gone from 3.47 down to 1.44 Continue IV antibiotics for the next 48 hours and then discussed possibly discharging home on IV antibiotics 10/16/2019 Patient vital signs are stable, blood pressure still slightly elevated 166/69, although this is not consistent, accident saturations are in the mid to upper 90s either BiPAP or nasal cannula Labs appear stable, potassium is down slightly to 3.4 we will give p.o. potassium to replace. BUN is improved to 31 and creatinine is improved to 1.4 Patient is currently on Rocephin 2 g daily PICC line tomorrow for 12 more days of IV Rocephin Patient has positive blood cultures and urine cultures. 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 coli Patient is scheduled for PICC line today. Tells me he has had COPD for 35 years and the last 1 year it it has worsened. 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 Also sounds as though patient may have an element of pulmonary fibrosis. Patient also tells me that his drywall installer Dr. Javier Galeas has stated in the past that he probably does not have pneumonia often as it has been diagnosed. Patient's vital signs are stable, today he is also growing out yeast in his sputum Anticipate discharge to home either tomorrow or Monday10/18/2019 Temp 97 4, pulse 84, blood pressure 159/60 which is normal for him, though I am going to add a low dose of Catapres, O2 sat is between 94-96 on either BiPAP or nasal cannula of 7 L Sputum is growing out yeast blood culture and urine cultures growing out E. coli I have changed him to Cardizem CD 180 every 12 hours from 90 mg every 6 hours I was contemplating sending patient home today but he is still to oxygen dependent on either the BiPAP or nasal cannula. Cannot even get up sit on the e dge of the bed without dropping his sats into the 70s. Ordered a CT scan of his chest, without contrast due to his renal functions. I am going to order Solu-Medrol 40 mg IV every 8 hours See how he does on Solu-Medrol check the results of the CT scan of the chest and make decisions based on these findings. 10/19/2019 Temperature 97.4, pulse between 80 and 90 Systolic is in the 150s or 160s with a diastolic in the 70s O2 sat in the mid to upper 90s, either on nasal cannula or BiPAP, rate is 6. FiO2 of 40% White count is normal at 7000 Chemistry panel is stable CT scan of the chest without contrast shows bilateral pneumonia on a background of emphysema. Currently there is new infiltrates in the upper lungs as well as the posterior lower lobes. Patient has been on Rocephin now as recommended by infectious disease for his E. coli in the blood and urine Rocephin was discontinued today and he was put on Imipenem. Also Diflucan 150 mg orally x3 days Continue the Solu-Medrol 40 mg IV every 8 hours Patient appears to have end-stage COPD secondary to emphysema with superimposed pneumonia - Time Time Spent with patient: 35 or more minutes
[2019-10-19] MEDS: NORMAL SALINE 10 ML SDV (AFTER EACH USE) IV PRN (20:13)
[2019-10-19] MEDS: ATORVASTATIN CALCIUM 10 MG TABLET PO SCH (22:20)
[2019-10-19] MEDS: NORMAL SALINE 10 ML SDV (SCHEDULED) IV SCH (22:23)
[2019-10-20] MEDS: IPRATROPIUM/ALBUTEROL 0.5-2.5 MG/3 ML AMPUL NEB SCH ×4 (02:30→20:16)
[2019-10-20] MEDS: IMIPENEM/CILASTATIN SODIUM 1,000 MG in NORMAL SALINE 250 ML IV SCH ×3 (04:22→17:08)
[2019-10-20] MEDS: METHYLPREDNISOLONE INJ 40 MG/1 ML SDV IV SCH ×3 (06:11→22:28)
[2019-10-20] MEDS: HEPARIN SOD (PORCINE) 5,000 UNIT/ML 1 ML VIAL SUBCUT SCH ×3 (06:11→22:28)
[2019-10-20] MEDS: NORMAL SALINE 10 ML SDV (AFTER EACH USE) IV PRN (06:25)
[2019-10-20] MEDS: FLUCONAZOLE 100 MG TABLET PO SCH (10:49)
[2019-10-20] MEDS: POTASSIUM CHLORIDE 10 MEQ TABLET.ER PO SCH ×2 (10:49→22:30)
[2019-10-20] MEDS: VENLAFAXINE HCL 75 MG CAP.SR.24H PO SCH ×2 (10:49→22:29)
[2019-10-20] MEDS: LOSARTAN POTASSIUM 50 MG TABLET PO SCH (10:50)
[2019-10-20] MEDS: GUAIFENESIN 600 MG TABLET.SA PO SCH ×2 (10:50→22:30)
[2019-10-20] MEDS: ASPIRIN 81 MG TABLET, CHEWABLE PO SCH (10:50)
[2019-10-20] MEDS: CLONIDINE HCL 0.1 MG TABLET PO SCH ×2 (10:50→22:30)
[2019-10-20] MEDS: NORMAL SALINE 10 ML SDV (SCHEDULED) IV SCH ×2 (10:50→21:52)
[2019-10-20] MEDS: FLUTICASONE NASAL SPRAY 50 MCG/SPRY 120 SPRAY/16 GM NAREB SCH (10:51)
[2019-10-20] MEDS: DILTIAZEM HCL 180 MG CAPSULE.CR PO SCH ×2 (10:51→22:30)
[2019-10-20] MEDS: OXYCODONE-ACETAMINOPHEN 5-325 MG TABLET PO PRN ×2 (15:04→22:29)
[2019-10-20] MEDS: ATORVASTATIN CALCIUM 10 MG TABLET PO SCH (22:29)
[2019-10-21] MEDS: IPRATROPIUM/ALBUTEROL 0.5-2.5 MG/3 ML AMPUL NEB SCH ×4 (02:04→20:59)
[2019-10-21] MEDS: IMIPENEM/CILASTATIN SODIUM 1,000 MG in NORMAL SALINE 250 ML IV SCH ×3 (02:43→19:35)
[2019-10-21] MEDS: METHYLPREDNISOLONE INJ 40 MG/1 ML SDV IV SCH ×3 (05:25→21:41)
[2019-10-21] MEDS: HEPARIN SOD (PORCINE) 5,000 UNIT/ML 1 ML VIAL SUBCUT SCH ×3 (05:25→21:40)
[2019-10-21] MEDS: CLONIDINE HCL 0.1 MG TABLET PO SCH ×2 (09:18→21:41)
[2019-10-21] MEDS: POTASSIUM CHLORIDE 10 MEQ TABLET.ER PO SCH ×2 (09:18→21:39)
[2019-10-21] MEDS: FLUCONAZOLE 100 MG TABLET PO SCH (09:18)
[2019-10-21] MEDS: VENLAFAXINE HCL 75 MG CAP.SR.24H PO SCH ×2 (09:19→21:41)
[2019-10-21] MEDS: GUAIFENESIN 600 MG TABLET.SA PO SCH ×2 (09:19→21:41)
[2019-10-21] MEDS: ASPIRIN 81 MG TABLET, CHEWABLE PO SCH (09:19)
[2019-10-21] MEDS: LOSARTAN POTASSIUM 50 MG TABLET PO SCH (09:19)
[2019-10-21] MEDS: DILTIAZEM HCL 180 MG CAPSULE.CR PO SCH ×2 (09:20→21:40)
[2019-10-21] MEDS: FLUTICASONE NASAL SPRAY 50 MCG/SPRY 120 SPRAY/16 GM NAREB SCH (09:27)
[2019-10-21] MEDS: NORMAL SALINE 10 ML SDV (SCHEDULED) IV SCH ×2 (12:08→21:40)
[2019-10-21] MEDS: OXYCODONE-ACETAMINOPHEN 5-325 MG TABLET PO PRN ×2 (12:12→20:17)
--- NOTE | 2019-10-21 18:06 | PDOC PROGRESS REPORT ---
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, pyelonephritis, sepsis Physical Exam Vital Signs: Temp Pulse Resp BP Pulse Ox 97.3 F 80 16 146/61 H 97 10/21/19 16:00 10/21/19 16:00 10/21/19 16:00 10/21/19 16:00 10/21/19 16:00 Intake & Output 10/20/19 10/21/19 10/22/19 06:59 06:59 06:59 Intake Total 1770 2300 640 Output Total 550 1300 600 Balance 1220 1000 40 Weight 88.4 kg 90.6 kg General appearance: PRESENT: no acute distress, other - As long as patient is sitting in bed he has no significant shortness of breath Respiratory exam: PRESENT: clear to auscultation lobito, other - Patient does not appear to be in respiratory distress when lying in bed. ABSENT: rales, rhonchi, wheezes Cardiovascular exam: PRESENT: RRR. ABSENT: diastolic murmur, rubs, systolic murmur Neurological exam: PRESENT: alert, awake, oriented to person, oriented to place, oriented to time, oriented to situation, CN II-XII grossly intact. ABSENT: motor sensory deficit Psychiatric exam: PRESENT: appropriate affect, normal mood. ABSENT: homicidal ideation, suicidal ideation Results Laboratory Results: 10/19/19 10:15 10/19/19 10:15 10/09/19 10/09/19 10/09/19 17:08 17:08 20:30 Creatine Kinase CK-MB (CK-2) Troponin I 0.031 0.032 NT-Pro-B Natriuret Pep 1810 H 10/12/19 10/12/19 10/12/19 08:21 08:21 14:30 Creatine Kinase 42 L 37 L CK-MB (CK-2) 1.77 Troponin I 0.033 NT-Pro-B Natriuret Pep 10/12/19 10/12/19 10/12/19 14:30 20:41 20:41 Creatine Kinase 53 L CK-MB (CK-2) 1.81 1.86 Troponin I 0.022 0.024 NT-Pro-B Natriuret Pep 10/13/19 10/13/19 10/14/19 22:58 22:58 05:00 Creatine Kinase 35 L 24 L CK-MB (CK-2) 1.60 Troponin I 0.018 NT-Pro-B Natriuret Pep 10/14/19 10/14/19 10/14/19 05:00 10:59 10:59 Creatine Kinase < 20 L CK-MB (CK-2) 1.14 1.28 Troponin I 0.014 0.016 NT-Pro-B Natriuret Pep 10/20/19 06:10 Creatine Kinase CK-MB (CK-2) Troponin I NT-Pro-B Natriuret Pep 626 H Impressions: Abdomen/Pelvis CT 10/09/19 18:40 IMPRESSION: 1. Asymmetric left perinephric and periureteral stranding without hydronephrosis. Clinical correlation to exclude an ascending urinary tract infection is recommended. 2. Hepatic steatosis. 3. Colonic diverticulosis without diverticulitis. Lung Scan-VQ NM 10/09/19 21:25 IMPRESSION: NORMAL VENTILATION-PERFUSION LUNG SCAN. NEGATIVE FOR PULMONARY EMBOLI. Acute Abdomen Series 10/12/19 06:58 IMPRESSION: Nonspecific bowel gas pattern without evidence for obstruction. Interstitial lung disease. Chest X-Ray 10/17/19 00:00 IMPRESSION: Worsening multifocal airspace disease compatible with pneumonia. No significant effusion. Chest CT 10/18/19 00:00 IMPRESSION: Bilateral pneumonia on a background of emphysema. Guidance Fluoroscopy 10/18/19 00:00 IMPRESSION: Successful placement of a 5 Faroese x 35 cm double-lumen PICC via the right brachial vein utilizing fluoroscopic and sonographic guidance. Interventional Vascular Procedure 10/18/19 00:00 IMPRESSION: Successful placement of a 5 Faroese x 35 cm double-lumen PICC via the right brachial vein utilizing fluoroscopic and sonographic guidance. PICC Line Insertion 10/18/19 00:00 IMPRESSION: Successful placement of a 5 Faroese x 35 cm double-lumen PICC via the right brachial vein utilizing fluoroscopic and sonographic guidance. Assessment and Plan - Diagnosis (1) Pyelonephritis Is this a current diagnosis for this admission?: Yes (2) Sepsis Qualifiers: Sepsis type: Escherichia coli Sepsis acute organ dysfunction status: with acute organ dysfunction Severe sepsis acute organ dysfunction type: acute renal failure Severe sepsis shock status: without septic shock Is this a current diagnosis for this admission?: Yes (3) Anxiety Is this a current diagnosis for this admission?: Yes (4) Chest pain Qualifiers: Chest pain type: unspecified Qualified Code(s): R07.9 - Chest pain, unspecified Is this a current diagnosis for this admission?: Yes (5) End stage COPD Is this a current diagnosis for this admission?: Yes (6) Emphysema of lung Is this a current diagnosis for this admission?: Yes (7) Pneumonia Is this a current diagnosis for this admission?: Yes - Plan Summary Summary: Downgrade to telemetry today. 10/15/2019 temp 97.5, pulse 87 blood pressure 147/59 O2 sat 95% on 2 L Patient has been seen by cardiology and feels that he can continue his work-up as an outpatient She is growing out E. coli both urine as well as blood cultures Patient also has a right upper lobe and left lower lobe pneumonia She was seen by infectious disease today who feels that the patient needs 14 days of Rocephin 2 g IV daily. We will DC the cefepime and Azactam White count is now 9.7 BUN is gone from 52 down to 31 and creatinine is gone from 3.47 down to 1.44 Continue IV antibiotics for the next 48 hours and then discussed possibly di scharging home on IV antibiotics 10/16/2019 Patient vital signs are stable, blood pressure still slightly elevated 166/69, although this is not consistent, accident saturations are in the mid to upper 90s either BiPAP or nasal cannula Labs appear stable, potassium is down slightly to 3.4 we will give p.o. potassium to replace. BUN is improved to 31 and creatinine is improved to 1.4 Patient is currently on Rocephin 2 g daily PICC line tomorrow for 12 more days of IV Rocephin Patient has positive blood cultures and urine cultures. 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 coli Patient is scheduled for PICC line today. Tells me he has had COPD for 35 years and the last 1 year it it has worsened. 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 Also sounds as though patient may have an element of pulmonary fibrosis. Patient also tells me that his customer energy specialist Dr. Javier Galeas has stated in the past that he probably does not have pneumonia often as it has been diagnosed. Patient's vital signs are stable, today he is also growing out yeast in his sputum Anticipate discharge to home either tomorrow or Monday10/18/2019 Temp 97 4, pulse 84, blood pressure 159/60 which is normal for him, though I am going to add a low dose of Catapres, O2 sat is between 94-96 on either BiPAP or nasal cannula of 7 L Sputum is growing out yeast blood culture and urine cultures growing out E. coli I have changed him to Cardizem CD 180 every 12 hours from 90 mg every 6 hours I was contemplating sending patient home today but he is still to oxygen dependent on either the BiPAP or nasal cannula. Cannot even get up sit on the edge of the bed without dropping his sats into the 70s. Ordered a CT scan of his chest, without contrast due to his renal functions. I am going to order Solu-Medrol 40 mg IV every 8 hours See how he does on Solu-Medrol check the results of the CT scan of the chest and make decisions based on these findings. 10/19/2019 Temperature 97.4, pulse between 80 and 90 Systolic is in the 150s or 160s with a diastolic in the 70s O2 sat in the mid to upper 90s, either on nasal cannula or BiPAP, rate is 6. FiO2 of 40% White count is normal at 7000 Chemistry panel is stable CT scan of the chest without contrast shows bilateral pneumonia on a background of emphysema. Currently there is new infiltrates in the upper lungs as well as the posterior lower lobes. Patient has been on Rocephin now as recommended by infectious disease for his E. coli in the blood and urine Rocephin was discontinued today and he was put on Imipenem. 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 Patient does not seem to have any element of CHF Will repeat chest x-ray on the morning of 10/22/2019 We will repeat labs on 10/22/2019, still no significant white count Only time patient has had a fever is on the day of admission of 100.2, since then he has been afebrile Continue imipenem Continue IV steroids End-stage COPD with superimposed pneumonia - Time Time Spent with patient: 25-34 minutes
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
[2019-10-21] MEDS: ATORVASTATIN CALCIUM 10 MG TABLET PO SCH (21:40)
[2019-10-21] MEDS: ACETAMINOPHEN 325 MG TABLET PO PRN (21:45)
[2019-10-21] MEDS: TRAZODONE HCL 50 MG TABLET PO PRN (21:45)
[2019-10-21 22:26] LABS: APPEARANCE,URINE CLEAR; BILIRUBIN,URINE NEGATIVE (NEGATIVE); COLOR,URINE YELLOW; GLUCOSE, URINE >=500 mg/dL (NEGATIVE); KETONES,URINE TRACE mg/dL (NEGATIVE); LEUKOCYTE ESTERASE,URINE TRACE (NEGATIVE); NITRITE,URINE NEGATIVE (NEGATIVE); PROTEIN,URINE 100 mg/dL (NEGATIVE); URINE SPECIFIC GRAVITY 1.014
[2019-10-22] MEDS: IMIPENEM/CILASTATIN SODIUM 1,000 MG in NORMAL SALINE 250 ML IV SCH ×3 (01:04→18:18)
[2019-10-22] MEDS: IPRATROPIUM/ALBUTEROL 0.5-2.5 MG/3 ML AMPUL NEB SCH ×4 (02:01→19:54)
[2019-10-22] MEDS: HEPARIN SOD (PORCINE) 5,000 UNIT/ML 1 ML VIAL SUBCUT SCH ×3 (05:39→22:06)
[2019-10-22] MEDS: METHYLPREDNISOLONE INJ 40 MG/1 ML SDV IV SCH ×3 (05:39→22:06)
[2019-10-22 05:56] LABS: ABSOLUTE LYMPHOCYTES (AUTO) 0.4 10^3/uL (0.5-4.7); ABSOLUTE MONOCYTES (AUTO) 0.2 10^3/uL (0.1-1.4); ABSOLUTE NEUT (AUTO) 6.8 10^3/uL (1.7-8.2); HEMOGLOBIN 10.6 g/dL (13.5-17.0); LYMPHOCYTES % (AUTO) 5.2 % (13-45); MEAN CORPUSCULAR HEMOGLOBIN 30.1 pg (27.0-33.4); MEAN CORPUSCULAR HGB CONC 34.2 g/dL (32.0-36.0); MEAN CORPUSCULAR VOLUME 88 fl (80-97); PLATELET COUNT 522 10^3/uL (150-450); RED BLOOD COUNT 3.51 10^6/uL (4.35-5.55); RED CELL DISTRIBUTION WIDTH 15.1 % (11.5-14.0); SEGMENTED NEUTROPHILS % (AUTO) 91.8 % (42-78); TOTAL CELLS COUNTED % (AUTO) 100 %; WHITE BLOOD COUNT 7.4 10^3/uL (4.0-10.5)
[2019-10-22 06:14] LABS: ANION GAP 8 (5-19); BLOOD UREA NITROGEN 50 mg/dL (7-20); CALCIUM 9.2 mg/dL (8.4-10.2); CARBON DIOXIDE 32 mmol/L (22-30); CHLORIDE 101 mmol/L (98-107); GLUCOSE 208 mg/dL (75-110); POTASSIUM 4.6 mmol/L (3.6-5.0)
[2019-10-22] MEDS: FLUCONAZOLE 100 MG TABLET PO SCH (10:16)
[2019-10-22] MEDS: GUAIFENESIN 600 MG TABLET.SA PO SCH ×2 (10:16→22:06)
[2019-10-22] MEDS: LOSARTAN POTASSIUM 50 MG TABLET PO SCH (10:16)
[2019-10-22] MEDS: POTASSIUM CHLORIDE 10 MEQ TABLET.ER PO SCH ×2 (10:16→22:07)
[2019-10-22] MEDS: VENLAFAXINE HCL 75 MG CAP.SR.24H PO SCH ×2 (10:16→22:07)
[2019-10-22] MEDS: DILTIAZEM HCL 180 MG CAPSULE.CR PO SCH ×2 (10:16→22:07)
[2019-10-22] MEDS: CLONIDINE HCL 0.1 MG TABLET PO SCH ×2 (10:17→22:07)
[2019-10-22] MEDS: ASPIRIN 81 MG TABLET, CHEWABLE PO SCH (10:17)
[2019-10-22] MEDS: FLUTICASONE NASAL SPRAY 50 MCG/SPRY 120 SPRAY/16 GM NAREB SCH (10:18)
[2019-10-22] MEDS: NORMAL SALINE 10 ML SDV (SCHEDULED) IV SCH ×2 (10:18→22:08)
--- NOTE | 2019-10-22 10:25 | RADIOLOGY REPORT (SQ) ---
EXAM DESCRIPTION: CHEST 2 VIEWS COMPLETED DATE/TIME: 10/22/2019 10:09 am REASON FOR STUDY: Pneumonia follow-up COMPARISON: 10/18/2019 EXAM PARAMETERS: NUMBER OF VIEWS: two views TECHNIQUE: Digital Frontal and Lateral radiographic views of the chest acquired. RADIATION DOSE: NA LIMITATIONS: none FINDINGS: LUNGS AND PLEURA: There are multifocal interstitial and alveolar opacities throughout both lungs, not significantly changed from prior. Trace left effusion, stable. No pneumothorax. MEDIASTINUM AND HILAR STRUCTURES: Stable. HEART AND VASCULAR STRUCTURES: Heart normal size. No evidence for failure. BONES: Right approach PICC tip terminates at SVC. HARDWARE: None in the chest. OTHER: No other significant finding. IMPRESSION: Multifocal bilateral airspace disease with trace left effusion. There is mildly improve d left sided aeration from prior. TECHNICAL DOCUMENTATION: JOB ID: [id number] [employer]- All Rights Reserved Reading location - IP/workstation name: [email or web address]
[2019-10-22] MEDS: OXYCODONE-ACETAMINOPHEN 5-325 MG TABLET PO PRN (11:21)
--- NOTE | 2019-10-22 16:39 | Progress Note ---
Provider Note Provider Note: [facility] ID Antimicrobial Stewardship Recommendations: Chart reviewed. Patient is a 74-year-old man with history of CAD, BPH, end stage COPD with severe emphysema who was admitted on 10/09 due to sepsis secondary to E coli UTI and bacteremia in the setting of BPH. CT scan demonstrated changes consistent with pyelonephritis. Blood and urine cultures positive for E coli. He was started on cefepime and aztreonam. Therapy was changed to ceftriaxone and he seemed to be doing well. On 10/15 he had a respiratory culture done that grew oral lani and Valeri albicans. CXR and CT scan of chest consistent with multifocal pneumonia. Patient does have a component of pulmonary fibrosis. Antibiotic therapy was changed to imipenem. Patient continues afebrile and HD stable, no leukocytosis. Blood cultures cleared on 10/12 and a recommendatios to complete 14 days of antibiotics for bacteremia and pyelonpehritis was given on 10/15. New CXR demonstrated improvement in aeration. Allergies: lisinopril [Lisinopril] Allergy (Verified 10/09/19 16:52) moxifloxacin HCl [From Avelox] Allergy (Verified 10/09/19 16:52) Vital Signs: Temp Pulse Resp BP Pulse Ox 97.5 F 72 16 156/60 H 97 10/22/19 16:00 10/22/19 16:00 10/22/19 16:00 10/22/19 16:00 10/22/19 16:00 Intake & Output 10/21/19 10/22/19 10/23/19 06:59 06:59 06:59 Intake Total 2300 1890 630 Output Total 1300 1850 450 Balance 1000 40 180 Weight 90.6 kg 89.7 kg Weight/Height Weight 89.7 kg Height 5 ft 7 in Laboratories: 10/22/19 05:40 10/22/19 05:40 MCV 88 fl (80-97) 10/22/19 05:40 MCH 30.1 pg (27.0-33.4) 10/22/19 05:40 MCHC 34.2 g/dL (32.0-36.0) 10/22/19 05:40 RDW 15.1 % (11.5-14.0) H 10/22/19 05:40 Seg Neutrophils % 91.8 % (42-78) H 10/22/19 05:40 Carbonic Acid 1.49 mmol/L (1.05-1.35) H 10/12/19 11:29 HCO3/H2CO3 Ratio 16:1 10/12/19 11:29 ABG pH 7.31 (7.35-7.45) L 10/12/19 11:29 ABG pCO2 49.4 mmHg (35-45) H 10/12/19 11:29 ABG pO2 93.2 mmHg (80-100) 10/12/19 11:29 ABG HCO3 24.5 mmol/L (20-24) H 10/12/19 11:29 ABG O2 Saturation 96.4 % (94-98) 10/12/19 11:29 ABG Base Excess -2.3 mmol/L 10/12/19 11:29 FiO2 3L 10/12/19 11:29 Chloride 101 mmol/L (98-107) 10/22/19 05:40 Carbon Dioxide 32 mmol/L (22-30) H 10/22/19 05:40 Anion Gap 8 (5-19) 10/22/19 05:40 Est GFR ( Amer) > 60 (>60) 10/22/19 05:40 Glucose 208 mg/dL (75-110) H 10/22/19 05:40 Lactic Acid 1.7 mmol/L (0.7-2.1) 10/09/19 21:08 Calcium 9.2 mg/dL (8.4-10.2) 10/22/19 05:40 Magnesium 1.7 mg/dL (1.6-2.3) 10/13/19 22:58 Total Bilirubin 0.6 mg/dL (0.2-1.3) 10/19/19 10:15 AST 38 U/L (17-59) 10/19/19 10:15 Alkaline Phosphatase 257 U/L (38-126) H 10/19/19 10:15 Total Protein 7.6 g/dL (6.3-8.2) 10/19/19 10:15 Albumin 3.4 g/dL (3.5-5.0) L 10/19/19 10:15 Lipase 28.7 U/L (23-300) 10/09/19 17:08 Urine Color YELLOW 10/21/19 20:19 Urine Appearance CLEAR 10/21/19 20:19 Urine pH 6.0 (5.0-9.0) 10/21/19 20:19 Ur Specific H[place] 1.014 10/21/19 20:19 Urine Protein 100 mg/dL (NEGATIVE) H 10/21/19 20:19 Urine Glucose (UA) >=500 mg/dL (NEGATIVE) H 10/21/19 20:19 Urine Ketones TRACE mg/dL (NEGATIVE) H 10/21/19 20:19 Urine Blood NEGATIVE (NEGATIVE) 10/21/19 20:19 Urine Nitrite NEGATIVE (NEGATIVE) 10/21/19 20:19 Ur Leukocyte Esterase TRACE (NEGATIVE) H 10/21/19 20:19 Urine WBC (Auto) 2 /HPF 10/21/19 20:19 Urine RBC (Auto) 0 /HPF 10/21/19 20:19 10/09/19 10/09/19 10/09/19 17:08 17:08 20:30 Creatine Kinase CK-MB (CK-2) Troponin I 0.031 0.032 NT-Pro-B Natriuret Pep 1810 H 10/12/19 10/12/19 10/12/19 08:21 08:21 14:30 Creatine Kinase 42 L 37 L CK-MB (CK-2) 1.77 Troponin I 0.033 NT-Pro-B Natriuret Pep 10/12/19 10/12/19 10/12/19 14:30 20:41 20:41 Creatine Kinase 53 L CK-MB (CK-2) 1.81 1.86 Troponin I 0.022 0.024 NT-Pro-B Natriuret Pep 10/13/19 10/13/19 10/14/19 22:58 22:58 05:00 Creatine Kinase 35 L 24 L CK-MB (CK-2) 1.60 Troponin I 0.018 NT-Pro-B Natriuret Pep 10/14/19 10/14/19 10/14/19 05:00 10:59 10:59 Creatine Kinase < 20 L CK-MB (CK-2) 1.14 1.28 Troponin I 0.014 0.016 NT-Pro-B Natriuret Pep 10/20/19 06:10 Creatine Kinase CK-MB (CK-2) Troponin I NT-Pro-B Natriuret Pep 626 H Microbiology: Blood cultures: 10/09 E coli 10/12 Negative Respiratory Culture 10/15 Oropharyngeal lani, Valeri albicans Urine Culture 10/09 E coli Radiology: Abdomen/Pelvis CT 10/09/19 18:40 IMPRESSION: 1. Asymmetric left perinephric and periureteral stranding without hydronephrosis. Clinical correlation to exclude an ascending urinary tract infection is recommended. 2. Hepatic steatosis. 3. Colonic diverticulosis without diverticulitis. Lung Scan-VQ NM 10/09/19 21:25 IMPRESSION: NORMAL VENTILATION-PERFUSION LUNG SCAN. NEGATIVE FOR PULMONARY EMBOLI. Acute Abdomen Series 10/12/19 06:58 IMPRESSION: Nonspecific bowel gas pattern without evidence for obstruction. Interstitial lung disease. Chest CT 10/18/19 00:00 IMPRESSION: Bilateral pneumonia on a background of emphysema. Guidance Fluoroscopy 10/18/19 00:00 IMPRESSION: Successful placement of a 5 Egyptian x 35 cm double-lumen PICC via the right brachial vein utilizing fluoroscopic and sonographic guidance. Interventional Vascular Procedure 10/18/19 00:00 IMPRESSION: Successful placement of a 5 Egyptian x 35 cm double-lumen PICC via the right brachial vein utilizing fluoroscopic and sonographic guidance. PICC Line Insertion 10/18/19 00:00 IMPRESSION: Successful placement of a 5 Egyptian x 35 cm double-lumen PICC via the right brachial vein utilizing fluoroscopic and sonographic guidance. Chest X-Ray 10/22/19 07:00 IMPRESSION: Multifocal bilateral airspace disease with trace left effusion. There is mildly improved left sided aeration from prior. Assessment and Recommendations: Patient evaluated for E coli bacteremia with pyelonephritis who now developed hospital acquired pneumonia, although respiratory cultures didn't isolate a resistant organism. He seems to be improving clinically on imipenem CXR showed improved aeration. Piperacillin/tazobactam continuous infusion is an alternative with similar coverage. He seems to be improving but very slowly, can add azithromycin for atypical coverage. Less likely MRSA as he is improving without MRSA coverage and it was not isolated on respiratory cultures. If there is no significant improvement or clinical deterioration, can consider diagnostic bronchoscopy/pulmonary evaluation. Duration of therapy still 14 days for bacteremia and for HAP 8 days should suffice. EOT 10/26/2019. Please call if questions. Breanna Cherry MD [facility] ID [id number]
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
[2019-10-22] MEDS: AZITHROMYCIN 250 MG TABLET PO SCH (18:18)
[2019-10-22] MEDS: HYDRALAZINE HCL INJ/PF 20 MG/1 ML SDV IV PRN (20:09)
[2019-10-22] MEDS: ATORVASTATIN CALCIUM 10 MG TABLET PO SCH (22:07)
[2019-10-22] MEDS: ACETAMINOPHEN 325 MG TABLET PO PRN (22:15)
[2019-10-22] MEDS: TRAZODONE HCL 50 MG TABLET PO PRN (22:16)
[2019-10-23] MEDS: IPRATROPIUM/ALBUTEROL 0.5-2.5 MG/3 ML AMPUL NEB SCH ×4 (01:55→19:21)
[2019-10-23] MEDS: IMIPENEM/CILASTATIN SODIUM 1,000 MG in NORMAL SALINE 250 ML IV SCH ×3 (02:45→17:14)
[2019-10-23] MEDS: HEPARIN SOD (PORCINE) 5,000 UNIT/ML 1 ML VIAL SUBCUT SCH ×3 (06:11→21:49)
[2019-10-23] MEDS: METHYLPREDNISOLONE INJ 40 MG/1 ML SDV IV SCH ×3 (06:11→21:49)
[2019-10-23] MEDS: AZITHROMYCIN 250 MG TABLET PO SCH (10:22)
[2019-10-23] MEDS: FLUCONAZOLE 100 MG TABLET PO SCH (10:23)
[2019-10-23] MEDS: VENLAFAXINE HCL 75 MG CAP.SR.24H PO SCH ×2 (10:23→21:48)
[2019-10-23] MEDS: POTASSIUM CHLORIDE 10 MEQ TABLET.ER PO SCH ×2 (10:23→21:48)
[2019-10-23] MEDS: LOSARTAN POTASSIUM 50 MG TABLET PO SCH (10:23)
[2019-10-23] MEDS: GUAIFENESIN 600 MG TABLET.SA PO SCH ×2 (10:24→21:48)
[2019-10-23] MEDS: CLONIDINE HCL 0.1 MG TABLET PO SCH ×2 (10:24→21:48)
[2019-10-23] MEDS: ASPIRIN 81 MG TABLET, CHEWABLE PO SCH (10:24)
[2019-10-23] MEDS: DILTIAZEM HCL 180 MG CAPSULE.CR PO SCH ×2 (10:24→21:48)
[2019-10-23] MEDS: FLUTICASONE NASAL SPRAY 50 MCG/SPRY 120 SPRAY/16 GM NAREB SCH (10:25)
[2019-10-23] MEDS: NORMAL SALINE 10 ML SDV (SCHEDULED) IV SCH ×2 (14:08→21:49)
[2019-10-23] MEDS: ACETAMINOPHEN 325 MG TABLET PO PRN (14:13)
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
[2019-10-23] MEDS: ATORVASTATIN CALCIUM 10 MG TABLET PO SCH (21:48)
[2019-10-23] MEDS: TRAZODONE HCL 50 MG TABLET PO PRN (21:51)
[2019-10-23] MEDS: OXYCODONE-ACETAMINOPHEN 5-325 MG TABLET PO PRN (21:51)
[2019-10-24] MEDS: IPRATROPIUM/ALBUTEROL 0.5-2.5 MG/3 ML AMPUL NEB SCH ×4 (01:43→20:15)
[2019-10-24] MEDS: IMIPENEM/CILASTATIN SODIUM 1,000 MG in NORMAL SALINE 250 ML IV SCH ×3 (02:06→17:46)
[2019-10-24] MEDS: HEPARIN SOD (PORCINE) 5,000 UNIT/ML 1 ML VIAL SUBCUT SCH ×3 (05:59→21:24)
[2019-10-24] MEDS: METHYLPREDNISOLONE INJ 40 MG/1 ML SDV IV SCH ×3 (05:59→21:25)
[2019-10-24] MEDS: OXYCODONE-ACETAMINOPHEN 5-325 MG TABLET PO PRN (08:11)
[2019-10-24] MEDS: FLUTICASONE NASAL SPRAY 50 MCG/SPRY 120 SPRAY/16 GM NAREB SCH (09:42)
[2019-10-24] MEDS: CLONIDINE HCL 0.1 MG TABLET PO SCH ×2 (09:43→21:25)
[2019-10-24] MEDS: NORMAL SALINE 10 ML SDV (SCHEDULED) IV SCH ×2 (09:43→21:26)
[2019-10-24] MEDS: FLUCONAZOLE 100 MG TABLET PO SCH (09:44)
[2019-10-24] MEDS: GUAIFENESIN 600 MG TABLET.SA PO SCH ×2 (09:44→21:25)
[2019-10-24] MEDS: AZITHROMYCIN 250 MG TABLET PO SCH (09:44)
[2019-10-24] MEDS: POTASSIUM CHLORIDE 10 MEQ TABLET.ER PO SCH ×2 (09:45→21:25)
[2019-10-24] MEDS: LOSARTAN POTASSIUM 50 MG TABLET PO SCH (09:45)
[2019-10-24] MEDS: VENLAFAXINE HCL 75 MG CAP.SR.24H PO SCH ×2 (09:45→21:24)
[2019-10-24] MEDS: DILTIAZEM HCL 180 MG CAPSULE.CR PO SCH ×2 (09:45→21:25)
[2019-10-24] MEDS: ASPIRIN 81 MG TABLET, CHEWABLE PO SCH (09:45)
[2019-10-24] MEDS: NORMAL SALINE 10 ML SDV (AFTER EACH USE) IV PRN (12:26)
--- NOTE | 2019-10-24 16:30 | PDOC PROGRESS REPORT ---
Subjective Progress Note for:: 10/24/19 Subjective:: This is a 74-year-old male who was initially admitted for sepsis secondary to pyelonephritis. Patient was started initially on broad-spectrum IV antibiotics. ID was consulted. He was later switched to Rocephin. Appears that while receiving Rocephin, he developed possible hospital-acquired pneumonia. He was switched to imipenem on 10/11/2019. 10/22: Upon encounter, he appears comfortable on 3.5 L via nasal cannula. He is not on home O2. He says that his shortness of breath slowly but continued to improve. He denies chest pain. He has very minimal productive cough. 10/23: He reports his shortness of breath continued to slowly and gradually improve. He denies chest pain. He is reporting that he has more productive cough now. 10/24: No acute event overnight. He denies acute complaints. He says he slightly feels better today and is slowly return to his baseline. Will complete IV antibiotics on 10/26 per ID recommendation. Reason For Visit: SEPSIS PYELONEPHRITIS ARF Physical Exam Vital Signs: Temp Pulse Resp BP Pulse Ox 97.5 F 77 16 147/62 H 94 10/24/19 12:00 10/24/19 13:40 10/24/19 13:40 10/24/19 12:00 10/24/19 13:40 Intake & Output 10/23/19 10/24/19 10/25/19 06:59 06:59 06:59 Intake Total 1636 2370 852 Output Total 2125 1325 375 Balance -489 1045 477 Weight 197 lb 5.019 oz 199 lb 8.293 oz General appearance: PRESENT: no acute distress, well-developed, well-nourished Head exam: PRESENT: atraumatic, normocephalic Eye exam: PRESENT: conjunctiva pink, EOMI, PERRLA. ABSENT: scleral icterus Ear exam: PRESENT: normal external ear exam Mouth exam: PRESENT: moist, tongue midline Neck exam: ABSENT: carotid bruit, JVD, lymphadenopathy, thyromegaly Respiratory exam: PRESENT: rhonchi. ABSENT: rales, wheezes Cardiovascular exam: PRESENT: RRR. ABSENT: diastolic murmur, rubs, systolic murmur Pulses: PRESENT: normal dorsalis pedis pul GI/Abdominal exam: PRESENT: normal bowel sounds, soft. ABSENT: distended, guarding, mass, organolmegaly, rebound, tenderness Rectal exam: PRESENT: deferred Extremities exam: PRESENT: full ROM. ABSENT: calf tenderness, clubbing, pedal edema Neurological exam: PRESENT: alert, awake, oriented to person, oriented to place, oriented to time, oriented to situation, CN II-XII grossly intact. ABSENT: motor sensory deficit Results Laboratory Results: 10/22/19 05:40 10/22/19 05:40 10/21/19 20:19 Clean Catch Midstream Legionella Urinary Antigen - Final 10/09/19 10/09/19 10/09/19 17:08 17:08 20:30 Creatine Kinase CK-MB (CK-2) Troponin I 0.031 0.032 NT-Pro-B Natriuret Pep 1810 H 10/12/19 10/12/19 10/12/19 08:21 08:21 14:30 Creatine Kinase 42 L 37 L CK-MB (CK-2) 1.77 Troponin I 0.033 NT-Pro-B Natriuret Pep 10/12/19 10/12/19 10/12/19 14:30 20:41 20:41 Creatine Kinase 53 L CK-MB (CK-2) 1.81 1.86 Troponin I 0.022 0.024 NT-Pro-B Natriuret Pep 10/13/19 10/13/19 10/14/19 22:58 22:58 05:00 Creatine Kinase 35 L 24 L CK-MB (CK-2) 1.60 Troponin I 0.018 NT-Pro-B Natriuret Pep 10/14/19 10/14/19 10/14/19 05:00 10:59 10:59 Creatine Kinase < 20 L CK-MB (CK-2) 1.14 1.28 Troponin I 0.014 0.016 NT-Pro-B Natriuret Pep 10/20/19 06:10 Creatine Kinase CK-MB (CK-2) Troponin I NT-Pro-B Natriuret Pep 626 H Impressions: Abdomen/Pelvis CT 10/09/19 18:40 IMPRESSION: 1. Asymmetric left perinephric and periureteral stranding without hydronephrosis. Clinical correlation to exclude an ascending urinary tract infection is recommended. 2. Hepatic steatosis. 3. Colonic diverticulosis without diverticulitis. Lung Scan-VQ NM 10/09/19 21:25 IMPRESSION: NORMAL VENTILATION-PERFUSION LUNG SCAN. NEGATIVE FOR PULMONARY EMBOLI. Acute Abdomen Series 10/12/19 06:58 IMPRESSION: Nonspecific bowel gas pattern without evidence for obstruction. Interstitial lung disease. Chest CT 10/18/19 00:00 IMPRESSION: Bilateral pneumonia on a background of emphysema. Guidance Fluoroscopy 10/18/19 00:00 IMPRESSION: Successful placement of a 5 [place] x 35 cm double-lumen PICC via the right brachial vein utilizing fluoroscopic and sonographic guidance. Interventional Vascular Procedure 10/18/19 00:00 IMPRESSION: Successful placement of a 5 [place] x 35 cm double-lumen PICC via the right brachial vein utilizing fluoroscopic and sonographic guidance. PICC Line Insertion 10/18/19 00:00 IMPRESSION: Successful placement of a 5 [place] x 35 cm double-lumen PICC via the right brachial vein utilizing fluoroscopic and sonographic guidance. Chest X-Ray 10/22/19 07:00 IMPRESSION: Multifocal bilateral airspace disease with trace left effusion. There is mildly improved left sided aeration from prior. Assessment and Plan - Diagnosis (1) Acute respiratory failure with hypoxia Is this a current diagnosis for this admission?: Yes Plan: Secondary to pneumonia in a patient with severe COPD. Currently on 3.5 L by nasal cannula. 10/23: On 3 L via NC. We will try to continue to wean down on O2 requirement. (2) Pneumonia Is this a current diagnosis for this admission?: Yes Plan: 10/22: Discussed with ID. We will continue Imipenem for now. Will add atypical coverage. 10/23: Continue meropenem and azithromycin. 10/24: Will complete IV antibiotics on 10/26 per ID recommendation. (3) Sepsis Is this a current diagnosis for this admission?: Yes Plan: Sepsis resolved secondary to pyelonephritis. (4) Acute pyelonephritis Is this a current diagnosis for this admission?: Yes Plan: Patient was initially completing Rocephin but was switched to Imipenem due to newly developed pneumonia. - Time Time Spent with patient: 25-34 minutes
[2019-10-24] MEDS: ATORVASTATIN CALCIUM 10 MG TABLET PO SCH (21:25)
[2019-10-25] MEDS: IPRATROPIUM/ALBUTEROL 0.5-2.5 MG/3 ML AMPUL NEB SCH ×4 (02:19→20:12)
[2019-10-25] MEDS: IMIPENEM/CILASTATIN SODIUM 1,000 MG in NORMAL SALINE 250 ML IV SCH ×3 (02:49→17:25)
[2019-10-25] MEDS: HEPARIN SOD (PORCINE) 5,000 UNIT/ML 1 ML VIAL SUBCUT SCH ×3 (06:22→21:52)
[2019-10-25] MEDS: METHYLPREDNISOLONE INJ 40 MG/1 ML SDV IV SCH ×3 (06:22→21:52)
[2019-10-25] MEDS: OXYCODONE-ACETAMINOPHEN 5-325 MG TABLET PO PRN ×2 (08:33→21:50)
[2019-10-25] MEDS: POTASSIUM CHLORIDE 10 MEQ TABLET.ER PO SCH ×2 (09:53→21:54)
[2019-10-25] MEDS: GUAIFENESIN 600 MG TABLET.SA PO SCH ×2 (09:53→21:51)
[2019-10-25] MEDS: VENLAFAXINE HCL 75 MG CAP.SR.24H PO SCH ×2 (09:53→21:51)
[2019-10-25] MEDS: FLUCONAZOLE 100 MG TABLET PO SCH (09:53)
[2019-10-25] MEDS: AZITHROMYCIN 250 MG TABLET PO SCH (09:53)
[2019-10-25] MEDS: LOSARTAN POTASSIUM 50 MG TABLET PO SCH (09:54)
[2019-10-25] MEDS: DILTIAZEM HCL 180 MG CAPSULE.CR PO SCH ×2 (09:54→21:51)
[2019-10-25] MEDS: CLONIDINE HCL 0.1 MG TABLET PO SCH ×2 (09:54→21:52)
[2019-10-25] MEDS: FLUTICASONE NASAL SPRAY 50 MCG/SPRY 120 SPRAY/16 GM NAREB SCH (09:55)
[2019-10-25] MEDS: ASPIRIN 81 MG TABLET, CHEWABLE PO SCH (09:57)
[2019-10-25] MEDS: NORMAL SALINE 10 ML SDV (SCHEDULED) IV SCH ×2 (09:58→22:05)
--- NOTE | 2019-10-25 17:08 | PDOC PROGRESS REPORT ---
Subjective Progress Note for:: 10/25/19 Subjective:: This is a 74-year-old male who was initially admitted for sepsis secondary to pyelonephritis. Patient was started initially on broad-spectrum IV antibiotics. ID was consulted. He was later switched to Rocephin. Appears that while receiving Rocephin, he developed possible hospital-acquired pneumonia. He was switched to imipenem on 10/11/2019. 10/22: Upon encounter, he appears comfortable on 3.5 L via nasal cannula. He is not on home O2. He says that his shortness of breath slowly but continued to improve. He denies chest pain. He has very minimal productive cough. 10/23: He reports his shortness of breath continued to slowly and gradually improve. He denies chest pain. He is reporting that he has more productive cough now. 10/24: He denies acute complaints. He says he slightly feels better today and is slowly return to his baseline. Will complete IV antibiotics on 10/26 per ID recommendation. 10/25: No acute event overnight. Denies acute complaints. He says his shortness of breath continued to gradually improved. Denies chest pain. Reason For Visit: SEPSIS PYELONEPHRITIS ARF Physical Exam Vital Signs: Temp Pulse Resp BP Pulse Ox 97.4 F 75 16 168/67 H 97 10/25/19 16:00 10/25/19 16:00 10/25/19 16:00 10/25/19 16:00 10/25/19 16:00 Intake & Output 10/24/19 10/25/19 10/26/19 06:59 06:59 06:59 Intake Total 2370 2430 1100 Output Total 1325 1575 1400 Balance 1045 855 -300 Weight 199 lb 8.293 oz 202 lb 6.15 oz General appearance: PRESENT: no acute distress, well-developed, well-nourished Head exam: PRESENT: atraumatic, normocephalic Eye exam: PRESENT: conjunctiva pink, EOMI, PERRLA. ABSENT: scleral icterus Ear exam: PRESENT: normal external ear exam Mouth exam: PRESENT: moist, tongue midline Neck exam: ABSENT: carotid bruit, JVD, lymphadenopathy, thyromegaly Respiratory exam: PRESENT: rhonchi. ABSENT: rales, wheezes Cardiovascular exam: PRESENT: RRR. ABSENT: diastolic murmur, rubs, systolic mu rmur Pulses: PRESENT: normal dorsalis pedis pul GI/Abdominal exam: PRESENT: normal bowel sounds, soft. ABSENT: distended, guarding, mass, organolmegaly, rebound, tenderness Rectal exam: PRESENT: deferred Extremities exam: PRESENT: full ROM. ABSENT: calf tenderness, clubbing, pedal edema Neurological exam: PRESENT: alert, awake, oriented to person, oriented to place, oriented to time, oriented to situation, CN II-XII grossly intact. ABSENT: motor sensory deficit Results Laboratory Results: 10/22/19 05:40 10/22/19 05:40 10/21/19 20:19 Clean Catch Midstream Legionella Urinary Antigen - Final 10/09/19 10/09/19 10/09/19 17:08 17:08 20:30 Creatine Kinase CK-MB (CK-2) Troponin I 0.031 0.032 NT-Pro-B Natriuret Pep 1810 H 10/12/19 10/12/19 10/12/19 08:21 08:21 14:30 Creatine Kinase 42 L 37 L CK-MB (CK-2) 1.77 Troponin I 0.033 NT-Pro-B Natriuret Pep 10/12/19 10/12/19 10/12/19 14:30 20:41 20:41 Creatine Kinase 53 L CK-MB (CK-2) 1.81 1.86 Troponin I 0.022 0.024 NT-Pro-B Natriuret Pep 10/13/19 10/13/19 10/14/19 22:58 22:58 05:00 Creatine Kinase 35 L 24 L CK-MB (CK-2) 1.60 Troponin I 0.018 NT-Pro-B Natriuret Pep 10/14/19 10/14/19 10/14/19 05:00 10:59 10:59 Creatine Kinase < 20 L CK-MB (CK-2) 1.14 1.28 Troponin I 0.014 0.016 NT-Pro-B Natriuret Pep 10/20/19 06:10 Creatine Kinase CK-MB (CK-2) Troponin I NT-Pro-B Natriuret Pep 626 H Impressions: Abdomen/Pelvis CT 10/09/19 18:40 IMPRESSION: 1. Asymmetric left perinephric and periureteral stranding without hydronephrosis. Clinical correlation to exclude an ascending urinary tract infection is recommended. 2. Hepatic steatosis. 3. Colonic diverticulosis without diverticulitis. Lung Scan-VQ NM 10/09/19 21:25 IMPRESSION: NORMAL VENTILATION-PERFUSION LUNG SCAN. NEGATIVE FOR PULMONARY EMBOLI. Acute Abdomen Series 10/12/19 06:58 IMPRESSION: Nonspecific bowel gas pattern without evidence for obstruction. Interstitial lung disease. Chest CT 10/18/19 00:00 IMPRESSION: Bilateral pneumonia on a background of emphysema. Guidance Fluoroscopy 10/18/19 00:00 IMPRESSION: Successful placement of a 5 [place] x 35 cm double-lumen PICC via the right brachial vein utilizing fluoroscopic and sonographic guidance. Interventional Vascular Procedure 10/18/19 00:00 IMPRESSION: Successful placement of a 5 [place] x 35 cm double-lumen PICC via the right brachial vein utilizing fluoroscopic and sonographic guidance. PICC Line Insertion 10/18/19 00:00 IMPRESSION: Successful placement of a 5 [place] x 35 cm double-lumen PICC via the right brachial vein utilizing fluoroscopic and sonographic guidance. Chest X-Ray 10/22/19 07:00 IMPRESSION: Multifocal bilateral airspace disease with trace left effusion. There is mildly improved left sided aeration from prior. Assessment and Plan - Diagnosis (1) Acute respiratory failure with hypoxia Is this a current diagnosis for this admission?: Yes Plan: Secondary to pneumonia in a patient with severe COPD. Currently on 3.5 L by nasal cannula. 10/23: On 3 L via NC. We will try to continue to wean down on O2 requirement. 10/25: He continues to require 3 L via nasal cannula. He will be needing home O2. (2) Pneumonia Is this a current diagnosis for this admission?: Yes Plan: 10/22: Discussed with ID. We will continue Imipenem for now. Will add atypical coverage. 10/23: Continue meropenem and azithromycin. 10/25: Will complete IV antibiotics on 10/26 per ID recommendation. (3) Sepsis Is this a current diagnosis for this admission?: Yes Plan: Sepsis resolved secondary to pyelonephritis. (4) Acute pyelonephritis Is this a current diagnosis for this admission?: Yes Plan: 10/23: Patient was initially completing Rocephin but was switched to Imipenem due to newly developed pneumonia. - Time Time Spent with patient: 25-34 minutes
[2019-10-25] MEDS: ATORVASTATIN CALCIUM 10 MG TABLET PO SCH (21:51)
[2019-10-25] MEDS: TRAZODONE HCL 50 MG TABLET PO PRN (21:51)
[2019-10-25] MEDS: HYDRALAZINE HCL INJ/PF 20 MG/1 ML SDV IV PRN (23:36)
[2019-10-26] MEDS: IMIPENEM/CILASTATIN SODIUM 1,000 MG in NORMAL SALINE 250 ML IV SCH (01:07)
[2019-10-26] MEDS: IPRATROPIUM/ALBUTEROL 0.5-2.5 MG/3 ML AMPUL NEB SCH ×4 (02:48→19:40)
[2019-10-26] MEDS: METHYLPREDNISOLONE INJ 40 MG/1 ML SDV IV SCH ×3 (06:42→21:40)
[2019-10-26] MEDS: HEPARIN SOD (PORCINE) 5,000 UNIT/ML 1 ML VIAL SUBCUT SCH ×3 (06:42→21:40)
[2019-10-26 07:14] LABS: HEMATOCRIT 32.9 % (37.9-51.0); HEMOGLOBIN 11.3 g/dL (13.5-17.0); MEAN CORPUSCULAR HEMOGLOBIN 30.1 pg (27.0-33.4); MEAN CORPUSCULAR HGB CONC 34.2 g/dL (32.0-36.0); MEAN CORPUSCULAR VOLUME 88 fl (80-97); PLATELET COUNT 537 10^3/uL (150-450); RED BLOOD COUNT 3.74 10^6/uL (4.35-5.55); RED CELL DISTRIBUTION WIDTH 15.2 % (11.5-14.0); WHITE BLOOD COUNT 9.5 10^3/uL (4.0-10.5)
[2019-10-26 07:35] LABS: ANION GAP 6 (5-19); BLOOD UREA NITROGEN 52 mg/dL (7-20); CALCIUM 9.4 mg/dL (8.4-10.2); CARBON DIOXIDE 35 mmol/L (22-30); CHLORIDE 98 mmol/L (98-107); GLUCOSE 156 mg/dL (75-110); POTASSIUM 4.4 mmol/L (3.6-5.0)
[2019-10-26 08:05] LABS: ABSOLUTE LYMPHOCYTES# (MANUAL) 0.4 10^3/uL (0.5-4.7); ABSOLUTE MONOCYTES # (MANUAL) 0.1 10^3/uL (0.1-1.4); BASOPHILS % (MANUAL) 0 % (0-2); EOSINOPHILS % (MANUAL) 0 % (0-6); LYMPHOCYTES % (MANUAL) 4 % (13-45); MONOCYTES % (MANUAL) 1 % (3-13); SEGMENTED NEUTROPHILS % (MAN) 95 % (42-78); TOTAL CELLS COUNTED 100
[2019-10-26 08:06] LABS: ANISOCYTOSIS SLIGHT; PLATELET CLUMPS PRESENT; PLATELET COMMENT ADEQUATE
[2019-10-26] MEDS: LOSARTAN POTASSIUM 50 MG TABLET PO SCH (09:24)
[2019-10-26] MEDS: POTASSIUM CHLORIDE 10 MEQ TABLET.ER PO SCH ×2 (09:24→21:41)
[2019-10-26] MEDS: ASPIRIN 81 MG TABLET, CHEWABLE PO SCH (09:24)
[2019-10-26] MEDS: GUAIFENESIN 600 MG TABLET.SA PO SCH ×2 (09:24→21:41)
[2019-10-26] MEDS: VENLAFAXINE HCL 75 MG CAP.SR.24H PO SCH ×2 (09:24→21:40)
[2019-10-26] MEDS: AZITHROMYCIN 250 MG TABLET PO SCH (09:24)
[2019-10-26] MEDS: CLONIDINE HCL 0.1 MG TABLET PO SCH ×2 (09:24→21:41)
[2019-10-26] MEDS: DILTIAZEM HCL 180 MG CAPSULE.CR PO SCH ×2 (09:24→21:41)
[2019-10-26] MEDS: FLUTICASONE NASAL SPRAY 50 MCG/SPRY 120 SPRAY/16 GM NAREB SCH (09:25)
[2019-10-26] MEDS: NORMAL SALINE 10 ML SDV (SCHEDULED) IV SCH ×2 (09:25→21:42)
[2019-10-26] MEDS ORDERED: LEVOFLOXACIN 500 MG TABLET PO ONE (13:00)
[2019-10-26] MEDS: HYDRALAZINE HCL INJ/PF 20 MG/1 ML SDV IV PRN (13:18)
--- NOTE | 2019-10-26 14:44 | RADIOLOGY REPORT (SQ) ---
EXAM DESCRIPTION: CHEST SINGLE VIEW COMPLETED DATE/TIME: 10/26/2019 7:44 am REASON FOR STUDY: reassess infiltrates COMPARISON: Chest film 10/12/2019, 10/22/2019 CT chest 10/18/2019, 10/09/2019 EXAM PARAMETERS: NUMBER OF VIEWS: One view. TECHNIQUE: Single frontal radiographic view of the chest acquired. RADIATION DOSE: NA LIMITATIONS: None. FINDINGS: LUNGS AND PLEURA: Patient has diffuse bilateral alveolar and interstitial infiltrates whic h are new compared to 10/09/2019 CT chest, and stable compared to 10/18/2019 CT chest No pleural effusion. No pneumothorax. MEDIASTINUM AND HILAR STRUCTURES: No masses. Contour normal. HEART AND VASCULAR STRUCTURES: No cardiomegaly BONES: No acute findings. HARDWARE: Right PICC line tip superior vena cava OTHER: No other significant finding. IMPRESSION: Diffuse bilateral alveolar and interstitial infiltrates unchanged from 10/22/2019 TECHNICAL DOCUMENTATION: JOB ID: [id number] [employer]- All Rights Reserved Reading location - IP/workstation name: [email or web address]
--- NOTE | 2019-10-26 16:29 | PDOC PROGRESS REPORT ---
Subjective Progress Note for:: 10/26/19 Subjective:: This is a 74-year-old male who was initially admitted for sepsis secondary to pyelonephritis. Patient was started initially on broad-spectrum IV antibiotics. ID was consulted. He was later switched to Rocephin. Appears that while receiving Rocephin, he developed possible hospital-acquired pneumonia. He was switched to imipenem on 10/11/2019. 10/22: Upon encounter, he appears comfortable on 3.5 L via nasal cannula. He is not on home O2. He says that his shortness of breath slowly but continued to improve. He denies chest pain. He has very minimal productive cough. 10/23: He reports his shortness of breath continued to slowly and gradually improve. He denies chest pain. He is reporting that he has more productive cough now. 10/24: He denies acute complaints. He says he slightly feels better today and is slowly return to his baseline. Will complete IV antibiotics on 10/26 per ID recommendation. 10/25: No acute event overnight. Denies acute complaints. He says his shortness of breath continue to gradually improved. Denies chest pain. 10/26: No acute issues. He says that although his shortness of breath has improved from when he came in, this has plateaud. He continues to requires oxygen at 3 L via nasal cannula. He denies chest pain. 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 I believe his recurrent pneumonia has significantly contributed to the progression of his severe lung disease. Likely, this will be his new baseline and more than likely, he will require and will need supplemental O2 indefinitely even with resolution of his pneumonia. Reason For Visit: SEPSIS PYELONEPHRITIS ARF Physical Exam Vital Signs: Temp Pulse Resp BP Pulse Ox 98.6 F 74 18 187/76 H 94 10/26/19 08:00 10/26/19 08:11 10/26/19 08:11 10/26/19 08:00 10/26/19 08:11 Intake & Output 10/25/19 10/26/19 10/27/19 06:59 06:59 06:59 Intake Total 2430 2100 Output Total 1575 2700 Balance 855 -600 Weight 202 lb 6.15 oz 199 lb 11.821 oz General appearance: PRESENT: no acute distress, well-developed, well-nourished Head exam: PRESENT: atraumatic, normocephalic Eye exam: PRESENT: conjunctiva pink, EOMI, PERRLA. ABSENT: scleral icterus Ear exam: PRESENT: normal external ear exam Mouth exam: PRESENT: moist, tongue midline Neck exam: ABSENT: carotid bruit, JVD, lymphadenopathy, thyromegaly Respiratory exam: PRESENT: rhonchi. ABSENT: rales, wheezes Cardiovascular exam: PRESENT: RRR. ABSENT: diastolic murmur, rubs, systolic murmur Pulses: PRESENT: normal dorsalis pedis pul GI/Abdominal exam: PRESENT: normal bowel sounds, soft. ABSENT: distended, guarding, mass, organolmegaly, rebound, tenderness Rectal exam: PRESENT: deferred Extremities exam: PRESENT: full ROM. ABSENT: calf tenderness, clubbing, pedal edema Neurological exam: PRESENT: alert, awake, oriented to person, oriented to place, oriented to time, oriented to situation, CN II-XII grossly intact. ABSENT: motor sensory deficit Results Laboratory Results: 10/26/19 06:54 10/26/19 06:54 10/26/19 10/26/19 06:54 06:54 WBC 9.5 RBC 3.74 L Hgb 11.3 L Hct 32.9 L MCV 88 MCH 30.1 MCHC 34.2 RDW 15.2 H Plt Count 537 H Seg Neutrophils % Not Reportable Sodium 138.7 Potassium 4.4 Chloride 98 Carbon Dioxide 35 H Anion Gap 6 BUN 52 H Creatinine 1.15 Est GFR ( Amer) > 60 Glucose 156 H Calcium 9.4 10/09/19 10/09/19 10/09/19 17:08 17:08 20:30 Creatine Kinase CK-MB (CK-2) Troponin I 0.031 0.032 NT-Pro-B Natriuret Pep 1810 H 10/12/19 10/12/19 10/12/19 08:21 08:21 14:30 Creatine Kinase 42 L 37 L CK-MB (CK-2) 1.77 Troponin I 0.033 NT-Pro-B Natriuret Pep 10/12/19 10/12/19 10/12/19 14:30 20:41 20:41 Creatine Kinase 53 L CK-MB (CK-2) 1.81 1.86 Troponin I 0.022 0.024 NT-Pro-B Natriuret Pep 10/13/19 10/13/19 10/14/19 22:58 22:58 05:00 Creatine Kinase 35 L 24 L CK-MB (CK-2) 1.60 Troponin I 0.018 NT-Pro-B Natriuret Pep 10/14/19 10/14/19 10/14/19 05:00 10:59 10:59 Creatine Kinase < 20 L CK-MB (CK-2) 1.14 1.28 Troponin I 0.014 0.016 NT-Pro-B Natriuret Pep 10/20/19 06:10 Creatine Kinase CK-MB (CK-2) Troponin I NT-Pro-B Natriuret Pep 626 H Impressions: Abdomen/Pelvis CT 10/09/19 18:40 IMPRESSION: 1. Asymmetric left perinephric and periureteral stranding without hydronephrosis. Clinical correlation to exclude an ascending urinary tract infection is recommended. 2. Hepatic steatosis. 3. Colonic diverticulosis without diverticulitis. Lung Scan-VQ NM 10/09/19 21:25 IMPRESSION: NORMAL VENTILATION-PERFUSION LUNG SCAN. NEGATIVE FOR PULMONARY EMBOLI. Acute Abdomen Series 10/12/19 06:58 IMPRESSION: Nonspecific bowel gas pattern without evidence for obstruction. Interstitial lung disease. Chest CT 10/18/19 00:00 IMPRESSION: Bilateral pneumonia on a background of emphysema. Guidance Fluoroscopy 10/18/19 00:00 IMPRESSION: Successful placement of a 5 [place] x 35 cm double-lumen PICC via the right brachial vein utilizing fluoroscopic and sonographic guidance. Interventional Vascular Procedure 10/18/19 00:00 IMPRESSION: Successful placement of a 5 [place] x 35 cm double-lumen PICC via the right brachial vein utilizing fluoroscopic and sonographic guidance. PICC Line Insertion 10/18/19 00:00 IMPRESSION: Successful placement of a 5 [place] x 35 cm double-lumen PICC via the right brachial vein utilizing fluoroscopic and sonographic guidance. Assessment and Plan - Diagnosis (1) Acute respiratory failure with hypoxia Is this a current diagnosis for this admission?: Yes Plan: Secondary to pneumonia in a patient with severe COPD and chronic fibrotic ILD. Currently on 3.5 L by nasal cannula. 10/23: On 3 L via NC. We will try to continue to wean down on O2 requirement. 10/25: He continues to require 3 L via nasal cannula. He will be needing home O2. 10/26: No acute issues. He says that although his shortness of breath has improved from when he came in, this has plateaud. He continues to requires oxygen at 3 L via nasal cannula. He denies chest pain. 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 I believe his recurrent pneumonia has significantly contributed to the progression of his severe lung disease. Likely, this will be his new baseline and more than likely, he will require and will need supplemental O2 indefinitely even with resolution of his pneumonia. (2) Pneumonia Is this a current diagnosis for this admission?: Yes Plan: 10/22: Discussed with ID. We will continue Imipenem for now. Will add atypical coverage. 10/23: Continue meropenem and azithromycin. 10/25: Will complete IV antibiotics on 10/26 per ID recommendation. 10/26: Completed IV antibiotics today. Believe clinically he will benefit from a shorter extended course of oral levofloxacin. Allergy list mentions moxifloxacin but patient denied he had shortness of breath or rashes from moxifloxacin. He says that he developed transient confusion with moxifloxacin but denies symptoms of true allergy. Will challenge with Levofloxacin. (3) Sepsis Is this a current diagnosis for this admission?: Yes Plan: Sepsis resolved secondary to pyelonephritis. (4) Acute pyelonephritis Is this a current diagnosis for this admission?: Yes Plan: 10/23: Patient was initially completing Rocephin but was switched to Imipenem due to newly developed pneumonia. - Time Time Spent with patient: 25-34 minutes
[2019-10-26] MEDS: OXYCODONE-ACETAMINOPHEN 5-325 MG TABLET PO PRN (21:40)
[2019-10-26] MEDS: ATORVASTATIN CALCIUM 10 MG TABLET PO SCH (21:41)
[2019-10-27] MEDS: IPRATROPIUM/ALBUTEROL 0.5-2.5 MG/3 ML AMPUL NEB SCH ×3 (02:36→14:40)
[2019-10-27] MEDS: HEPARIN SOD (PORCINE) 5,000 UNIT/ML 1 ML VIAL SUBCUT SCH ×2 (05:55→14:32)
[2019-10-27] MEDS: METHYLPREDNISOLONE INJ 40 MG/1 ML SDV IV SCH ×2 (05:55→14:32)
[2019-10-27] MEDS: POTASSIUM CHLORIDE 10 MEQ TABLET.ER PO SCH (09:19)
[2019-10-27] MEDS: LOSARTAN POTASSIUM 50 MG TABLET PO SCH (09:19)
[2019-10-27] MEDS: CLONIDINE HCL 0.1 MG TABLET PO SCH (09:19)
[2019-10-27] MEDS: GUAIFENESIN 600 MG TABLET.SA PO SCH (09:19)
[2019-10-27] MEDS: VENLAFAXINE HCL 75 MG CAP.SR.24H PO SCH (09:19)
[2019-10-27] MEDS: DILTIAZEM HCL 180 MG CAPSULE.CR PO SCH (09:19)
[2019-10-27] MEDS: ASPIRIN 81 MG TABLET, CHEWABLE PO SCH (09:19)
[2019-10-27] MEDS: NORMAL SALINE 10 ML SDV (SCHEDULED) IV SCH (09:20)
[2019-10-27] MEDS: FLUTICASONE NASAL SPRAY 50 MCG/SPRY 120 SPRAY/16 GM NAREB SCH (09:21)
[2019-10-27] MEDS ORDERED: LEVOFLOXACIN 500 MG TABLET PO SCH (10:00)
[2019-10-27] MEDS: OXYCODONE-ACETAMINOPHEN 5-325 MG TABLET PO PRN (12:34)
[2019-10-27 13:09] VITALS: BP 159/73
--- NOTE | 2019-10-27 18:57 | PDOC DISCHARGE SUMMARY ---
Impression - Admit/DC Date/PCP Admission Date/Primary Care Provider: 10/09/19 22:59 RANDALL MURCIA PA-C Discharge Date: 10/27/19 - Discharge Diagnosis (1) Acute respiratory failure with hypoxia Is this a current diagnosis for this admission?: Yes (2) Pneumonia Is this a current diagnosis for this admission?: Yes (3) Sepsis Is this a current diagnosis for this admission?: Yes (4) Acute pyelonephritis Is this a current diagnosis for this admission?: Yes (5) COPD, severe Is this a current diagnosis for this admission?: Yes (6) Pulmonary fibrosis Is this a current diagnosis for this admission?: Yes - Additional Information Resuscitation Status: Full Code Referrals: IHSAN KOENIG MD [ASSOCIATE] - KOREY PEET MD [ACTIVE STAFF] - Follow up as needed STEPHEN PETER MD [ACTIVE STAFF] - (DX; COPD) Prescriptions: Fluticasone/Salmeterol [Advair 250-50 Diskus 14 Dose/Diskus] 1 inh IH Q12H #1 inhaler Aspirin [Aspirin 81 mg Chewable Tablet] 81 mg PO DAILY #30 tab.chew Diltiazem HCl [Cardizem Cd 180 mg Capsule] 180 mg PO Q12 #60 capsule.cr Prednisone [Deltasone 20 mg Tablet] 20 mg PO BID 5 Days #10 tablet Ipratropium/Albuterol Sulfate [Duoneb 3 ml Ampul] 3 ml NEB RTQ6HP PRN #30 vial.neb PRN Reason: for SOB or wheezing Furosemide [Lasix 20 mg Tablet] 20 mg PO QAM #30 tablet Levofloxacin [Levaquin 500 mg Tablet] 500 mg PO DAILY 4 Days #4 tablet Atorvastatin Calcium [Lipitor 20 mg Tablet] 20 mg PO QHS #30 tablet Home Medications: Losartan Potassium [Cozaar 50 mg Tablet] 100 mg PO DAILY 30 Days #30 tablet 02/13/19 Hydrochlorothiazide [Hydrodiuril 25 mg Tablet] 25 mg PO DAILY 06/03/19 Tramadol HCl [Ultram] 50 mg PO Q8HP PRN 06/03/19 Brimonidine Tartrate [Alphagan 0.2% Oph Soln 5 ml] 1 drop OU Q12 10/10/19 Famotidine [Pepcid 20 mg Tablet] 20 mg PO Q12 10/10/19 Timolol Maleate [Timoptic 0.5% Oph Soln 5 ml] 1 drop OU Q12 10/10/19 Tiotropium [place] [Spiriva Handihaler 5 Cap/Kit (18 Mcg/Cap)] 1 cap IH DAILY 10/10/19 Venlafaxine HCl ER [Effexor Xr 75 mg Cap.sr] 75 mg PO Q12 10/10/19 Acetaminophen [Tylenol 325 mg Tablet] 650 mg PO Q4HP PRN tablet 10/27/19 Aspirin [Aspirin 81 mg Chewable Tablet] 81 mg PO DAILY #30 tab.chew 10/27/19 Atorvastatin Calcium [Lipitor 20 mg Tablet] 20 mg PO QHS #30 tablet 10/27/19 Diltiazem HCl [Cardizem Cd 180 mg Capsule] 180 mg PO Q12 #60 capsule.cr 10/27/19 Fluticasone/Salmeterol [Advair 250-50 Diskus 14 Dose/Diskus] 1 inh IH Q12H #1 inhaler 10/27/19 Furosemide [Lasix 20 mg Tablet] 20 mg PO QAM #30 tablet 10/27/19 Ipratropium/Albuterol Sulfate [Duoneb 3 ml Ampul] 3 ml NEB RTQ6HP PRN #30 vial.neb 10/27/19 Levofloxacin [Levaquin 500 mg Tablet] 500 mg PO DAILY 4 Days #4 tablet 10/27/19 Prednisone [Deltasone 20 mg Tablet] 20 mg PO BID 5 Days #10 tablet 10/27/19 History of Present Illiness History of Present Illness: Admitting hospitalist's H&P: LUTHER LIPSCOMB is a 74 year old male with an extensive past medical history of opiate dependent chronic pain, congestive heart failure, COPD, chronic bronchitis, obstructive sleep apnea and intermittent prostate problems he is unable to clarify. He presents feeling 2 days of weakness dizziness intermittent nausea prompting evaluation emergency room he is found to have sepsis, pyuria, pyelonephritis and acute on chronic renal failure. He started on IV fluids, empiric antibiotics and referred to the hospitalist for admission. He includes he feels much better from presentation to the emergency room. He denies previous episode of pyelonephritis. CT shows perinephric stranding but negative for abscess or hydronephrosis. Hospital Course Hospital Course: This is a 74-year-old male who was initially admitted for sepsis secondary to pyelonephritis. Patient was started initially on broad-spectrum IV antibiotics. ID was consulted. He was later switched to Rocephin. Appears that while receiving Rocephin, he developed possible hospital-acquired pneumonia. He was switched to imipenem on 10/11/2019. 10/22: Upon encounter, he appears comfortable on 3.5 L via nasal cannula. He is not on home O2. He says that his shortness of breath slowly but continued to improve. He denies chest pain. He has very minimal productive cough. 10/23: He reports his shortness of breath continued to slowly and gradually improve. He denies chest pain. He is reporting that he has more productive cough now. 10/24: He denies acute complaints. He says he slightly feels better today and is slowly return to his baseline. Will complete IV antibiotics on 10/26 per ID recommendation. 10/25: No acute event overnight. Denies acute complaints. He says his shortness of breath continue to gradually improved. Denies chest pain. 10/26: No acute issues. He says that although his shortness of breath has improved compared to when he came in, this has plateaud. He continues to requires oxygen at 3 L via nasal cannula. He denies chest pain. 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 I believe his recurrent pneumonia has significantly contributed to the progression of his severe lung disease. Likely, this will be his new baseline and more than likely, he will require and will need supplemental O2 indefinitely even with resolution of his pneumonia. He will be sent home on home O2 and will be given a follow up appointment with pulmonology. Physical Exam Vital Signs: Temp Pulse Resp BP Pulse Ox 97.3 F 79 18 159/73 H 96 10/27/19 12:24 10/27/19 14:00 10/27/19 12:24 10/27/19 12:24 10/27/19 12:24 Intake & Output 10/26/19 10/27/19 10/28/19 06:59 06:59 06:59 Intake Total 2100 1032 360 Output Total 2700 2550 Balance -600 -1518 360 Weight 199 lb 11.821 oz 195 lb 12.328 oz General appearance: PRESENT: no acute distress, well-developed, well-nourished Head exam: PRESENT: atraumatic, normocephalic Eye exam: PRESENT: conjunctiva pink, EOMI, PERRLA. ABSENT: scleral icterus Ear exam: PRESENT: normal external ear exam Mouth exam: PRESENT: moist, tongue midline Neck exam: ABSENT: carotid bruit, JVD, lymphadenopathy, thyromegaly Respiratory exam: PRESENT: rhonchi. ABSENT: rales, wheezes Cardiovascular exam: PRESENT: RRR. ABSENT: diastolic murmur, rubs, systolic murmur Pulses: PRESENT: normal dorsalis pedis pul GI/Abdominal exam: PRESENT: normal bowel sounds, soft. ABSENT: distended, guarding, mass, organolmegaly, rebound, tenderness Rectal exam: PRESENT: deferred Extremities exam: PRESENT: full ROM. ABSENT: calf tenderness, clubbing, pedal edema Neurological exam: PRESENT: alert, awake, oriented to person, oriented to place, oriented to time, oriented to situation, CN II-XII grossly intact. ABSENT: motor sensory deficit Results Laboratory Results: WBC 9.5 10^3/uL (4.0-10.5) 10/26/19 06:54 RBC 3.74 10^6/uL (4.35-5.55) L 10/26/19 06:54 Hgb 11.3 g/dL (13.5-17.0) L 10/26/19 06:54 Hct 32.9 % (37.9-51.0) L 10/26/19 06:54 MCV 88 fl (80-97) 10/26/19 06:54 MCH 30.1 pg (27.0-33.4) 10/26/19 06:54 MCHC 34.2 g/dL (32.0-36.0) 10/26/19 06:54 RDW 15.2 % (11.5-14.0) H 10/26/19 06:54 Plt Count 537 10^3/uL (150-450) H 10/26/19 06:54 Lymph % (Auto) Not Reportable 10/26/19 06:54 [place] % (Auto) Not Reportable 10/26/19 06:54 Eos % (Auto) Not Reportable 10/26/19 06:54 Baso % (Auto) Not Reportable 10/26/19 06:54 Absolute Neuts (auto) Not Reportable 10/26/19 06:54 Absolute Lymphs (auto) Not Reportable 10/26/19 06:54 Absolute Monos (auto) Not Reportable 10/26/19 06:54 Absolute Eos (auto) Not Reportable 10/26/19 06:54 Absolute Basos (auto) Not Reportable 10/26/19 06:54 Total Counted 100 10/26/19 06:54 Seg Neutrophils % Not Reportable 10/26/19 06:54 Seg Neuts % (Manual) 95 % (42-78) H 10/26/19 06:54 Band Neutrophils % 3 % (3-5) 10/10/19 06:32 Lymphocytes % (Manual) 4 % (13-45) L 10/26/19 06:54 Monocytes % (Manual) 1 % (3-13) L 10/26/19 06:54 Eosinophils % (Manual) 0 % (0-6) 10/26/19 06:54 Basophils % (Manual) 0 % (0-2) 10/26/19 06:54 Abs Neuts (Manual) 9.0 10^3/uL (1.7-8.2) H 10/26/19 06:54 Abs Lymphs (Manual) 0.4 10^3/uL (0.5-4.7) L 10/26/19 06:54 Abs Monocytes (Manual) 0.1 10^3/uL (0.1-1.4) 10/26/19 06:54 Absolute Eos (Manual) 0.0 10^3/uL (0.0-0.6) 10/26/19 06:54 Abs Basophils (Manual) 0.0 10^3/uL (0.0-0.2) 10/26/19 06:54 Clumped Platelets PRESENT 10/26/19 06:54 Platelet Comment ADEQUATE 10/26/19 06:54 Polychromasia SLIGHT 10/10/19 06:32 Anisocytosis SLIGHT 10/26/19 06:54 D-Dimer 3.28 ug/mL (0.00-0.50) H 10/09/19 17:08 Carbonic Acid 1.49 mmol/L (1.05-1.35) H 10/12/19 11:29 HCO3/H2CO3 Ratio 16:1 10/12/19 11:29 ABG pH 7.31 (7.35-7.45) L 10/12/19 11:29 ABG pCO2 49.4 mmHg (35-45) H 10/12/19 11:29 ABG pO2 93.2 mmHg (80-100) 10/12/19 11:29 ABG HCO3 24.5 mmol/L (20-24) H 10/12/19 11:29 ABG Total CO2 26.0 mmol/L (23-27) 10/12/19 11:29 ABG O2 Saturation 96.4 % (94-98) 10/12/19 11:29 ABG Base Excess -2.3 mmol/L 10/12/19 11:29 FiO2 3L 10/12/19 11:29 Sodium 138.7 mmol/L (137-145) 10/26/19 06:54 Potassium 4.4 mmol/L (3.6-5.0) 10/26/19 06:54 Chloride 98 mmol/L (98-107) 10/26/19 06:54 Carbon Dioxide 35 mmol/L (22-30) H 10/26/19 06:54 Anion Gap 6 (5-19) 10/26/19 06:54 BUN 52 mg/dL (7-20) H 10/26/19 06:54 Creatinine 1.15 mg/dL (0.52-1.25) 10/26/19 06:54 Est GFR ( Amer) > 60 (>60) 10/26/19 06:54 Est GFR (MDRD) Non-Af > 60 (>60) 10/26/19 06:54 Glucose 156 mg/dL (75-110) H 10/26/19 06:54 POC Glucose 177 mg/dL (70-110) H 10/12/19 11:17 Lactic Acid 1.7 mmol/L (0.7-2.1) 10/09/19 21:08 Lactic Acid (Sepsis) 1.1 mmol/L (0.7-2.1) 10/12/19 11:57 Calcium 9.4 mg/dL (8.4-10.2) 10/26/19 06:54 Magnesium 1.7 mg/dL (1.6-2.3) 10/13/19 22:58 Total Bilirubin 0.6 mg/dL (0.2-1.3) 10/19/19 10:15 Direct Bilirubin 0.5 mg/dL (0.0-0.4) H 10/19/19 10:15 Neonat Total Bilirubin Not Reportable 10/19/19 10:15 Neonat Direct Bilirubin Not Reportable 10/19/19 10:15 Neonat Indirect Bili Not Reportable 10/19/19 10:15 AST 38 U/L (17-59) 10/19/19 10:15 ALT 50 U/L (<50) 10/19/19 10:15 Alkaline Phosphatase 257 U/L (38-126) H 10/19/19 10:15 Creatine Kinase < 20 U/L (55-170) L 10/14/19 10:59 CK-MB (CK-2) 1.28 ng/mL (<4.55) 10/14/19 10:59 Troponin I 0.016 ng/mL 10/14/19 10:59 NT-Pro-B Natriuret Pep 626 pg/mL (<125) H 10/20/19 06:10 Total Protein 7.6 g/dL (6.3-8.2) 10/19/19 10:15 Albumin 3.4 g/dL (3.5-5.0) L 10/19/19 10:15 Lipase 28.7 U/L (23-300) 10/09/19 17:08 Urine Color YELLOW 10/21/19 20:19 Urine Appearance CLEAR 10/21/19 20:19 Urine pH 6.0 (5.0-9.0) 10/21/19 20:19 Ur Specific [place] 1.014 10/21/19 20:19 Urine Protein 100 mg/dL (NEGATIVE) H 10/21/19 20:19 Urine Glucose (UA) >=500 mg/dL (NEGATIVE) H 10/21/19 20:19 Urine Ketones TRACE mg/dL (NEGATIVE) H 10/21/19 20:19 Urine Blood NEGATIVE (NEGATIVE) 10/21/19 20:19 Urine Nitrite NEGATIVE (NEGATIVE) 10/21/19 20:19 Urine Nitrite (Reflex) NEGATIVE (NEGATIVE) 10/09/19 20:16 Urine Bilirubin NEGATIVE (NEGATIVE) 10/21/19 20:19 Urine Urobilinogen 2.0 mg/dL (<2.0) H 10/21/19 20:19 Ur Leukocyte Esterase TRACE (NEGATIVE) H 10/21/19 20:19 Leukocyte Esterase Rfl LARGE (NEGATIVE) H 10/09/19 20:16 Urine WBC (Auto) 2 /HPF 10/21/19 20:19 Urine RBC (Auto) 0 /HPF 10/21/19 20:19 Urine Bacteria (Auto) 3+ /HPF 10/09/19 20:16 Urine WBC (Reflex) > 182 /HPF 10/09/19 20:16 Urine WBC Clumps OCC /HPF 10/09/19 20:16 Squamous Epi Cells Auto <1 /HPF 10/21/19 20:19 Urine Mucus (Auto) RARE /LPF 10/21/19 20:19 Urine Creatinine 229.7 mg/dL (22-328) 10/09/19 20:16 Urine Sodium 59 mmol/L (30-90) 10/09/19 20:16 Urine Ascorbic Acid NEGATIVE (NEGATIVE) 10/21/19 20:19 Influenza A (Rapid) NEGATIVE (NEGATIVE) 10/13/19 13:35 Influenza B (Rapid) NEGATIVE (NEGATIVE) 10/13/19 13:35 10/09/19 10/09/19 10/09/19 17:08 17:08 20:30 CK-MB (CK-2) Troponin I 0.031 0.032 NT-Pro-B Natriuret Pep 1810 H 10/12/19 10/12/19 10/12/19 08:21 14:30 20:41 CK-MB (CK-2) 1.77 1.81 1.86 Troponin I 0.033 0.022 0.024 NT-Pro-B Natriuret Pep 10/13/19 10/14/19 10/14/19 22:58 05:00 10:59 CK-MB (CK-2) 1.60 1.14 1.28 Troponin I 0.018 0.014 0.016 NT-Pro-B Natriuret Pep 10/20/19 06:10 CK-MB (CK-2) Troponin I NT-Pro-B Natriuret Pep 626 H Impressions: Chest X-Ray 10/09/19 16:56 IMPRESSION: Similar pattern diffuse interstitial lung markings. No acute pulmonary findings. Chest CT 10/09/19 18:39 IMPRESSION: Findings of chronic fibrotic interstitial lung disease without a superimposed acute cardiopulmonary process. Abdomen/Pelvis CT 10/09/19 18:40 IMPRESSION: 1. Asymmetric left perinephric and periureteral stranding without hydronephrosis. Clinical correlation to exclude an ascending urinary tract infection is recommended. 2. Hepatic steatosis. 3. Colonic diverticulosis without diverticulitis. Lung Scan-VQ NM 10/09/19 21:25 IMPRESSION: NORMAL VENTILATION-PERFUSION LUNG SCAN. NEGATIVE FOR PULMONARY EMBOLI. Chest X-Ray 10/12/19 00:00 IMPRESSION: Right upper lobe and left lower lobe pneumonia superimposed on interstitial lung disease. Acute Abdomen Series 10/12/19 06:58 IMPRESSION: Nonspecific bowel gas pattern without evidence for obstruction. Interstitial lung disease. Chest X-Ray 10/17/19 00:00 IMPRESSION: Worsening multifocal airspace disease compatible with pneumonia. No significant effusion. Chest CT 10/18/19 00:00 IMPRESSION: Bilateral pneumonia on a background of emphysema. Guidance Fluoroscopy 10/18/19 00:00 IMPRESSION: Successful placement of a 5 [place] x 35 cm double-lumen PICC via the right brachial vein utilizing fluoroscopic and sonographic guidance. Interventional Vascular Procedure 10/18/19 00:00 IMPRESSION: Successful placement of a 5 [place] x 35 cm double-lumen PICC via the right brachial vein utilizing fluoroscopic and sonographic guidance. PICC Line Insertion 10/18/19 00:00 IMPRESSION: Successful placement of a 5 [place] x 35 cm double-lumen PICC via the right brachial vein utilizing fluoroscopic and sonographic guidance. Chest X-Ray 10/22/19 07:00 IMPRESSION: Multifocal bilateral airspace disease with trace left effusion. There is mildly improved left sided aeration from prior. Chest X-Ray 10/26/19 07:00 IMPRESSION: Diffuse bilateral alveolar and interstitial infiltrates unchanged from 10/22/2019 Stroke Is this a Stroke Patient?: No Acute Heart Failure - Is this a Heart Failure Patient?: No
== END 2019-10-27 16:51 | disposition home health service (06) | DRG 871 ==
LOC: ER 16:36 → EH 22:59 → 3S 10-10 19:30 → 3W 10-15 11:15 → 5 10-20 22:15
PROVIDERS: ADMIT Internal Medicine; ATTEND Internal Medicine
PROC: 02HV33Z Insertion of Infusion Device into Superior Vena Cava, Percutaneous Approach (ICD-10-PCS; principal; 2019-10-09)
PROC: 5A09357 Assistance with Respiratory Ventilation, Less than 24 Consecutive Hours, Continuous Positive Airway Pressure (ICD-10-PCS; 2019-10-12)
DX: A41.9 Sepsis, unspecified organism (principal); J96.01 Acute respiratory failure with hypoxia; J18.9 Pneumonia, unspecified organism; N10 Acute pyelonephritis; I13.0 Hypertensive heart and chronic kidney disease with heart failure and stage 1 through stage 4 chronic kidney disease, or unspecified chronic kidney disease; I50.20 Unspecified systolic (congestive) heart failure; N17.9 Acute kidney failure, unspecified; J84.10 Pulmonary fibrosis, unspecified; Z99.81 Dependence on supplemental oxygen; N18.3 Chronic kidney disease, stage 3 (moderate); D63.1 Anemia in chronic kidney disease; J44.9 Chronic obstructive pulmonary disease, unspecified; N40.0 Benign prostatic hyperplasia without lower urinary tract symptoms; G47.33 Obstructive sleep apnea (adult) (pediatric); B96.20 Unspecified Escherichia coli [E. coli] as the cause of diseases classified elsewhere; E78.5 Hyperlipidemia, unspecified; H54.8 Legal blindness, as defined in USA; G43.909 Migraine, unspecified, not intractable, without status migrainosus; R80.9 Proteinuria, unspecified; M19.90 Unspecified osteoarthritis, unspecified site; M79.7 Fibromyalgia; M10.9 Gout, unspecified; F32.9 Major depressive disorder, single episode, unspecified; F41.1 Generalized anxiety disorder; G89.29 Other chronic pain; M25.561 Pain in right knee; E66.9 Obesity, unspecified; F41.9 Anxiety disorder, unspecified; Z79.82 Long term (current) use of aspirin; Z88.1 Allergy status to other antibiotic agents; Z88.8 Allergy status to other drugs, medicaments and biological substances; Z87.01 Personal history of pneumonia (recurrent); Z86.73 Personal history of transient ischemic attack (TIA), and cerebral infarction without residual deficits; Z86.19 Personal history of other infectious and parasitic diseases; Z87.891 Personal history of nicotine dependence; Z82.3 Family history of stroke; Z84.1 Family history of disorders of kidney and ureter; Z82.49 Family history of ischemic heart disease and other diseases of the circulatory system; Z82.61 Family history of arthritis
CPT/HCPCS: 36415; 36569; 71045; 71046; 71250; 74022; 74176; 76937; 77001; 78582; 80048; 80053; 80076; 81001; 82550; 82553; 82570; 82803; 82962; 83605; 83690; 83735; 83880; 84300; 84484; 85025; 85027; 85379; 87040; 87070; 87077; 87086; 87088; 87150; 87186; 87205; 87804; 93005; 93010; 94640; 94660; 94667; 96361; 96365; 96375; 99285; A9540; A9567; J0360; J0456; J0692; J0696; J0743; J1642; J1644; J1650; J1940; J2270; J2405; J2543; J2920; J3370; J3480; J3490; J7030; J7050; J7060; J7620; Q9969

== ENCOUNTER 2019-11-26 14:26 | Inpatient (IN) | payer MEDICARE, MEDICAID ==
[2019-11-26 15:46] LABS: HEMATOCRIT 35.8 % (37.9-51.0); HEMOGLOBIN 12.5 g/dL (13.5-17.0); MEAN CORPUSCULAR HEMOGLOBIN 30.3 pg (27.0-33.4); MEAN CORPUSCULAR VOLUME 87 fl (80-97); PLATELET COUNT 793 10^3/uL (150-450); RED BLOOD COUNT 4.13 10^6/uL (4.35-5.55); RED CELL DISTRIBUTION WIDTH 15.6 % (11.5-14.0); WHITE BLOOD COUNT 11.7 10^3/uL (4.0-10.5)
[2019-11-26 15:47] LABS: INTERNATIONAL RATION (INR) 0.99; PROTHROMBIN TIME 13.1 SEC (11.4-15.4)
[2019-11-26 15:58] LABS: ALBUMIN 4.1 g/dL (3.5-5.0); ALKALINE PHOSPHATASE 207 U/L (38-126); ANION GAP 11 (5-19); ASPARTATE AMINO TRANSFERASE 18 U/L (17-59); BILIRUBIN,DIRECT 0.2 mg/dL (0.0-0.4); BILIRUBIN,TOTAL 0.7 mg/dL (0.2-1.3); BLOOD UREA NITROGEN 57 mg/dL (7-20); CALCIUM 10.4 mg/dL (8.4-10.2); CARBON DIOXIDE 34 mmol/L (22-30); CHLORIDE 88 mmol/L (98-107); POTASSIUM 4.3 mmol/L (3.6-5.0); TOTAL PROTEIN 7.3 g/dL (6.3-8.2)
[2019-11-26] MEDS ORDERED: NORMAL SALINE 1000 ML 1,000 ML IV ONE (16:12)
[2019-11-26 16:13] LABS: GLUCOSE 436 mg/dL (75-110)
[2019-11-26] MEDS ORDERED: INSULIN REG, HUMAN 100 UNIT/ML 3 ML VIAL (PYX) IV ONE ×2 (16:16→18:08)
[2019-11-26 16:17] LABS: ABSOLUTE LYMPHOCYTES# (MANUAL) 3.7 10^3/uL (0.5-4.7); ABSOLUTE MONOCYTES # (MANUAL) 1.1 10^3/uL (0.1-1.4); BASOPHILS % (MANUAL) 2 % (0-2); EOSINOPHILS % (MANUAL) 1 % (0-6); LYMPHOCYTES % (MANUAL) 31 % (13-45); METAMYELOCYTES % (MANUAL) 1 % (0-1); MONOCYTES % (MANUAL) 9 % (3-13); SEGMENTED NEUTROPHILS % (MAN) 55 % (42-78); TOTAL CELLS COUNTED 100
[2019-11-26 16:19] LABS: ANISOCYTOSIS SLIGHT; PLATELET COMMENT INCREASED; POLYCHROMASIA SLIGHT
--- NOTE | 2019-11-26 16:22 | EKG REPORT ---
SEVERITY:- ABNORMAL ECG - SINUS RHYTHM VENTRICULAR PREMATURE COMPLEX RIGHT BUNDLE BRANCH BLOCK : Confirmed by: Carrie Cantu MD 26-Nov-2019 16:21:28
--- NOTE | 2019-11-26 17:27 | ER Document Report ---
ED Dizziness/Weakness - General Chief Complaint: Low Blood Pressure Stated Complaint: GENERAL WEAKNESS Time Seen by Provider: 11/26/19 16:04 Primary Care Provider: RANDALL MURCIA PA-C [Primary Care Provider] - Follow up as needed Information source: Patient TRAVEL OUTSIDE OF THE [place] IN LAST 30 DAYS: No - HPI Notes: Patient is sent from his primary doctor's office with near syncope. Patient and family state of the last 24 to 48 hours he has been weak and confused. Patient has had substernal chest pain. This pain is been intermittent. He is unsure how long it lasted appears somewhere between 30 minutes and an hour. He is unable to describe the characteristics of the pain. No known radiation of the pain. Nothing makes it better or worse. He is also had some mild shortness of breath. No falls or trauma. No cough or cold. He did recently get out of the hospital and has required supplemental oxygen since that time. No previous hist ory of coronary artery disease. - Related Data Allergies/Adverse Reactions: lisinopril [Lisinopril] Allergy (Verified 10/09/19 16:52) moxifloxacin HCl [From Avelox] Allergy (Verified 10/09/19 16:52) Past Medical History - General Information source: Patient, Relative - Social History Smoking Status: Former Smoker Frequency of alcohol use: None Drug Abuse: None Family History: Arthritis - Rheumatoid arthritis, CAD, CVA - Cerebral hemorrhage, Malignancy - Bladder cancer, Other - Rheumatic fever Patient has suicidal ideation: No Patient has homicidal ideation: No - Past Medical History Cardiac Medical History: Reports: Hx Hypercholesterolemia, Hx Hypertension Denies: Hx Coronary Artery Disease, Hx Heart Attack Pulmonary Medical History: Reports: Hx Bronchitis, Hx COPD, Hx Pneumonia, Hx Sleep Apnea Neurological Medical History: Reports: Hx Migraine. Denies: Hx Cerebrovascular Accident, Hx Seizures Endocrine Medical History: Denies: Hx Diabetes Mellitus Type 1, Hx Diabetes Mellitus Type 2, Hx Hyperthyroidism, Hx Hypothyroidism Renal/ Medical History: Reports: Hx Benign Prostatic Hyperplasia, Hx Renal Insufficiency. Denies: Hx Peritoneal Dialysis GI Medical History: Reports: Hx Hepatitis - Hepatitis C. Denies: Hx Cirrhosis, Hx Crohn's Disease, Hx Ulcerative Colitis Musculoskeletal Medical History: Reports Hx Arthritis, Reports Hx Fibromyalgia, Reports Hx Gout Skin Medical History: Denies Hx Eczema, Denies Hx Psoriasis Psychiatric Medical History: Reports: Hx Depression Infectious Medical History: Reports: Hx Hepatitis - Hepatitis C Past Surgical History: Reports: Hx Abdominal Surgery - umbilical hernia repair, Hx Herniorrhaphy - Umbilical repair, Hx Orthopedic Surgery - right shoulder, left knee, Other - Sinus surgery, cataract extraction - Immunizations Hx Diphtheria, Pertussis, Tetanus Vaccination: No - unknown Hx Pneumococcal Vaccination: 10/23/12 Review of Systems - Review of Systems Constitutional: Malaise, Weakness. denies: Chills Cardiovascular: Chest pain. denies: Palpitations Respiratory: Short of breath. denies: Cough -: Yes All other systems reviewed and negative Physical Exam - Vital signs Vitals: Resp Pulse Ox 13 94 11/26/19 14:38 11/26/19 14:38 Interpretation: Hypotensive - General General appearance: Appears well, Alert In distress: None - HEENT Head: Normocephalic, Atraumatic Eyes: Normal Pupils: PERRL - Respiratory Respiratory status: No respiratory distress Chest status: Nontender Breath sounds: Decreased air movement Chest palpation: Normal - Cardiovascular Rhythm: Regular Heart sounds: Normal auscultation Murmur: No - Abdominal Inspection: Normal Distension: No distension Bowel sounds: Normal Tenderness: Nontender Organomegaly: No organomegaly - Back Back: Normal, Nontender - Extremities General upper extremity: Normal inspection, Nontender, Normal color, Normal ROM, Normal temperature General lower extremity: Normal inspection, Nontender, Edema - 1+ bilateral pitting, Normal color, Normal ROM, Normal temperature. No: Gemma's sign - Neurological Neuro grossly intact: Yes Cognition: Normal Orientation: AAOx4 [place] Coma Scale Eye Opening: Spontaneous [place] Coma Scale Verbal: Oriented [place] Coma Scale Motor: Obeys Commands [place] Coma Scale Total: 15 Speech: Normal Motor strength normal: LUE, RUE, LLE, RLE Sensory: Normal - Psychological Associated symptoms: Normal affect, Normal mood - Skin Skin Temperature: Warm Skin Moisture: Dry Skin Color: Normal Course - Re-evaluation Re-evalutation: 11/26/19 17:25 Patient has been having chest pain and near syncope. He sent from his doctor's office today with near syncope. When he arrived here his blood pressure was initially in the 80s. He is now approximately 105 systolic. He has no chest pain currently. He has been having increasing shortness of breath the last several weeks. No known history of coronary artery disease. Patient is currently taking 3 blood pressure medications and it appears with his acute on chronic renal insufficiency that his blood pressure medicines are at toxic levels causing his blood pressure to be low. His heart score is 5. - Vital Signs Vital signs: Temp Pulse Resp BP Pulse Ox 97.5 F 100 14 104/61 95 11/26/19 14:56 11/26/19 14:54 11/26/19 17:01 11/26/19 17:01 11/26/19 17:01 - Laboratory Result Diagrams: 11/26/19 15:15 11/26/19 15:15 Laboratory results interpreted by me: 11/26/19 11/26/19 15:15 15:15 WBC 11.7 H RBC 4.13 L Hgb 12.5 L Hct 35.8 L RDW 15.6 H Plt Count 793 H Sodium 133.0 L Chloride 88 L Carbon Dioxide 34 H BUN 57 H Creatinine 2.10 H Est GFR ( Amer) 38 L Est GFR (MDRD) Non-Af 31 L Glucose 436 H* Calcium 10.4 H Alkaline Phosphatase 207 H - Diagnostic Test Radiology reviewed: Image reviewed, Reports reviewed - EKG Interpretation by Me EKG shows normal: Sinus rhythm Rate: Normal - 94 Rhythm: NSR [place]/QRS: RBBB Discharge - Discharge Clinical Impression: Confusion, Near syncope Hypotension Qualifiers: Hypotension type: hypotension due to drug Qualified Code(s): I95.2 - Hypotension due to drugs Chest pain Qualifiers: Chest pain type: unspecified Qualified Code(s): R07.9 - Chest pain, unspecified Condition: Serious Disposition: ADMITTED INPATIENT Admitting Provider: Aby (Hospitalist) Unit Admitted: Telemetry Referrals: RANDALL MURCIA PA-C [Primary Care Provider] - Follow up as needed
--- NOTE | 2019-11-26 17:49 | RADIOLOGY REPORT (SQ) ---
EXAM DESCRIPTION: CT HEAD WITHOUT COMPLETED DATE/TIME: 11/26/2019 4:04 pm REASON FOR STUDY: confusion COMPARISON: None. TECHNIQUE: Axial images acquired through the brain without intravenous contrast. Images reviewed wi th bone, brain and subdural windows. Images stored on PACS. All CT scanners at this facility use dose modulation, iterative reconstruction, and/or weight based d osing when appropriate to reduce radiation dose to as low as reasonably achievable (ALARA). [facility]: Dose Right [facility]: CareDose [facility]: Dose Right [facility]: Teradose 4D [facility]: [employer] RADIATION DOSE: CT Rad equipment meets quality standard of care and radiation dose reduction techniq ues were employed. CTDIvol: 53.2 mGy. DLP: 964 mGy-cm. mGy. LIMITATIONS: None. FINDINGS: VENTRICLES: Normal size and contour. CEREBRUM: No masses. No hemorrhage. No midline shift. No evidence for acute infarction. Normal gra y-white matter differentiation. Patchy periventricular, deep, and subcortical white matter hypodense attenuation consistent with chronic small vessel ischemic change. There is intracranial atheroscler osis. CEREBELLUM: No masses. No hemorrhage. No alteration of density. No evidence for acute infarction. EXTRAAXIAL SPACES: No fluid collections. No masses. ORBITS AND GLOBE: No intra- or extraconal masses. Normal contour of globe without masses. CALVARIUM: No fracture. PARANASAL SINUSES: No fluid or mucosal thickening. SOFT TISSUES: No mass or hematoma. OTHER: No other significant finding. IMPRESSION: 1. No acute intracranial hemorrhage, mass, or evidence of acute territorial infarct. 2. Mild chronic small vessel ischemic change. 3. Intracranial atherosclerosis. EVIDENCE OF ACUTE STROKE: NO. COMMENT: Quality ID # [id number]: Final reports with documentation of one or more dose reduction techniques (e.g., Automated exposure control, adjustment of the mA and/or kV according to patient size, use of iterative reconstruction technique) TECHNICAL DOCUMENTATION: JOB ID: [id number] [email or web address] Rights Reserved Reading location - IP/workstation name: [email or web address]
[2019-11-26 17:58] LABS: VENOUS BLOOD BASE EXCESS 3.7 mmol/L; VENOUS BLOOD HCO3 31.4 mmol/L (20-32); VENOUS BLOOD PCO2 61.6 mmHg (35-63); VENOUS BLOOD PH 7.33 (7.30-7.42)
[2019-11-26] MEDS ORDERED: GLUCAGON,HUMAN RECOMB 1 MG INJ IM PRN (18:37)
[2019-11-26] MEDS ORDERED: DEXTROSE 50%-WATER 25 GM/50 ML DISP.SYRIN IV PRN ×2 (18:37)
[2019-11-26] MEDS ORDERED: DEXTROSE 40% GEL 15 GM TUBE PO PRN ×2 (18:37)
[2019-11-26] MEDS ORDERED: IPRATROPIUM/ALBUTEROL 0.5-2.5 MG/3 ML AMPUL NEB PRN (18:43)
--- NOTE | 2019-11-26 18:55 | PDOC H&P ---
History of Present Illness Admission Date/PCP: 11/26/19 18:16 RANDALL MURCIA PA-C History of Present Illness: LUTHER LIPSCOMB is a 74 year old male who was hospitalized here for 18 days and September into early October of this year for kidney infection and then he developed a pneumonia which worsened his already poor lung function and he was sent home on oxygen. He says that ever since then, he has had increased thirst and increased frequency of large-volume urination. He said he is never had a problem with his blood sugar in the past. I looked back in the old labs that we have on him and a hemoglobin A1c was done in January of last year and it was normal at 5.2%. He said he does not take medicine for diabetes at home, but he says that when he went home they changed up all of his blood pressure medications because they were having so much trouble controlling his blood pre ssure when he was hospitalized for that long stretch of time. At home he takes losartan, extended release Cardizem twice a day, and HCTZ for blood pressure. He also takes Lasix because he said he retained fluid. He said that he has been having some intermittent chest pain for a few days and saw a doctor that made a home visit that recommended that he go see his primary care doctor. He made an appointment and went in today, and when he was there, he said he got really dizzy and was told that he passed out but he does not remember that. He said his blood pressure at the appointment was low. He said he been taking it at home and that his pressures at home had also been low. He said that he has been drinking 6-8 large cups of water a day, and he gets up several times at night to urinate and usually drinks a glass of water at that time because he is so thirsty. His blood pressure was low, with a systolic in the 80s, and it has responded to some IV fluids. His BUN and creatinine were elevated above their baseline. He also had a blood sugar of 436. He said the last thing he ate t timothy was an omelette around 10:00 this morning, and he has not had anything to eat or drink since that time until he got to the emergency department around 2 PM. The only thing he has had since then has been some water. Past Medical History Cardiac Medical History: Reports: Hyperlipidema, Hypertension Denies: Coronary Artery Disease, Myocardial Infarction Pulmonary Medical History: Reports: Bronchitis, Chronic Obstructive Pulmonary Disease (COPD), Pneumonia, Sleep Apnea Neurological Medical History: Reports: Migraine Denies: Seizures Endocrine Medical History: Denies: Diabetes Mellitus Type 1, Diabetes Mellitus Type 2, Hyperthyroidism, Hypothyroidism GI Medical History: Reports: Hepatitis - Hepatitis C Denies: Cirrhosis, Crohn's Disease, Ulcerative Colitis Musculoskeltal Medical History: Reports: Arthritis, Fibromyalgia, Gout Skin Medical History: Denies: Eczema, Psoriasis Psychiatric Medical History: Reports: Depression Hematology: Reports: Anemia Past Surgical History Past Surgical History: Reports: Herniorrhaphy - Umbilical repair, Orthopedic Surgery - right shoulder, left knee, Other - Sinus surgery, cataract extraction Social History Smoking Status: Former Smoker Frequency of Alcohol Use: Occasional Hx Recreational Drug Use: No Drugs: None Hx Prescription Drug Abuse: No Family History Family History: Arthritis - Rheumatoid arthritis, CAD, CVA - Cerebral hemorrhage, Malignancy - Bladder cancer, Other - Rheumatic fever Parental Family History Reviewed: Yes Children Family History Reviewed: Yes Sibling(s) Family History Reviewed.: Yes Medication/Allergy Allergies/Adverse Reactions: lisinopril [Lisinopril] Allergy (Verified 10/09/19 16:52) moxifloxacin HCl [From Avelox] Allergy (Verified 10/09/19 16:52) Review of Systems All systems: reviewed and no additional remarkable complaints except as stated - All systems were reviewed and were negative except as noted in the HPI Physical Exam Vital Signs: Temp Pulse Resp BP Pulse Ox 97.5 F 100 11 L 100/68 98 11/26/19 14:56 11/26/19 14:54 11/26/19 18:00 11/26/19 18:00 11/26/19 18:00 Intake & Output 11/25/19 11/26/19 11/27/19 06:59 06:59 06:59 Intake Total 1000 Balance 1000 Weight 86.183 kg General appearance: PRESENT: no acute distress, cooperative, disheveled, hard of hearing, obese Head exam: PRESENT: atraumatic, normocephalic Eye exam: PRESENT: EOMI, PERRLA. ABSENT: conjunctival injection, nystagmus, scleral icterus Ear exam: PRESENT: normal external ear exam Mouth exam: PRESENT: dry mucosa, neck supple Teeth exam: PRESENT: poor dentation Throat exam: ABSENT: post pharyngeal erythema Neck exam: PRESENT: full ROM. ABSENT: carotid bruit, JVD, lymphadenopathy, me ningismus, tenderness, thyromegaly Respiratory exam: PRESENT: clear to auscultation lobito, symmetrical, unlabored. ABSENT: accessory muscle use, chest wall tenderness, crackles, prolonged expiratory phas, retraction, rhonchi, tachypnea, wheezes Cardiovascular exam: PRESENT: RRR, +S1, +S2 Pulses: PRESENT: normal carotid pulses Vascular exam: PRESENT: normal capillary refill GI/Abdominal exam: PRESENT: normal bowel sounds, soft. ABSENT: distended, guarding, rebound, tenderness Extremities exam: ABSENT: clubbing, pedal edema Musculoskeletal exam: PRESENT: normal inspection. ABSENT: deformity Neurological exam: PRESENT: alert, awake, oriented to person, oriented to place, oriented to time, oriented to situation, CN II-XII grossly intact. ABSENT: motor sensory deficit Psychiatric exam: PRESENT: appropriate affect, normal mood Skin exam: PRESENT: dry, warm, other - Decreased turgor Results Laboratory Results: 11/26/19 15:15 11/26/19 15:15 11/26/19 11/26/19 11/26/19 15:15 15:15 17:40 WBC 11.7 H RBC 4.13 L Hgb 12.5 L Hct 35.8 L MCV 87 MCH 30.3 MCHC 35.0 RDW 15.6 H Plt Count 793 H Seg Neutrophils % Not Reportable VBG pH 7.33 VBG pCO2 61.6 VBG HCO3 31.4 VBG Base Excess 3.7 Sodium 133.0 L Potassium 4.3 Chloride 88 L Carbon Dioxide 34 H Anion Gap 11 BUN 57 H Creatinine 2.10 H Est GFR ( Amer) 38 L Glucose 436 H* Lactic Acid Calcium 10.4 H Total Bilirubin 0.7 AST 18 Alkaline Phosphatase 207 H Total Protein 7.3 Albumin 4.1 11/26/19 17:40 WBC RBC Hgb Hct MCV MCH MCHC RDW Plt Count Seg Neutrophils % VBG pH VBG pCO2 VBG HCO3 VBG Base Excess Sodium Potassium Chloride Carbon Dioxide Anion Gap BUN Creatinine Est GFR ( Amer) Glucose Lactic Acid 2.2 H Calcium Total Bilirubin AST Alkaline Phosphatase Total Protein Albumin 11/26/19 15:15 Troponin I 0.027 Impressions: Head CT 11/26/19 16:11 IMPRESSION: 1. No acute intracranial hemorrhage, mass, or evidence of acute territorial infarct. 2. Mild chronic small vessel ischemic change. 3. Intracranial atherosclerosis. EVIDENCE OF ACUTE STROKE: NO. Assessment and Plan - Diagnosis (1) Hyperglycemia Is this a current diagnosis for this admission?: Yes (2) Chest pain Qualifiers: Chest pain type: unspecified Qualified Code(s): R07.9 - Chest pain, unspecified Is this a current diagnosis for this admission?: Yes (3) HILLARY (acute kidney injury) Is this a current diagnosis for this admission?: Yes (4) Dehydration Is this a current diagnosis for this admission?: Yes (5) End stage COPD Is this a current diagnosis for this admission?: Yes - Plan Summary Summary: The story that he gives is suspicious for development of new onset diabetes. I will check a hemoglobin A1c. We are giving him some insulin and some IV fluids to try to get his blood sugar control. We will do Accu-Cheks before meals at bedtime and put him on insulin sliding scale. We will put him on a consistent carbohydrate diet. The last time his cholesterol was checked here his triglycerides and his LDL and total cholesterol were all elevated so we will put him on a cardiac diet as well. His blood pressure was low because he was dehydrated and is on 3 different medications, 1 of which was a diuretic, as well as Lasix. He was on 2 medications that would could cause him to be dehydrated a nd he also had a metabolic derangement that would worsen his dehydration despite the fact he was drinking a lot of fluids. Blood pressure medications are on hold. He was taking 180 milligrams of extended release Cardizem twice a day. We will hold the evening dose, continue to give him some fluids to try to get his blood pressure up some, and then switch him to 120 mg once a day, assuming his blood pressure has improved. His other blood pressure medications and diuretics will be held. - Time Time Spent with patient: 35 or more minutes - Inpatient Certification Based on my medical assessment, after consideration of the patient's comorbidities, presenting symptoms, or acuity I expect that the services needed warrant INPATIENT care.: Yes I certify that my determination is in accordance with my understanding of Medicare's requirements for reasonable and necessary INPATIENT services [42 CFR 412.3e].: Yes Medical Necessity: Need Close Monitoring Due to Risk of Patient Decompensation, Need For IV Fluids, Risk of Complication if Not Cared For in Hospital
--- NOTE | 2019-11-26 20:04 | RADIOLOGY REPORT (SQ) ---
EXAM DESCRIPTION: CHEST SINGLE VIEW COMPLETED DATE/TIME: 11/26/2019 7:39 pm REASON FOR STUDY: sob COMPARISON: CT chest 10/18/2019 Chest films 09/23/2017, 10/18/2019, 10/22/2019 EXAM PARAMETERS: NUMBER OF VIEWS: One view. TECHNIQUE: Single frontal radiographic view of the chest acquired. RADIATION DOSE: NA LIMITATIONS: None. FINDINGS: LUNGS AND PLEURA: Chronic interstitial increased markings are present around the periphery of both lungs. Mixed alveolar and interstitial infiltrates seen on 10/26/2019 and 10/22/2019 have res olved. No pleural effusions. No pneumothorax. MEDIASTINUM AND HILAR STRUCTURES: No masses. Contour normal. HEART AND VASCULAR STRUCTURES: Heart normal in size. Normal vasculature. BONES: No acute findings. HARDWARE: None in the chest. OTHER: No other significant finding. IMPRESSION: NO ACUTE RADIOGRAPHIC FINDING IN THE CHEST. BASELINE APPEARANCE OF THE LUNGS TECHNICAL DOCUMENTATION: JOB ID: [id number] [employer]- All Rights Reserved Reading location - IP/workstation name: [id number]
[2019-11-26] MEDS: HEPARIN SOD (PORCINE) 5,000 UNIT/ML 1 ML VIAL SUBCUT SCH (21:27)
[2019-11-26] MEDS: INSULIN LISPRO 100 UNIT/ML 3 ML VIAL SUBCUT SCH (21:27)
[2019-11-26] MEDS: NORMAL SALINE 1000 ML 1,000 ML IV PRN (21:28)
[2019-11-26 23:42] LABS: APPEARANCE,URINE CLEAR; BILIRUBIN,URINE NEGATIVE (NEGATIVE); COLOR,URINE YELLOW; GLUCOSE, URINE 50 mg/dL (NEGATIVE); KETONES,URINE NEGATIVE (NEGATIVE); PROTEIN,URINE 30 mg/dL (NEGATIVE); URINE SPECIFIC GRAVITY 1.011; UROBILINOGEN,URINE NEGATIVE mg/dL (<2.0)
[2019-11-27 03:02] LABS: HEMATOCRIT 31.8 % (37.9-51.0); HEMOGLOBIN 11.4 g/dL (13.5-17.0); MEAN CORPUSCULAR HEMOGLOBIN 30.7 pg (27.0-33.4); MEAN CORPUSCULAR HGB CONC 35.8 g/dL (32.0-36.0); MEAN CORPUSCULAR VOLUME 86 fl (80-97); PLATELET COUNT 596 10^3/uL (150-450); RED CELL DISTRIBUTION WIDTH 15.8 % (11.5-14.0); WHITE BLOOD COUNT 10.4 10^3/uL (4.0-10.5)
[2019-11-27 03:19] LABS: ANION GAP 9 (5-19); BLOOD UREA NITROGEN 56 mg/dL (7-20); CALCIUM 9.1 mg/dL (8.4-10.2); CARBON DIOXIDE 29 mmol/L (22-30); CHLORIDE 94 mmol/L (98-107); GLUCOSE 221 mg/dL (75-110); POTASSIUM 3.6 mmol/L (3.6-5.0)
[2019-11-27] MEDS: HEPARIN SOD (PORCINE) 5,000 UNIT/ML 1 ML VIAL SUBCUT SCH ×3 (05:49→21:06)
[2019-11-27] MEDS: NORMAL SALINE 1000 ML 1,000 ML IV PRN ×2 (05:49→19:52)
[2019-11-27] MEDS: INSULIN LISPRO 100 UNIT/ML 3 ML VIAL SUBCUT SCH ×4 (07:50→21:05)
[2019-11-27] MEDS: DILTIAZEM HCL 120 MG CAP.SR.24H PO SCH (10:00)
[2019-11-27] MEDS: FLUTICASONE/VILANTEROL 200-25 MCG/DOSE IH SCH (10:00)
--- NOTE | 2019-11-27 18:10 | PDOC PROGRESS REPORT ---
Subjective Progress Note for:: 11/27/19 Subjective:: No adverse events overnight. He said that he is not having to go urinate as much despite the fact that he has been drinking fluids and we have been given him IV fluids. His hemoglobin A1c was 9.8%. Reason For Visit: NEW ONSET DIABETES, HILLARY, DEHYDRATION Physical Exam Vital Signs: Temp Pulse Resp BP Pulse Ox 97.4 F 88 20 130/66 H 97 11/27/19 15:52 11/27/19 15:52 11/27/19 15:52 11/27/19 15:52 11/27/19 15:52 Intake & Output 11/26/19 11/27/19 11/28/19 06:59 06:59 06:59 Intake Total 2400 360 Output Total 900 325 Balance 1500 35 Weight 86.2 kg General appearance: PRESENT: no acute distress, cooperative, disheveled, hard of hearing, obese Respiratory exam: PRESENT: clear to auscultation lobito, symmetrical, unlabored. ABSENT: accessory muscle use, chest wall tenderness, crackles, prolonged expiratory phas, retraction, rhonchi, tachypnea, wheezes Cardiovascular exam: PRESENT: RRR, +S1, +S2 Pulses: PRESENT: normal carotid pulses Vascular exam: PRESENT: normal capillary refill GI/Abdominal exam: PRESENT: normal bowel sounds, soft. ABSENT: distended, guarding, rebound, tenderness Extremities exam: ABSENT: clubbing, pedal edema Musculoskeletal exam: PRESENT: normal inspection. ABSENT: deformity Neurological exam: PRESENT: alert, awake, oriented to person, oriented to place, oriented to time, oriented to situation Results Laboratory Results: 11/27/19 02:51 11/27/19 02:51 11/26/19 11/26/19 11/26/19 17:40 18:55 21:19 WBC RBC Hgb Hct MCV MCH MCHC RDW Plt Count Sodium Potassium Chloride Carbon Dioxide Anion Gap BUN Creatinine Est GFR ( Amer) Glucose Lactic Acid 2.2 H 2.5 H 1.4 Calcium Urine Color Urine Appearance Urine pH Ur Specific [place] Urine Protein Urine Glucose (UA) Urine Ketones Urine Blood Urine RBC (Auto) 11/26/19 11/27/19 11/27/19 23:18 02:51 02:51 WBC 10.4 RBC 3.70 L Hgb 11.4 L Hct 31.8 L MCV 86 MCH 30.7 MCHC 35.8 RDW 15.8 H Plt Count 596 H Sodium 132.4 L Potassium 3.6 Chloride 94 L Carbon Dioxide 29 Anion Gap 9 BUN 56 H Creatinine 1.56 H Est GFR ( Amer) 53 L Glucose 221 H Lactic Acid Calcium 9.1 Urine Color YELLOW Urine Appearance CLEAR Urine pH 5.0 Ur Specific [place] 1.011 Urine Protein 30 H Urine Glucose (UA) 50 H Urine Ketones NEGATIVE Urine Blood NEGATIVE Urine RBC (Auto) 0 11/26/19 11/26/19 11/27/19 15:15 21:19 02:51 Troponin I 0.027 0.022 0.023 11/27/19 09:06 Troponin I 0.016 Impressions: Head CT 11/26/19 16:11 IMPRESSION: 1. No acute intracranial hemorrhage, mass, or evidence of acute territorial infarct. 2. Mild chronic small vessel ischemic change. 3. Intracranial atherosclerosis. EVIDENCE OF ACUTE STROKE: NO. Chest X-Ray 11/26/19 18:27 IMPRESSION: NO ACUTE RADIOGRAPHIC FINDING IN THE CHEST. BASELINE APPEARANCE OF THE LUNGS Assessment and Plan - Diagnosis (1) Hyperglycemia Is this a current diagnosis for this admission?: Yes Plan: Patient is diabetic. Not sure if he is type I or type II. Blood sugars have improved on a sliding scale, but we will add some Lantus this evening. We will make sure he has follow-up with an data acquisition technician. (2) Chest pain Qualifiers: Chest pain type: unspecified Qualified Code(s): R07.9 - Chest pain, unspecified Is this a current diagnosis for this admission?: Yes Plan: Resolved, troponins were negative (3) HILLARY (acute kidney injury) Is this a current diagnosis for this admission?: Yes Plan: Improving with IV fluids (4) Dehydration Is this a current diagnosis for this admission?: Yes Plan: Improving with IV fluids (5) End stage COPD Is this a current diagnosis for this admission?: Yes Plan: Stable and at baseline - Plan Summary Summary: The story that he gives is suspicious for development of new onset diabetes. I will check a hemoglobin A1c. We are giving him some insulin and some IV fluids to try to get his blood sugar control. We will do Accu-Cheks before meals at bedtime and put him on insulin sliding scale. We will put him on a consistent carbohydrate diet. The last time his cholesterol was checked here his triglycerides and his LDL and total cholesterol were all elevated so we will put him on a cardiac diet as well. His blood pressure was low because he was dehydrated and is on 3 different medications, 1 of which was a diuretic, as well as Lasix. He was on 2 medications that would could cause him to be dehydrated and he also had a metabolic derangement that would worsen his dehydration despite the fact he was drinking a lot of fluids. Blood pressure medications are on hold. He was taking 180 milligrams of extended release Cardizem twice a day. We will hold the evening dose, continue to give him some fluids to try to get his blood pressure up some, and then switch him to 120 mg once a day, assuming his blood pressure has improved. His other blood pressure medications and diuretics will be held. - Time Time Spent with patient: 15-24 minutes
[2019-11-27] MEDS ORDERED: ACETAMINOPHEN 325 MG TABLET ONE (19:48)
[2019-11-27] MEDS: ACETAMINOPHEN 325 MG TABLET PO PRN (19:52)
[2019-11-27] MEDS ORDERED: INSULIN GLARGINE,HUM.REC.ANLOG 1,000 UNIT/10 ML VIAL SUBCUT SCH (22:00)
[2019-11-28] MEDS: HEPARIN SOD (PORCINE) 5,000 UNIT/ML 1 ML VIAL SUBCUT SCH ×2 (05:35→14:45)
[2019-11-28] MEDS: NORMAL SALINE 1000 ML 1,000 ML IV PRN (05:35)
[2019-11-28 05:48] LABS: HEMATOCRIT 31.5 % (37.9-51.0); HEMOGLOBIN 11.2 g/dL (13.5-17.0); MEAN CORPUSCULAR HGB CONC 35.6 g/dL (32.0-36.0); MEAN CORPUSCULAR VOLUME 87 fl (80-97); PLATELET COUNT 532 10^3/uL (150-450); RED BLOOD COUNT 3.62 10^6/uL (4.35-5.55); WHITE BLOOD COUNT 8.5 10^3/uL (4.0-10.5)
[2019-11-28 06:17] LABS: ANION GAP 9 (5-19); BLOOD UREA NITROGEN 44 mg/dL (7-20); CALCIUM 9.5 mg/dL (8.4-10.2); CARBON DIOXIDE 29 mmol/L (22-30); CHLORIDE 99 mmol/L (98-107); GLUCOSE 185 mg/dL (75-110)
[2019-11-28] MEDS: INSULIN LISPRO 100 UNIT/ML 3 ML VIAL SUBCUT SCH ×3 (08:13→16:49)
[2019-11-28] MEDS: FLUTICASONE/VILANTEROL 200-25 MCG/DOSE IH SCH (09:30)
[2019-11-28] MEDS: DILTIAZEM HCL 120 MG CAP.SR.24H PO SCH (09:31)
[2019-11-28] MEDS: ACETAMINOPHEN 325 MG TABLET PO PRN (10:54)
[2019-11-28 16:43] VITALS: BP 158/87
--- NOTE | 2019-11-28 17:24 | PDOC DISCHARGE SUMMARY ---
Impression - Admit/DC Date/PCP Admission Date/Primary Care Provider: 11/26/19 18:16 RANDALL MURCIA PA-C Discharge Date: 11/28/19 - Discharge Diagnosis (1) Hyperglycemia Is this a current diagnosis for this admission?: Yes (2) Chest pain Is this a current diagnosis for this admission?: Yes (3) HILLARY (acute kidney injury) Is this a current diagnosis for this admission?: Yes (4) Dehydration Is this a current diagnosis for this admission?: Yes (5) End stage COPD Is this a current diagnosis for this admission?: Yes - Assessment Summary: The story that he gives is suspicious for development of new onset diabetes. I will check a hemoglobin A1c. We are giving him some insulin and some IV fluids to try to get his blood sugar control. We will do Accu-Cheks before meals at bedtime and put him on insulin sliding scale. We will put him on a consistent carbohydrate diet. The last time his cholesterol was checked here his triglycerides and his LDL and total cholesterol were all elevated so we will put him on a cardiac diet as well. His blood pressure was low because he was dehydrated and is on 3 different medications, 1 of which was a diuretic, as well as Lasix. He was on 2 medications that would could cause him to be dehydrated and he also had a metabolic derangement that would worsen his dehydration despite the fact he was drinking a lot of fluids. Blood pressure medications are on hold. He was taking 180 milligrams of extended release Cardizem twice a day. We will hold the evening dose, continue to give him some fluids to try to get his blood pressure up some, and then switch him to 120 mg once a day, assuming his blood pressure has improved. His other blood pressure medications and diuretics will be held. - Additional Information Resuscitation Status: Full Code Discharge Diet: Cardiac, Diabetic Discharge Activity: Balance Activity w/Rest, Energy Conservation, Slowly Increase Activity Referrals: RANDALL MURCIA PA-C [Primary Care Provider] - 12/03/19 10:00 am ( ) Prescriptions: Blood-Glucose Meter [Blood Glucose Monitoring] 1 each MC BIDACBS #1 kit Insulin NPH Hum/Reg Insulin Hm [Novolin 70-30 Flexpen] 24 unit SQ BIDACBS #1 insuln.pen Home Medications: Acetaminophen [Tylenol] 650 mg PO Q4HP PRN 11/26/19 Aspirin [Aspirin 81 mg Chewable Tablet] 81 mg PO DAILY 11/26/19 Atorvastatin Calcium [Lipitor 20 mg Tablet] 20 mg PO QHS 11/26/19 Brimonidine Tartrate [Alphagan 0.2% Oph Soln 5 ml] 1 drop OU Q12 11/26/19 Diltiazem HCl [Cardizem Cd 180 mg Capsule] 180 mg PO Q12 11/26/19 Famotidine [Pepcid 20 mg Tablet] 20 mg PO Q12 11/26/19 Fluticasone/Salmeterol [Advair 250-50 Diskus 14 Dose/Diskus] 1 puff IH Q12 11/26/19 Furosemide [Lasix 20 mg Tablet] 20 mg PO QAM 11/26/19 Ipratropium/Albuterol Sulfate [Duoneb 3 ml Ampul] 3 ml NEB RTQ6HP PRN 11/26/19 Losartan Potassium 100 mg PO DAILY 11/26/19 Prednisone [Deltasone 10 mg Tablet] 30 mg PO DAILY 11/26/19 Timolol Maleate [Timoptic 0.5% Oph Soln 5 ml] 1 drop OU Q12 11/26/19 Tiotropium [place] [Spiriva Handihaler 5 Cap/Kit (18 Mcg/Cap)] 1 cap IH DAILY 11/26/19 Tramadol HCl [Ultram 50 mg Tablet] 50 mg PO Q8HP PRN 11/26/19 Venlafaxine HCl ER [Effexor Xr 75 mg Cap.sr] 75 mg PO Q12 11/26/19 Blood-Glucose Meter [Blood Glucose Monitoring] 1 each BIDACBS #1 kit 11/28/19 Insulin NPH Hum/Reg Insulin Hm [Novolin 70-30 Flexpen] 24 unit SQ BIDACBS #1 insuln.pen 11/28/19 History of Present Illiness History of Present Illness: LUTHER LIPSCOMB is a 74 year old male who was hospitalized here for 18 days and September into early October of this year for kidney infection and then he developed a pneumonia which worsened his already poor lung function and he was sent home on oxygen. He says that ever since then, he has had increased thirst and increased frequency of large-volume urination. He said he is never had a problem with his blood sugar in the past. I looked back in the old labs that we have on him and a hemoglobin A1c was done in January of last year and it was normal at 5.2%. He said he does not take medicine for diabetes at home, but he says that when he went home they changed up all of his blood pressure medications because they were having so much trouble controlling his blood pressure when he was hospitalized for that long stretch of time. At home he takes losartan, extended release Cardizem twice a day, and HCTZ for blood pressure. He also takes Lasix because he said he retained fluid. He said that he has been having some intermittent chest pain for a few days and saw a doctor that made a home visit that recommended that he go see his primary care doctor. He made an appointment and went in today, and when he was there, he said he got really dizzy and was told that he passed out but he does not remember that. He said his blood pressure at the appointment was low. He said he been taking it at home and that his pressures at home had also been low. He said that he has been drinking 6-8 large cups of water a day, and he gets up several times [facility] to [facility]inate and usually drinks a glass of water at that time because he is so thirsty. His blood pressure was low, with a systolic in the 80s, and it has responded to some IV fluids. His BUN and creatinine were elevated above their baseline. He also had a blood sugar of 436. He said the last thing he ate today was an omelette around 10:00 this morning, and he has not had anything to eat or drink since that time until he got to the emergency department around 2 PM. The only thing he has had since then has been some water. Hospital Course Hospital Course: He responded to insulin and IV fluids. We held most of his blood pressure medications and his blood pressure improved. He should be able to resume all of them without trouble as his blood pressures come up nicely, but I told him to stop taking the HCTZ as he is already taking Lasix. I think he will be fine on just the losartan and diltiazem. His creatinine actually trended down below his typical baseline. His hemoglobin A1c was 9.8%, so he is definitely diabetic. We I have arranged for him to have follow-up with an carry out clerk and shelf stocker here in town. I am not sure if he is type I or type II. We have put him on an insulin regimen that will be easier for him to follow, NovoLog 70/30, 24 units twice a day. I have prescribed him a glucometer and have instructed him to check his blood sugar before breakfast and before his evening meal and to record his blood sugars so that he can show the carry out clerk and shelf stocker how well this regimen is controlling him and to help guide future treatment choices. His labs and examination were reassuring and he was discharged in stable condition. Physical Exam Vital Signs: Temp Pulse Resp BP Pulse Ox 97.9 F 100 19 158/87 H 100 11/28/19 15:16 11/28/19 15:16 11/28/19 15:16 11/28/19 15:16 11/28/19 15:16 Intake & Output 11/27/19 11/28/19 11/29/19 06:59 06:59 06:59 Intake Total 2400 3300 1000 Output Total 900 1925 Balance 1500 1375 1000 Weight 86.2 kg 83.9 kg General appearance: PRESENT: no acute distress, cooperative, disheveled, hard of hearing, obese Respiratory exam: PRESENT: clear to auscultation lobito, symmetrical, unlabored. ABSENT: accessory muscle use, chest wall tenderness, crackles, prolonged expiratory phas, retraction, rhonchi, tachypnea, wheezes Cardiovascular exam: PRESENT: RRR, +S1, +S2 Pulses: PRESENT: normal carotid pulses Vascular exam: PRESENT: normal capillary refill GI/Abdominal exam: PRESENT: normal bowel sounds, soft. ABSENT: distended, guarding, rebound, tenderness Extremities exam: ABSENT: clubbing, pedal edema Musculoskeletal exam: PRESENT: normal inspection. ABSENT: deformity Neurological exam: PRESENT: alert, awake, oriented to person, oriented to place, oriented to time, oriented to situation Results Laboratory Results: WBC 8.5 10^3/uL (4.0-10.5) 11/28/19 04:58 RBC 3.62 10^6/uL (4.35-5.55) L 11/28/19 04:58 Hgb 11.2 g/dL (13.5-17.0) L 11/28/19 04:58 Hct 31.5 % (37.9-51.0) L 11/28/19 04:58 MCV 87 fl (80-97) 11/28/19 04:58 MCH 31.0 pg (27.0-33.4) 11/28/19 04:58 MCHC 35.6 g/dL (32.0-36.0) 11/28/19 04:58 RDW 16.0 % (11.5-14.0) H 11/28/19 04:58 Plt Count 532 10^3/uL (150-450) H 11/28/19 04:58 Lymph % (Auto) Not Reportable 11/26/19 15:15 [place] % (Auto) Not Reportable 11/26/19 15:15 Eos % (Auto) Not Reportable 11/26/19 15:15 Baso % (Auto) Not Reportable 11/26/19 15:15 Absolute Neuts (auto) Not Reportable 11/26/19 15:15 Absolute Lymphs (auto) Not Reportable 11/26/19 15:15 Absolute Monos (auto) Not Reportable 11/26/19 15:15 Absolute Eos (auto) Not Reportable 11/26/19 15:15 Absolute Basos (auto) Not Reportable 11/26/19 15:15 Total Counted 100 11/26/19 15:15 Seg Neutrophils % Not Reportable 11/26/19 15:15 Seg Neuts % (Manual) 55 % (42-78) 11/26/19 15:15 Lymphocytes % (Manual) 31 % (13-45) 11/26/19 15:15 Atypical Lymphs % 1 % (0) 11/26/19 15:15 Monocytes % (Manual) 9 % (3-13) 11/26/19 15:15 Eosinophils % (Manual) 1 % (0-6) 11/26/19 15:15 Basophils % (Manual) 2 % (0-2) 11/26/19 15:15 Metamyelocytes % 1 % (0-1) 11/26/19 15:15 Abs Neuts (Manual) 6.6 10^3/uL (1.7-8.2) 11/26/19 15:15 Abs Lymphs (Manual) 3.7 10^3/uL (0.5-4.7) 11/26/19 15:15 Abs Monocytes (Manual) 1.1 10^3/uL (0.1-1.4) 11/26/19 15:15 Absolute Eos (Manual) 0.1 10^3/uL (0.0-0.6) 11/26/19 15:15 Abs Basophils (Manual) 0.2 10^3/uL (0.0-0.2) 11/26/19 15:15 Platelet Comment INCREASED 11/26/19 15:15 Polychromasia SLIGHT 11/26/19 15:15 Anisocytosis SLIGHT 11/26/19 15:15 PT 13.1 SEC (11.4-15.4) 11/26/19 15:15 INR 0.99 11/26/19 15:15 VBG pH 7.33 (7.30-7.42) 11/26/19 17:40 VBG pCO2 61.6 mmHg (35-63) 11/26/19 17:40 VBG HCO3 31.4 mmol/L (20-32) 11/26/19 17:40 VBG Base Excess 3.7 mmol/L 11/26/19 17:40 Sodium 136.5 mmol/L (137-145) L 11/28/19 04:58 Potassium 4.0 mmol/L (3.6-5.0) 11/28/19 04:58 Chloride 99 mmol/L (98-107) 11/28/19 04:58 Carbon Dioxide 29 mmol/L (22-30) 11/28/19 04:58 Anion Gap 9 (5-19) 11/28/19 04:58 BUN 44 mg/dL (7-20) H 11/28/19 04:58 Creatinine 1.26 mg/dL (0.52-1.25) H 11/28/19 04:58 Est GFR ( Amer) > 60 (>60) 11/28/19 04:58 Est GFR (MDRD) Non-Af 56 (>60) L 11/28/19 04:58 Glucose 185 mg/dL (75-110) H 11/28/19 04:58 POC Glucose 228 mg/dL (70-110) H 11/28/19 15:20 Hemoglobin A1c % 9.8 % (4.7-6.0) H 11/26/19 21:19 Lactic Acid 1.4 mmol/L (0.7-2.1) 11/26/19 21:19 Calcium 9.5 mg/dL (8.4-10.2) 11/28/19 04:58 Total Bilirubin 0.7 mg/dL (0.2-1.3) 11/26/19 15:15 Direct Bilirubin 0.2 mg/dL (0.0-0.4) 11/26/19 15:15 Neonat Total Bilirubin Not Reportable 11/26/19 15:15 Neonat Direct Bilirubin Not Reportable 11/26/19 15:15 Neonat Indirect Bili Not Reportable 11/26/19 15:15 AST 18 U/L (17-59) 11/26/19 15:15 ALT 18 U/L (<50) 11/26/19 15:15 Alkaline Phosphatase 207 U/L (38-126) H 11/26/19 15:15 Troponin I 0.016 ng/mL 11/27/19 09:06 Total Protein 7.3 g/dL (6.3-8.2) 11/26/19 15:15 Albumin 4.1 g/dL (3.5-5.0) 11/26/19 15:15 Urine Color YELLOW 11/26/19 23:18 Urine Appearance CLEAR 11/26/19 23:18 Urine pH 5.0 (5.0-9.0) 11/26/19 23:18 Ur Specific [place] 1.011 11/26/19 23:18 Urine Protein 30 mg/dL (NEGATIVE) H 11/26/19 23:18 Urine Glucose (UA) 50 mg/dL (NEGATIVE) H 11/26/19 23:18 Urine Ketones NEGATIVE mg/dL (NEGATIVE) 11/26/19 23:18 Urine Blood NEGATIVE (NEGATIVE) 11/26/19 23:18 Urine Nitrite (Reflex) NEGATIVE (NEGATIVE) 11/26/19 23:18 Urine Bilirubin NEGATIVE (NEGATIVE) 11/26/19 23:18 Urine Urobilinogen NEGATIVE mg/dL (<2.0) 11/26/19 23:18 Leukocyte Esterase Rfl TRACE (NEGATIVE) H 11/26/19 23:18 Urine RBC (Auto) 0 /HPF 11/26/19 23:18 U Hyaline Cast (Auto) 3 /LPF 11/26/19 23:18 Urine WBC (Reflex) 3 /HPF 11/26/19 23:18 Squamous Epi Cells Auto <1 /HPF 11/26/19 23:18 Urine Mucus (Auto) RARE /LPF 11/26/19 23:18 Urine Ascorbic Acid NEGATIVE (NEGATIVE) 11/26/19 23:18 11/26/19 11/26/19 11/27/19 15:15 21:19 02:51 Troponin I 0.027 0.022 0.023 11/27/19 09:06 Troponin I 0.016 Impressions: Head CT 11/26/19 16:11 IMPRESSION: 1. No acute intracranial hemorrhage, mass, or evidence of acute territorial infarct. 2. Mild chronic small vessel ischemic change. 3. Intracranial atherosclerosis. EVIDENCE OF ACUTE STROKE: NO. Chest X-Ray 11/26/19 18:27 IMPRESSION: NO ACUTE RADIOGRAPHIC FINDING IN THE CHEST. BASELINE APPEARANCE OF THE LUNGS Plan Time Spent: Greater than 30 Minutes Stroke Is this a Stroke Patient?: No Acute Heart Failure - Is this a Heart Failure Patient?: No
== END 2019-11-28 16:45 | disposition home or self-care (01) | DRG 638 ==
LOC: ER 14:26 → EH 18:16 → 4W 20:15
PROVIDERS: ADMIT Family Medicine; ATTEND Family Medicine
DX: E11.65 Type 2 diabetes mellitus with hyperglycemia (principal); N17.9 Acute kidney failure, unspecified; E78.5 Hyperlipidemia, unspecified; I95.9 Hypotension, unspecified; I10 Essential (primary) hypertension; E86.0 Dehydration; J44.9 Chronic obstructive pulmonary disease, unspecified; R06.81 Apnea, not elsewhere classified; R55 Syncope and collapse; G43.909 Migraine, unspecified, not intractable, without status migrainosus; B19.20 Unspecified viral hepatitis C without hepatic coma; Z87.891 Personal history of nicotine dependence; Z82.61 Family history of arthritis; Z82.49 Family history of ischemic heart disease and other diseases of the circulatory system; Z82.3 Family history of stroke; Z80.52 Family history of malignant neoplasm of bladder; Z88.1 Allergy status to other antibiotic agents; Z88.8 Allergy status to other drugs, medicaments and biological substances; Z79.51 Long term (current) use of inhaled steroids
CPT/HCPCS: 36415; 70450; 71045; 80048; 80053; 81001; 82803; 82962; 83036; 83605; 84484; 85025; 85027; 85610; 87040; 87086; 93005; 93010; 96360; 99285; J1644; J1815; J3490; J7030

== ENCOUNTER → 2020-07-10 | Outpatient (CLI) | payer MEDICAID, MEDICARE ==
--- NOTE | 2020-07-11 14:58 | RADIOLOGY REPORT (SQ) ---
EXAM DESCRIPTION: MRI HEAD COMBO IMAGES COMPLETED DATE/TIME: 07/10/2020 10:55 am REASON FOR STUDY: G43.009 MIGRAINE W/O AURA, NOT INTRACTABLE, W/O STATUS MIGRAINOSUS G43.009 MIGRAI NE W/O AURA, NOT INTRACTABLE, W/O STATUS MIGRA COMPARISON: None. TECHNIQUE: Multiplanar imaging includes noncontrasted T1, T2, FLAIR, diffusion with ADC map and post gadolinium contrast T1 sequences. Images stored on PACS. CONTRAST TYPE AND DOSE: 10 mL Prohance. RENAL FUNCTION: Not indicated. ACR Type II contrast agent associated with few, if any, unconfounded cases of NSF LIMITATIONS: None. FINDINGS: ANATOMY: No anomalies. Normal vascular flow voids. Pituitary fossa normal. CSF SPACES: Normal in size and contour. No hemorrhage. CEREBRUM: Sulci and gyri normal in size and contour. Normal white matter signal on FLAIR imaging. No evidence of hemorrhage, mass, or extraaxial fluid collection. No abnormal enhancement post contrast. POSTERIOR FOSSA: No signal alteration. No hemorrhage. No edema, masses, or mass effect. Internal royer tory canals, cerebellopontine angles, mastoids normal. No enhancing lesions. No abnormal enhancement post contrast. DIFFUSION IMAGING: Negative for acute or subacute infarction. ORBITS: No masses. Globes normal. PARANASAL SINUSES: No fluid levels. Mucosa normal. OTHER: No other significant finding. IMPRESSION: NORMAL MRI OF THE BRAIN WITHOUT AND WITH INTRAVENOUS GADOLINIUM CONTRAST. EVIDENCE OF ACUTE STROKE: NO. TECHNICAL DOCUMENTATION: JOB ID: [id number] 2010 [employer]- All Rights Reserved Reading location - IP/workstation name: [email or web address]
== END ==
LOC: RAD 10:04
PROVIDERS: ATTEND Psychiatry & Neurology Neurology
DX: G43.009 Migraine without aura, not intractable, without status migrainosus (principal)
CPT/HCPCS: 70553; A9576; 82565

== ENCOUNTER 2020-08-11 08:21 | Observation (INO) | payer MEDICARE, OTHER ==
[2020-08-11 11:08] LABS: ABSOLUTE BASOPHILS # (AUTO) 0.1 10^3/uL (0.0-0.2); ABSOLUTE EOSINOPHILS # (AUTO) 0.7 10^3/uL (0.0-0.6); ABSOLUTE LYMPHOCYTES (AUTO) 1.4 10^3/uL (0.5-4.7); ABSOLUTE MONOCYTES (AUTO) 0.8 10^3/uL (0.1-1.4); ABSOLUTE NEUT (AUTO) 4.7 10^3/uL (1.7-8.2); BASOPHILS % (AUTO) 0.9 % (0-2); EOSINOPHILS % (AUTO) 8.9 % (0-6); HEMATOCRIT 33.5 % (37.9-51.0); HEMOGLOBIN 11.8 g/dL (13.5-17.0); MEAN CORPUSCULAR HEMOGLOBIN 31.4 pg (27.0-33.4); MEAN CORPUSCULAR HGB CONC 35.1 g/dL (32.0-36.0); MEAN CORPUSCULAR VOLUME 89 fl (80-97); MONOCYTES % (AUTO) 10.5 % (3-13); PLATELET COUNT 319 10^3/uL (150-450); RED BLOOD COUNT 3.75 10^6/uL (4.35-5.55); RED CELL DISTRIBUTION WIDTH 13.9 % (11.5-14.0); SEGMENTED NEUTROPHILS % (AUTO) 61.7 % (42-78); TOTAL CELLS COUNTED % (AUTO) 100 %; WHITE BLOOD COUNT 7.7 10^3/uL (4.0-10.5)
[2020-08-11 11:14] LABS: APPEARANCE,URINE CLEAR; BILIRUBIN,URINE NEGATIVE (NEGATIVE); COLOR,URINE YELLOW; GLUCOSE, URINE NEGATIVE (NEGATIVE); KETONES,URINE NEGATIVE (NEGATIVE); LEUKOCYTE ESTERASE,URINE NEGATIVE (NEGATIVE); NITRITE,URINE NEGATIVE (NEGATIVE); PROTEIN,URINE 30 mg/dL (NEGATIVE); URINE SPECIFIC GRAVITY 1.015; UROBILINOGEN,URINE NEGATIVE mg/dL (<2.0)
[2020-08-11 11:28] LABS: ALBUMIN 4.9 g/dL (3.5-5.0); ALKALINE PHOSPHATASE 122 U/L (38-126); ANION GAP 17 (5-19); ASPARTATE AMINO TRANSFERASE 30 U/L (17-59); BILIRUBIN,DIRECT 0.4 mg/dL (0.0-0.4); BILIRUBIN,TOTAL 0.6 mg/dL (0.2-1.3); BLOOD UREA NITROGEN 78 mg/dL (7-20); CALCIUM 9.8 mg/dL (8.4-10.2); CARBON DIOXIDE 22 mmol/L (22-30); CHLORIDE 101 mmol/L (98-107); GLUCOSE 120 mg/dL (75-110); POTASSIUM 4.5 mmol/L (3.6-5.0); TOTAL PROTEIN 7.9 g/dL (6.3-8.2)
[2020-08-11] MEDS ORDERED: NORMAL SALINE 1000 ML 1,000 ML IV ONE ×2 (12:14→13:24)
--- NOTE | 2020-08-11 14:12 | RADIOLOGY REPORT (SQ) ---
EXAM DESCRIPTION: CT HEAD WITHOUT IMAGES COMPLETED DATE/TIME: 08/11/2020 1:32 pm REASON FOR STUDY: confusion COMPARISON: 11/26/2019. TECHNIQUE: Axial images acquired through the brain without intravenous contrast. Images reviewed wi th bone, brain and subdural windows. Additional sagittal and coronal reconstructions were generated. Images stored on PACS. All CT scanners at this facility use dose modulation, iterative reconstruction, and/or weight based d osing when appropriate to reduce radiation dose to as low as reasonably achievable (ALARA). [facility]: Dose Right [facility]: CareDose [facility]: Dose Right [facility]: Teradose 4D [facility]: [employer] RADIATION DOSE: CT Rad equipment meets quality standard of care and radiation dose reduction techniq ues were employed. CTDIvol: 53.2 - 55.2 mGy. DLP: 2019 mGy-cm. mGy. LIMITATIONS: None. FINDINGS: VENTRICLES: Prominent. CEREBRUM: No masses. No hemorrhage. No midline shift. Areas of low density in the white matter mos t likely due to chronic micro-vascular ischemic change. No evidence for acute infarction. CEREBELLUM: No masses. No hemorrhage. No alteration of density. No evidence for acute infarction. EXTRAAXIAL SPACES: Mild age-related involutional change. No fluid collections. No masses. ORBITS AND GLOBE: No intra- or extraconal masses. Normal contour of globe without masses. CALVARIUM: No fracture. PARANASAL SINUSES: No fluid or mucosal thickening. SOFT TISSUES: No mass or hematoma. OTHER: No other significant finding. IMPRESSION: MILD CHRONIC CHANGES OF ATROPHY AND MICROVASCULAR ISCHEMIA. NO ACUTE PROCESS. EVIDENCE OF ACUTE STROKE: NO. TECHNICAL DOCUMENTATION: JOB ID: [id number] Quality ID # [id number]: Final reports with documentation of one or more dose reduction techniques (e.g., Au tomated exposure control, adjustment of the mA and/or kV according to patient size, use of iterative reconstruction technique) 2010 [employer]- All Rights Reserved Reading location - IP/workstation name: [email or web address]
--- NOTE | 2020-08-11 14:18 | RADIOLOGY REPORT (SQ) ---
EXAM DESCRIPTION: CT ABD/PELVIS NO ORAL OR IV IMAGES COMPLETED DATE/TIME: 08/11/2020 1:32 pm REASON FOR STUDY: distention/pain COMPARISON: 10/09/2019. TECHNIQUE: CT scan of the abdomen and pelvis performed without intravenous or oral contrast. Images reviewed with lung, soft tissue, and bone windows. Reconstructed coronal and sagittal MPR images revi ewed. All images stored on PACS. All CT scanners at this facility use dose modulation, iterative reconstruction, and/or weight based d osing when appropriate to reduce radiation dose to as low as reasonably achievable (ALARA). [facility]: Dose Right [facility]: CareDose [facility]: Dose Right [facility]: Teradose 4D [facility]: [employer] RADIATION DOSE: CT Rad equipment meets quality standard of care and radiation dose reduction techniq ues were employed. CTDIvol: 14.4 mGy. DLP: 887 mGy-cm.mGy. LIMITATIONS: None. FINDINGS: LOWER CHEST: Chronic scarring. NON-CONTRASTED LIVER, SPLEEN, ADRENALS: Evaluation limited by lack of IV contrast. No identified sign ificant masses. PANCREAS: No masses. No peripancreatic inflammatory changes. GALLBLADDER: No identified stones by CT criteria. No inflammatory changes to suggest cholecystitis. RIGHT KIDNEY AND URETER: Stable hyperdense lesion in the lower pole, likely a hyperdense cyst. Assess ment limited by lack of IV contrast. No significant calcifications. No hydronephrosis or hydroure ter. LEFT KIDNEY AND URETER: Stable cortical cysts. Assessment limited by lack of IV contrast. No signif icant calcifications. No hydronephrosis or hydroureter. AORTA AND RETROPERITONEUM: Diffuse calcifications. No aneurysm. No retroperitoneal masses or adenopa thy. BOWEL AND PERITONEAL CAVITY: No obvious masses or inflammatory changes. No free fluid. APPENDIX: Normal. PELVIS, BLADDER, AND ABDOMINAL WALL:No abnormal masses. No free fluid. Bladder normal. BONES: No significant findings. Degenerative changes in the spine. OTHER: No other significant finding. IMPRESSION: NO SIGNIFICANT OR ACUTE PROCESS IN THE ABDOMEN OR PELVIS. STABLE RENAL CYSTS. COMMENT: Quality ID # [id number]: Final reports with documentation of one or more dose reduction techniques (e.g., Automated exposure control, adjustment of the mA and/or kV according to patient size, use of iterative reconstruction technique) TECHNICAL DOCUMENTATION: JOB ID: [id number] 2011 [employer]- All Rights Reserved Reading location - IP/workstation name: [email or web address]
--- NOTE | 2020-08-11 14:42 | ER Document Report ---
ED General - General Chief Complaint: Inability to Void Stated Complaint: FLANK PAIN Time Seen by Provider: 08/11/20 11:54 Primary Care Provider: RANDALL MURCIA PA-C [Primary Care Provider] - Follow up as needed Information source: Relative - TRAVEL OUTSIDE OF THE [place] IN LAST 30 DAYS: No - HPI Notes: Patient is brought in by for altered mental status. Patient is confused and cannot contribute significantly to history. states that yesterday evening patient began to act confused and was awake most of the night. She states he is doing things like spreading tiles all over the floor and putting me in a coffee pot as well as knocking things over that are unusual. Patient is also been speaking nonsense per the . She states that he had a similar episode of this a year ago which she felt was actually worse. She states at th at time she was told that it was secondary to dehydration. She states the patient drinks alcohol occasionally in the last time he had a drink that she knows of was 4 days ago. She states she does not know of any pain medication, psychiatric medication or illicit drug use. There is been no known trauma. No known vomiting or diarrhea. She states patient has been complaining of some belly pain for the last several days. No known diarrhea or fevers. - Related Data Allergies/Adverse Reactions: lisinopril [Lisinopril] Allergy (Verified 08/11/20 09:37) moxifloxacin HCl [From Avelox] Allergy (Verified 08/11/20 09:37) Past Medical History - General Information source: Relative - - Social History Smoking Status: Former Smoker Chew tobacco use (# tins/day): No Frequency of alcohol use: Occasional Drug Abuse: None Family History: Arthritis - Rheumatoid arthritis, CAD, CVA - Cerebral hemorrhage, Malignancy - Bladder cancer, Other - Rheumatic fever Patient has homicidal ideation: No - Past Medical History Cardiac Medical History: Reports: Hx Hypercholesterolemia, Hx Hypertension Denies: Hx Coronary Artery Disease, Hx Heart Attack Pulmonary Medical History: Reports: Hx Bronchitis, Hx COPD, Hx Pneumonia, Hx Sleep Apnea Neurological Medical History: Reports: Hx Migraine. Denies: Hx Cerebrovascular Accident, Hx Seizures Endocrine Medical History: Denies: Hx Diabetes Mellitus Type 1, Hx Diabetes Mellitus Type 2, Hx Hyperthyroidism, Hx Hypothyroidism Renal/ Medical History: Reports: Hx Benign Prostatic Hyperplasia, Hx Renal Insufficiency. Denies: Hx Peritoneal Dialysis GI Medical History: Reports: Hx Hepatitis - Hepatitis C. Denies: Hx Cirrhosis, Hx Crohn's Disease, Hx Ulcerative Colitis Musculoskeletal Medical History: Reports Hx Arthritis, Reports Hx Fibromyalgia, Reports Hx Gout Skin Medical History: Denies Hx Eczema, Denies Hx Psoriasis Psychiatric Medical History: Reports: Hx Depression Infectious Medical History: Reports: Hx Hepatitis - Hepatitis C Past Surgical History: Reports: Hx Abdominal Surgery - umbilical hernia repair, Hx Herniorrhaphy - Umbilical repair, Hx Orthopedic Surgery - right shoulder, left knee, Other - Sinus surgery, cataract extraction - Immunizations Hx Diphtheria, Pertussis, Tetanus Vaccination: No - unknown Hx Pneumococcal Vaccination: 10/23/12 Review of Systems - Review of Systems -: Yes ROS unobtainable due to patient's medical condition - Patient is altered and cannot give review of symptoms Physical Exam - Vital signs Vitals: Temp Pulse Resp BP Pulse Ox 97.6 F 95 17 141/83 H 92 08/11/20 08:33 08/11/20 08:33 08/11/20 08:33 08/11/20 08:33 08/11/20 08:33 Interpretation: Normal - General General appearance: Alert, Anxious - HEENT Head: Normocephalic, Atraumatic Eyes: Normal Pupils: PERRL - Respiratory Respiratory status: No respiratory distress Chest status: Nontender Breath sounds: Normal Chest palpation: Normal - Cardiovascular Rhythm: Regular Heart sounds: Normal auscultation Murmur: No - Abdominal Inspection: Normal Distension: Distended Bowel sounds: Hypoactive Tenderness: Nontender Organomegaly: No organomegaly - Back Back: Normal, Nontender - Extremities General upper extremity: Normal inspection, Nontender, Normal color, Normal ROM, Normal temperature General lower extremity: Normal inspection, Nontender, Normal color, Normal ROM, Normal temperature, Normal weight bearing. No: Gemma's sign - Neurological Cognition: Confused Romelia Coma Scale Eye Opening: Spontaneous [place] Coma Scale Verbal: Confused [place] Coma Scale Motor: Localizes to Pain Romelia Coma Scale Total: 13 Speech: Dysarthria - Psychological Associated symptoms: Agitated, Restlessness - Skin Skin Temperature: Warm Skin Moisture: Dry Skin Color: Normal Course - Re-evaluation Re-evalutation: 08/11/20 14:41 Patient is brought in by for altered mental status. Here patient is o bviously confused and appears to have delirium. Head CT and abdominal CT are unremarkable. He does appear dehydrated with some acute renal failure and therefore will be resuscitated with normal saline. An obvious cause of the delirium is not present at this time. - Vital Signs Vital signs: Temp Pulse Resp BP Pulse Ox 97.6 F 95 14 143/102 H 92 08/11/20 09:37 08/11/20 08:33 08/11/20 13:01 08/11/20 13:01 08/11/20 13:01 - Laboratory Result Diagrams: 08/11/20 10:30 08/11/20 10:30 Laboratory results interpreted by me: 08/11/20 08/11/20 08/11/20 10:30 10:30 10:30 RBC 3.75 L Hgb 11.8 L Hct 33.5 L Eos % (Auto) 8.9 H Absolute Eos (auto) 0.7 H BUN 78 H Creatinine 3.58 H Est GFR ( Amer) 20 L Est GFR (MDRD) Non-Af 17 L Glucose 120 H Lipase 440.2 H Urine Protein 30 H - Diagnostic Test Radiology reviewed: Image reviewed, Reports reviewed Discharge - Discharge Clinical Impression: Dehydration, Delirium Acute renal failure Qualifiers: Acute renal failure type: unspecified Qualified Code(s): N17.9 - Acute kidney failure, unspecified Condition: Serious Disposition: ADMITTED INPATIENT Admitting Provider: Edil (Hospitalist) Unit Admitted: IMCU Referrals: RANDALL MURCIA PA-C [Primary Care Provider] - Follow up as needed
[2020-08-11 16:36] LABS: URINE AMPHETAMINES SCREEN NEGATIVE; URINE BARBITURATES SCREEN NEGATIVE; URINE COCAINE SCREEN NEGATIVE; URINE MARIJUANA (THC) SCREEN NEGATIVE; URINE METHADONE SCREEN NEGATIVE; URINE PHENCYCLIDINE SCREEN NEGATIVE
[2020-08-11 16:38] LABS: URINE BENZODIAZEPINES SCREEN UNCONFIRMED POSITIVE
[2020-08-11] MEDS ORDERED: MAGNESIUM HYDROXIDE SUSP 30 ML UDCUP PO PRN (16:41)
[2020-08-11] MEDS ORDERED: ONDANSETRON 4 MG TAB.RAPDIS PO PRN (16:41)
[2020-08-11] MEDS ORDERED: ACETAMINOPHEN 325 MG TABLET PO PRN (16:41)
[2020-08-11] MEDS ORDERED: NORMAL SALINE 1000 ML 1,000 ML IV PRN (16:41)
[2020-08-11] MEDS ORDERED: IPRATROPIUM/ALBUTEROL 0.5-2.5 MG/3 ML AMPUL NEB PRN (16:41)
[2020-08-11] MEDS ORDERED: MAG HYDROX/AL HYDROX/SIMETH SUSP 30 ML UDCUP PO PRN (16:41)
--- NOTE | 2020-08-11 19:09 | PDOC H&P ---
History of Present Illness Admission Date/PCP: 08/11/20 14:59 RANDALL MURCIA PA-C Patient complains of: Altered mental status, dehydration History of Present Illness: LUTHER LIPSCOMB is a 75 year old male who was brought into the ED on 08/11/2020 by his with concerns regrading acute changes in his mental status. Patient is confused and unable to contribute to history on my evaluation. Information regarding HPI obtained in ED from patient's . Kong chau pt's was not present during my evaluation and did not answer phone when called, I plan to continue to contact her for further information regarding patient's case. Per ED documentation pt's reported concerns regarding change in pt's mental status x1 day ago. Pt reportedly acting confused with non-sense speech and altered behavior including putting meat in coffee pot, knocking things over, and spreading tiles over the floor. Pt reportedly with similar presentation x1 year ago. Occasional EtOH consumption reported, with most recent x4 days ago. denied pain medications, psychiatric medications or illict drug use. denied trauma. denied fever, NVD. Pt was able to communicate to me that he has frequent migraine HAs, for which he treats with "approximately 20 Tylenol pills a day". Confirmation of frequent migraines as documented in previous visits. Pt also communicates that he and his have been under a significant amount of stress as they have recently taken on caring for their grandchildren. He was unable to answer further questions regarding this. Upon further questioning pt reports HAs and abdominal pain but otherwise denies fever, chills, CP, SOB, cough, palpitations, or NVD. Evaluation in the ED pt is afebirle and hemodynamically stable. BP elevated at 147/78. CBC significant for normocytic anemia with elevated eosinophils (8.9). Chemestries with elevated BUN (78), creatinine (3.58) and lipase (440.2). Proteinuria and hyaline casts noted on UA. Urine toxicology positive for opiates and benzodiazepines. CT head and CT abdomen unremarkable. Pt received IVF and was subsequential admitted to the hospitalist team for further evaluation and treatment. Pt records reviewed. Pt seen at hospital rather frequently with most recent visit 11/2019 regarding new onset DM, HILLARY and dehydration. Pt with hospital admission from 01/2019 - regarding altered mental status with associated hallucinations. TIA work up completed at that time, treated with ASA and statins. Further evaluation and tx included that for migraine HAs, he was started on verapamil for cluster SANTANA prophylaxis and was told to f/u with neurology as outpatient. Past Medical History Cardiac Medical History: Reports: Hyperlipidema, Hypertension Denies: Coronary Artery Disease, Myocardial Infarction Pulmonary Medical History: Reports: Bronchitis, Chronic Obstructive Pulmonary Disease (COPD), Pneumonia, Sleep Apnea EENT Medical History: Reports: Cataracts Neurological Medical History: Reports: Migraine Denies: Seizures Endocrine Medical History: Reports: Diabetes Mellitus Type 2 Denies: Diabetes Mellitus Type 1, Hyperthyroidism, Hypothyroidism Renal/ Medical History: Reports: Chronic Kidney Disease GI Medical History: Reports: Hepatitis - Hepatitis C Denies: Cirrhosis, Crohn's Disease, Ulcerative Colitis Musculoskeltal Medical History: Reports: Arthritis, Fibromyalgia, Gout Skin Medical History: Denies: Eczema, Psoriasis Psychiatric Medical History: Reports: Depression, General Anxiety Disorder Hematology: Reports: Anemia Infectious Medical History: Reports: Hepatitis C Past Surgical History Past Surgical History: Reports: Herniorrhaphy - Umbilical repair, Orthopedic Surgery - right shoulder, left knee, Other - Sinus surgery, cataract extraction Social History Information Source: Patient, POA - [employer], [facility] Records Lives with: Family Smoking Status: Former Smoker Electronic Cigarette use?: No Frequency of Alcohol Use: Occasional Hx Recreational Drug Use: No Drugs: None Hx Prescription Drug Abuse: No - Per prior records previously treated for chronic pain 2017 compliance issue - Advance Directive Resuscitation Status: Full Code Family History Family History: Arthritis - Rheumatoid arthritis, CAD, CVA - Cerebral hemorrhage, Malignancy - Bladder cancer, Other - Rheumatic fever Parental Family History Reviewed: Yes Children Family History Reviewed: Yes Sibling(s) Family History Reviewed.: Yes Medication/Allergy Allergies/Adverse Reactions: lisinopril [Lisinopril] Allergy (Verified 08/11/20 09:37) moxifloxacin HCl [From Avelox] Allergy (Verified 08/11/20 09:37) Review of Systems ROS unobtainable: Other - ROS limited, information documented in ROS may be unreliable due to pt's AMS. Information documented as per ED note. Constitutional: ABSENT: chills, fever(s) Eyes: ABSENT: visual disturbances Nose, Mouth, and Throat: PRESENT: headache(s) Cardiovascular: ABSENT: chest pain, dyspnea on exertion Respiratory: ABSENT: cough, dyspnea Gastrointestinal: PRESENT: abdominal pain. ABSENT: diarrhea, nausea, vomiting Genitourinary: ABSENT: difficulty urinating, dysuria, hematuria Musculoskeletal: ABSENT: back pain Integumentary: ABSENT: pruritus, rash Neurological: PRESENT: abnormal speech, confusion, frequent falls. ABSENT: abnormal gait Psychiatric: ABSENT: hallucinations Endocrine: ABSENT: flushing, polydipsia, polyphagia, polyuria Physical Exam Vital Signs: Temp Pulse Resp BP Pulse Ox 97.6 F 95 10 L 143/102 H 94 08/11/20 09:37 08/11/20 08:33 08/11/20 15:00 08/11/20 13:01 08/11/20 15:00 Intake & Output 08/10/20 08/11/20 08/12/20 06:59 06:59 06:59 Intake Total 1999 Balance 1999 Weight 92.986 kg General appearance: PRESENT: obese, other - Somnoluent on exam. Head exam: PRESENT: atraumatic, normocephalic Eye exam: PRESENT: conjunctiva pink, PERRLA. ABSENT: nystagmus Mouth exam: PRESENT: dry mucosa, tongue midline Neck exam: PRESENT: full ROM. ABSENT: carotid bruit, JVD, tenderness, thyromegaly Respiratory exam: PRESENT: rales - fine rales bilaterally, symmetrical, unlabored. ABSENT: accessory muscle use Cardiovascular exam: PRESENT: RRR, +S1, +S2. ABSENT: diastolic murmur, systolic murmur Pulses: PRESENT: normal radial pulses GI/Abdominal exam: PRESENT: normal bowel sounds, soft. ABSENT: distended, guarding, tenderness Rectal exam: PRESENT: deferred Gentrourinary exam: PRESENT: indwelling catheter Extremities exam: PRESENT: full ROM. ABSENT: calf tenderness, clubbing, pedal edema, tenderness Musculoskeletal exam: PRESENT: full ROM. ABSENT: deformity, dislocation Neurological exam: PRESENT: altered - Confused, awake - Somnoluent, oriented to person, oriented to place, other - dysarthria. ABSENT: oriented to time - Believes it is Monday, oriented to situation - Unaware as to why he is in the hospital Psychiatric exam: PRESENT: anxious Focused psych exam: PRESENT: restlessness Skin exam: PRESENT: dry, intact, warm Results Laboratory Results: 08/11/20 10:30 08/11/20 10:30 08/11/20 08/11/20 08/11/20 10:30 10:30 10:30 WBC 7.7 RBC 3.75 L Hgb 11.8 L Hct 33.5 L MCV 89 MCH 31.4 MCHC 35.1 RDW 13.9 Plt Count 319 Seg Neutrophils % 61.7 Sodium 139.5 Potassium 4.5 Chloride 101 Carbon Dioxide 22 Anion Gap 17 BUN 78 H Creatinine 3.58 H Est GFR ( Amer) 20 L Glucose 120 H Calcium 9.8 Total Bilirubin 0.6 AST 30 Alkaline Phosphatase 122 Total Protein 7.9 Albumin 4.9 Lipase 440.2 H Urine Color YELLOW Urine Appearance CLEAR Urine pH 5.0 Ur Specific [place] 1.015 Urine Protein 30 H Urine Glucose (UA) NEGATIVE Urine Ketones NEGATIVE Urine Blood NEGATIVE Urine Nitrite NEGATIVE Ur Leukocyte Esterase NEGATIVE Urine WBC (Auto) 1 Urine RBC (Auto) 0 Impressions: Head CT 08/11/20 11:56 IMPRESSION: MILD CHRONIC CHANGES OF ATROPHY AND MICROVASCULAR ISCHEMIA. NO ACUTE PROCESS. EVIDENCE OF ACUTE STROKE: NO. Abdomen/Pelvis CT 08/11/20 12:05 IMPRESSION: NO SIGNIFICANT OR ACUTE PROCESS IN THE ABDOMEN OR PELVIS. STABLE RENAL CYSTS. Assessment and Plan - Diagnosis (1) Altered mental status Qualifiers: Altered mental status type: transient alteration of awareness Qualified Code(s): R40.4 - Transient alteration of awareness Is this a current diagnosis for this admission?: Yes Plan: Urine toxicology: positive for opiates and benzodiazepines Chemistries notable for elevated BUN (78) and Creatinine (3.58) CT head, CT abdomen and pelvis unremarkable UA without signs of infection, UC pending Afebrile, without leukocytosis, BC pending Both intoxication and dehydration serve as possible cause of AMS with infection less likely. IVF initiated CIWA protocol (2) Benzodiazepine intoxication Is this a current diagnosis for this admission?: Yes Plan: Urine toxicology + benzodiazepines No known hx of benzo use Unknown as to if currently rx'd benzos Plan to discuss with for further clarification (3) Acute narcotic intoxication with delirium Is this a current diagnosis for this admission?: Yes Plan: Urine toxicology + opiates Per previous documentation pt with hx of narcotic use for chronic pain Unknown if currently rx'd Discuss with for further clarification (4) Ispma-st-setprfe kidney injury Qualifiers: Chronic kidney disease stage: stage 3 (moderate) Is this a current diagnosis for this admission?: Yes Plan: BUN 78 (Previous labs reviewed, baseline 50s) Creatinine 3.58 (Previous labs reviewed, baseline 1.40s) eGFR 17 (Previous labs reviewed, 11/2019 56 on discharge) Proteinuria (30) consistent with baseline, as noted on previous labs. History of CKD Stage III Suspect secondary to dehydration IVF initiated Continue to monitor on daily BMP (5) Dehydration Is this a current diagnosis for this admission?: Yes Plan: As indicated with elevated BUN and Cr, and hyaline casts on UA. Etiology unknown at this time and difficult to determine without further detailed HPI - Med rec reviewed, pt historically taking Furosemide 20mg daily. - Unknown if pt difficulty drinking/eating Plan to discuss case with pt's . Pt's contacted without response Tx IVF Continue to monitor on BMP. (6) Serum lipase elevation Is this a current diagnosis for this admission?: Yes Plan: Lipase 440.2 Pt without s/s of pancreatitis with negative CT abdomen Etiology unknown at this time, requires further history collection from pt's . Possible causes including vomiting/diarrhea. Treatment otherwise as discussed above. (7) End stage COPD Is this a current diagnosis for this admission?: Yes Plan: As per previous documentation pt with hx of end stage COPD. Duoneb home medication resumed. (8) Hypertension Qualifiers: Hypertension type: essential hypertension Qualified Code(s): I10 - Essential (primary) hypertension Is this a current diagnosis for this admission?: Yes Plan: Pt with history of HTN Elevated BP 140/80. Initiate home BP medication. initiate Hydralazine if SBP >160. Monitor with vital q4hrs - Time Time Spent with patient: 35 or more minutes Medications reviewed and adjusted accordingly: Yes Anticipated Discharge Disposition: Home, Self Care Anticipated Discharge Timeframe: within 72 hours - Inpatient Certification Based on my medical assessment, after consideration of the patient's comorbidities, presenting symptoms, or acuity I expect that the services needed warrant INPATIENT care.: Yes I certify that my determination is in accordance with my understanding of Medicare's requirements for reasonable and necessary INPATIENT services [42 CFR 412.3e].: Yes Medical Necessity: Failure to Improve With Outpatient Therapy, Significant Comorbidiites Make Outpatient Treatment Too Risky, Need Close Monitoring Due to Risk of Patient Decompensation, Need For IV Fluids, Risk of Complication if Not Cared For in Hospital, Risk of Diagnosis Which Will Require Inpatient Eval/Care/Monitoring Post Hospital Care: D/C or Transfer Summary
[2020-08-11] MEDS ORDERED: HYDRALAZINE HCL INJ/PF 20 MG/1 ML SDV IV PRN (19:10)
[2020-08-11] MEDS: NORMAL SALINE 1000 ML 1,000 ML IV PRN (20:20)
--- NOTE | 2020-08-11 21:25 | EKG REPORT ---
SEVERITY:- ABNORMAL ECG - SINUS RHYTHM FIRST DEGREE AV BLOCK RIGHT BUNDLE BRANCH BLOCK : Confirmed by: Sukhwinder Ureña MD 11-Aug-2020 21:23:52
[2020-08-11] MEDS: HEPARIN SOD (PORCINE) 5,000 UNIT/ML 1 ML VIAL SUBCUT SCH (22:12)
[2020-08-11] MEDS: FAMOTIDINE 20 MG TABLET PO SCH (22:12)
[2020-08-11] MEDS: DILTIAZEM HCL 180 MG CAPSULE.CR PO SCH (22:12)
[2020-08-12 05:23] LABS: HEMATOCRIT 29.3 % (37.9-51.0); HEMOGLOBIN 10.3 g/dL (13.5-17.0); MEAN CORPUSCULAR HEMOGLOBIN 31.8 pg (27.0-33.4); MEAN CORPUSCULAR HGB CONC 35.3 g/dL (32.0-36.0); MEAN CORPUSCULAR VOLUME 90 fl (80-97); PLATELET COUNT 248 10^3/uL (150-450); RED BLOOD COUNT 3.25 10^6/uL (4.35-5.55); RED CELL DISTRIBUTION WIDTH 14.3 % (11.5-14.0); WHITE BLOOD COUNT 5.5 10^3/uL (4.0-10.5)
[2020-08-12] MEDS: HEPARIN SOD (PORCINE) 5,000 UNIT/ML 1 ML VIAL SUBCUT SCH ×3 (05:45→21:33)
[2020-08-12 05:52] LABS: ANION GAP 10 (5-19); BLOOD UREA NITROGEN 63 mg/dL (7-20); CALCIUM 9.3 mg/dL (8.4-10.2); CARBON DIOXIDE 23 mmol/L (22-30); CHLORIDE 108 mmol/L (98-107); GLUCOSE 105 mg/dL (75-110)
[2020-08-12] MEDS: DILTIAZEM HCL 180 MG CAPSULE.CR PO SCH (09:44)
[2020-08-12] MEDS: FAMOTIDINE 20 MG TABLET PO SCH ×2 (09:44→21:32)
[2020-08-12] MEDS: NORMAL SALINE 1000 ML 1,000 ML IV PRN ×2 (09:45→23:28)
--- NOTE | 2020-08-12 17:15 | PDOC PROGRESS REPORT ---
Subjective Progress Note for:: 08/12/20 Subjective:: Patient is seen on afternoon rounds. He is resting comfortably in bed and awakens when I say his name. His is sitting at his bedside and states that patient looks significantly better than he did yesterday. Patient's graciously agreed to provide me with a more detailed history as to why patient presented to the ED yesterday. Patient's states that around 0600 yesterday morning she noticed patient to be expressing altered mental status. He placed towels all over the floor as if he had spilled something, he was moving objects like her hand soap to different places in the house (she has been unable to find where he put the hands open patient does not recall), and he did not make sense when he was speaking. For example she states that patient watched his granddaughter get onto the bus and watch the bus drive away, to his mom and swallowing collected his and asked where his granddaughter was. The night prior patient had been speaking loudly in his sleep, and then got out of bed and spent the majority of the night rummaging around the house rather loudly. Patient's felt that it was necessary to bring the patient in when she found him standing with multiple medication bottles from a bag of old medications. Patient's states that she keeps all old medications in a bag and takes it to the police department for proper disposal. Unfortunately she has been unable to do this recently and the patient got into it yesterday prior to presenting to the emergency department. Per patient's patient stated that he took his medications for the day and gestured toward the bag of old medications. Of note, patient was altered prior to consumption of medications. Patient's states that she is the one who typically administers his medications to him. She confirms that he has had narcotics prescribed to him in the past, but is unaware of benzodiazepine prescriptions to herself or him. She did find multiple different colored and shaped pills on the ground when she got home from the emergency department yesterday which she suspects is secondary to her rummaging through the old medications. She notes similar episode about 1 year ago which also required admission to the hospital. She states this was associated with kidney failure and dehydration. She tells me that patient has significantly improved from yesterday and is improving quicker than he did on previous admission for similar presentation. Pt's provided me with a list of pt's medications, these were reviewed in detail with the patient's . She confirms compliance of medications, stating that she organizes pt's medications for him. Per patient patient patient consumes a large amount of Pepsi and milk, he minimally drinks water. Pt is followed by neurology for his migraines, urology for prostate enlargement (requiring biopsy), orthopedics for knee pain (requiring knee replacement), and pulmonology (regarding COPD, with recent routine visit with non-significant findings per ). Pt historically tx'd by PCP regarding depression, with venlafaxine recently d/c x2 weeks ago, as it was worsening his migraines. Pt with hx of sleep apnea treated with CPAP and is admittedly non-compliant due to difficulty sleeping with CPAP machine. Pt wit hx of smoking, quit x3 years ago. Rare alcohol use, with minimal consumption x1 week ago. Denies history of recreational drug use. The patient is sleeping throughout my conversation with his , but occasionally awakes to add input. Patient is able to tell me that today is in fact his 's birthday. He is able to maintain a conversation though remains somnolent. When asked how he is feeling compared to yesterday he replies "still not good" though he is unable to elaborate on why or symptoms. Upon questioning her confirms SANTANA but states that this is constant. Confirms left sided abd pain, denies NVD, with last BM yesterday. Confirms cough, stating this is chronic. notes bruising on the inside of his right thigh, denies known history of trauma, pt acknowledges that it is there but does not know how/when it got there. Otherwise denies fever, chills, change in vision, chest pain, palpitations, shortness of breath, or lower extremity swelling. Reason For Visit: AMS,DEHYDRATION,HILLARY,INTOXICATION Physical Exam Vital Signs: Temp Pulse Resp BP Pulse Ox 97.6 F 78 16 154/62 H 97 08/12/20 11:47 08/12/20 14:00 08/12/20 11:47 08/12/20 11:47 08/12/20 11:47 Intake & Output 08/11/20 08/12/20 08/13/20 06:59 06:59 06:59 Intake Total 2000 1000 Output Total 1250 150 Balance 750 850 Weight 93.1 kg General appearance: PRESENT: obese, other - Somnoluent on exam, though able to answer all questions appropriatly. He snoring loudly during the exam, which his states is normal. Head exam: PRESENT: atraumatic, normocephalic Eye exam: PRESENT: conjunctiva pink, EOMI Mouth exam: PRESENT: moist, tongue midline Neck exam: PRESENT: full ROM. ABSENT: JVD, lymphadenopathy, tenderness, thyromegaly, tracheal deviation Respiratory exam: PRESENT: rales - fine rales bilaterally, symmetrical, unlabored. ABSENT: chest wall tenderness, crackles Cardiovascular exam: PRESENT: RRR, +S1, +S2. ABSENT: diastolic murmur, systolic murmur Pulses: PRESENT: normal radial pulses GI/Abdominal exam: PRESENT: normal bowel sounds, soft, tenderness - TTP LLQ. ABSENT: distended, rigid Gentrourinary exam: ABSENT: indwelling catheter Extremities exam: PRESENT: full ROM. ABSENT: clubbing, pedal edema, tenderness Musculoskeletal exam: PRESENT: ambulatory, full ROM. ABSENT: deformity, dislocation Neurological exam: PRESENT: altered - Somnolent on exam. Easily aroused when I say his name., oriented to person, oriented to place, oriented to situation, other - He is able to tell me that today is [birth year] and his '[birth year] birthday, but initially speech diet is Monday. Yesterday stated that it was Monday. Monitor is Monday he corrected himself can continue to address today as Monday. Psychiatric exam: PRESENT: other - Somnolent. Focused psych exam: ABSENT: restlessness Skin exam: PRESENT: dry, intact, other - There is an area of ecchymosis noted on the medial aspect of the left anterior thigh. There is an additional area of ecchymosis on the posterior lateral aspect of the right thigh.. ABSENT: rash Results Laboratory Results: 08/12/20 04:53 08/12/20 04:53 08/11/20 08/11/20 08/12/20 10:30 16:54 04:53 WBC 5.5 RBC 3.25 L Hgb 10.3 L Hct 29.3 L MCV 90 MCH 31.8 MCHC 35.3 RDW 14.3 H Plt Count 248 Sodium Potassium Chloride Carbon Dioxide Anion Gap BUN Creatinine Est GFR ( Amer) Glucose Calcium Ammonia < 8.7 L TSH 2.53 08/12/20 04:53 WBC RBC Hgb Hct MCV MCH MCHC RDW Plt Count Sodium 141.1 Potassium 4.0 Chloride 108 H Carbon Dioxide 23 Anion Gap 10 BUN 63 H Creatinine 2.22 H Est GFR ( Amer) 35 L Glucose 105 Calcium 9.3 Ammonia TSH Impressions: Head CT 08/11/20 11:56 IMPRESSION: MILD CHRONIC CHANGES OF ATROPHY AND MICROVASCULAR ISCHEMIA. NO ACUTE PROCESS. EVIDENCE OF ACUTE STROKE: NO. Abdomen/Pelvis CT 08/11/20 12:05 IMPRESSION: NO SIGNIFICANT OR ACUTE PROCESS IN THE ABDOMEN OR PELVIS. STABLE RENAL CYSTS. Assessment and Plan - Diagnosis (1) Altered mental status Qualifiers: Altered mental status type: somnolence Qualified Code(s): R40.0 - Somnolence Is this a current diagnosis for this admission?: Yes (2) Benzodiazepine intoxication Is this a current diagnosis for this admission?: Yes (3) Acute narcotic intoxication with delirium Is this a current diagnosis for this admission?: Yes (4) Txctd-ag-jymtdgk kidney injury Qualifiers: Chronic kidney disease stage: stage 3 (moderate) Is this a current diagnosis for this admission?: Yes (5) Dehydration Is this a current diagnosis for this admission?: Yes (6) Serum lipase elevation Is this a current diagnosis for this admission?: Yes (7) End stage COPD Is this a current diagnosis for this admission?: Yes (8) Hypertension Qualifiers: Hypertension type: essential hypertension Qualified Code(s): I10 - Essential (primary) hypertension Is this a current diagnosis for this admission?: Yes - Plan Summary Summary: Altered mental status Primarily somnolent today. Improvement with fluids. Suspect secondary to uremia Urine toxicology: positive for opiates and benzodiazepines - Per 's hx pt likely took medications when already acutely altered - Pt unable to provide input at this time CT head, CT abdomen and pelvis unremarkable UA without signs of infection, UC negative Afebrile, without leukocytosis, BC pending IVF continued Most recent CIWA 0 Benzodiazepine intoxication Urine toxicology + benzodiazepines No known hx of benzo use, unknown if previous rx Pt not currently tx'd with benzos Chance pt previously rx'd benzos and took them when already altered Discuss further with pt as continues to improve Acute narcotic intoxication with delirium Urine toxicology + opiates Confirmed previous tx with narcotics Denies current rx narcotics Discuss further with pt as he continues to improve [id number]-jb-[id number] kidney injury BUN 78 -> 63 (Previous labs reviewed, baseline 50s) Creatinine 3.58 -> 2.22 (Previous labs reviewed, baseline 1.40s) eGFR 17 -> 35(Previous labs reviewed, 11/2019 56 on discharge) Proteinuria (30) consistent with baseline, as noted on previous labs. History of CKD Stage III Suspect secondary to dehydration IVF initiated Continue to monitor on daily BMP Dehydration As indicated with elevated BUN and Cr, and hyaline casts on UA. Multiple aspects of pt act as potential cause - Home medication furosemide 20mg - Per pt consumes limited amounts of water, drink primarily Pepsi and Milk Tx IVF Continue to monitor on BMP. Serum Lipase elevated Lipase 440.2 on admission Pt without s/s of pancreatitis with negative CT abdomen Etiology unknown at this time, likely secondary to kidney failure. Pt denies NV. End stage COPD As per previous documentation pt with hx of end stage COPD. Duoneb home medication resumed Hypertension Pt with history of HTN Elevated BP 140/80. Initiate home BP medication - Diltiazem and Losartan. initiate Hydralazine if SBP >160. Monitor with vital q4hrs - Time Time Spent with patient: 25-34 minutes Medications reviewed and adjusted accordingly: Yes Anticipated Discharge Disposition: Home, Self Care Anticipated Discharge Timeframe: within 24 hours
[2020-08-12] MEDS: TIMOLOL MALEATE 0.5% OPH SOLN 5 ML OU SCH (21:33)
[2020-08-12] MEDS: LOSARTAN POTASSIUM 50 MG TABLET PO SCH (21:33)
[2020-08-12] MEDS: BRIMONIDINE TARTRATE 0.2% OPH SOLN 5 ML OU SCH (21:33)
[2020-08-12] MEDS ORDERED: ATORVASTATIN CALCIUM 80 MG TABLET PO SCH (22:00)
[2020-08-13 05:38] LABS: HEMATOCRIT 30.1 % (37.9-51.0); HEMOGLOBIN 10.6 g/dL (13.5-17.0); MEAN CORPUSCULAR HEMOGLOBIN 31.8 pg (27.0-33.4); MEAN CORPUSCULAR HGB CONC 35.3 g/dL (32.0-36.0); MEAN CORPUSCULAR VOLUME 90 fl (80-97); PLATELET COUNT 244 10^3/uL (150-450); RED BLOOD COUNT 3.33 10^6/uL (4.35-5.55); RED CELL DISTRIBUTION WIDTH 14.4 % (11.5-14.0); WHITE BLOOD COUNT 5.6 10^3/uL (4.0-10.5)
[2020-08-13 06:01] LABS: ANION GAP 8 (5-19); BLOOD UREA NITROGEN 48 mg/dL (7-20); CALCIUM 9.4 mg/dL (8.4-10.2); CARBON DIOXIDE 29 mmol/L (22-30); CHLORIDE 107 mmol/L (98-107); GLUCOSE 102 mg/dL (75-110); POTASSIUM 4.3 mmol/L (3.6-5.0)
[2020-08-13] MEDS: HEPARIN SOD (PORCINE) 5,000 UNIT/ML 1 ML VIAL SUBCUT SCH ×2 (06:45→13:05)
[2020-08-13] MEDS ORDERED: (PENDING PHARMACY ID) (Umeclidinium Brm/Vilanterol Tr [Anoro Ellipta 62.5-25 Mcg Inh] 1 EA IH SCH (10:00)
[2020-08-13] MEDS ORDERED: DILTIAZEM HCL 180 MG CAPSULE.CR PO SCH (10:00)
[2020-08-13] MEDS ORDERED: ASPIRIN 81 MG TABLET, CHEWABLE PO SCH (10:00)
[2020-08-13] MEDS: LOSARTAN POTASSIUM 50 MG TABLET PO SCH (12:53)
[2020-08-13] MEDS: FAMOTIDINE 20 MG TABLET PO SCH (12:54)
[2020-08-13] MEDS: TIMOLOL MALEATE 0.5% OPH SOLN 5 ML OU SCH (12:55)
[2020-08-13] MEDS: BRIMONIDINE TARTRATE 0.2% OPH SOLN 5 ML OU SCH (12:56)
[2020-08-13 18:17] VITALS: BP 125/61
--- NOTE | 2020-08-13 18:39 | PDOC DISCHARGE SUMMARY ---
Impression - Admit/DC Date/PCP Admission Date/Primary Care Provider: 08/11/20 14:59 RANDALL MURCIA PA-C Discharge Date: 08/13/20 - Assessment Summary: Mr. Luther Lipscomb is a 75 M with PMH of mild cognitive impairment, JENAE, COPD, CAD, HTN, HLD, CKD stage III who presented to the ED from home with confusion. His stated that he had 2 days of disorientation and confusion. Per his , she found him at home "rummaging" through a bag full of old medication bottles. He reportedly took multiple pills out of different bottles and self- administered these to himself, thinking that he was taking his daily medications . Normally, his administers his medications to him. In the ED, VS were normal. Labs were notable for HILLARY. UDS was positive for opioids and BZDs. On exam, he was found to have disorientation, somnolence and he was clearly dehydrated. Altered mental status: resolved with IVF administration and time. He adamantly denies SI/HI. His states that she will dispose of all of the old medication bottles in their home following this incident. HILLARY on CKD Stage III: secondary to dehydration and resolved with IVF. Dehydration: this has been a recurring issue for this gentleman. His home furosemide 20mg daily was discontinued. Severe COPD: he was previously on home oxygen therapy and this was recently discontinued for some reason. In the hospital, he required supplemental O2, especially with ambulation. He was thus discharged home with Home O2 therapy. - Additional Information Resuscitation Status: Full Code Discharge Diet: As Tolerated Discharge Activity: Activity As Tolerated Referrals: RANDALL MURCIA PA-C [Primary Care Provider] - Follow up as needed Home Medications: Aspirin [Aspirin 81 mg Chewable Tablet] 81 mg PO DAILY 08/12/20 Atorvastatin Calcium [Lipitor 80 mg Tablet] 80 mg PO QHS 08/12/20 Brimonidine Tartrate [Alphagan 0.2% Oph Soln 5 ml] 1 drop OU Q12 08/12/20 Diltiazem HCl [Cartia Xt] 180 mg PO DAILY 08/12/20 Fremanezumab-Vfrm [Ajovy Syringe] 225 mg SQ .MONTHLY 08/12/20 Gabapentin [Neurontin] 600 mg PO TIDP PRN 08/12/20 Ipratropium/Albuterol Sulfate [Duoneb 3 ml Ampul] 3 ml NEB RTQIDP PRN 08/12/20 Losartan Potassium [Cozaar 50 mg Tablet] 50 mg PO Q12 08/12/20 Tamsulosin HCl [Flomax 0.4 mg Cap.sr] 0.4 mg PO DAILY 08/12/20 Timolol Maleate [Timoptic 0.5% Oph Soln 5 ml] 1 drop OU Q12 08/12/20 Umeclidinium Brm/Vilanterol Tr [Anoro Ellipta 62.5-25 Mcg INH] 1 each IH DAILY 08/12/20 History of Present Illiness History of Present Illness: LUTHER LIPSCOMB is a 75 year old male Physical Exam Vital Signs: Temp Pulse Resp BP Pulse Ox 97.4 F 80 18 125/61 92 08/13/20 15:41 08/13/20 15:41 08/13/20 15:41 08/13/20 15:41 08/13/20 15:41 Intake & Output 08/12/20 08/13/20 08/14/20 06:59 06:59 06:59 Intake Total 2000 2000 500 Output Total 1250 1800 400 Balance 750 200 100 Weight 93.1 kg 91.9 kg Results Laboratory Results: WBC 5.6 10^3/uL (4.0-10.5) 08/13/20 05:09 RBC 3.33 10^6/uL (4.35-5.55) L 08/13/20 05:09 Hgb 10.6 g/dL (13.5-17.0) L 08/13/20 05:09 Hct 30.1 % (37.9-51.0) L 08/13/20 05:09 MCV 90 fl (80-97) 08/13/20 05:09 MCH 31.8 pg (27.0-33.4) 08/13/20 05:09 MCHC 35.3 g/dL (32.0-36.0) 08/13/20 05:09 RDW 14.4 % (11.5-14.0) H 08/13/20 05:09 Plt Count 244 10^3/uL (150-450) 08/13/20 05:09 Lymph % (Auto) 18.0 % (13-45) 08/11/20 10:30 [place] % (Auto) 10.5 % (3-13) 08/11/20 10:30 Eos % (Auto) 8.9 % (0-6) H 08/11/20 10:30 Baso % (Auto) 0.9 % (0-2) 08/11/20 10:30 Absolute Neuts (auto) 4.7 10^3/uL (1.7-8.2) 08/11/20 10:30 Absolute Lymphs (auto) 1.4 10^3/uL (0.5-4.7) 08/11/20 10:30 Absolute Monos (auto) 0.8 10^3/uL (0.1-1.4) 08/11/20 10:30 Absolute Eos (auto) 0.7 10^3/uL (0.0-0.6) H 08/11/20 10:30 Absolute Basos (auto) 0.1 10^3/uL (0.0-0.2) 08/11/20 10:30 Seg Neutrophils % 61.7 % (42-78) 08/11/20 10:30 Sodium 144.4 mmol/L (137-145) 08/13/20 05:09 Potassium 4.3 mmol/L (3.6-5.0) 08/13/20 05:09 Chloride 107 mmol/L (98-107) 08/13/20 05:09 Carbon Dioxide 29 mmol/L (22-30) 08/13/20 05:09 Anion Gap 8 (5-19) 08/13/20 05:09 BUN 48 mg/dL (7-20) H 08/13/20 05:09 Creatinine 1.64 mg/dL (0.52-1.25) H 08/13/20 05:09 Est GFR ( Amer) 50 (>60) L 08/13/20 05:09 Est GFR (MDRD) Non-Af 41 (>60) L 08/13/20 05:09 Glucose 102 mg/dL (75-110) 08/13/20 05:09 Hemoglobin A1c % 4.8 % (4.7-6.0) 08/12/20 04:53 Calcium 9.4 mg/dL (8.4-10.2) 08/13/20 05:09 Total Bilirubin 0.6 mg/dL (0.2-1.3) 08/11/20 10:30 Direct Bilirubin 0.4 mg/dL (0.0-0.4) 08/11/20 10:30 Neonat Total Bilirubin Not Reportable 08/11/20 10:30 Neonat Direct Bilirubin Not Reportable 08/11/20 10:30 Neonat Indirect Bili Not Reportable 08/11/20 10:30 AST 30 U/L (17-59) 08/11/20 10:30 ALT 23 U/L (<50) 08/11/20 10:30 Alkaline Phosphatase 122 U/L (38-126) 08/11/20 10:30 Ammonia < 8.7 umol/L (9-33) L 08/11/20 16:54 Total Protein 7.9 g/dL (6.3-8.2) 08/11/20 10:30 Albumin 4.9 g/dL (3.5-5.0) 08/11/20 10:30 Lipase 440.2 U/L (23-300) H 08/11/20 10:30 TSH 2.53 uIU/mL (0.47-4.68) 08/11/20 10:30 Urine Color YELLOW 08/11/20 10:30 Urine Appearance CLEAR 08/11/20 10:30 Urine pH 5.0 (5.0-9.0) 08/11/20 10:30 Ur Specific [place] 1.015 08/11/20 10:30 Urine Protein 30 mg/dL (NEGATIVE) H 08/11/20 10:30 Urine Glucose (UA) NEGATIVE mg/dL (NEGATIVE) 08/11/20 10:30 Urine Ketones NEGATIVE mg/dL (NEGATIVE) 08/11/20 10:30 Urine Blood NEGATIVE (NEGATIVE) 08/11/20 10:30 Urine Nitrite NEGATIVE (NEGATIVE) 08/11/20 10:30 Urine Bilirubin NEGATIVE (NEGATIVE) 08/11/20 10:30 Urine Urobilinogen NEGATIVE mg/dL (<2.0) 08/11/20 10:30 Ur Leukocyte Esterase NEGATIVE (NEGATIVE) 08/11/20 10:30 Urine WBC (Auto) 1 /HPF 08/11/20 10:30 Urine RBC (Auto) 0 /HPF 08/11/20 10:30 U Hyaline Cast (Auto) 14 /LPF 08/11/20 10:30 Urine Bacteria (Auto) TRACE /HPF 08/11/20 10:30 Squamous Epi Cells Auto <1 /HPF 08/11/20 10:30 Urine Mucus (Auto) RARE /LPF 08/11/20 10:30 Urine Ascorbic Acid NEGATIVE (NEGATIVE) 08/11/20 10:30 Urine Opiates Screen UNCONFIRMED POSITIVE 08/11/20 10:30 Urine Methadone Screen NEGATIVE 08/11/20 10:30 Ur Barbiturates Screen NEGATIVE 08/11/20 10:30 Ur Phencyclidine Scrn NEGATIVE 08/11/20 10:30 Ur Amphetamines Screen NEGATIVE 08/11/20 10:30 U Benzodiazepines Scrn UNCONFIRMED POSITIVE 08/11/20 10:30 Urine Cocaine Screen NEGATIVE 08/11/20 10:30 U Marijuana (THC) Screen NEGATIVE 08/11/20 10:30 Serum Alcohol < 10 mg/dL (NONE DETECTED) 08/11/20 10:30 Impressions: Head CT 08/11/20 11:56 IMPRESSION: MILD CHRONIC CHANGES OF ATROPHY AND MICROVASCULAR ISCHEMIA. NO ACUTE PROCESS. EVIDENCE OF ACUTE STROKE: NO. Abdomen/Pelvis CT 08/11/20 12:05 IMPRESSION: NO SIGNIFICANT OR ACUTE PROCESS IN THE ABDOMEN OR PELVIS. STABLE RENAL CYSTS. Stroke Is this a Stroke Patient?: No Acute Heart Failure Is this a Heart Failure Patient?: No
[2020-08-13] MEDS ORDERED: INFLUENZA QUAD (6MOS+) 2020-21 VAC 0.5 ML SYR IM ONE (19:00)
== END 2020-08-13 19:15 | disposition home or self-care (01) ==
LOC: ER 08:21 → INTOOBSV 14:59 → EH 14:59 → 3W 18:43
PROVIDERS: ADMIT Hospitalist; ATTEND Physician Assistant
DX: R41.0 Disorientation, unspecified (principal); R40.0 Somnolence; N17.9 Acute kidney failure, unspecified; I12.9 Hypertensive chronic kidney disease with stage 1 through stage 4 chronic kidney disease, or unspecified chronic kidney disease; N18.30 Chronic kidney disease, stage 3 unspecified; Z23 Encounter for immunization; E86.0 Dehydration; J44.9 Chronic obstructive pulmonary disease, unspecified; Z79.899 Other long term (current) drug therapy; I25.10 Atherosclerotic heart disease of native coronary artery without angina pectoris; E78.5 Hyperlipidemia, unspecified; D64.9 Anemia, unspecified; R10.9 Unspecified abdominal pain; Z73.3 Stress, not elsewhere classified; R29.6 Repeated falls; T42.4X5A Adverse effect of benzodiazepines, initial encounter; F11.921 Opioid use, unspecified with intoxication delirium; T40.605A Adverse effect of unspecified narcotics, initial encounter; R47.1 Dysarthria and anarthria; R45.1 Restlessness and agitation; G43.909 Migraine, unspecified, not intractable, without status migrainosus; M25.569 Pain in unspecified knee; N40.0 Benign prostatic hyperplasia without lower urinary tract symptoms; S70.11XA Contusion of right thigh, initial encounter; X58.XXXA Exposure to other specified factors, initial encounter; R74.8 Abnormal levels of other serum enzymes; G47.33 Obstructive sleep apnea (adult) (pediatric); Z91.19 Patient's noncompliance with other medical treatment and regimen; Z82.3 Family history of stroke; Z82.49 Family history of ischemic heart disease and other diseases of the circulatory system; Z87.891 Personal history of nicotine dependence; Z86.19 Personal history of other infectious and parasitic diseases
CPT/HCPCS: 93005; 99285; 96360; 96361; 36415 ×3; 87040; 87086; 80307 ×2; 82140; 83690; 84443; 85025; 85027 ×2; 80048 ×2; 80053; 81001; 83036; 70450; 74176; 90686; 93010; G0378 ×2; G0008; A9270 ×12; J1644 ×3; J3490 ×2; J7030 ×2; 90471

== ENCOUNTER 2020-10-11 19:55 | Emergency (ER) | payer MEDICARE, OTHER ==
[2020-10-11] MEDS ORDERED: METHYLPREDNISOLONE INJ 125 MG/2 ML SDV IV ONE (20:34)
[2020-10-11] MEDS ORDERED: IPRATROPIUM/ALBUTEROL 0.5-2.5 MG/3 ML AMPUL NEB ONE (20:34)
--- NOTE | 2020-10-11 20:34 | ER Document Report ---
ED Medical Screen (RME) - General Stated Complaint: COUGH/FEVER/CONGESTION/DIARREAH/NAUSEA Time Seen by Provider: 10/11/20 20:17 Primary Care Provider: RANDALL MURCIA PA-C [Primary Care Provider] - Follow up as needed Mode of Arrival: Wheelchair Information source: Patient Notes: Patient is a 75-year-old male comes emergency room complaining of generalized weakness. Patient states that for the past 4 to 5 days he started feeling achy and chilled all day long. He states he gets shaking so bad he cannot stop. He states his granddaughter that lives with him and his have been trying to get him to come to the ER but is refused. He states that he has a past medical history pertinent for pulmonary fibrosis and COPD. He states that he does have a nebulizer at home but does not use it very often. He does do supplemental oxygen at night or for bed. He states he does not know if he had a fever but as stated he has been chilling. He has had a nonproductive cough. Patient states "I just feel miserable". He denies any known contacts with the coronavirus but his granddaughter does go to school. Patient denies any history of coronary or cardiac problems. Physical examination: Patient is a frail-appearing 75-year-old male who is in no apparent distress but is uncomfortable appearing. Cardiac: Patient has a tachycardic rate at 116 bpm. Lungs: Bilateral breath sounds breath sounds decreased throughout patient has a faint inspiratory and expiratory wheeze with some scattered faint rhonchi throughout all lung hicks. Abdomen: Bowel sounds present all 4 quads nontender to palpate. Examination head and upper airway show nasal mucosa mildly erythematous and edematous with some rhinorrhea noted. Posterior pharynx shows some mild erythema but no exudates. Airway is patent. TRAVEL OUTSIDE OF THE [place] IN LAST 30 DAYS: No - Related Data Allergies/Adverse Reactions: lisinopril [Lisinopril] Allergy (Verified 08/11/20 09:37) moxifloxacin HCl [From Avelox] Allergy (Verified 08/11/20 09:37) Past Medical History - Past Medical History Cardiac Medical History: Reports: Hx Hypercholesterolemia, Hx Hypertension Denies: Hx Coronary Artery Disease, Hx Heart Attack Pulmonary Medical History: Reports: Hx Bronchitis, Hx COPD, Hx Pneumonia, Hx Sleep Apnea Neurological Medical History: Reports: Hx Migraine. Denies: Hx Cerebrovascular Accident, Hx Seizures Endocrine Medical History: Reports: Hx Diabetes Mellitus Type 2. Denies: Hx Diabetes Mellitus Type 1, Hx Hyperthyroidism, Hx Hypothyroidism Renal/ Medical History: Reports: Hx Benign Prostatic Hyperplasia, Hx Renal Insufficiency. Denies: Hx Peritoneal Dialysis GI Medical History: Reports: Hx Hepatitis - Hepatitis C. Denies: Hx Cirrhosis, Hx Crohn's Disease, Hx Ulcerative Colitis Musculoskeltal Medical History: Reports Hx Arthritis, Reports Hx Fibromyalgia, Reports Hx Gout Skin Medical History: Denies Hx Eczema, Denies Hx Psoriasis Psychiatric Medical History: Reports: Hx Depression Infectious Medical History: Reports: Hx Hepatitis - Hepatitis C Past Surgical History: Reports: Hx Abdominal Surgery - umbilical hernia repair, Hx Herniorrhaphy - Umbilical repair, Hx Orthopedic Surgery - right shoulder, left knee, Other - Sinus surgery, cataract extraction - Immunizations Hx Diphtheria, Pertussis, Tetanus Vaccination: No - unknown Physical Exam - Vital signs Vitals: Temp Pulse Resp BP Pulse Ox 99 F 116 H 18 170/72 H 92 10/11/20 20:16 10/11/20 20:16 10/11/20 20:16 10/11/20 20:16 10/11/20 20:16 Course - Vital Signs Vital signs: Temp Pulse Resp BP Pulse Ox 99 F 116 H 18 170/72 H 92 10/11/20 20:16 10/11/20 20:16 10/11/20 20:16 10/11/20 20:16 10/11/20 20:16 Doctor's Discharge - Discharge Referrals: RANDALL MURCIA PA-C [Primary Care Provider] - Follow up as needed
[2020-10-11] MEDS ORDERED: MAGNESIUM SULFATE/D5W 1 GM/100 ML RTUPB IV SCH (20:45)
[2020-10-11 21:32] LABS: ABSOLUTE BASOPHILS # (AUTO) 0.1 10^3/uL (0.0-0.2); ABSOLUTE EOSINOPHILS # (AUTO) 0.3 10^3/uL (0.0-0.6); ABSOLUTE LYMPHOCYTES (AUTO) 1.2 10^3/uL (0.5-4.7); ABSOLUTE MONOCYTES (AUTO) 1.2 10^3/uL (0.1-1.4); ABSOLUTE NEUT (AUTO) 12.9 10^3/uL (1.7-8.2); BASOPHILS % (AUTO) 0.6 % (0-2); EOSINOPHILS % (AUTO) 1.6 % (0-6); HEMATOCRIT 35.9 % (37.9-51.0); HEMOGLOBIN 12.2 g/dL (13.5-17.0); LYMPHOCYTES % (AUTO) 7.7 % (13-45); MEAN CORPUSCULAR HEMOGLOBIN 30.3 pg (27.0-33.4); MEAN CORPUSCULAR VOLUME 89 fl (80-97); MONOCYTES % (AUTO) 7.7 % (3-13); PLATELET COUNT 249 10^3/uL (150-450); RED BLOOD COUNT 4.02 10^6/uL (4.35-5.55); RED CELL DISTRIBUTION WIDTH 14.3 % (11.5-14.0); SEGMENTED NEUTROPHILS % (AUTO) 82.4 % (42-78); TOTAL CELLS COUNTED % (AUTO) 100 %; WHITE BLOOD COUNT 15.7 10^3/uL (4.0-10.5)
[2020-10-11 21:48] LABS: ALBUMIN 4.4 g/dL (3.5-5.0); ALKALINE PHOSPHATASE 134 U/L (38-126); ANION GAP 10 (5-19); APPEARANCE,URINE SLIGHTLY-CLOUDY; ASPARTATE AMINO TRANSFERASE 29 U/L (17-59); BILIRUBIN,DIRECT 0.2 mg/dL (0.0-0.4); BILIRUBIN,TOTAL 0.9 mg/dL (0.2-1.3); BILIRUBIN,URINE NEGATIVE (NEGATIVE); BLOOD UREA NITROGEN 31 mg/dL (7-20); CALCIUM 9.8 mg/dL (8.4-10.2); CARBON DIOXIDE 28 mmol/L (22-30); CHLORIDE 102 mmol/L (98-107); COLOR,URINE YELLOW; GLUCOSE 108 mg/dL (75-110); GLUCOSE, URINE NEGATIVE (NEGATIVE); KETONES,URINE NEGATIVE (NEGATIVE); LEUKOCYTE ESTERASE,URINE MODERATE (NEGATIVE); NITRITE,URINE POSITIVE (NEGATIVE); POTASSIUM 4.5 mmol/L (3.6-5.0); PROTEIN,URINE 100 mg/dL (NEGATIVE); TOTAL PROTEIN 7.7 g/dL (6.3-8.2); URINE SPECIFIC GRAVITY 1.016; UROBILINOGEN,URINE NEGATIVE mg/dL (<2.0)
--- NOTE | 2020-10-11 22:58 | RADIOLOGY REPORT (SQ) ---
EXAM DESCRIPTION: Site: CHEST SINGLE VIEW RP: XR CHEST 1 VIEW CLINICAL HISTORY: 75 years Male; cough; COMPARISON: 11/26/2019 FINDINGS: Lungs: Diffuse bilateral interstitial densities, extending up to the periphery. No consolidation. No pneumothorax or pleural effusion. Mediastinum: Mediastinum is within normal limits for this positioning. Bones: Bony structures are unremarkable. IMPRESSION: 1. Bilateral interstitial prominence, either mild pulmonary edema or an atypical interstitial pneumonia. The pattern favors a mild atypical pneumonia.
[2020-10-12] MEDS ORDERED: CEFTRIAXONE INJ 1000 MG VIAL IV ONE (00:31)
[2020-10-12] MEDS ORDERED: DEXAMETHASONE SOD PHOS INJ 10 MG/1 ML VIAL IV ONE (00:46)
[2020-10-12] MEDS ORDERED: LEVALBUTEROL HCL NEB 1.25 MG/3 ML AMPUL NEB ONE (00:46)
[2020-10-12] MEDS ORDERED: AZITHROMYCIN INJ 500 MG VIAL IV ONE (00:52)
--- NOTE | 2020-10-12 00:55 | ER Document Report ---
ED General - General Chief Complaint: Flu Symptoms Stated Complaint: COUGH/FEVER/CONGESTION/DIARREAH/NAUSEA Time Seen by Provider: 10/11/20 20:17 Primary Care Provider: RANDALL MURCIA PA-C [Primary Care Provider] - Follow up in 1 week Mode of Arrival: Wheelchair Notes: Patient is a 75-year-old male with a history of pulmonary fibrosis and COPD who presents to the emergency has been to the emergency department with body aches, generally not feeling well and a slight cough. Patient's granddaughter who lives with him had a classmate who tested positive for COVID-19. He does not know if he had any contact with somebody who tested positive for COVID-19. Patient does not wear any oxygen at home. TRAVEL OUTSIDE OF THE [place] IN LAST 30 DAYS: No - Related Data Allergies/Adverse Reactions: lisinopril [Lisinopril] Allergy (Verified 08/11/20 09:37) moxifloxacin HCl [From Avelox] Allergy (Verified 08/11/20 09:37) Home Medications: flomax, gabapentin, losartan Past Medical History - General Information source: Patient - Social History Smoking Status: Former Smoker Family History: Arthritis - Rheumatoid arthritis, CAD, CVA - Cerebral hemorrhage, Malignancy - Bladder cancer, Other - Rheumatic fever - Past Medical History Cardiac Medical History: Reports: Hx Hypercholesterolemia, Hx Hypertension Denies: Hx Coronary Artery Disease, Hx Heart Attack Pulmonary Medical History: Reports: Hx Bronchitis, Hx COPD, Hx Pneumonia, Hx Sleep Apnea Neurological Medical History: Reports: Hx Migraine. Denies: Hx Cerebrovascular Accident, Hx Seizures Endocrine Medical History: Reports: Hx Diabetes Mellitus Type 2. Denies: Hx Diabetes Mellitus Type 1, Hx Hyperthyroidism, Hx Hypothyroidism Renal/ Medical History: Reports: Hx Benign Prostatic Hyperplasia, Hx Renal Insufficiency. Denies: Hx Peritoneal Dialysis GI Medical History: Reports: Hx Hepatitis - Hepatitis C. Denies: Hx Cirrhosis, Hx Crohn's Disease, Hx Ulcerative Colitis Musculoskeletal Medical History: Reports Hx Arthritis, Reports Hx Fibromyalgia, Reports Hx Gout Skin Medical History: Denies Hx Eczema, Denies Hx Psoriasis Psychiatric Medical History: Reports: Hx Depression Infectious Medical History: Reports: Hx Hepatitis - Hepatitis C Past Surgical History: Reports: Hx Abdominal Surgery - umbilical hernia repair, Hx Herniorrhaphy - Umbilical repair, Hx Orthopedic Surgery - right shoulder, left knee, Other - Sinus surgery, cataract extraction - Immunizations Hx Diphtheria, Pertussis, Tetanus Vaccination: No - unknown Hx Pneumococcal Vaccination: 10/23/12 Review of Systems - Review of Systems Notes: REVIEW OF SYSTEMS: CONSTITUTIONAL : Denies recent illness. Denies recent unintentional weight loss. See HPI. EENT: Denies eye, ear, throat, or mouth pain, discharge, or symptoms. Denies nasal or sinus congestion. CARDIOVASCULAR: Denies chest pain. RESPIRATORY: See HPI. GASTROINTESTINAL: Denies nausea, vomiting, and diarrhea. Denies abdominal pain. Denies constipation. GENITOURINARY: Denies difficulty urinating, burning, blood in urine, urgency or frequency. MUSCULOSKELETAL: Denies neck and back pain. Denies joint pain or swelling. SKIN: Denies rash, itchiness, or lesions HEMATOLOGIC : Denies easy bruising or bleeding. LYMPHATIC: Denies swollen, painful, enlarged glands. NEUROLOGICAL: Denies no numbness or tingling denies weakness. Denies headache. Denies altered mental status. Denies alteration in speech. PSYCHIATRIC: Denies stress, anxiety, alteration in sleep patterns, or depression. All other systems reviewed and negative. Physical Exam - Vital signs Vitals: Temp Pulse Resp BP Pulse Ox 99 F 116 H 18 170/72 H 92 10/11/20 20:16 10/11/20 20:16 10/11/20 20:16 10/11/20 20:16 10/11/20 20:16 - Notes Notes: PHYSICAL EXAMINATION: GENERAL: Appears well, healthy, well-nourished, no acute distress. HEAD: Normocephalic, atraumatic. EYES: PERRL, conjunctiva normal, all extraocular movements intact, sclera nonicteric ENT: Moist mucous membranes. NECK: Supple, no noticeable swelling, redness, rash. Normal range of motion. LUNGS: Diminished lung sounds in bilateral lobes. CARDIOVASCULAR: S1-S2, regular rate, regular rhythm. Radial pulses 2+, normal. ABDOMEN: Normoactive bowel sounds. Soft, nontender, no guarding, no rebound tenderness, and no masses palpated. EXTREMITIES: Normal strength and range of motion, no pitting or edema. No cyanosis. NEUROLOGICAL: Moves all extremities upon command. Strength 5/5 in all extremities. PSYCH: Normal mood, normal affect. SKIN: Warm, dry. No rash, lesions, ulcerations noted. Normal skin turgor. Course - Re-evaluation Re-evalutation: 10/12/20 00:57 Hematology shows a leukocytosis of 15,700 with a left shift. Hemoglobin is 12.2, which is actually higher than the patient's normal. Chemistries show creatinine of 1.76. This is the patient is normal. Compared result with the previous visits. Lactic acid is 1.6. Troponin is 0.025. It appears the patien t always has a troponin leak. He denies any abdominal pain. Urinalysis shows moderate amount of leukocytes in his urine with positive nitrates. He also has some blood. We will start the patient on azithromycin and Rocephin. Chest x- ray shows pulmonary edema or atypical pneumonia. We will add on BNP. Will evaluate the patient after he receives his IV antibiotics. Current oxygen saturation is 93 percent on room air. Patient states that he is normally at 97% on room air. 10/12/20 06:20 Patient ambulated in the room and oxygen saturation was 100%. Patient's heart rate was only at 103 while ambulating. Patient is sometimes on nasal cannula at home. This is usually when he is sleeping. His oxygen saturation did go down while he was sleeping throughout the night and once we found out he is on the oxygen, he was placed on oxygen and did well. CTA does not show any pulmonary emboli in the chest. He does have interstitial lung disease based off of CT. We will still continue to give him azithromycin and Keflex for pneumonia and urinary tract infection. He is in agreement with this plan. I also touch base with the patient's . She is also in agreement with this plan. The patient was evaluated during the global COVID-19 pandemic and that diagnosis was suspected/considered upon their initial presentation. Their evaluation, treatment and testing was consistent with current guidelines for patients who present with complaints or symptoms that may be related to COVID-19. Follow-up precautions were given. Verbal discharge instructions were given to the patient. They verbalized understanding. They are stable for discharge. - Vital Signs Vital signs: Temp Pulse Resp BP Pulse Ox 100.2 F 116 H 17 154/83 H 95 10/12/20 01:00 10/11/20 20:16 10/12/20 06:01 10/12/20 06:01 10/12/20 06:01 - Laboratory Results Result Diagrams: 10/11/20 21:11 10/11/20 21:11 Laboratory Results Interpreted: 10/11/20 10/11/20 10/11/20 21:11 21:11 21:11 WBC 15.7 H RBC 4.02 L Hgb 12.2 L Hct 35.9 L RDW 14.3 H Lymph % (Auto) 7.7 L Absolute Neuts (auto) 12.9 H Seg Neutrophils % 82.4 H BUN 31 H Creatinine 1.76 H Est GFR ( Amer) 46 L Est GFR (MDRD) Non-Af 38 L Alkaline Phosphatase 134 H NT-Pro-B Natriuret Pep Urine Protein 100 H Urine Blood SMALL H Urine Nitrite POSITIVE H Ur Leukocyte Esterase MODERATE H 10/11/20 21:11 WBC RBC Hgb Hct RDW Lymph % (Auto) Absolute Neuts (auto) Seg Neutrophils % BUN Creatinine Est GFR ( Amer) Est GFR (MDRD) Non-Af Alkaline Phosphatase NT-Pro-B Natriuret Pep 972 H Urine Protein Urine Blood Urine Nitrite Ur Leukocyte Esterase Critical Laboratory Results Reviewed: No Critical Results - Radiology Results Critical Radiology Results Reviewed: No Critical Results - EKG Interpretation by Me Additional EKG results interpreted by me: 10/12/20 06:24 Sinus tachycardia with a right bundle branch block and first-degree heart block. Rate 112; WV 212; QRS 130; QT 312; QTc 426. No acute change from previous EKG done on 08/11/2020 Discharge - Discharge Clinical Impression: Person under investigation for COVID-19 Pneumonia Qualifiers: Pneumonia type: due to unspecified organism Laterality: unspecified laterality Lung location: unspecified part of lung Qualified Code(s): J18.9 - Pneumonia, unspecified organism Urinary tract infection Qualifiers: Urinary tract infection type: acute cystitis Hematuria presence: with hematuria Qualified Code(s): N30.01 - Acute cystitis with hematuria Condition: Stable Disposition: HOME, SELF-CARE Instructions: COVID-19 Guidance for Persons Under Investigation, Azithromycin ([facility]), Cephalexin ([facility]) Additional Instructions: Your urine shows findings consistent with a urinary tract infection. Please ta ke all the antibiotics as directed even if your symptoms have improved. Please follow-up with your primary care physician as needed. Return to emergency room if you develop fever >101F, persistent vomiting, become lethargic, have severe pain in your sides, or any other symptoms that are concerning to you. You have been diagnosed with a pneumonia. It is very important that you take all of your antibiotics until they are gone even if you are feeling better. Please return to the emergency department immediately if you began having worsening shortness of breath, become confused, have worsening pain, pass out, have persistent vomiting that prevents you from being able to drink fluids for more than 12 hours, or have any other symptoms that are worrisome to you. Please follow-up with your primary care doctor after your Covid results come back. As a person under investigation for COVID-19, the [place] Department of Health and Human Services (division on public health) advises you to adhere to the following guidance until your test results are reported to you. If your test result is positive, you will receive additional information from your provider and your local health department at that time. Remain at home until you are cleared by the health provider or public health authorities. Keep a log of visitors to your home, notify any visitors to your home of your isolation status. If you plan to move to a new address or leave the [facility], notify the local health department in your County. Call your Doctor or seek care if you have an urgent medical need. Before seeking medical care, call him to get instructions from the provider before arriving at the medical office, clinic, or hospital. Notify them that you are being tested for the virus (COVID-19) so that arrangements can be made, as necessary, to prevent transmission to others in the healthcare setting. Next, notify the local health department in your [facility]. Prescriptions: Cephalexin [Keflex] 500 mg PO BID #14 capsule Azithromycin [Zithromax 250 mg Tablet] 250 mg PO DAILY #4 tablet Referrals: RANDALL MURCIA PA-C [Primary Care Provider] - Follow up in 1 week
[2020-10-12] MEDS ORDERED: ACETAMINOPHEN 325 MG TABLET PO ONE (02:01)
[2020-10-12] MEDS ORDERED: MAGNESIUM SULFATE/D5W 1 GM/100 ML RTUPB IV SCH (02:15)
[2020-10-12 03:16] LABS: A TYPE INFLUENZA AG NEGATIVE (NEGATIVE); B INFLUENZA AG NEGATIVE (NEGATIVE)
--- NOTE | 2020-10-12 04:04 | RADIOLOGY REPORT (SQ) ---
CT angiogram chest with contrast on 10/12/2020 at 3:18 AM CLINICAL INDICATION: Cough TECHNIQUE: Multiple axial images are obtained throughout the chest following the administration of IV contrast. Computer generated 3D reconstructions/MIPS were performed. This exam was performed according to our departmental dose-optimization program, which includes automated exposure control, adjustment of the mA and/or kV according to patient size and/or use of iterative reconstruction technique. Total DLP is 442.64 mGy*cm. COMPARISON: 10/18/2019 and 10/09/2019 FINDINGS: Mild bilateral gynecomastia is noted. There is no pleural or pericardial effusion. There is no thoracic aortic aneurysm or dissection. Coronary artery calcifications and other vascular calcifications are noted. There is slight elevation of the right hemidiaphragm. Limited visualized upper abdomen is unremarkable. There is borderline sized mediastinal adenopathy in the AP window and right paratracheal region, these appear to be stable dated back to an exam from 04/18/2018 and therefore considered benign.. Emphysematous changes of the lungs are noted. There are peripheral and basilar predominant reticular interstitial changes with some traction bronchiectasis and likely some early honeycombing in the right lower lobe consistent with a chronic underlying interstitial lung disease in a probable UIP pattern. No acute pulmonary opacity is noted. Degenerative changes are noted in the spine. There are no filling defects within the pulmonary arteries to suggest pulmonary embolus. IMPRESSION: 1. No evidence of pulmonary embolus. 2. Findings consistent with a basilar and peripheral predominant chronic interstitial lung disease in a probable UIP pattern.
[2020-10-12] MEDS ORDERED: AZITHROMYCIN 250 MG TABLET PO ONE (07:53)
[2020-10-12 07:55] VITALS: BP 142/76
--- NOTE | 2020-10-12 07:57 | EKG REPORT ---
SEVERITY:- ABNORMAL ECG - SINUS TACHYCARDIA RIGHT BUNDLE BRANCH BLOCK : Confirmed by: Howard Heath MD 12-Oct-2020 07:56:44
== END 2020-10-12 08:12 | disposition home or self-care (01) ==
LOC: ER 19:55
DX: J18.9 Pneumonia, unspecified organism (principal); J44.0 Chronic obstructive pulmonary disease with (acute) lower respiratory infection; N30.01 Acute cystitis with hematuria; N40.0 Benign prostatic hyperplasia without lower urinary tract symptoms; R05 Cough; I10 Essential (primary) hypertension; E11.9 Type 2 diabetes mellitus without complications; I45.10 Unspecified right bundle-branch block; I44.0 Atrioventricular block, first degree; R00.0 Tachycardia, unspecified; Z79.899 Other long term (current) drug therapy; Z87.891 Personal history of nicotine dependence; Z88.8 Allergy status to other drugs, medicaments and biological substances; Z20.828 Contact with and (suspected) exposure to other viral communicable diseases
CPT/HCPCS: 93005; 94640; 99285; 96375; 96365; 96366; 96368; 36415; 87040; 87086; 83605; 85025; 87088; 80053; 81001; 84484; 87186; 87804; 83880; 71045; 71275; 93010; U0003; A9270 ×3; J3475; J0696; J1100; C9803; 87635; J7614